=== PATIENT | female | born 1945 | race Caucasian/White ===

== ENCOUNTER → 2018-02-02 14:41 | Outpatient (CLI) | payer MEDICARE, OTHER, SELFPAY ==
[2018-02-01 10:40] LABS: Absolute Lymphocyte Count 1.77 X10^3/ul (0.83-4.51); Absolute Neutrophil Count 4.6 X10^3/uL (2.0-7.7); Basophil# 0.07 X10^3/uL; Basophil% 0.9 % (0-1); Eosinophil# 0.49 X10^3/uL; Eosinophils% 6.4 % (0-5); Hematocrit 41.6 % (37-47); Hemoglobin 13.7 g/dl (12.0-15.0); Lymphocyte # 1.77 X10^3/ul (4.0); Lymphocyte % 23.1 % (19-41); Mean Corp Hgb Conc 32.9 g/gl (32-36); Mean Corpuscular Hgb 31.6 pg (27.0-32.0); Mean Corpuscular Volume 95.9 fL (81-99); Mean Platelet Vol. 8.9 fl (6.2-12.0); Monocyte# 0.73 X10^3/uL; Monocyte% 9.5 % (0-10); Neutrophil # 4.55 X10^3/uL (2.7-7.7); Neutrophil % 59.3 % (47-70); Platelet Count 307 K/mm3 (150-450); RBC Distribution Width CV 13.4 % (11.6-14.6); RBC Distribution Width SD 45.5 fl (35.1-43.9); Red Blood Count 4.34 M/mm3 (4.2-5.4); White Blood Count 7.7 K/mm3 (4.4-11.0)
[2018-02-01 10:50] LABS: Erythrocyte Sedimentation Rate 15 mm/hr (0-30)
[2018-02-01 10:53] LABS: Absolute Neutrophil Count 4.6 X10^3/uL (2.0-7.7); Hematocrit 41.3 % (37-47); Hemoglobin 13.9 g/dl (12.0-15.0); Mean Corp Hgb Conc 33.7 g/gl (32-36); Mean Corpuscular Hgb 32.4 pg (27.0-32.0); Mean Corpuscular Volume 96.3 fL (81-99); POSITIVE COUNT NO; POSITIVE DIFFERENTIAL NO; POSITIVE MORPHOLOGY NO; Platelet Count 309 K/mm3 (150-450); Red Blood Count 4.29 M/mm3 (4.2-5.4); White Blood Count 7.8 K/mm3 (4.4-11.0)
[2018-02-01 11:24] LABS: Basophil 2 % (0-1); Eosinophil 3 % (0-5); Lymphocyte 30 % (19-41); Monocyte 6 % (0-10); Neutrophil-Segmented 59 % (47-70); Total Cells Counted 100 (MANUAL DIFF)
[2018-02-01 11:25] LABS: Platelet Estimate ADEQUATE (ADEQ); Red Cell Morphology NORM C+C NORMAL (NORM C&C)
[2018-02-01 11:27] LABS: RBC Distribution Width 13.4 % (11.6-14.6)
--- NOTE | 2018-02-02 14:42 | CT_ITS ---
STUDY: CT CHEST WITHOUT CONTRAST REASON FOR EXAM: Female, 72 years old. Cough and pertussis. RADIATION DOSAGE (If Supplied By Facility): CTDIvol = ( 10.12 ) mGy, DLP = ( 531.04 ) mGycm TECHNIQUE: Transaxial imaging was performed without the administration of intravenous contrast material. Multiplanar coronal and sagittal images were reformatted. Individualized dose optimization techniques were used for this CT. COMPARISON: Chest radiograph dated December 15, [address] the chest dated November 26, 2017.. FINDINGS: There is a nodular opacity within the right lower lobe, similar to the previous study. This measures approximately 1.9 cm in greatest dimension. There is some bronchiectasis within the right lower lobe. There is heterogeneous ground glass attenuation in the right lower lobe the lungs are hyperexpanded. There is a small left lower lobe pulmonary nodule best seen on axial image #183 measuring approximately 5 mm in greatest dimension. There curvilinear opacities within the left lower lobe that may represent sequela subsegmental atelectasis. The left lung appears to be clear, otherwise. There is no demonstrated pleural abnormality. Normal heart and pericardium. There are calcifications of the coronary arteries. There is enlargement of the precarinal node measuring 2.5 x 1.5 x 1.0 cm. Normal hilar regions. Normal unenhanced pulmonary arteries. There is atherosclerotic calcification of the aortic arch with tortuosity and elongation of the aortic arch and descending thoracic aorta. Maximum transverse dimension of the ascending thoracic aorta measures approximately 4.1 cm. Normal osseous structures. Appears to be a hyperplasia of left adrenal gland. There may be a left adrenal nodule measuring up to 2.3 cm. There is a splenic granuloma. CT/Chest without Contrast IMPRESSION: 1. Persistent nodular area in the right lower lobe. Suggest follow-up as per Fleischner's criteria. 2. Right lower lobe bronchiectasis and groundglass attenuation. 3. Mild dilatation of the ascending thoracic aorta. Electronically Signed: Rachel Banerjee MD at 10:33 EDT , Service support ,
[2018-02-06 06:22] LABS: Aspergillus fumigatus <0.10 kU/L (Class 0); Immunoglobulin E 109 IU/mL (0-100)
== END ==
PROVIDERS: Family Provider Internal Medicine; PCP Internal Medicine; Visit Provider Internal Medicine Pulmonary Disease
DX: R05 Cough (principal); A37.90 Whooping cough, unspecified species without pneumonia
CPT/HCPCS: 71250; 82785; 85007; 85025; 85027; 85652; 86003

== ENCOUNTER → 2018-02-23 14:56 | Outpatient (CLI) | payer MEDICARE, OTHER, SELFPAY ==
[2018-02-23 17:10] LABS: ALB/GLOB Ratio 0.9 RATIO (0.9-2.4); AST(SGOT) 25 U/L (15-37); Alanine Aminotransfer ALT/SGPT 25 U/L (13-56); Albumin, Serum 3.2 g/dL (3.2-5.0); Alkaline Phosphatase 79 U/L (45-117); Anion Gap 10 (5-15); BUN 24 mg/dL (7-18); BUN/Creat Ratio 17.3 RATIO (10-20); Calcium,Total 8.5 mg/dL (8.5-10.1); Chloride 104 mmol/L (98-107); Creatinine, Serum 1.39 mg/dL (0.55-1.02); EST Glomerular Filtration Rate 39 mL/min (>60); Est Glom Filt Rate - Afr Amer 48 mL/min (>60); Globulin 3.5 g/dL (2.2-4.2); Glucose 114 mg/dL (74-106); Potassium 4.5 mmol/L (3.5-5.1); Protein, Total 6.7 g/dL (6.4-8.2); Sodium Level 138 mmol/L (136-145); Uric Acid 3.9 mg/dL (2.6-6.0)
[2018-02-23 17:41] LABS: Absolute Lymphocyte Count 1.05 X10^3/ul (0.83-4.51); Absolute Neutrophil Count 10.7 X10^3/uL (2.0-7.7); Basophil# 0.03 X10^3/uL; Basophil% 0.2 % (0-1); Eosinophil# 0.02 X10^3/uL; Eosinophils% 0.2 % (0-5); Hemoglobin 13.5 g/dl (12.0-15.0); Lymphocyte # 1.05 X10^3/ul (4.0); Lymphocyte % 8.6 % (19-41); Mean Corp Hgb Conc 32.9 g/gl (32-36); Mean Corpuscular Hgb 31.9 pg (27.0-32.0); Mean Corpuscular Volume 96.9 fL (81-99); Mean Platelet Vol. 9.3 fl (6.2-12.0); Monocyte# 0.16 X10^3/uL; Monocyte% 1.3 % (0-10); Neutrophil # 10.67 X10^3/uL (2.7-7.7); Neutrophil % 87.5 % (47-70); Platelet Count 239 K/mm3 (150-450); RBC Distribution Width CV 13.7 % (11.6-14.6); RBC Distribution Width SD 47.4 fl (35.1-43.9); Red Blood Count 4.23 M/mm3 (4.2-5.4); White Blood Count 12.2 K/mm3 (4.4-11.0)
[2018-02-23 17:43] LABS: POSITIVE COUNT YES; POSITIVE DIFFERENTIAL NO; POSITIVE MORPHOLOGY YES
[2018-02-24 11:48] LABS: Pathologist Review Reviewed
== END ==
PROVIDERS: Family Provider Internal Medicine; PCP Internal Medicine; Visit Provider Internal Medicine Rheumatology
DX: M06.4 Inflammatory polyarthropathy (principal); Z79.899 Other long term (current) drug therapy; M10.00 Idiopathic gout, unspecified site; M79.7 Fibromyalgia; M18.0 Bilateral primary osteoarthritis of first carpometacarpal joints; M19.072 Primary osteoarthritis, left ankle and foot; K51.80 Other ulcerative colitis without complications
CPT/HCPCS: 36415; 80053; 84550; 85025

== ENCOUNTER → 2018-02-25 13:43 | Outpatient (CLI) | payer MEDICARE, OTHER, SELFPAY ==
[2018-03-01 04:08] LABS: QNTFERON TB Ag Minus Nil Value 0.12 IU/mL (.); QNTFERON TB Ag Value 0.17 IU/mL (.); QNTFERON TB Mitogen Value > 10.00 IU/mL (.); QNTFERON TB Nil Value 0.05 IU/mL (.)
[2018-03-01 10:36] LABS: QNTIFERON TB Gold Negative (Negative)
== END ==
PROVIDERS: Family Provider Internal Medicine; PCP Internal Medicine; Visit Provider Internal Medicine Pulmonary Disease
DX: R05 Cough (principal)
CPT/HCPCS: 36415; 86480

== ENCOUNTER 2018-03-16 11:24 | Day surgery (SDC) | payer MEDICARE, OTHER, SELFPAY ==
[2018-03-16] VITALS (8 sets, daily range): BP systolic 107–144; BP diastolic 65–108; PULSE 73–84; RESP 16–18; TEMP 36.3–36.9; O2SAT 97–100; BMI 33.1
--- NOTE | 2018-03-16 | LUNB_PTH ---
PATIENT: JONATHAN NASH LOC: EN U#:[id number] AGE/SX: 73/F ROOM: RE03/16/[address]: Dr. Bar Malhotra MD : 1945 BED: DIS: 03/16/2018 SPEC #: [id number] RECD: 03/16/18 14:47 STATUS: KAYLEE BINTA #: [id number] AMINA: 03/16/18 00:[address]: Bar Malhotra V DEPT: SURGICAL PATHOLOGY RECD BY: Akira Vaughn ENTERED: 03/16/18 14:49 SP TYPE: LUNG BX OTHR DR: Dr. Kamryn Hansen MD Tissues: Right lower lobe of lung, NOS Procedures: Special Stain Group I Surgery Specimen Level IV AFB Stain (control) GMS Stain (control) HEADER OPERATION: Bronchoscopy, transbronchial biopsy, bronchioalveolar lavage PRE-OP DIAGNOSIS: History aspergillus TISSUE SUBMITTED: RLL MICROSCOPIC DIAGNOSIS Right lower lobe of lung, biopsy: Bronchial and sub-bronchial epithelium with minimal chronic inflammation. Fragments of lung parenchyma with minimal interstitial chronic inflammation. AM:connie 03/17/18 COMMENT There is no evidence of active pneumonitis. AFB and GMS stains with matched controls are negative for micro-organisms. Clinical correlation is suggested. Immunohistochemistry ([id number]) supports the above diagnosis. Please correlate with corresponding cytology ([id number]). MICROSCOPIC DESCRIPTION Slides are reviewed. GROSS DESCRIPTION Received in fixative is one container labeled with the patient's name and designated right lower lobe transbronchial biopsy. The specimen consists of multiple irregular fragments of light landaverde soft tissue that in aggregate measure 0.2 x 0.1 x <0.1 cm. The specimen is totally submitted in one cassette. / AM:connie 03/16/18 TC:3 CPT: 94867, 61783 x2
--- NOTE | 2018-03-16 | IMM_PTH ---
PATIENT: JONATHAN NASH LOC: EN U#:[id number] AGE/SX: 73/F ROOM: RE03/16/[address]: Dr. Bar Malhotra MD : 1945 BED: DIS: 03/16/2018 SPEC #: [id number] RECD: 03/17/18 12:27 STATUS: KAYLEE BINTA #: [id number] AMINA: 03/16/18 00:[address]: Bar Malhotra V DEPT: IMMUNOHISTOCHEMISTRY RECD BY: Anjelica Del Rosario ENTERED: 03/17/18 12:28 SP TYPE: IMMUNO OTHR DR: Dr. Kamryn Hansen MD Tissues: Lung, NOS Procedures: Synapto (add) CD45 (add) CD56 (add) CHROMO (add) CK20 (add) P53 (add) CK7 (initial) PHYSICIAN & INSTITUTION [place] [id number] SPECIMEN INFORMATION: Tissue Source: RLL transbronchial biopsy Clinical Info: History aspergillus Specimen Number: [id number] CPT code: 18916, 57821 x6 METHODOLOGY: Deparaffinized sections of prefer/formalin-fixed tissue or PAP/DQ stained slides are incubated with monoclonal/polyclonal antibodies/oligonucleotide probes. Localization is made via biotin free immunoperoxidase method. Appropriate controls are performed and reacted as expected. Results on target cell population are indicated in the following table: RESULTS: ANTIBODY / CLONE RESULT CK7 (OV-TL12/30) positive CK20 (KS20.8) negative CD45 (RP2/18) positive, focal CD56 (123C3.D5) negative Chromo (LK2H10) negative Synapto (polyclonal) negative P53 (DO-7) negative These tests were developed and their performance characteristics determined by [facility]. They may not have been cleared or approved by the U.S. Food and Drug Administration. The FDA has determined that such clearance or approval is not necessary. INTERPRETATION: Right lower lobe of lung, transbronchial biopsy: Mild chronic inflammation. AM:connie 03/18/18
--- NOTE | 2018-03-16 | FLU_PTH ---
PATIENT: JONATHAN NASH LOC: EN U#:[id number] AGE/SX: 73/F ROOM: RE03/16/[address]: Dr. Bar Malhotra MD : 1945 BED: DIS: 03/16/2018 SPEC #: [id number] RECD: 03/16/18 14:49 STATUS: KAYLEE BINTA #: [id number] AMINA: 03/16/18 00:[address]: Bar Malhotra V DEPT: CYTOLOGY RECD BY: Akira Vaughn ENTERED: 03/16/18 14:51 SP TYPE: Fluid OTHR DR: Dr. Kamryn Hansen MD Tissues: Right lower lobe of lung, NOS Procedures: Pap Stain (control) Special Stain Group II Special Stain Group I Surgery Specimen Level IV AFB Stain (control) GMS Stain (control) Cell Block Cytospin Fluid HEADER OPERATION: Bronchoscopy, transbronchial biopsy, bronchioalveolar lavage PRE-OP DIAGNOSIS: History aspergillus TISSUE SUBMITTED: Bronchial washings for cytology DIAGNOSIS CYTOLOGY Bronchial washings for cytology (cytospin and cell block): Negative for malignant cells. Negative for acid-fast bacilli and fungal organisms. AM:connie 03/17/18 COMMENT AFB and GMS stains with matched controls support the above diagnosis. Please correlate with corresponding surgical case ([id number]). CYTOLOGY STUDY Slides are reviewed. CYTOLOGY GROSS Received is 50 ml of red cloudy fluid labeled with the patient's name and and designated per the requisition as bronchial washings. Submitted for cytology preparation including cell block. / 03/16/18 TC:5 CPT: 42566, 26486, 70430 x2
--- NOTE | 2018-03-16 13:40 | RAD_ITS ---
STUDY: X-RAY CHEST REASON FOR EXAM: Female, 73 years old. Postbronchoscopy. Follow-up. TECHNIQUE: Single frontal view of the chest. COMPARISON: December 15, 2017 FINDINGS: The lungs are clear and expanded. There is no demonstrated pleural abnormality. Normal size heart. Normal mediastinum and jaclyn. Normal visualized pulmonary arteries. Normal visualized aortic arch and descending thoracic aorta. Normal visualized thoracic spine. Normal visualized ribs, clavicles, and shoulders. There is no demonstrated abnormality of the visualized soft tissue structures of the upper abdomen. RAD/Chest 1 View (Portable) IMPRESSION: No significant interval change and no acute pathology. Electronically Signed: Holden Nascimento MD at 14:48 EDT , Service support ,
[2018-03-16 13:55] LABS: Cytology, Body Fluid / CSF SEE PATHOLOGY REPORT
[2018-03-16 15:22] LABS: Color/Body Fluid RED; Source- Body Fluid BRONCHIAL LAVAGE
[2018-03-16 15:23] LABS: Appearance/Body Fluid TURBID; White Blood Count/Body Fluid 250 /mm3
[2018-03-16 15:27] LABS: Body Fluid QC Type(s) BF2Q,BF3Q; Lymphocytes 31 %; Macrophages 1 %; Mesothelial Cells 3 %; Monocytes 11 %; Neutrophil (Segs) 54 %
[2018-03-17 12:14] LABS: Pathologist Comment/Body Fluid Reviewed
== END 2018-03-16 15:14 | disposition home or self-care (01) ==
LOC: EN 11:26
PROVIDERS: Family Provider Internal Medicine; PCP Internal Medicine; Visit Provider Internal Medicine Pulmonary Disease
PROC: 0BJ08ZZ Inspection of Tracheobronchial Tree, Via Natural or Artificial Opening Endoscopic (ICD-10-PCS; CPT 31622; principal; 2018-03-16 12:00)
DX: R05 Cough (principal); I10 Essential (primary) hypertension; K76.0 Fatty (change of) liver, not elsewhere classified; K21.9 Gastro-esophageal reflux disease without esophagitis; Z79.52 Long term (current) use of systemic steroids; Z93.2 Ileostomy status
CPT/HCPCS: 31624; 71045; 76000; 87015; 87070; 87101; 87116; 87205; 87206; 88108; 88305; 88312; 88313; 88341; 88342; 89050; J7120

== ENCOUNTER → 2018-03-24 13:18 | Outpatient (CLI) | payer MEDICARE, OTHER, SELFPAY ==
--- NOTE | 2018-03-24 13:32 | RAD_ITS ---
STUDY: X-RAY CHEST REASON FOR EXAM: Female, 73 years old. Cough for several weeks. TECHNIQUE: PA and lateral views of the chest. COMPARISON: March 16, 2018. FINDINGS: The lungs are clear and expanded. There is no demonstrated pleural abnormality. Normal size heart. Normal mediastinum and jaclyn. Normal visualized pulmonary arteries. Normal visualized aortic arch and descending thoracic aorta. Normal visualized thoracic spine. Normal visualized ribs, clavicles, and shoulders. There is no demonstrated abnormality of the visualized soft tissue structures of the upper abdomen. RAD/Chest PA and Lateral IMPRESSION: No acute cardiopulmonary disease or interval change. Electronically Signed: Van Saeed DO at 14:09 EDT Tel [phone], Service support ,
[2018-03-24 14:16] LABS: Rheumatoid Factor < 10.0 IU/mL (<15)
[2018-03-26 10:39] LABS: ANTINUCLEAR ANTIBODIES DIRECT Negative (Negative)
[2018-03-26 11:05] LABS: Angiotensin Convert Enzyme 48 U/L (14-82)
== END ==
PROVIDERS: Family Provider Internal Medicine; PCP Internal Medicine; Visit Provider Internal Medicine Pulmonary Disease
DX: R05 Cough (principal)
CPT/HCPCS: 36415; 71046; 82164; 86038; 86431

== ENCOUNTER → 2018-05-13 08:46 | Outpatient (CLI) | payer MEDICARE, OTHER, SELFPAY ==
--- NOTE | 2018-05-13 08:50 | CDU_ITS ---
Reason For Study: Tachycardia Rt. Velocities/BP Lt. Velocities/BP Prox CCA 74/13 cm/sec. Prox CCA 52/9 cm/sec. Mid CCA 65/14 cm/sec. Mid CCA 58/13 cm/sec. Dist CCA 49/15 cm/sec. Dist CCA 51/12 cm/sec. Prox ICA 30/9 cm/sec. Prox ICA 44/17 cm/sec. Mid ICA 62/20 cm/sec. Mid ICA 55/15 cm/sec. Dist ICA 67/26 cm/sec. Dist ICA 62/24 cm/sec. Rt. ICA/CCA = 1.03. Lt. ICA/CCA = 1.06. Prox ECA 67/10 cm/sec. Prox ECA 54/8 cm/sec. Rt. Vert. 35/11 cm/sec. Lt. Vert. 62/20 cm/sec. Right Extracranial There is no significant atherosclerotic plaque noted in the right common carotid artery. There is heterogeneous, smooth atherosclerotic plaque noted in the right internal carotid artery. There is no significant atherosclerotic plaque noted in the right external carotid artery. Antegrade flow is noted in the right vertebral artery. Left Extracranial There is no significant atherosclerotic plaque noted in the left common carotid artery. There is no significant atherosclerotic plaque noted in the left internal carotid artery. There is heterogeneous, irregular atherosclerotic plaque noted in the left external carotid artery. Antegrade flow is noted in the left vertebral artery. Procedure Carotid Duplex [id number]. Exam performed in department. Interpretation Summary Mild (<50%) stenosis right extracranial internal carotid. Mild (<50%) stenosis left extracranial internal carotid. Flow within the vertebral arteries is antegrade bilaterally. Ordering Physician: Kamryn Hansen Referring Physician: Kamryn Hansen Performed By: Laisha Mckenzie, GISELLECS, RVT
== END ==
PROVIDERS: Family Provider Internal Medicine; PCP Internal Medicine; Visit Provider Internal Medicine
DX: I65.23 Occlusion and stenosis of bilateral carotid arteries (principal); R00.0 Tachycardia, unspecified
CPT/HCPCS: 93225; 93226; 93880

== ENCOUNTER → 2018-05-18 12:11 | Outpatient (CLI) | payer MEDICARE, OTHER, SELFPAY ==
--- NOTE | 2018-05-18 12:14 | MRI_ITS ---
STUDY: MRI BRAIN WITH AND WITHOUT CONTRAST (ATTENTION INTERNAL AUDITORY CANALS - I.A.C.'s) REASON FOR EXAM: Female, 73 years old. NO EAR COMPALINTS, C/O DIZZINESS X 4 WEEKS. TECHNIQUE: Standardized multiplanar fat and water weighted pulse sequences were obtained. 10 ml of Gadavist contrast material was administered intravenously for the contrast portion of the examination. COMPARISON: None. FINDINGS: Normal bilateral temporal bones. Normal bilateral internal auditory canals. There is no demonstrated intracanalicular or cisternal vestibular schwannoma (acoustic neuroma). There is no enhancement of the bilateral VIIth or VIIIth cranial nerves. Normal bilateral cochlea, vestibules and semicircular canals. Normal size of the ventricles and extra-axial spaces for the patient's age. There are a limited number of small white matter hyperintensities, distributed throughout the deep white matter tracts of the cerebral hemispheres, consistent with mild chronic white matter ischemic changes. Normal bilateral basal ganglia. Normal thalami. Normal flow voids within the major intracranial circulation suggesting patency by spin echo criteria. Normal venous enhancement. There is no enhancing intra-axial or extra-axial abnormality. There is no extra-axial fluid accumulation. Normal sella turcica, pituitary gland, infundibular stalk, optic chiasm and hypothalamus. Normal tectal plate and pineal gland. Normal midbrain, waqar and medulla. Normal cerebellum. Normal basal cisterns. No demonstrated orbital abnormality, within the constraints of a routine brain study. Normal visualized paranasal sinuses. Normal calvarium and skull base. Normal visualized soft tissue structures. Normal visualized upper cervical spine. MRI/Brain W/WO Contrast IMPRESSION: Unremarkable unenhanced and enhanced MRI of the bilateral internal auditory canals (I.A.C's). Electronically Signed: Ivan Schmitt MD at 13:27 EDT Tel , Service support ,
[2018-05-18 12:45] LABS: CREATININE FINGERSTICK 0.9 mg/dL (0.55-1.02); EGFR FINGERSTICK > 60.0000 mL/min (>60)
== END ==
PROVIDERS: Family Provider Internal Medicine; PCP Internal Medicine; Visit Provider Otolaryngology
DX: R27.0 Ataxia, unspecified (principal)
CPT/HCPCS: 70553; A9585

== ENCOUNTER → 2018-07-04 09:44 | Outpatient (CLI) | payer MEDICARE, OTHER, SELFPAY | PROVIDERS: Family Provider Internal Medicine; PCP Internal Medicine; Visit Provider Internal Medicine Cardiovascular Disease | DX: R06.09 Other forms of dyspnea (principal) | CPT/HCPCS: 93306 ==

== ENCOUNTER → 2018-07-07 11:12 | Outpatient (CLI) | payer MEDICARE, OTHER, SELFPAY | PROVIDERS: Family Provider Internal Medicine; PCP Internal Medicine; Visit Provider Internal Medicine | DX: M25.562 Pain in left knee (principal) | CPT/HCPCS: 73564 ==

== ENCOUNTER → 2018-07-11 10:01 | Outpatient (CLI) | payer MEDICARE, OTHER, SELFPAY | PROVIDERS: Family Provider Internal Medicine; PCP Internal Medicine | DX: Z43.2 Encounter for attention to ileostomy (principal) | CPT/HCPCS: 99211; G0463 ==

== ENCOUNTER → 2018-07-14 14:31 | Outpatient (CLI) | payer MEDICARE, OTHER, SELFPAY | PROVIDERS: Family Provider Internal Medicine; PCP Internal Medicine; Visit Provider Internal Medicine | DX: M79.89 Other specified soft tissue disorders (principal); M25.562 Pain in left knee | CPT/HCPCS: 93971 ==

== ENCOUNTER → 2018-08-01 15:17 | Outpatient (CLI) | payer MEDICARE, OTHER, SELFPAY ==
--- NOTE | 2018-08-01 15:46 | CT_ITS ---
STUDY: CT CHEST WITHOUT CONTRAST REASON FOR EXAM: Female, 73 years old. Cough RADIATION DOSAGE (If Supplied By Facility): CTDIvol = ( 14.8 ) mGy, DLP = ( 546.16 ) mGycm TECHNIQUE: Transaxial imaging was performed without the administration of intravenous contrast material. Individualized dose optimization techniques were used for this CT. COMPARISON: None. FINDINGS: Lungs are well expanded. There are fibrotic changes in the RIGHT lower lung. There are NO infiltrates. There is no demonstrated pleural abnormality. Normal heart and pericardium. Normal mediastinum. Normal hilar regions. Normal unenhanced pulmonary arteries. There is atherosclerotic calcification of the aortic arch with tortuosity and elongation of the aortic arch and descending thoracic aorta. Normal osseous structures. There is no demonstrated abnormality of the visualized upper abdomen. CT/Chest without Contrast IMPRESSION: Lungs are well expanded. There are fibrotic changes in the RIGHT lower lung. There are NO infiltrates. There is no demonstrated pleural abnormality. Normal heart and pericardium. Electronically Signed: Gui Cramer MD at 7:30 EDT , Service support ,
[2018-08-01 17:11] LABS: CRP 7.02 mg/L (0.0-3.0)
[2018-08-01 17:14] LABS: Erythrocyte Sedimentation Rate 10 mm/hr (0-30)
== END ==
PROVIDERS: Family Provider Internal Medicine; PCP Internal Medicine; Visit Provider Internal Medicine Pulmonary Disease
DX: R05 Cough (principal)
CPT/HCPCS: 36415; 71250; 85652; 86140

== ENCOUNTER → 2018-08-20 10:56 | Outpatient (CLI) | payer MEDICARE, OTHER, SELFPAY ==
[2018-08-20 11:27] LABS: Absolute Lymphocyte Count 3.28 X10^3/ul (0.83-4.51); Absolute Neutrophil Count 7.2 X10^3/uL (2.0-7.7); Basophil# 0.08 X10^3/uL; Basophil% 0.7 % (0-1); Eosinophil# 0.22 X10^3/uL; Eosinophils% 1.8 % (0-5); Hematocrit 41.5 % (37-47); Hemoglobin 13.2 g/dl (12.0-15.0); Lymphocyte # 3.28 X10^3/ul (4.0); Lymphocyte % 27.1 % (19-41); Mean Corp Hgb Conc 31.8 g/gl (32-36); Mean Corpuscular Volume 97.4 fL (81-99); Mean Platelet Vol. 9.2 fl (6.2-12.0); Monocyte# 0.93 X10^3/uL; Monocyte% 7.7 % (0-10); Neutrophil # 7.23 X10^3/uL (2.7-7.7); Neutrophil % 59.8 % (47-70); Platelet Count 240 K/mm3 (150-450); RBC Distribution Width CV 13.8 % (11.6-14.6); RBC Distribution Width SD 48.3 fl (35.1-43.9); Red Blood Count 4.26 M/mm3 (4.2-5.4); White Blood Count 12.1 K/mm3 (4.4-11.0)
[2018-08-20 11:28] LABS: POSITIVE COUNT YES; POSITIVE DIFFERENTIAL NO; POSITIVE MORPHOLOGY YES
[2018-08-20 11:53] LABS: ALB/GLOB Ratio 0.9 RATIO (0.9-2.4); AST(SGOT) 21 U/L (15-37); Alanine Aminotransfer ALT/SGPT 28 U/L (13-56); Albumin, Serum 3.1 g/dL (3.2-5.0); Alkaline Phosphatase 70 U/L (45-117); Anion Gap 7 (5-15); BUN 23 mg/dL (7-18); BUN/Creat Ratio 20.7 RATIO (10-20); Calcium,Total 9.1 mg/dL (8.5-10.1); Chloride 105 mmol/L (98-107); Creatinine, Serum 1.11 mg/dL (0.55-1.02); EST Glomerular Filtration Rate 51 mL/min (>60); Est Glom Filt Rate - Afr Amer 62 mL/min (>60); Globulin 3.6 g/dL (2.2-4.2); Glucose 143 mg/dL (74-106); Potassium 3.8 mmol/L (3.5-5.1); Protein, Total 6.7 g/dL (6.4-8.2); Sodium Level 140 mmol/L (136-145); Uric Acid 4.6 mg/dL (2.6-6.0)
[2018-08-23 09:32] LABS: Pathologist Review Reviewed
== END ==
PROVIDERS: Family Provider Internal Medicine; PCP Internal Medicine; Referring Provider Internal Medicine Rheumatology; Visit Provider Internal Medicine Rheumatology
DX: M06.4 Inflammatory polyarthropathy (principal); M10.00 Idiopathic gout, unspecified site; M79.7 Fibromyalgia; M18.0 Bilateral primary osteoarthritis of first carpometacarpal joints; M19.072 Primary osteoarthritis, left ankle and foot; K51.80 Other ulcerative colitis without complications; Z79.899 Other long term (current) drug therapy
CPT/HCPCS: 36415; 80053; 84550; 85025

== ENCOUNTER → 2018-10-07 13:17 | Outpatient (CLI) | payer MEDICARE, OTHER, SELFPAY ==
--- NOTE | 2018-10-07 09:30 | RAD_ITS ---
STUDY: X-RAY - LUMBAR SPINE REASON FOR EXAM: Female, 73 years old. Acute back pain. TECHNIQUE: 5 view(s) of the lumbar spine were obtained. COMPARISON: None FINDINGS: There is generalized osteopenia. Normal lumbar lordosis. There is no substantial scoliosis. There is a normal alignment of the vertebrae. Normal vertebral bodies and endplates. There is intervertebral disc space narrowing most marked at L5-S1. There is diffuse facet sclerosis. There are vascular calcifications. There are tubal ligation clips in the pelvis. There is an ostomy present in the right side of the abdomen. RAD/L/S Spine Min 4 Views IMPRESSION: Osteopenia with lumbar spondylosis most marked at L5-S1. Electronically Signed: Holden Nascimento MD at 16:35 EST , Service support ,
== END ==
PROVIDERS: Family Provider Internal Medicine; PCP Internal Medicine; Referring Provider Internal Medicine; Visit Provider Internal Medicine
DX: M54.9 Dorsalgia, unspecified (principal)
CPT/HCPCS: 72110

== ENCOUNTER 2018-11-07 05:13 | Observation (INO) | payer MEDICARE, OTHER, SELFPAY ==
[2018-11-07] VITALS (18 sets, daily range): BP systolic 123–195; BP diastolic 52–92; PULSE 75–87; RESP 15–24; TEMP 36.8–37.2; O2SAT 95–98; BMI 39.8; BMI 38.4
--- NOTE | 2018-11-07 05:16 | ED.RN ---
RN CALLED FOR EKG, NO OLD EKGS IN MUSE
--- NOTE | 2018-11-07 05:28 | RAD_ITS ---
STUDY: X-RAY CHEST REASON FOR EXAM: Female, 73 years old. Chest pain TECHNIQUE: Single frontal view of the chest. COMPARISON: March 24, 2018. FINDINGS: No pneumothorax. No pleural effusion. Right basilar atelectasis. No focal consolidation. Cardiomegaly. Aortic calcifications. There are diffuse degenerative changes of the visualized thoracic spine. There is degenerative osteoarthritis of the bilateral shoulders. There is no demonstrated abnormality of the visualized soft tissue structures of the upper abdomen. RAD/Chest 1 View (Portable) IMPRESSION: There is right basilar atelectasis. Cardiomegaly. Electronically Signed: Malik Lopez, at 6:40 EST Tel , Service support ,
--- NOTE | 2018-11-07 05:28 | EKG12_ITS ---
Test Reason : CP, SOB Blood Pressure : / mmHG Vent. Rate : 078 BPM Atrial Rate : 078 BPM P-R Int : 160 ms QRS Dur : 082 ms QT Int : 374 ms P-R-T Axes : 026 030 016 degrees QTc Int : 426 ms Normal sinus rhythm Normal ECG Confirmed by MIN MORELAND, TAYLOR ([id number]), food editor BALDEMAR SAINZ ([id number] on 11/11/2018 1:21:07 PM Referred By: EFRAIN Confirmed By:TAYLOR COPELAND MD
[2018-11-07 05:51] LABS: Absolute Lymphocyte Count 3.59 X10^3/ul (0.83-4.51); Absolute Neutrophil Count 8.6 X10^3/uL (2.0-7.7); Basophil# 0.14 X10^3/uL; Eosinophil# 0.32 X10^3/uL; Eosinophils% 2.2 % (0-5); Hematocrit 40.1 % (37-47); Hemoglobin 12.8 g/dl (12.0-15.0); Lymphocyte # 3.59 X10^3/ul (4.0); Lymphocyte % 24.9 % (19-41); Mean Corp Hgb Conc 31.9 g/gl (32-36); Mean Corpuscular Volume 97.1 fL (81-99); Mean Platelet Vol. 9.1 fl (6.2-12.0); Monocyte# 1.35 X10^3/uL; Monocyte% 9.4 % (0-10); Neutrophil # 8.62 X10^3/uL (2.7-7.7); Neutrophil % 59.9 % (47-70); Platelet Count 307 K/mm3 (150-450); RBC Distribution Width CV 14.8 % (11.6-14.6); Red Blood Count 4.13 M/mm3 (4.2-5.4); White Blood Count 14.4 K/mm3 (4.4-11.0)
[2018-11-07 05:53] LABS: POSITIVE COUNT YES; POSITIVE DIFFERENTIAL NO; POSITIVE MORPHOLOGY YES
[2018-11-07] MEDS: Aspirin 81 MG TAB.CHEW 324 MG PO (05:54)
[2018-11-07 06:03] LABS: Anion Gap 8 (5-15); BUN 19 mg/dL (7-18); BUN/Creat Ratio 18.4 RATIO (10-20); Calcium,Total 8.8 mg/dL (8.5-10.1); Chloride 106 mmol/L (98-107); Creatinine, Serum 1.03 mg/dL (0.55-1.02); EST Glomerular Filtration Rate 55 mL/min (>60); Est Glom Filt Rate - Afr Amer 67 mL/min (>60); Estimated Creatinine Clearance 39.04 ml/min; Glucose 102 mg/dL (74-106); Potassium 3.9 mmol/L (3.5-5.1); Sodium Level 143 mmol/L (136-145)
[2018-11-07] MEDS: Morphine 4 MG/ML Syringe IV (06:13)
[2018-11-07] MEDS: Ondansetron 4 MG/2 ML Vial IV (06:14)
--- NOTE | 2018-11-07 07:21 | CT_ITS ---
STUDY: CTA CHEST REASON FOR EXAM: Female, 73 years old. Chest pain. Shortness of breath. Left arm pain. RADIATION DOSAGE (If Supplied By Facility): CTDIvol = ( 15.29 ) mGy, DLP = ( 555.11 ) mGycm TECHNIQUE: The examination was performed with the intravenous administration of 100CC ml of Isovue 370 contrast material. Post-processing of the angiographic images was performed, with multiplanar reformation and 3D reconstruction. Individualized dose optimization techniques were used for this CT. COMPARISON: Comparison is made to prior CT scan examination of August 01, 2018. FINDINGS: Normal enhancement of the main pulmonary artery and right and left pulmonary arteries. Normal enhancement of the bilateral peripheral pulmonary arteries. There is no demonstrated pulmonary embolism. Normal thoracic aorta and visualized great vessels. There is no demonstrated aortic dissection. There are calcifications of the coronary arteries. There are visualized mediastinal lymph nodes, which are within normal size limits, and with normal morphology. Normal hilar regions. Normal visualized trachea and bronchi. The lungs are well expanded. Increased interstitial markings with areas of confluence in both lower lobes. This is suggestive of bibasilar atelectasis. This was not present on prior study. Normal pleura. Normal chest wall structures. There are degenerative changes of thoracic spine. There is fatty infiltration of the liver. CT/CTA Chest W/WO Contrast IMPRESSION: There is no evidence of pulmonary embolism. Increased interstitial markings at the lung bases with areas of confluence suggestive of atelectasis superimposed on scarring. Electronically Signed: Vito Loyola MD at 8:20 EST Tel [phone], Service support ,
--- NOTE | 2018-11-07 07:27 | ED.DCSUM_ITS ---
- ER Visit Summary Date of Service: 11/07/18 Chief Complaint: Chest pain History of Present Illness: The patient is a 73 F who presents with chest pain. No history of prior similar symptoms. About 2-1/2 hours before presentation she had sudden onset of moderate left-sided chest pain which she describes as a tightness. She also complains of nausea and a feeling of indigestion and burping. She complains of feeling short of breath. No diaphoresis. No recent travel surgery prior history of DVT or pulmonary embolism. No known coronary artery disease. Physical Examination: Initial blood pressure 195/92 vitals otherwise unremarkable Moist mucous membranes Heart regular rate and rhythm Lungs are clear Abdomen soft 2+ symmetric palpable radial pulses but she does have cyanosis of the fingertips capillary refill of 4 seconds. Alert Test Results: EKG shows normal sinus rhythm at a rate of 78. Chest x-ray shows cardiomegaly and right basilar atelectasis. Labs are notable for white blood cell count 14.4. Troponin is negative. CTA of the chest is pending. Emergency Department Course and Treatment: Given patient's initial cyanosis of the bilateral digits with chest pain I was concerned about possible vascular etiology. However this rapidly resolved and on reevaluation her fingers are pink and warm with normal capillary refill. Patient's description of symptoms sounds more concerning for cardiac ischemia. She underwent evaluation as above with EKG chest x-ray laboratory studies. She was given aspirin. She was given sublingual nitroglycerin. She had no change in symptoms. She was given IV morp shay and on the complains of mild pain on reevaluation. However on reevaluation she describes her pain as pleuritic. She states it really only hurts when she takes a deep breath. A CTA of the chest was ordered and is currently pending. Patient just with hospitalist and will be admitted. Treatment Plan: [] Disposition: Admit Impression: Chest pain This note was generated with [employer] dictation software. It may contain incorrect words, spelling, and punctuation that were not noted in review of the chart prior to signing ED Disposition - Plan for ED Patient: Chief Complaint: Chest Pain Referrals: Kamryn Hansen MD [Primary Care Provider] -
--- NOTE | 2018-11-07 09:23 | ECHOD_ITS ---
Reason For Study: murmur Procedure This was a 2D Doppler, Color Flow transthoracic echocardiogram. Exam performed portable in patient room. Left Ventricle Normal size and thickness. The estimated ejection fraction is 65 %. Stage 1 diastolic dysfunction. No regional wall motion abnormalities noted. Right Ventricle Normal size and thickness. Normal systolic function. Atria Normal left atrium. Normal right atrium. Normal atrial septum. Mitral Valve The mitral valve is structurally normal. No prolapse or stenosis seen. Trivial mitral valve insufficiency. Tricuspid Valve Normal tricuspid valve. Trivial tricuspid valve insufficiency. Right ventricular systolic pressure estimated to be 32 mmHg. Aortic Valve Trisinus/trileaflet aortic valve. Mild diffuse aortic valve thickening. Mild aortic stenosis. Peak aortic valve gradient 17 mmHg. Mean aortic valve gradient 10 mmHg. Pulmonic Valve Normal pulmonic valve. No eccentric pulmonic valve insufficiency. Great Vessels Normal aortic root. Mild atherosclerosis of the aortic arch. Normal inferior vena cava. Inferior vena cava collapse with sniff. Pericardium/Pleural No pericardial effusion. MMode/2D Measurements & Calculations LVIDd: 5.4 cm IVSd: 1.1 cm LVOT diam: 2.3 cm LVIDs: 3.7 cm LVPWd: 1.00 cm LVOT area: 4.0 cm2 RVDd: 2.9 cm FS: 30.6 % Ao root diam: 3.2 cm LAV(MOD-bp): 53.9 ml LA A4 area: 17.6 cm2 LAV(MOD-bp) Indexed: 27.0 ml/m2 LAV(MOD-sp2): 50.2 ml LAV(MOD-sp4): 50.0 ml LA dimension(2D): 3.9 cm RA A4 area: 14.6 cm2 Time Measurements MV dec time: 0.16 sec Doppler Measurements & Calculations MV E max harlan: 69.8 cm/sec Lat Peak E' Harlan: 5.3 cm/sec Med Peak E' Harlan: 9.4 cm/sec MV A max harlan: 110.7 cm/sec E/E' lat: 13.2 E/E' med: 7.5 MV E/A: 0.63 Ao V2 max: 208.3 cm/sec LV V1 max: 106.8 cm/sec SV(LVOT): 97.2 ml Ao max P.4 mmHg LV V1 max P.6 mmHg Ao V2 mean: 155.9 cm/sec LV V1 mean P.7 mmHg Ao mean P.3 mmHg LV V1 mean: 78.2 cm/sec Ao V2 VTI: 42.2 cm LV V1 VTI: 24.0 cm KRISTINA(I,D): 2.3 cm2 KRISTINA(V,D): 2.1 cm2 PA V2 max: 107.7 cm/sec TR max harlan: 245.0 cm/sec TR max P.1 mmHg Interpretation Summary The estimated ejection fraction is 65 %. Stage 1 diastolic dysfunction. Trivial mitral valve insufficiency. Trivial tricuspid valve insufficiency. Right ventricular systolic pressure estimated to be 32 mmHg. Mild aortic stenosis. Compared to echo report dated 07/04/2018, no appreciable changes noted. Ordering Physician: Keyla Russell Referring Physician: Kamryn Hansen Performed By: Pretty De Santiago, JULIANNA, RVT
--- NOTE | 2018-11-07 09:37 | HP.PCM_ITS ---
Problem List (1) Chest pain Status: Acute (2) Murmur, cardiac Status: Acute (3) Leukocytosis Status: Acute (4) Nonrheumatic mitral (valve) insufficiency Status: Chronic Comment: mild (5) Hyperlipidemia Status: Chronic (6) Hypertension Status: Chronic Qualifiers: (7) Fatigue Status: Chronic (8) Cirrhosis, cryptogenic Status: Acute (9) On prednisone therapy Status: Chronic (10) Ulcerative colitis Status: Chronic (11) History of colectomy Status: Chronic Comment: has a nub of colon left that could not be removed (12) GERD (gastroesophageal reflux disease) Status: Chronic (13) Arthritis Status: Chronic Comment: sees Dr. Siegel and can not tell me what type of arthritis she has (14) Obesity (BMI 30-39.9) Status: Chronic (15) Gout Status: Chronic History of Present Illness Date of Admission: 11/07/18 Chief Complaint: chest with SOB and nausea The patient is a 73 year old F with a past medical history of hypertension, stage I diastolic dysfunction, gastroesophageal reflux disease, chronic steroid therapy for lung disease, mild mitral insufficiency on an echocardiogram done in June 2018, cirrhosis/nonalcoholic and arthritis (follows with Dr. Siegel but could not tell me what type of arthritis). She presented to the emergency department at [facility] on 11/07/2018 complaining of awakening at approximately 4:30 AM with tightness in her chest, shortness of breath, nausea. The pain in the chest radiated across the anterior chest wall and down the left arm. She denies any history of coronary artery disease personally and also denies family history. She denies any history of VTE. She was given nitroglycerin in the squad and also again in the emergency room but this did not relieve her pain. Morphine relieved her pain. She is also complaining of shaking chills this morning and this is very unusual as she is usually very warm. She also has some night sweats. She is chronically on prednisone and has her teeth cleaned 4-6 weeks ago. She has never been told that she has a murmur before. Chest x-ray showed possible atelectasis versus scarring in the bases. CTA of the chest was negative for pulmonary emboli but did show atelectasis versus scarring versus infiltrate in the bases. Vital signs of presentation to the emergency room were temp 98.4, pulse rate 78, blood pressure 195/92, respiratory rate 19 and she was 95% saturated on room air. Labs showed an elevated white blood cell count at 14.4 with 60% neutrophils but 2.6% immature granulocytes. Hemoglobin and platelets were within normal limits. Electrolytes were within normal limits and the BUN was 19 with a creatinine of 1.03 this is within her baseline. Initial troponin is less than 0.015. She is being admitted to the progressive care unit for evaluation for chest pain and new heart murmur. Past Medical History Past Medical History (Chronic Problems): Chronic Problems (Last Reviewed 11/07/18 @ 09:47 by Sushma Russell DO) On prednisone therapy (Chronic) Ulcerative colitis (Chronic) History of colectomy (Chronic) has a nub of colon left that could not be removed GERD (gastroesophageal reflux disease) (Chronic) Arthritis (Chronic) sees Dr. 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 Ulcerative colitis K51.90 Allergies erythromycin base Allergy (Verified 11/07/18 05:18) Rash hydromorphone [From Dilaudid] Allergy (Verified 11/07/18 05:18) CAN NOT BREATH hydroxychloroquine sulfate [From Plaquenil] Allergy (Verified 11/07/18 05:18) Rash pregabalin [From Lyrica] Allergy (Verified 11/07/18 05:18) Rash Sulfa (Sulfonamide Antibiotics) Allergy (Verified 11/07/18 05:18) Rash CERTAIN TAPES Adverse Reaction (Uncoded 11/07/18 05:18) SKIN BREAKDOWN Home Medications: Ambulatory Orders Medication Instructions Recorded Allopurinol [Zyloprim] 200 mg PO DAILYCM 10/10/15 Albuterol Inhaler [Ventolin Hfa 1 - 2 puff INHALATION Q4H PRN PRN 03/14/18 (SP)] Aspirin E.C. [Ecotrin] 81 mg PO DAILY@0800 03/14/18 Fluticasone 0.05% [Flonase Nasal 1 spray NASAL QHS 03/14/18 [place]] Montelukast [Singulair] 10 mg PO DAILY 03/14/18 Prednisone 7 mg PO DAILY 03/14/18 Vitamin B Complex/Folic Acid 2,000 mcg PO DAILY 03/14/18 [B-Stress Capsules] ergocalciferol (vitamin D2) 50,000 50,000 unit PO QWEEK 06/01/18 unit capsule metoprolol succinate ER 50 mg 50 mg PO QDAY #90 tab 06/01/18 tablet,extended release 24 hr esomeprazole magnesium 20 mg 20 mg PO DAILY 07/15/18 capsule,delayed release Mesalamine [Canasa] 11/07/18 Ursodiol [Chelsea] 500 mg PO QHS 11/07/18 Ursodiol [Chelsea] 750 mg PO DAILY 11/07/18 Surgical History: Surgical History (Last Reviewed 11/07/18 @ 09:47 by Sushma Russell DO) History of colectomy Z90.[address] Z93.2 Psychiatric History: No pertinent psych hx EXPLORATION GEOLOGIST History: No pertinent EXPLORATION GEOLOGIST history Lives: Spouse/ Significant Other Smoking Status: Never smoker Tobacco Use: Non-smoker Alcohol: Rare Drugs: None - *Family History Maternal Family History: Family History (Last Reviewed 07/15/18 @ 10:46 by Cristian Montero MD) Mother Cancer Other Diabetes History Items: - - GM may have had CAD Sibling Family History: Family History (Last Reviewed 07/15/18 @ 10:46 by Cristian Montero MD) Mother Cancer Other Diabetes History Items: Diabetes Review of Systems Constitutional: Reports: Chills, Night Sweats. Denies: Fever, Weight Change Eyes: Denies: Blurred vision, Pain HEENT: Reports: Head Aches. Denies: Difficulty Swallowing, Sinus Congestion, Sinus Drainage, Sore Throat Cardiovascular: Reports: Chest Pain, Edema. Denies: Light Headedness, Palpitations, Paroxysmal Noc. Dyspnea, Syncope Respiratory: Reports: Shortness of Breath, Shortness of breath at rest, Shortness of breath upon exertion. Denies: Cough, Sputum production, Wheezing Gastrointestinal: Reports: Nausea. Denies: Abdominal Pain, Diarrhea, Vomiting Genitourinary: Denies: Dysuria Gynecological: Denies: Breast symptoms, Vaginal discharge Musculoskeletal: Reports: Joint Tenderness - chronic - she has an inflammatroy arthropathy per Dr. Siegel. Denies: Joint Pain Skin: Denies: Jaundice, Rash, Wounds Neurological: Denies: Slurred speech, Confusion, Focal weakness, Numbness, Tingling, Seizures Psychiatric: Denies: Anxiety, Depression, Homicidal Ideations, Suicidal Ideations Endocrine: Denies: Hx of Thyroiditis Hematologic/ Lymphatic: Denies: Easy Bruising, Easy Bleeding, Hx of blood clot VTE Information - Inpt Only VTE Present on Admission: No VTE Mechan Device Prophylaxis: SCD's, Knee High JESSICA Hose VTE Pharm Prophylaxis ordered?: Yes Patient Problems: Active and Suspected Problems (Last Reviewed 11/07/18 @ 09:47 by Sushma Russell DO) Chest pain (Acute) Murmur, cardiac (Acute) Leukocytosis (Acute) Cirrhosis, cryptogenic (Acute) - Physical Exam General: Alert, Oriented x3, Cooperative, No apparent distress, Well developed, Well nourished, - - tells me that she has gained a lot of weight since placed on Prednisone several months ago HEENT: Atraumatic, PERRLA, EOMI, Normocephalic Neck: Supple, No JVD, Negative Carotid Bruits, No Nodes, No Nuchal Rigidity, Trachea Midline Lungs: Normal air movement, Rales - coarse rales in the bases that did not clear after several deep breaths Cardiovascular: Regular rate, Normal S1, Normal S2, Murmur - She has a 2/6 BHANU at the second right intercostal space that radiates to the left ventricular outflow track. She has a systolic murmur which is coarse in the left axillary area. Abdomen: Bowel Sounds Present, Soft, Non Tender, Obese Extremities: No clubbing, No cyanosis, Capillary Refill Less than 3 Seconds, No Calf Tenderness, Edema, Peripheral Pulses Normal Skin: No rashes, No breakdown Musculoskeletal: - Neurological: Cranial nerves II-XII grossly intact, Neuro grossly intact Psych/Mental Status: Normal Affect, Appropriate Vital Signs Temp Pulse Resp BP Pulse Ox 99.0 F 80 22 H 128/60 H 97 11/07/18 08:26 11/07/18 08:26 11/07/18 08:26 11/07/18 08:26 11/07/18 08:26 Oxygen Flow Rate (L/min) 2 Oxygen Delivery Method Nasal Cannula Weight: 216 lb 11.43 oz Body Mass Index (BMI) 38.4 Laboratory Tests Past 24 Hrs 11/07/18 11/07/18 05:20 05:20 WBC 14.4 H RBC 4.13 L Hgb 12.8 Hct 40.1 MCV 97.1 MCH 31.0 MCHC 31.9 L RDW 14.8 H RDW Differential 50.0 H Plt Count 307 MPV 9.1 Immature Gran % (Auto) 2.600 H Neut % (Auto) 59.9 Lymph % (Auto) 24.9 Brooks % (Auto) 9.4 Eos % (Auto) 2.2 Baso % (Auto) 1.0 Absolute Neuts (auto) 8.6 H Absolute Lymphs (auto) 3.59 Total Counted Not Reportable Diff Path Review May foll Sodium 143 Potassium 3.9 Chloride 106 Carbon Dioxide 29.0 Anion Gap 8 BUN 19 H Creatinine 1.03 H Estim Creat Clear Calc 39.04 Est GFR (MDRD) Af Amer 67 Est GFR (MDRD) Non-Af 55 L BUN/Creatinine Ratio 18.4 Glucose 102 Calcium 8.8 Troponin I < 0.015 Assessment/Plan All Active Problems (Last Reviewed 11/07/18 @ 09:47 by Sushma Russell DO) Chest pain (Acute) Murmur, cardiac (Acute) Leukocytosis (Acute) Cirrhosis, cryptogenic (Acute) Dizziness and giddiness (Resolved) Tachycardia (Resolved) impressions 1. Chest pain with unremarkable EKG and negative troponin x3 2. Heart murmur-patient has previous history of mild mitral regurgitation. She has never been told she has a murmur. She now has a murmur at the aortic listening post radiating to left ventricular outflow tract. There is a harsh murmur in the left axillary area. She is chronically on prednisone and therefore immunocompromised. She had her teeth cleaned proximally 4-6 weeks ago has been having night sweats and most recently shaking chills today. White blood cell count is elevated and I have concern for possible endocarditis. Blood cultures have been ordered and an echocardiogram as well. 3. chronic steroid use for lung disease - follows with Dr. Malhotra 4. chronic lung disease 5. Obesity - states she has gained a lot of weight since being started on Prednisone several months ago 6. Hyperlipidemia 7. 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 History of ulcerative colitis with total colectomy however at the time of surgery a small portion of the colon could not be removed and this portion has ulcerative colitis. 10. Gout 11. GERD 12. Inflammatory arthritis-treated by Dr. Siegel 13. History of mild MR Admit to a monitored bed on PCU ASA 81 mg PO daily SL NTG 0.4 mg PRN chest pain Serial Cardiac Enzymes Stat EKG PRN CP Chest XRAY Chemical nuclear stress test in the AM if the cardiac enzymes are negative DVT prophylaxis ordered Echocardiogram to evaluate the murmur Blood cultures x2 for leukocytosis in an immunocompromised patient who had her teeth cleaned 4-6 weeks ago and is having sweats and shaking chills now. Leukocytosis may in fact be due to chronic steroid therapy. Code Visit OBSV E&M: 14601 Initial observation care L3
[2018-11-07] MEDS: Pantoprazole Sodium 20 MG Tablet PO ×2 (13:40→21:04)
[2018-11-07] MEDS: Montelukast 10 MG Tablet PO (13:40)
[2018-11-07] MEDS: Enoxaparin 40 MG/0.4 ML Syringe SC (13:40)
[2018-11-07] MEDS: predniSONE 1 MG Tablet 2 MG PO (13:41)
[2018-11-07] MEDS: Metoprolol(XL)Succ 50 MG Tablet PO (13:41)
[2018-11-07] MEDS: predniSONE 5 MG Tablet PO (13:41)
[2018-11-07] MEDS: 0.9% NaCl Peripheral Flush Adult/Peds IV (13:41)
[2018-11-07 14:08] LABS: Pathologist Review Reviewed
[2018-11-07] MEDS: Atorvastatin Calcium 40 MG Tablet PO (21:03)
[2018-11-07] MEDS: Fluticasone 0.05% 1 SPRAY NASAL.SRY NASAL (21:04)
[2018-11-07] MEDS: Ursodiol 250 MG Tablet 500 MG PO (21:04)
[2018-11-07] MEDS: MELATONIN 3 MG TABLET PO (21:05)
--- NOTE | 2018-11-07 22:31 | NURSING ---
Report called to LEXIE Gatica RN at this time, assigned to [id number].
[2018-11-08] VITALS (9 sets, daily range): BP systolic 135–148; BP diastolic 66–78; PULSE 70–95; RESP 16–18; TEMP 36.7–37; O2SAT 94–98
[2018-11-08] MEDS: Pantoprazole Sodium 20 MG Tablet PO (05:03)
[2018-11-08] MEDS: Aspirin E.C. 81 MG Tablet PO (05:03)
--- NOTE | 2018-11-08 05:55 | EKG12_ITS ---
Test Reason : AM EKG Blood Pressure : / mmHG Vent. Rate : 075 BPM Atrial Rate : 075 BPM P-R Int : 170 ms QRS Dur : 088 ms QT Int : 390 ms P-R-T Axes : 053 016 040 degrees QTc Int : 435 ms Normal sinus rhythm Possible Left atrial enlargement Borderline ECG When compared with ECG of 07-NOV-2018 05:17, MANUAL COMPARISON REQUIRED, DATA IS UNCONFIRMED Confirmed by MIN MORELAND, TAYLOR ([id number]), loan expeditor BALDEMAR SAINZ ([id number]) on 11/11/2018 2:14:21 PM Referred By: [facility] Confirmed By:TAYLOR COPELAND MD
[2018-11-08 06:56] LABS: Absolute Lymphocyte Count 2.37 X10^3/ul (0.83-4.51); Absolute Neutrophil Count 6.2 X10^3/uL (2.0-7.7); Basophil# 0.06 X10^3/uL; Basophil% 0.6 % (0-1); Eosinophil# 0.28 X10^3/uL; Eosinophils% 2.8 % (0-5); Hematocrit 37.5 % (37-47); Hemoglobin 11.9 g/dl (12.0-15.0); Lymphocyte # 2.37 X10^3/ul (4.0); Lymphocyte % 23.4 % (19-41); Mean Corp Hgb Conc 31.7 g/gl (32-36); Mean Corpuscular Hgb 30.5 pg (27.0-32.0); Mean Corpuscular Volume 96.2 fL (81-99); Mean Platelet Vol. 8.6 fl (6.2-12.0); Monocyte# 1.05 X10^3/uL; Monocyte% 10.4 % (0-10); Neutrophil # 6.15 X10^3/uL (2.7-7.7); Neutrophil % 60.6 % (47-70); Platelet Count 223 K/mm3 (150-450); RBC Distribution Width CV 15.1 % (11.6-14.6); RBC Distribution Width SD 52.6 fl (35.1-43.9); White Blood Count 10.1 K/mm3 (4.4-11.0)
[2018-11-08 07:07] LABS: International Normalized Ratio 1.2; Prothrombin Time (Protime)PT. 14.8 SECONDS (11.7-14.9)
[2018-11-08 07:11] LABS: Differential Indicated SCAN CRITERIA MET; POSITIVE COUNT YES; POSITIVE DIFFERENTIAL NO; POSITIVE MORPHOLOGY YES
[2018-11-08 07:15] LABS: ALB/GLOB Ratio 0.7 RATIO (0.9-2.4); AST(SGOT) 20 U/L (15-37); Alanine Aminotransfer ALT/SGPT 19 U/L (13-56); Albumin, Serum 2.6 g/dL (3.2-5.0); Alkaline Phosphatase 65 U/L (45-117); Anion Gap 7 (5-15); BUN 10 mg/dL (7-18); BUN/Creat Ratio 11.3 RATIO (10-20); Calcium,Total 8.9 mg/dL (8.5-10.1); Chloride 106 mmol/L (98-107); Cholesterol 135 mg/dL (200); Creatinine, Serum 0.89 mg/dL (0.55-1.02); EST Glomerular Filtration Rate 66 mL/min (>60); Est Glom Filt Rate - Afr Amer 80 mL/min (>60); Estimated Creatinine Clearance 45.18 ml/min; Globulin 3.5 g/dL (2.2-4.2); Glucose 104 mg/dL (74-106); High Density Lipoprotein 68 mg/dL; Magnesium 1.7 mg/dL (1.6-2.6); Phosphorus 2.9 mg/dL (2.5-4.9); Potassium 3.8 mmol/L (3.5-5.1); Protein, Total 6.1 g/dL (6.4-8.2); Sodium Level 141 mmol/L (136-145); Triglycerides 88 mg/dL; Very Low Density Lipoprotein 18 mg/dL (5-40)
--- NOTE | 2018-11-08 10:54 | STRESSREP ---
Stress Test Report Exercise myocardial perfusion stress test. 73-year-old lady with a history of chest pain. Medications aspirin Lipitor prednisone Protonix Toprol. Stress protocol: Resting EKG demonstrates normal sinus rhythm with a rate of 82 bpm normal intervals are noted resting blood pressure 138/84 mmHg. The patient exercised according to the regular Rico protocol for total duration of 4 minutes completing 1 minute into stage II of the Rico protocol the maximum heart rate attained was 127 bpm which was 87% of maximum predicted heart rate the maximum workload was 5.8 metabolic equivalents. Patient maintained sinus rhythm throughout the recording with upsloping changes noted at rest and during exertion. No clinical angina was noted the test was terminated due to leg fatigue and shortness of breath. The resting blood pressure was 138/84 with a peak blood pressure 172/68. No clinical angina was noted. Myocardial perfusion protocol. 14.3 mCi of technetium 99m sestamibi was injected at rest. The patient exercised according to regular Rico protocol for 4 minutes and at peak exercise 44.1 mCi of technetium 99m sestamibi was injected stress images were obtained stress and rest images were reconstructed and compared in the short axis vertical long horizontal long axis. Gated images were also obtained Perfusion SPECT analysis: Review of the stress images demonstrate normal uptake of tracer noted in all areas of the myocardium. The resting images similarly demonstrate normal uptake of tracer noted in all areas of myocardium. No areas of reversibility are noted suggest ischemia. No previous infarct is noted. Gated SPECT analysis: The gated ejection fraction is noted to be 74%. Conclusion: Normal exercise myocardial perfusion stress test at a moderate workload. Preserved ejection fraction.
--- NOTE | 2018-11-08 11:08 | NURSING ---
Unable to obtain 1105 VSs due to pt being off unit at stress test & ECHO
[2018-11-08] MEDS: predniSONE 1 MG Tablet 2 MG PO (11:44)
[2018-11-08] MEDS: Enoxaparin 40 MG/0.4 ML Syringe SC (11:45)
[2018-11-08] MEDS: Montelukast 10 MG Tablet PO (11:45)
[2018-11-08] MEDS: predniSONE 5 MG Tablet PO (11:45)
[2018-11-08] MEDS: Metoprolol(XL)Succ 50 MG Tablet PO (11:45)
[2018-11-08] MEDS: Ursodiol 250 MG Tablet 750 MG PO (11:46)
--- NOTE | 2018-11-08 11:58 | NURSING ---
Pt AM meds given late due to morning stress test.
[2018-11-08 14:57] LABS: Pathologist Review Reviewed
--- NOTE | 2018-11-08 16:59 | DCINST_ITS ---
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 Siegel and can not tell me what type of arthritis she has Obesity (BMI 30-39.9) (Chronic) Gout (Chronic) You will use the following diet at home:: Other - no caffeine, peppermints, chocolate or TUMS. Do not lie down for 2 hours after eating. Your food should be the consistency of: Regular Your liquids should be the consistency of: Regular/Thin Discharge Activity: Return to Normal Activity Call your doctor if you observe: Fever of 101 or Higher, Shortness of breath, Calf discomfort Instructions: Esophagitis, What Is GERD?, Lifestyle Changes for Controlling GERD, Medications for GERD Additional Instructions: 1. No caffeine, no chocolate, no peppermints and no TUMS. IF you get heartburn you can drink a glass of cold water to strip the acid out of the esophagus or take a slug of Mylanta or Maalox. I have changed the Esomeprazole to twice a day. Do not lie down for at least 2 hours after eating. If your are still getting reflux with the above instituted therapies you can try elevating the head of your bed on 6 concrete blocks. 2. Your stress test is negative. Your ECHO showed mild aortic stenosis and mild mitral valve insuffieciency. It squeezes normally......nothing to worry about. If the symptoms persist I suggest you discuss with Dr. Hansen getting an EGD to look at the stomache and the esophagus. Pending Tests on Discharge: none Allergies/Adverse Reactions: Allergies erythromycin base Allergy (Verified 11/07/18 05:18) Rash hydromorphone [From Dilaudid] Allergy (Verified 11/07/18 05:18) CAN NOT BREATH hydroxychloroquine sulfate [From Plaquenil] Allergy (Verified 11/07/18 05:18) Rash pregabalin [From Lyrica] Allergy (Verified 11/07/18 05:18) Rash Sulfa (Sulfonamide Antibiotics) Allergy (Verified 11/07/18 05:18) Rash CERTAIN TAPES Adverse Reaction (Uncoded 11/07/18 05:18) SKIN BREAKDOWN Medications to take at Discharge Allopurinol [Zyloprim] 200 mg PO DAILYCM 10/10/15 Albuterol Inhaler [Ventolin Hfa] 1 - 2 puff INHALATION Q4H PRN PRN 03/14/18 Aspirin E.C. [Ecotrin] 81 mg PO DAILY@0800 03/14/18 Fluticasone 0.05% [Flonase Nasal [place]] 1 spray NASAL QHS 03/14/18 Montelukast [Singulair] 10 mg PO DAILY 03/14/18 Prednisone 7 mg PO DAILY 03/14/18 Vitamin B Complex/Folic Acid [B-Stress Capsules] 2,000 mcg PO DAILY 03/14/18 ergocalciferol (vitamin D2) 50,000 unit capsule 50,000 unit PO QWEEK 06/01/18 metoprolol succinate ER 50 mg tablet,extended release 24 hr 50 mg PO QDAY #90 tab 06/01/18 esomeprazole magnesium 20 mg capsule,delayed release 20 mg PO DAILY 07/15/18 Melatonin 3 mg PO QHS PRN PRN 11/07/18 Mesalamine [Canasa] 11/07/18 Ursodiol [Chelsea] 500 mg PO QHS 11/07/18 Ursodiol [Chelsea] 750 mg PO DAILY 11/07/18 Esomeprazole Mag Trihydrate [Nexium] 20 mg PO BID #60 capsule 11/08/18 The following prescriptions were given: Esomeprazole Mag Trihydrate [Nexium] 20 mg PO BID #60 capsule Primary Care Physician: Kamryn Hansen MD [Primary Care Provider] - Please follow up with your Primary Care Physician in: 1-2 weeks Test Results: Test results from this visit will be discussed in further detail at your follow- up appointment, if applicable.
--- NOTE | 2018-11-08 17:06 | DS.PCM_ITS ---
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 Siegel and can not tell me what type of arthritis she has Obesity (BMI 30-39.9) (Chronic) Gout (Chronic) Nonrheumatic mitral (valve) insufficiency (Chronic) mild Hyperlipidemia (Chronic) Hypertension (Chronic) Fatigue (Chronic) Hospital Course and Treatment Imaging Results: Clinical Impression(s) from Imaging Studies Chest X-Ray 11/07/18 05:28 IMPRESSION: There is right basilar atelectasis. Cardiomegaly. Electronically Signed: Malik Lopez at 6:40 EST Tel , Service support , Chest CTA 11/07/18 07:21 IMPRESSION: There is no evidence of pulmonary embolism. Increased interstitial markings at the lung bases with areas of confluence suggestive of atelectasis superimposed on scarring. Electronically Signed: Vito Loyola MD at 8:20 EST Tel [phone], Service support , none Operations: None Procedures: 2-D Echocardiogram - 65% ejection fraction, no wall motion abnormalities, mild aortic stenosis, trivial mitral valve regurgitation, trivial tricuspid valve regurgitation, PA pressure of 32, Stress test - Negative for ischemia. Gated nuclear ejection fraction 74%. She exercised 1 minute into stage II of the [place] protocol and achieved 87% of her maximum predicted heart rate. Summary of Care Provided: The patient is a 73 year old F with a past medical history of hypertension, stage I diastolic dysfunction, gastroesophageal reflux disease, chronic steroid therapy for lung disease, mild mitral insufficiency on an echocardiogram done in June 2018, cirrhosis/nonalcoholic and inflammatory arthritis (follows with Dr. Siegel). She presented to the emergency department at [facility] on 11/07/2018 complaining of awakening at approximately 4:30 AM with tightness in her chest, shortness of breath, nausea. The pain in the chest radiated across the anterior chest wall and down the left arm. She denied any history of coronary artery disease personally and also denied family history. She denied any history of VTE. She was given nitroglycerin in the squad and also again in the emergency room but this did not relieve her pain. Morphine relieved her pain. She also complained of shaking chills that morning and this was very unusual as she is usually very warm. She also had some night sweats. She is chronically on prednisone and had her teeth cleaned 4-6 weeks ago. She had never been told that she had a murmur before. Chest x-ray showed possible atelectasis versus scarring in the bases. CTA of the chest was negative for pulmonary emboli but did show atelectasis versus scarring versus infiltrate in the bases. Vital signs at presentation to the emergency room were temp 98.4, pulse rate 78, blood pressure 195/92, respiratory rate 19 and she was 95% saturated on room air. Labs showed an elevated white blood cell count at 14.4 with 60% neutrophils but 2.6% immature granulocytes. Hemoglobin and platelets were within normal limits. Electrolytes were within normal limits and the BUN was 19 with a creatinine of 1.03 this is within her baseline. Initial troponin is less than 0.015. She is being admitted to the progressive care unit for evaluation for chest pain and new heart murmur. Serial cardiac enzymes were negative. A treadmill nuclear stress test was negative for ischemia. The gated nuclear ejection fraction was within normal limits. Echocardiogram showed an ejection fraction of 65% with stage I diastolic dysfunction, trivial mitral valve insufficiency, trivial tricuspid valve insufficiency, mild aortic stenosis and a right ventricular systolic pressure estimated at 32. There was no evidence of a vegetation on the echocardiogram. Telemetry showed normal sinus rhythm with no significant ectopy. She was placed on Protonix twice daily at admission and the following day the substernal pain was much improved. White blood cell count on the date of discharge was 10.1 with 60.6% neutrophils and still with 2.2% immature granulocytes. She was afebrile throughout her hospital stay. She was discharged home with a prescription for Nexium 20 mg p.o. twice daily. She was given printed literature regarding nonpharmacologic management of GERD and was instructed to follow-up with Dr. Hansen in the office in 1-2 weeks. PHYSICAL EXAM: GENERAL: alert, oriented X 3, Cooperative, NAD ORAL: moist mucosa, no mucosal lesions NECK: No JVD, supple, trachea midline LUNGS: CTA, symmetric chest expansion HEART: RRR, Normal S1 and S2, no rub, no gallop. 1-2/6 BHANU at the second RICS with radiation to the LVOT and a systolic MM in the left axilla ABDOMEN: soft, NT, ND, BS present, no guarding with palpation EXTREMITIES: no edema, no cyanosis, no calf tenderness SKIN: No rashes, no breakdown NEUROLOGIC: no focal neurologic deficits PSYCH: appropriate, normal affect, pleasant This note was generated with [employer] dictation software. It may contain incorrect words, spelling, and punctuation that were not noted in checking the note before signing. Patient Problems: Active and Suspected Problems (Last Reviewed 11/07/18 @ 09:47 by Sushma Russell DO) Esophagitis (Acute) - Physical Exam Vital Signs Temp Pulse Resp BP Pulse Ox 98.0 F 95 16 135/66 H 94 11/08/18 11:25 11/08/18 15:01 11/08/18 11:25 11/08/18 11:45 11/08/18 11:25 Oxygen Flow Rate (L/min) 2 Oxygen Delivery Method Room Air Weight: 216 lb 11.43 oz Body Mass Index (BMI) 38.4 Intake and Output for Last 24 Hours 11/06/18 11/07/18 11/08/18 23:59 23:59 23:59 Intake Total 1380 / 1380 290 / 290 Balance 1380 / 1380 290 / 290 Microbiology Past 72 Hours 11/07/18 10:56 Influenza Types A,B Direct FA ([place]) - Final Mucosa - Nose Laboratory Tests Past 24 Hrs 11/08/18 11/08/18 11/08/18 06:45 06:45 06:45 WBC 10.1 RBC 3.90 L Hgb 11.9 L Hct 37.5 MCV 96.2 MCH 30.5 MCHC 31.7 L RDW 15.1 H RDW Differential 52.6 H Plt Count 223 MPV 8.6 Immature Gran % (Auto) 2.200 H Neut % (Auto) 60.6 Lymph % (Auto) 23.4 [place] % (Auto) 10.4 H Eos % (Auto) 2.8 Baso % (Auto) 0.6 Absolute Neuts (auto) 6.2 Absolute Lymphs (auto) 2.37 Total Counted Not Reportable Diff Path Review Reviewed PT 14.8 INR 1.2 APTT 32.0 Sodium 141 Potassium 3.8 Chloride 106 Carbon Dioxide 28.0 Anion Gap 7 BUN 10 Creatinine 0.89 Estim Creat Clear Calc 45.18 Est GFR (MDRD) Af Amer 80 Est GFR (MDRD) Non-Af 66 BUN/Creatinine Ratio 11.3 Glucose 104 Calcium 8.9 Phosphorus 2.9 Magnesium 1.7 Total Bilirubin 0.80 AST 20 ALT 19 Alkaline Phosphatase 65 Total Protein 6.1 L Albumin 2.6 L Globulin 3.5 Albumin/Globulin Ratio 0.7 L Triglycerides 88 Cholesterol 135 LDL Cholesterol 49 VLDL Cholesterol 18 HDL Cholesterol 68 Discharge Activity: Return to Normal Activity Call your doctor if you observe: Fever of 101 or Higher, Shortness of breath, Calf discomfort Home Medications: Medications to take at Discharge Allopurinol [Zyloprim] 200 mg PO DAILYCM 10/10/15 Albuterol Inhaler [Ventolin Hfa] 1 - 2 puff INHALATION Q4H PRN PRN 03/14/18 Aspirin E.C. [Ecotrin] 81 mg PO DAILY@0800 03/14/18 Fluticasone 0.05% [Flonase Nasal [place]] 1 spray NASAL QHS 03/14/18 Montelukast [Singulair] 10 mg PO DAILY 03/14/18 Prednisone 7 mg PO DAILY 03/14/18 Vitamin B Complex/Folic Acid [B-Stress Capsules] 2,000 mcg PO DAILY 03/14/18 ergocalciferol (vitamin D2) 50,000 unit capsule 50,000 unit PO QWEEK 06/01/18 metoprolol succinate ER 50 mg tablet,extended release 24 hr 50 mg PO QDAY #90 tab 06/01/18 esomeprazole magnesium 20 mg capsule,delayed release 20 mg PO DAILY 07/15/18 Melatonin 3 mg PO QHS PRN PRN 11/07/18 Mesalamine [Canasa] 11/07/18 Ursodiol [Chelsea] 500 mg PO QHS 11/07/18 Ursodiol [Chelsea] 750 mg PO DAILY 11/07/18 Esomeprazole Mag Trihydrate [Nexium] 20 mg PO BID #60 capsule 11/08/18 Following Prescrptions Were Given to Patient: Esomeprazole Mag Trihydrate [Nexium] 20 mg PO BID #60 capsule Primary Care Physician: Kamryn Hansen MD [Primary Care Provider] - Please follow up with your Primary Care Physician in: 1-2 weeks Patient Instructions: Esophagitis, What Is GERD?, Lifestyle Changes for Controlling GERD, Medications for GERD Medical Necessity - Tobacco Use Smoking Status: Never smoker Tobacco Use: Non-smoker Meaningful Use Info Meaningful Use Diagnoses (Choose all that apply): None applicable Code Visit OBSV E&M: 82953 Observation care discharge
--- NOTE | 2018-11-08 17:54 | NURSING ---
Reviewed and agreed on all charting with Darvin Dugan RN
--- OUTSIDE RECORDS SUMMARY | 2019-02-08 16:15 | XMS RPT_ITS ---
:1945 Author Organization OHIP Support Name Relationship Address Phone JOAQUIN NASH Unavailable [address] + [place] [address] CARLIE NASH Unavailable [address] + [place] [address] R Unavailable Unavailable Unavailable JOAQUIN NSAH Unavailable [address] + [place] [address] CARLIE NASH Unavailable [address] + [place] [address] R Unavailable Unavailable Unavailable JOAQUIN NASH Unavailable [address] [address] + [place] [address] CARLIE NASH Unavailable [address] + [place] [address] R Unavailable Unavailable Unavailable JOAQUIN NASH Unavailable [address] [facility] [address] + [place] [address] CARLIE NASH Unavailable [address] + [place] [address] R Unavailable Unavailable Unavailable JOAQUIN NASH Unavailable [address] [facility] [address] [address] + [place] [address] CARLIE NASH Unavailable [address] + [place] [address] R Unavailable Unavailable Unavailable JOAQUIN NASH Unavailable [address] + [place] [address] CARLIE NASH Unavailable [address] + [place] [address] R Unavailable Unavailable Unavailable JOAQUIN NASH Unavailable [address] + [place] [address] ALSDORF, CARLIE Unavailable [address] + [place] [address] R Unavailable Unavailable Unavailable ALSDORF, NUÑEZ Unavailable [address] + [place] [address] EFRAÍN NASHLAS Unavailable [address] + [place] [address] R Unavailable Unavailable Unavailable RADHADORF ADAMA Unavailable [address] + [place] [address] CARLIE NASH Unavailable Unavailable + JONATHAN NASH Unavailable Unavailable Unavailable ALSDORF, NUÑEZ Unavailable [address] + [place] [address] CARLIE NASH Unavailable [address] + [place] [address] R Unavailable Unavailable Unavailable RADHADOMARCOS LYONY Unavailable [address] + [place] [address] CARLIE NASH Unavailable Unavailable + JONATHAN NASH Unavailable Unavailable Unavailable ALSDORF, NUÑEZ Unavailable [address] + [place] [address] CARLIE ANSH Unavailable [address] + [place] [address] R Unavailable Unavailable Unavailable ALSDORF, NUÑEZ Unavailable [address] + [place] [address] EFRAÍN NASHLAS Unavailable [address] + [place] [address] R Unavailable Unavailable Unavailable ALSDORF, NUÑEZ Unavailable [address] + [place] [address] EFRAÍN NASHLAS Unavailable [address] + [place] [address] R Unavailable Unavailable Unavailable ALSDORF, NUÑEZ Unavailable [address] + [place] [address] EFRAÍN NASHLAS Unavailable [address] + [place] [address] R Unavailable Unavailable Unavailable ALSDORF, NUÑEZ Unavailable [address] + [place] [address] CARLIE NASH Unavailable [address] + [place] [address] R Unavailable Unavailable Unavailable ALSDORFIVONNENUÑEZ Unavailable [address] + [place] [address] EFRAÍN NASHLAS Unavailable [address] + [place] [address] R Unavailable Unavailable Unavailable ADAMA NASH Unavailable [address] + [place] [address] CARLIE NASH Unavailable Unavailable + JONATHAN NASH Unavailable Unavailable Unavailable RADHADOCAMRON, NUÑEZ Unavailable [address] + [place] [address] CARLIE NASH Unavailable [address] + [place] [address] R Unavailable Unavailable Unavailable SAAD, NUÑEZ Unavailable [address] + [place] [address] EFRAÍN NASHLAS Unavailable [address] + [place] [address] R Unavailable Unavailable Unavailable RADHADOCAMRON, NUÑEZ Unavailable [address] + [place] [address] CARLIE NASH Unavailable [address] + [place] [address] R Unavailable Unavailable Unavailable ALSDORF, NUÑEZ Unavailable [address] + [place] [address] EFRAÍN NASHLAS Unavailable [address] + [place] [address] R Unavailable Unavailable Unavailable ALSDORF, NUÑEZ Unavailable [address] + [place] [address] RADHADORFEFRAÍNCARLIE Unavailable [address] + [place] [address] R Unavailable Unavailable Unavailable ALSDORF, NUÑEZ Unavailable [address] + [place] [address] EFRAÍN NASHLAS Unavailable [address] + [place] [address] R Unavailable Unavailable Unavailable ALSDORF, NUÑEZ Unavailable [address] + [place] [address] RADHADORFEFRAÍNCARLIE Unavailable [address] + [place] [address] R Unavailable Unavailable Unavailable ALSDORF, NUÑEZ Unavailable [address] + [place] [address] EFRAÍN NASHLAS Unavailable [address] + [place] [address] R Unavailable Unavailable Unavailable ALSDORF, NUÑEZ Unavailable [address] + [place] [address] EFRAÍN NASHLAS Unavailable [address] + [place] [address] R Unavailable Unavailable Unavailable ALSDORF, NUÑEZ Unavailable [address] + [place] [address] EFRAÍN NASHLAS Unavailable [address] + [place] [address] R Unavailable Unavailable Unavailable ALSDORF, NUÑEZ Unavailable [address] + [place] [address] EFRAÍN NASHLAS Unavailable [address] + [place] [address] R Unavailable Unavailable Unavailable ALSDORF, ADAMA Unavailable [address] + [place] [address] RADHADOEFRAÍN LYONLAS Unavailable Unavailable + [facility], JONATHAN Unavailable Unavailable Unavailable ALSDORF, ADAMA Unavailable [address] + [place] [address] ALSDORF, CARLIE Unavailable Unavailable + ALSDORF, JONATHAN Unavailable Unavailable Unavailable ALSDORF, ADAMA Unavailable [address] + [place] [address] RADHADORF CARLIE Unavailable Unavailable + ALSRF, JONATHAN Unavailable Unavailable Unavailable ALSDORF, NUÑEZ Unavailable [address] + [place] [address] CARLIE NASH Unavailable [address] [facility] + [place] [address] R Unavailable Unavailable Unavailable Care Team Providers Name Role Phone CECILE CERVANTES Attending Unavailable SAARH QUINONEZ Referring Unavailable BONEZZI, SUGEY M Primary Care Unavailable CECILE CERVANTES Attending Unavailable STANMICHAELLE, SARAH Ballard Referring Unavailable BONEZZI, SUGEY M Primary Care Unavailable BONEZZI, SUGEY M Primary Care Unavailable STANICHSARAH Admitting Unavailable STANICH, SARAH Ballard Attending Unavailable STANICH, SARAH Ballard Attending Unavailable BONEZZI, SUGEY M Referring Unavailable BONEZZI, SUGEY M Primary Care Unavailable STANICH, SARAH [place]ard Attending Unavailable BONEZZI, SUGEY M Referring Unavailable BONEZZI, SUGEY M Primary Care Unavailable STANICH, SARAH Ballard Attending Unavailable STANICH, SARAH Ballard Referring Unavailable BONEZZI, SUGEY M Primary Care Unavailable Bonezzi , Sugey Ordaz Attending Unavailable Bonezzi , Sugey Ordaz Referring Unavailable Bonezzi Sugey MORELAND Consulting Unavailable Bonezzi, Sugey Primary Care Unavailable Sementi, Keyla Admitting Unavailable Sementi, Keyla Attending Unavailable Sibilia, Bar Attending Unavailable Bonezzi, Sugey Primary Care Unavailable Sibilia, Bar Referring Unavailable Clau Angel Attending Unavailable Sibilia, Bar Attending Unavailable Sibilia, Bar Referring Unavailable Bonezzi, Sugey Primary Care Unavailable Sibilia, Bar Attending Unavailable Sibilia, Bar Referring Unavailable Bonezzi, Sugey Primary Care Unavailable Cristian Montero Attending Unavailable Sementi, Keyla Referring Unavailable Sibilia, Bar Attending Unavailable Sibilia, Bar Referring Unavailable Bonezzi, Sugey Primary Care Unavailable Sementi, Keyla Admitting Unavailable Sementi, Keyla Attending Unavailable Bonezzi, Sugey Primary Care Unavailable Sementi, Keyla Consulting Unavailable Sibilia, Bar Attending Unavailable Sibilia, Bar Referring Unavailable Bonezzi, Sugey Primary Care Unavailable Sementi, Keyla Admitting Unavailable Sementi, Keyla Attending Unavailable Bonezzi, Sugey Primary Care Unavailable Sementi, Keyla Consulting Unavailable Bonezzi, Sugey Attending Unavailable Bonezzi, Sugey Primary Care Unavailable Bonezzi, Sugey Referring Unavailable Teresa Siegel Attending Unavailable Teresa Siegel Referring Unavailable Bonezzi, Sugey Primary Care Unavailable Winston, Cristian Attending Unavailable Winston, Cristian Referring Unavailable Sibilia, Bar Attending Unavailable Sibilia, Bar Referring Unavailable Bonezzi, Sugey Primary Care Unavailable Winston, Cristian Attending Unavailable Bonezzi, Sugey Referring Unavailable Bonezzi, Sugey Attending Unavailable Bonezzi, Sugey Primary Care Unavailable , ARA Attending Unavailable ARA TOMAS Referring Unavailable Bonezzi, Sugey Primary Care Unavailable Bonezzi, Sugey Attending Unavailable Bonezzi, Sugey Referring Unavailable Bonezzi, Sugey Primary Care Unavailable Winston, Cristian Attending Unavailable Winston, Cristian Referring Unavailable Bonezzi, Sugey Primary Care Unavailable Winston, Cristian Attending Unavailable Winston, Cristian Attending Unavailable Bonezzi, Sugey Referring Unavailable Bonezzi, Sugey Primary Care Unavailable Winston, Cristian Attending Unavailable Bonezzi, Sugey Referring Unavailable Santosh, David Attending Unavailable Santosh, David Referring Unavailable Bonezzi, Sugey Primary Care Unavailable Sibilia, Bar Attending Unavailable Sibilia, Bar Referring Unavailable Bonezzi, Sugey Primary Care Unavailable Vellanki, Teresa Attending Unavailable Bonezzi, Sugey Primary Care Unavailable Bonezzi, Sugey Attending Unavailable Bonezzi, Sugey Referring Unavailable Bonezzi, Sugey Primary Care Unavailable Bonezzi, Sugey Attending Unavailable Bonezzi, Sugey Primary Care Unavailable Bonezzi, Sugey Referring Unavailable PROBLEMS PROBLEMS DATE TYPE CONDITION / CODE ATTENDING STATUS SOURCE 12/07/2018 Unknown M51.36 - Other Bonezzi, Sugey Active [facility] intervertebral disc Community degeneration, lumbar Hospital region / Repository M51.36(ICD-10) 12/01/2018 Unknown R07.9 - Chest pain, Winston, [place] Active [facility] unspecified / Community R07.9(ICD-10) Hospital Repository 08/20/2018 Unknown M06.4 - Inflammatory Vellanki, 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 / [facility] Community M06.4(ICD-10) Hospital Repository 08/20/2018 Unknown Z79.899 - Other long Vellanki, Active [facility] term (current) drug [facility] Community therapy / Hospital Z79.899(ICD-10) Repository 07/21/2018 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 [facility] digestive system [facility] / D49.0(ICD-10) Center Repository 07/21/2018 Admitting Follow-up / 145() SARAH QUINONEZ Active [facility] diagnosis P [facility] Repository 07/15/2018 Unknown R42 - Dizziness and Winston, [place] Active [place] giddiness / Community R42(ICD-10) Hospital Repository 07/15/2018 Unknown I10 - Essential Winston, Cristian Active [place] (primary) Community hypertension / Hospital I10(ICD-10) Repository 08/03/2018 Unknown R06.09 - Other forms Winston, [place] Active [facility] of dyspnea / Community R06.09(ICD-10) Hospital Repository 01/03/2018 Admitting 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 / P [place] K74.3(ICD-10) [facility] Repository 06/01/2018 Unknown R00.0 - Tachycardia, Winston, [place] Active [facility] unspecified / Community R00.0(ICD-10) Hospital Repository 06/01/2018 Unknown E78.5 - [place], [place] Active [facility] Hyperlipidemia, Community unspecified / Hospital E78.5(ICD-10) Repository 06/01/2018 Unknown R53.83 - Other Winston, Cristina Active [facility] fatigue / Community R53.83(ICD-10) Hospital Repository 05/18/2018 Unknown R27.0 - Ataxia, Santosh, David Active [facility] unspecified / Community R27.0(ICD-10) Hospital Repository 02/25/2018 Unknown R05 - Cough / Sibilia, Active [place] R05(ICD-10) [facility] Repository 12/21/2017 Admitting Abnormal findings on CECILE CERVANTES Active [facility] diagnosis diagnostic imaging University liver and biliary [facility] tract / Center R93.2(ICD-10) Repository 12/21/2017 Admitting Cyst of pancreas / CECILE CERVANTES Active [facility] diagnosis K86.2(ICD-10) [facility] Repository 12/21/2017 Admitting Other abnormal tumor CECILE CERVANTES Active [facility] diagnosis markers / University R97.8(ICD-10) [facility] Repository 12/25/2015 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 [place] [address] / REHABILITATION SERVICES DISCHARGE SUMMARY MR#: [id number] Acct: [id number] Name: JONATHAN NASH Rep #: [id number] : 1945 73 From: Milka Loredo PT, Cert. MDT Referring Dr.: Sugey Alonzo MD Status: REG RCR Insurance: MEDICARE PART A B AARP HP - PT D/C Summary It has been my pleasure to treat JONATHAN NASH under orders from Sugey Alonzo MD, for the diagnosis of LUMBAR DDD AND BACK PAIN for a total of 17 visit(s). Discharge Date: 12/07/18 Please see the following information for a summary of their discharge status. - Subjective Subjective: PATIENT REPORTS HER LEFT KNEE FLARED UP OVER THE WEEKEND FOR NO APPARENT REASON. SHE RECEIVED A CORTISONE SHOT FROM DR. ALONZO YESTERDAY AND THAT HAS HELPED. PATIENT REPORTS THE PAIN INTO HER RIGHT BUTTOCK SEEMS TO BE UNDER CONTROL BUT SHE HAS SOME LOW BACK STRAIN. PATIENT REPORTS ONLY OCCASSIONAL PAIN HER HER BACK GETTING IN/OUT OF CAR AND BED NOW. 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 SHE REPORTS STRESS INCREASES HER BACK AND KNEE PAIN. PATIENT REPORTS SHE SAW A COUNSELOR AND PLANS TO CONTINUE. SHE IS ALSO CONSIDERING MASSAGE THERAPY. PATIENT REPORTS MUSCLE SORENESS THAT SHE IS THINKING WILL BET BETTER HER MUSCLE GET USE TO THE EX'S. 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 - Pain RIGHT LB Pain Intensity (Out of 10): 2 RIGHT BUTTOCK Pain Intensity (Out of 10): 0 left lb Pain Intensity (Out of 10): 2 LEFT KNEE Pain Intensity (Out of 10): 4 - Overall Improvement % Improvement: 90 - Objective Objective/Function: THIS PATIENT PRESENTS TO PT TODAY LIMPING ON HER LEFT LE. SHE REPORTS DR. ALONZO IS GOING TO FOLLOW UP WITH HER ABOUT HER KNEE IN A WEEK. PATIENTS PAIN IS IMPROVING, HER FUNCTION IS IMPROVING AND SHE IS INDEP WITH HOME AND GYM EX PROGRAMS NOW. SHE AMBULATES INDEP'LY INTO PT TODAY X > 300 FEET WITHOUT C/O OF RIGHT HIP/BUTTOCK PAIN BUT SHE DOES HAVE PAIN AND IS LIMPING ON HER LLE WHICH SHE REALTES TO HER KNEE (SEE SUBJECTIVE). NO SOB NOTICED INDEP TRANSFER SIT TO STAND WITHOUT UE ASSIST OR DIFFICULTY THIS DATE BUT RIGHT BUTTOCK PAIN FROM STAND TO SIT WITHOUT UE ASSIST. Motor deficit: RADHA LE'S 5/5 WITH MMT'ING EXCEPT HIPS GRADED 4/5. Sensory deficit: NO BUT LEFT KNEE IS SENSATIVE. ROM deficit: RADHA LE'S WFL BUT SOME RADHA HIP FLEXION TIGHTNESS. DURAL SIGNS: NEGATIVE RADHA LE'S. Lumbar mvmt loss: flex - NIL. ext - MOD -. R SG - MOD. L SG - MOD - C/O LLE INCREASED PAIN SHE BEARS MORE WEIGHT ON THE LLE WITH LSG TESTING. Core strength: POOR. Palpation: GENERALIZED TENDERNESS IN RADHA LATERAL HIPS BUT NO ACUTE PAIN WITH PALPATION OF THROACIC SPINE, LUMBAR SPINE, SACRUM OR BUTTOCK REGIONS. LUMBAR OSWESTRY HAS IMPROVED FROM 26 TO 13 OVER-ALL THIS EPISODE OF CARE. PATIENT COMMUNICATED A GOOD UNDERSTANDING OF PROPER USE OF CANE AND STATES SHE HAS ACTUALLY ALREADY STARTED USING A CANE SOME FOR HER KNEE PAIN. - Goals Goal 1:: DECREASE C/O LOW BACK AND RIGHT HIP PAIN Goal Progress: Progressing Goal 2:: IMPROVE PERSONAL CARE, LIFTING, WALKING, SITTING, STANDING, SLEEP, SOCIAL LIFE, TRAVEL AND HOMEMAKING FUNCTION Goal Progress: Progressing Goal 3:: INSTRUCT IN PROPHYLAXIS Goal Progress: Progressing - Plan Plan: D/C TO [facility] GYM PROGRAM AND FOLLOW UP WITH DR. ALONZO FOR HER KNEE. PATIENT AGREEABLE. - D/C Information If there are questions or concerns regarding this patient's physical therapy, please feel free to call me at [phone]. Thank you for the referral of this patient. Sincerely, Milka Loredo, PT, Cert MDT <Electronically signed by Deborah Friedman PT. T> 12/07/18 1214 CC: Sugey Alonzo MD JODY Signed CRP Collected: 11/25/2018 Status: F Source: [place] 2:07 PM [facility] REPOSITORY TYPE CODE TESTS RESULT OUT OF RANGE REFERENCE UNITS LAB L501.6710 0.0-3.0 mg/L High 20.20 C-REACTIVE PROT Result Comment: C-Reactive Protein (CRP) provides useful information for the diagnosis, therapy and monitoring of inflammatory processes and associated diseases. For the evaluation of Relative Risk for Cardiovascular Disease, a High Sensitivity CRP (HSCRP) should be ordered. Performed By: #### L501.6710 #### [facility] [address] [facility] [place], [address] ERYTHROCYTE SED RATE Collected: 11/25/2018 Status: F Source: [place] 2:07 PM [facility] REPOSITORY TYPE CODE TESTS RESULT OUT OF RANGE REFERENCE UNITS LAB L102.0000 0-30 mm/hr Normal SED RATE 9 Performed By: #### L101.9900 #### [facility] [address] [place], [address] CHEST PA AND LATERAL Observed: 11/25/2018 Status: F Source: [place] 2:06 PM [facility] REPOSITORY [facility] Imaging Services [address] [facility] [place] [address] Chest PA and Lateral MR#: [id number] Acct: [id number] Name: JONATHAN NASH Rep #: [id number] : 1945 F 73 From: Estuardo Acosta MD PCP: Sugey Alonzo MD Status: REG CLI Study: Chest PA and Lateral Date of Exam: 11/25/18 Exam# [id number] Ordering Dr: Bar Malhotra MD STUDY: X-RAY CHEST REASON FOR EXAM: Female, 73 years old. Cough. TECHNIQUE: PA and lateral views of the chest. COMPARISON: 11/07/2018. FINDINGS: There is mild elevation of the right hemidiaphragm. The lungs are clear and expanded. There is no demonstrated pleural abnormality. Normal size heart. Normal mediastinum and jaclyn. Normal visualized pulmonary arteries. Normal visualized aortic arch and descending thoracic aorta. Normal visualized thoracic spine. Normal visualized ribs, clavicles, and shoulders. There is no demonstrated abnormality of the visualized soft tissue structures of the upper abdomen. RAD/Chest PA and Lateral IMPRESSION: No active pulmonary disease. Electronically Signed: Estuardo Acosta MD at 14:23 EST Tel , Service support , CC: Sugey Alonzo MD; Bar Malhotra MD Income Tax Analyst: Signed 12 LEAD ELECTROCARDIOGRAM Observed: 11/11/2018 Status: F Source: [place] 2:14 PM [facility] REPOSITORY [facility] Cardiovascular Services [address] [place] [address] 12 Lead EKG 11/08/18 0549 MR#: [id number] Acct: [id number] Name: JONATHAN NASH Rep #: [id number] : 1945 73 From: Cristian Montero MD Attending Dr: Keyla Russell Status: DIS ADITI Ordering Dr: Sushma Russell DO Date: 11/08/18 Location: [facility] Sex: F C Admitted: 11/07/18 Test Reason : AM EKG Blood Pressure : / mmHG Vent. Rate : 075 BPM Atrial Rate : 075 BPM P-R Int : 170 ms QRS Dur : 088 ms QT Int : 390 ms P-R-T Axes : 053 016 040 degrees QTc Int : 435 ms Normal sinus rhythm Possible Left atrial enlargement Borderline ECG When compared with ECG of 07-NOV-2018 05:17, MANUAL COMPARISON REQUIRED, DATA IS UNCONFIRMED Confirmed by WINSTON MORELAND, CRISTIAN ([id number]), content editor BALDEMAR SAINZ ([id number]) on 11/11/2018 2:14:21 PM Referred By: [facility]I Confirmed By:CRISTIAN MONTERO MD 11/11/18 1414 Date Cristian Montero MD CC: Keyla Russell; Sugey Alonzo MD Signed 12 LEAD ELECTROCARDIOGRAM Observed: 11/11/2018 Status: F Source: [place] 1:21 PM [facility] REPOSITORY [facility] Cardiovascular Services [address] [place] [address] 12 Lead EKG 11/07/18 0517 MR#: [id number] Acct: [id number] Name: JONATHAN NASH Rep #: [id number] : 1945 73 From: Cristian Montero MD Attending Dr: Keyla Russell Status: DIS ADITI Ordering Dr: Daryl Mendez MD Date: 11/07/18 Location: [facility] Sex: F C Admitted: 11/07/18 Test Reason : CP, SOB Blood Pressure : / mmHG Vent. Rate : 078 BPM Atrial Rate : 078 BPM P-R Int : 160 ms QRS Dur : 082 ms QT Int : 374 ms P-R-T Axes : 026 030 016 degrees QTc Int : 426 ms Normal sinus rhythm Normal ECG Confirmed by WINSTON MORELAND, CRISTIAN ([id number]), content editor BALDEMAR SAINZ ([id number]) on 11/11/2018 1:21:07 PM Referred By: EFRAIN Confirmed By:CRISTIAN MONTERO MD 11/11/18 1321 Date Cristian Montero MD CC: Keyla Russell; Sugey Alonzo MD; Daryl Mendez MD Signed RE-EVALUATION - PT (1) Observed: 11/10/2018 Status: F Source: [place] 9:14 AM [facility] REPOSITORY [facility] Physical Therapy [address] [place] [address] Fax REEVALUATION / MEDICARE RECERTIFICATION PHYSICAL THERAPY MR#: [id number] Acct: [id number] Name: JONATHAN NASH Rep #: [id number] : 1945 73 From: Milka Loredo PT, Cert. MDT Referring Dr.: Sugey Alonzo MD Status: REG RCR Insurance: MEDICARE PART A B AARP Sugey Alonzo, It has been my pleasure to treat JONATHAN NASH over the last 7 visits for LUMBAR DDD AND BACK PAIN. Please see the progress note below for an update on the physical therapy plan of care! Subjective: PATIENT REPORTS SHE IS GETTING BETTER BUT IT IS SLOWER THIS TIME. PATIENT REPORTS IMPROVEMENT IN HER WALKING SINCE STARTING PT. SHE STATES SHE IS NOW ABLE TO TRANSFER UP FROM LYING DOWN BETTER TOO SINCE STARTING PT. SHE REPORTS THERE WERE TIMES SHE HAD TO HAVE HER HELP HER GET UP BEFORE BUT NOW SHE CAN GET UP BY HERSELF. SHE ALSO REPORTS SHE CAN GET IN AND OUT OF THE CAR BETTER NOW. SHE REPORTS SHE DID NOT FEEL WELL YESTERDAY AND DID NOT DO THE EX'S - SHE REPORTS SHE HAS ONLY DONE THE EX'S ONCE SINCE LAST VISIT. Objective/Function: PATIENT IS IMPROVING SLOWLY. AQUATIC THERAPY MIGHT BE HELPFUL BUT PATIENT WOULD RATHER NOT DUE TO OSTOMY. INDEP GAIT X APPROX 300 FEET INTO PT WITHOUT ANY ASSISTIVE DEVICES OR LOSS OF BALANCE BUT DECREASED CADANCE AND MILD SOB - BETTER THAN FIRST VISIT. INDEP TRANSFER SIT TO STAND WITHOUT UE ASSIST BUT DIFFICULT. Motor deficit: RADHA LE'S 5/5 WITH MMT'ING EXCEPT HIPS GRADED 4/5. Sensory deficit: NO BUT LEFT KNEE IS STILL SENSATIVE. ROM deficit: RADHA LE'S WFL BUT SOME RADHA HIP FLEXION TIGHTNESS. NEGATIVE RADHA LE'S. Lumbar mvmt loss: flex - NIL. ext - MOD. R SG - MOD - PROVOKES RIGHT LB/BUTTOCK PAIN BUT MILD. L SG - MIN - PROVOKES LEFT LB/BUTTOCK PAIN. Core strength: POOR. Palpation: GENERALIZED TENDERNESS IN RADHA LATERAL HIPS BUT NO ACUTE PAIN WITH PALPATION OF THROACIC SPINE, LUMBAR SPINE, SACRUM OR BUTTOCK REGIONS. PATIENT ABLE TO INDEP TRANSFER FROM SIT TO SUPINE AND REVERSE WITH MINIMAL DIFFICULTY NOW. ONLY MINIMAL CUEING NEEDED WITH ABOVE EX'S TO PERFORM CORRECTLY. Plan Plan: CONT PT 2-3 TIMES A WEEK X 10 VISITS FOR POSTURE CORRECTION/STRENGTHENING, INSTRUCTION IN APPROPRIATE BODY MECHANICS AND ACTIVITY MODIFICATIONS. DLS STARTING WITH A NEUTRAL SPINE PROGRESSING ROM TOLERATED. RADHA LE ROM, STRETCHING AND STRENGTHENING. HEP INSTRUCTION. PATIENT AGREEABLE. Goals Goal 1:: DECREASE C/O LOW BACK AND RIGHT HIP PAIN Goal Time Frame: 4-6 Weeks Goal Progress: Progressing Goal 2:: IMPROVE PERSONAL CARE, LIFTING, WALKING, SITTING, STANDING, SLEEP, SOCIAL LIFE, TRAVEL AND HOMEMAKING FUNCTION Goal Time Frame: 4-6 Weeks Goal Progress: Progressing Goal 3:: INSTRUCT IN PROPHYLAXIS Goal Time Frame: 4-6 Weeks Goal Progress: Progressing Anticipated Interventions Patient/Client Instruction: Educate patient on: Condition, Plan of Care, Risk Factors, Benefits of Fitness Program For the Purpose of:: To improve self management Therapeutic Exercise to Include: Strength training, Body mechanics, Postural training, Dynamic Lumbar Stabilization For the Purpose of:: To decrease pain, To improve muscle performance and motor function, To increase tolerance to activity/condition/position, To improve performance and independence with ADL's, To improve ability of physical actions for home/community/work/leisure, To improve gait and locomotor functions Ultrasound (thermal/non thermal): Yes For the Purpose of:: To decrease pain, To increase ROM, To improve nutrient delivery to tissue Please do not hesitate to contact me at [phone] by phone or if you have questions or concerns regarding this new plan of care! Sincerely, Milka Loredo <Electronically signed by Milka Loredo PT, Cert. MDT> 11/10/18 0914 CC: Sugey Alonzo MD JODY Signed For Medicare only, by signing this I certify the plan of care. Physicians Signature Date DISCHARGE SUMMARY Observed: 11/08/2018 Status: F Source: [place] 5:15 PM [facility] REPOSITORY [facility] Medical Records Department [address] [place] [address] Discharge Summary 11/08/18 1701 MR#: [id number] Acct: [id number] Name: JONATHAN NASH Rep #: [id number] : 1945 73 From: Sushma Russell DO PCP: Sugey Alonzo MD Status: ADM ADITI Y Location: [place] [address] Discharge Date and Diagnosis - Problem List Patient Problems: Active and Suspected Problems (Last Reviewed 11/07/18 @ 09:47 by Sushma Russell DO) Esophagitis (Acute) Date of Admission: 11/07/18 Date of Discharge: 11/08/18 - Primary Discharge Diagnosis Active and Suspected Problems (Last Reviewed 11/07/18 @ 09:47 by Sushma Russell DO) Chest pain likely due to Esophagitis (Acute) - Secondary Discharge Diagnosis Chronic Problems (Last Reviewed 11/07/18 @ 09:47 by Sushma Russell DO) Mild aortic stenosis (Chronic) Cirrhosis, cryptogenic (Chronic) On prednisone therapy (Chronic) Ulcerative colitis (Chronic) History of colectomy (Chronic) has a nub of colon left that could not be removed GERD (gastroesophageal reflux disease) (Chronic) Arthritis (Chronic) sees Dr. Siegel and can not tell me what type of arthritis she has Obesity (BMI 30-39.9) (Chronic) Gout (Chronic) Nonrheumatic mitral (valve) insufficiency (Chronic) mild Hyperlipidemia (Chronic) Hypertension (Chronic) Fatigue (Chronic) Hospital Course and Treatment Imaging Results: Clinical Impression(s) from Imaging Studies Chest X-Ray 11/07/18 05:28 IMPRESSION: There is right basilar atelectasis. Cardiomegaly. Electronically Signed: Malik Lopez at 6:40 EST Tel , Service support , Chest CTA 11/07/18 07:21 IMPRESSION: There is no evidence of pulmonary embolism. Increased interstitial markings at the lung bases with areas of confluence suggestive of atelectasis superimposed on scarring. Electronically Signed: Vito Loyola MD at 8:20 EST Tel [phone], Service support , none Operations: None Procedures: 2-D Echocardiogram - 65% ejection fraction, no wall motion abnormalities, mild aortic stenosis, trivial mitral valve regurgitation, trivial tricuspid valve regurgitation, PA pressure of 32, Stress test - Negative for ischemia. Gated nuclear ejection fraction 74%. She exercised 1 minute into stage II of the Rico protocol and achieved 87% of her maximum predicted heart rate. Summary of Care Provided: The patient is a 73 year old F with a past medical history of hypertension, stage I diastolic dysfunction, gastroesophageal reflux disease, chronic steroid therapy for lung disease, mild mitral insufficiency on an echocardiogram done in June 2018, cirrhosis/nonalcoholic and inflammatory arthritis (follows with Dr. Siegel). She presented to the emergency department at [facility] on 11/07/2018 complaining of awakening at approximately 4:30 AM with tightness in her chest, shortness of breath, nausea. The pain in the chest radiated across the anterior chest wall and down the left arm. She denied any history of coronary artery disease personally and also denied family history. She denied any history of VTE. She was given nitroglycerin in the squad and also again in the emergency room but this did not relieve her pain. Morphine relieved her pain. She also complained of shaking chills that morning and this was very unusual as she is usually very warm. She also had some night sweats. She is chronically on prednisone and had her teeth cleaned 4-6 weeks ago. She had never been told that she had a murmur before. Chest x-ray showed possible atelectasis versus scarring in the bases. CTA of the chest was negative for pulmonary emboli but did show atelectasis versus scarring versus infiltrate in the bases. Vital signs at presentation to the emergency room were temp 98.4, pulse rate 78, blood pressure 195/92, respiratory rate 19 and she was 95% saturated on room air. Labs showed an elevated white blood cell count at 14.4 with 60% neutrophils but 2.6% immature granulocytes. Hemoglobin and platelets were within normal limits. Electrolytes were within normal limits and the BUN was 19 with a creatinine of 1.03 this is within her baseline. Initial troponin is less than 0.015. She is being admitted to the progressive care unit for evaluation for chest pain and new heart murmur. Serial cardiac enzymes were negative. A treadmill nuclear stress test was negative for ischemia. The gated nuclear ejection fraction was within normal limits. Echocardiogram showed an ejection fraction of 65% with stage I diastolic dysfunction, trivial mitral valve insufficiency, trivial tricuspid valve insufficiency, mild aortic stenosis and a right ventricular systolic pressure estimated at 32. There was no evidence of a vegetation on the echocardiogram. Telemetry showed normal sinus rhythm with no significant ectopy. She was placed on Protonix twice daily at admission and the following day the substernal pain was much improved. White blood cell count on the date of discharge was 10.1 with 60.6% neutrophils and still with 2.2% immature granulocytes. She was afebrile throughout her hospital stay. She was discharged home with a prescription for Nexium 20 mg p.o. twice daily. She was given printed literature regarding nonpharmacologic management of GERD and was instructed to follow-up with Dr. Alonzo in the office in 1-2 weeks. PHYSICAL EXAM: GENERAL: alert, oriented X 3, Cooperative, NAD ORAL: moist mucosa, no mucosal lesions NECK: No JVD, supple, trachea midline LUNGS: CTA, symmetric chest expansion HEART: RRR, Normal S1 and S2, no rub, no gallop. 1-2/6 BHANU at the second RICS with radiation to the LVOT and a systolic MM in the left axilla ABDOMEN: soft, NT, ND, BS present, no guarding with palpation EXTREMITIES: no edema, no cyanosis, no calf tenderness SKIN: No rashes, no breakdown NEUROLOGIC: no focal neurologic deficits PSYCH: appropriate, normal affect, pleasant This note was generated with [employer] dictation software. It may contain incorrect words, spelling, and punctuation that were not noted in checking the note before signing. Patient Problems: Active and Suspected Problems (Last Reviewed 11/07/18 @ 09:47 by Sushma Russell DO) Esophagitis (Acute) - Physical Exam Vital Signs Temp Pulse Resp BP Pulse Ox 98.0 F 95 16 135/66 H 94 11/08/18 11:25 11/08/18 15:01 11/08/18 11:25 11/08/18 11:45 11/08/18 11:25 Oxygen Flow Rate (L/min) 2 Oxygen Delivery Method Room Air Weight: 216 lb 11.43 oz Body Mass Index (BMI) 38.4 Intake and Output for Last 24 Hours Intake Total 1380 / 1380 290 / 290 Balance 1380 / 1380 290 / 290 Microbiology Past 72 Hours 12/17/18 10:56 Influenza Types A,B Direct FA ([place]) - Final Mucosa - Nose Laboratory Tests Past 24 Hrs WBC 10.1 RBC 3.90 L Hgb 11.9 L Hct 37.5 MCV 96.2 MCH 30.5 MCHC 31.7 L RDW 15.1 H RDW Differential 52.6 H Discharge Activity: Return to Normal Activity Call your doctor if you observe: Fever of 101 or Higher, Shortness of breath, Calf discomfort Home Medications: Medications to take at Discharge Allopurinol [Zyloprim] 200 mg PO DAILYCM 10/10/15 Albuterol Inhaler [Ventolin Hfa] 1 - 2 puff INHALATION Q4H PRN PRN 03/14/18 Aspirin E.C. [Ecotrin] 81 mg PO DAILY@0800 03/14/18 Fluticasone 0.05% [Flonase Nasal Beaver] 1 spray NASAL QHS 03/14/18 Montelukast [Singulair] 10 mg PO DAILY 03/14/18 Prednisone 7 mg PO DAILY 03/14/18 Vitamin B Complex/Folic Acid [B-Stress Capsules] 2,000 mcg PO DAILY 03/14/18 ergocalciferol (vitamin D2) 50,000 unit capsule 50,000 unit PO QWEEK 06/01/18 metoprolol succinate ER 50 mg tablet,extended release 24 hr 50 mg PO QDAY #90 tab 06/01/18 esomeprazole magnesium 20 mg capsule,delayed release 20 mg PO DAILY 07/15/18 Melatonin 3 mg PO QHS PRN PRN 11/07/18 Mesalamine [Canasa] 11/07/18 Ursodiol [Chelsea] 500 mg PO QHS 11/07/18 Ursodiol [Chelsea] 750 mg PO DAILY 11/07/18 Esomeprazole Mag Trihydrate [Nexium] 20 mg PO BID #60 capsule 11/08/18 Following Prescrptions Were Given to Patient: Esomeprazole Mag Trihydrate [Nexium] 20 mg PO BID #60 capsule Primary Care Physician: Sugey Alonzo MD [Primary Care Provider] - Please follow up with your Primary Care Physician in: 1-2 weeks Patient Instructions: Esophagitis, What Is GERD?, Lifestyle Changes for Controlling GERD, Medications for GERD Medical Necessity - Tobacco Use Smoking Status: Never smoker Tobacco Use: Non-smoker Meaningful Use Info Meaningful Use Diagnoses (Choose all that apply): None applicable Code Visit OBSKetty APARICIO: 20297 Observation care discharge 11/08/18 1715 <Electronically signed by Sushma Russell DO> Date M Raj Russell DO Cosigner Signature (if applicable): Date CC: Keyla Russell; Sugey Alonzo MD Signed DISCHARGE INSTRUCTION Observed: 11/08/2018 Status: F Source: [place] 5:01 PM [facility] REPOSITORY [facility] Medical Records Department [address] [place] [id number] Instructions for Home/Discharge Instructions 11/08/18 1648 MR#: [id number] Acct: [id number] Name: JONATHAN NASH Rep #: [id number] : 1945 73 From: Sushma Russell DO PCP: Sugey Alonzo MD Status: ADM ADITI - Discharge Diagnoses Current Active Problems: Current Active and Chronic Problems (Last Reviewed 11/07/18 @ 09:47 by Sushma Russell DO) Chest pain (Acute) - due to GERD/esophagitis Murmur, cardiac (Acute)- due to mild aortic stenosis and mild MR Leukocytosis (Acute) - resolved Cirrhosis, cryptogenic (Acute) On prednisone therapy (Chronic) Ulcerative colitis (Chronic) History of colectomy (Chronic) has a nub of colon left that could not be removed GERD (gastroesophageal reflux disease) (Chronic) Arthritis (Chronic) sees Dr. Siegel and can not tell me what type of arthritis she has Obesity (BMI 30-39.9) (Chronic) Gout (Chronic) You will use the following diet at home:: Other - no caffeine, peppermints, chocolate or TUMS. Do not lie down for 2 hours after eating. Your food should be the consistency of: Regular Your liquids should be the consistency of: Regular/Thin Discharge Activity: Return to Normal Activity Call your doctor if you observe: Fever of 101 or Higher, Shortness of breath, Calf discomfort Instructions: Esophagitis, What Is GERD?, Lifestyle Changes for Controlling GERD, Medications for GERD Additional Instructions: 1. No caffeine, no chocolate, no peppermints and no TUMS. IF you get heartburn you can drink a glass of cold water to strip the acid out of the esophagus or take a slug of Mylanta or Maalox. I have changed the Esomeprazole to twice a day. Do not lie down for at least 2 hours after eating. If your are still getting reflux with the above instituted therapies you can try elevating the head of your bed on 6 concrete blocks. 2. Your stress test is negative. Your ECHO showed mild aortic stenosis and mild mitral valve insuffieciency. It squeezes normally......nothing to worry about. If the symptoms persist I suggest you discuss with Dr. Alonzo getting an EGD to look at the stomache and the esophagus. Pending Tests on Discharge: none Allergies/Adverse Reactions: Allergies erythromycin base Allergy (Verified 11/07/18 05:18) Rash hydromorphone [From Dilaudid] Allergy (Verified 11/07/18 05:18) CAN NOT BREATH hydroxychloroquine sulfate [From Plaquenil] Allergy (Verified 11/07/18 05:18) Rash pregabalin [From Lyrica] Allergy (Verified 11/07/18 05:18) Rash Sulfa (Sulfonamide Antibiotics) Allergy (Verified 11/07/18 05:18) Rash CERTAIN TAPES Adverse Reaction (Uncoded 11/07/18 05:18) SKIN BREAKDOWN Medications to take at Discharge Allopurinol [Zyloprim] 200 mg PO DAILYCM 10/10/15 Albuterol Inhaler [Ventolin Hfa] 1 - 2 puff INHALATION Q4H PRN PRN 03/14/18 Aspirin E.C. [Ecotrin] 81 mg PO DAILY@0800 03/14/18 Fluticasone 0.05% [Flonase Nasal Beaver] 1 spray NASAL QHS 03/14/18 Montelukast [Singulair] 10 mg PO DAILY 03/14/18 Prednisone 7 mg PO DAILY 03/14/18 Vitamin B Complex/Folic Acid [B-Stress Capsules] 2,000 mcg PO DAILY 03/14/18 ergocalciferol (vitamin D2) 50,000 unit capsule 50,000 unit PO QWEEK 06/01/18 metoprolol succinate ER 50 mg tablet,extended release 24 hr 50 mg PO QDAY #90 tab 06/01/18 esomeprazole magnesium 20 mg capsule,delayed release 20 mg PO DAILY 07/15/18 Melatonin 3 mg PO QHS PRN PRN 11/07/18 Mesalamine [Canasa] 11/07/18 Ursodiol [Chelsea] 500 mg PO QHS 11/07/18 Ursodiol [Chelsea] 750 mg PO DAILY 11/07/18 Esomeprazole Mag Trihydrate [Nexium] 20 mg PO BID #60 capsule 11/08/18 The following prescriptions were given: Esomeprazole Mag Trihydrate [Nexium] 20 mg PO BID #60 capsule Primary Care Physician: Sugey Alonzo MD [Primary Care Provider] - Please follow up with your Primary Care Physician in: 1-2 weeks Test Results: Test results from this visit will be discussed in further detail at your follow-up appointment, if applicable. 11/08/18 1701 <Electronically signed by Sushma Russell DO> Date Sushma Russell DO CC: Sugey Alonzo MD ECHOCARDIOGRAM COMPLETE Observed: 11/08/2018 Status: F Source: [place] 1:52 PM [facility] REPOSITORY [facility] Cardiovascular Services [address] [place] [address] Echo Complete 11/08/18 1032 MR#: [id number] Acct: [id number] Name: JONATHAN NASH Rep #: [id number] : 1945 73 From: Merrick Torres MD Attending Dr: Keyla Russell Status: ADM ADITI Ordering Dr: Sushma Russell DO Date: 11/07/18 Location: [facility] Sex: F C Admitted: 11/07/18 Reason For Study: murmur Procedure This was a 2D Doppler, Color Flow transthoracic echocardiogram. Exam performed portable in patient room. Left Ventricle Normal size and thickness. The estimated ejection fraction is 65 %. Stage 1 diastolic dysfunction. No regional wall motion abnormalities noted. Right Ventricle Normal size and thickness. Normal systolic function. Atria Normal left atrium. Normal right atrium. Normal atrial septum. Mitral Valve The mitral valve is structurally normal. No prolapse or stenosis seen. Trivial mitral valve insufficiency. Tricuspid Valve Normal tricuspid valve. Trivial tricuspid valve insufficiency. Right ventricular systolic pressure estimated to be 32 mmHg. Aortic Valve Trisinus/trileaflet aortic valve. Mild diffuse aortic valve thickening. Mild aortic stenosis. Peak aortic valve gradient 17 mmHg. Mean aortic valve gradient 10 mmHg. Pulmonic Valve Normal pulmonic valve. No eccentric pulmonic valve insufficiency. Great Vessels Normal aortic root. Mild atherosclerosis of the aortic arch. Normal inferior vena cava. Inferior vena cava collapse with sniff. Pericardium/Pleural No pericardial effusion. MMode/2D Measurements AND Calculations LVIDd: 5.4 cm IVSd: 1.1 cm LVOT diam: 2.3 cm LVIDs: 3.7 cm LVPWd: 1.00 cm LVOT area: 4.0 cm2 RVDd: 2.9 cm FS: 30.6 % Ao root diam: 3.2 cm LAV(MOD-bp): 53.9 ml LA A4 area: 17.6 cm2 LAV(MOD-bp) Indexed: 27.0 ml/m2 LAV(MOD-sp2): 50.2 ml LAV(MOD-sp4): 50.0 ml LA dimension(2D): 3.9 cm RA A4 area: 14.6 cm2 Time Measurements MV dec time: 0.16 sec Doppler Measurements AND Calculations MV E max troy: 69.8 cm/sec Lat Peak E' Troy: 5.3 cm/sec Med Peak E' Troy: 9.4 cm/sec MV A max troy: 110.7 cm/sec E/E' lat: 13.2 E/E' med: 7.5 MV E/A: 0.63 Ao V2 max: 208.3 cm/sec LV V1 max: 106.8 cm/sec SV(LVOT): 97.2 ml Ao max P.4 mmHg LV V1 max P.6 mmHg Ao V2 mean: 155.9 cm/sec LV V1 mean P.7 mmHg Ao mean P.3 mmHg LV V1 mean: 78.2 cm/sec Ao V2 VTI: 42.2 cm LV V1 VTI: 24.0 cm KRISTINA(I,D): 2.3 cm2 KRISTINA(V,D): 2.1 cm2 PA V2 max: 107.7 cm/sec TR max troy: 245.0 cm/sec TR max P.1 mmHg Interpretation Summary The estimated ejection fraction is 65 %. Stage 1 diastolic dysfunction. Trivial mitral valve insufficiency. Trivial tricuspid valve insufficiency. Right ventricular systolic pressure estimated to be 32 mmHg. Mild aortic stenosis. Compared to echo report dated 07/04/2018, no appreciable changes noted. Ordering Physician: Keyla Russell Referring Physician: Sugey Alonzo Performed By: Pretty De Santiago, RDCS, RVT 11/08/18 1351 Date Merrick Torres MD CC: Keyla Russell; Sugey Alonzo MD Date Dictated: 11/08/18 1032 Date Transcribed: 11/08/18 135 Income Tax Analyst: Signed STRESS REPORT Observed: 11/08/2018 Status: F Source: [place] 10:56 AM [facility] REPOSITORY [facility] Cardiovascular Services [address] [place] [address] MR#: [id number] Acct: [id number] Name: JONATHAN NASH Rep #: [id number] : 1945 73 From: Cristian Montero MD Primary Care: Sugey Alonzo MD Status: ADM ADITI Ordering Dr: Sex: F C Stress Test Report Exercise myocardial perfusion stress test. 73-year-old lady with a history of chest pain. Medications aspirin Lipitor prednisone Protonix Toprol. Stress protocol: Resting EKG demonstrates normal sinus rhythm with a rate of 82 bpm normal intervals are noted resting blood pressure 138/84 mmHg. The patient exercised according to the regular Rico protocol for total duration of 4 minutes completing 1 minute into stage II of the Rico protocol the maximum heart rate attained was 127 bpm which was 87% of maximum predicted heart rate the maximum workload was 5.8 metabolic equivalents. Patient maintained sinus rhythm throughout the recording with upsloping changes noted at rest and during exertion. No clinical angina was noted the test was terminated due to leg fatigue and shortness of breath. The resting blood pressure was 138/84 with a peak blood pressure 172/68. No clinical angina was noted. Myocardial perfusion protocol. 14.3 mCi of technetium 99m sestamibi was injected at rest. The patient exercised according to regular Rico protocol for 4 minutes and at peak exercise 44.1 mCi of technetium 99m sestamibi was injected stress images were obtained stress and rest images were reconstructed and compared in the short axis vertical long horizontal long axis. Gated images were also obtained Perfusion SPECT analysis: Review of the stress images demonstrate normal uptake of tracer noted in all areas of the myocardium. The resting images similarly demonstrate normal uptake of tracer noted in all areas of myocardium. No areas of reversibility are noted suggest ischemia. No previous infarct is noted. Gated SPECT analysis: The gated ejection fraction is noted to be 74%. Conclusion: Normal exercise myocardial perfusion stress test at a moderate workload. Preserved ejection fraction. 11/08/18 1056 <Electronically signed by Cristian Montero MD> Date Cristian Montero MD CC: Keyla Russell; Sugey Alonzo MD Date Dictated: 11/08/181053 Date Transcribed: 11/08/181053 Income Tax Analyst: [place] Signed CBC W/DIFF, AUTOMATED Collected: 11/08/2018 Status: C Source: [place] 6:45 AM [facility] REPOSITORY TYPE CODE TESTS RESULT OUT OF RANGE REFERENCE UNITS LAB L100.1000 4.4-11.0 K/mm3 Normal WBC 10.1 LAB L100.1200 4.2-5.4 M/mm3 Low RBC 3.90 LAB L100.1300 12.0-15.0 g/dl Low HGB 11.9 LAB L100.1400 37-47 % Normal HCT 37.5 LAB L100.1500 81-99 fL Normal MCV 96.2 LAB L100.1600 27.0-32.0 pg Normal MCH 30.5 LAB L100.1700 32-36 g/gl Low MCHC 31.7 LAB L100.1810 11.6-14.6 % High RDW CV 15.1 LAB L100.1820 35.1-43.9 fl High RDW SD 52.6 LAB L100.1900 150-450 K/mm3 Normal PLT 223 LAB L100.2000 6.2-12.0 fl Normal MPV 8.6 LAB L100.2100 47-70 % Normal NEUT% 60.6 LAB L100.2200 19-41 % Normal LY% 23.4 LAB L100.2300 0-10 % High MONO% 10.4 LAB L100.2400 0-5 % Normal EO% 2.8 LAB L100.2500 0-1 % Normal BASO% 0.6 LAB L100.2550 0.0-0.9 % High IM GRAN % 2.200 Result Comment: IG% - Immature Granulocytes (promyelocytes, myelocytes and metamyelocytes) > 1% indicates that a LEFT SHIFT is Present. LAB L100.2620 2.0-7.7 X10 3/uL Normal Absolute Neut 6.2 LAB L100.2720 0.83-4.51 X10 3/ul Normal Absolute Lymph 2.37 LAB L100.9900 Normal PATH REV Reviewed Result Comment: Neutrophilic left shift. Clinical correlation necessary. Baron Oleary M.D. 11/08/18 AMENDED REPORT 11/08/18 1457 PATH REV previously reported as: March deirdre Performed By: #### L100.0100 #### [facility] [address] [place], [place], [address] COMPREHENSIVE METABOLIC Collected: 11/08/2018 Status: F Source: [facility] 6:45 AM [facility] REPOSITORY TYPE CODE TESTS RESULT OUT OF RANGE REFERENCE UNITS LAB L501.0100 74-106 mg/dL Normal GLU 104 Result Comment: Fasting Glucose result from 100 to 125 mg/dL suggests IMPAIRED HOMEOSTASIS per A.D.A. criteria. Please note revised GLUCOSE reference range effective 2017. LAB L501.1000 7-18 mg/dL Normal BUN 10 LAB L501.1100 0.55-1.02 mg/dL Normal CREAT,SERUM 0.89 Result Comment: The validity of the calculated GFR AND GFRAA in patients over 70 years has not been determined. Clinical correlation is essential. LAB L501.1110 >60 mL/min Normal EST GFR 66 Result Comment: Non- GFR Calc LAB L501.1115 >60 mL/min Normal EST GFR - AA 80 Result Comment: GFR Calc LAB L501.1255 ml/min Normal Estimated CRCL 45.18 LAB L501.1300 10-20 RATIO Normal BUN/CRE 11.3 LAB L501.1500 6.4-8. g/dL Low 2 T PROT 6.1 LAB L501.1800 3.2-5. g/dL Low 0 ALB 2.6 LAB L501.1950 2.2-4. g/dL Normal 2 GLOB 3.5 LAB L501.2000 0.9-2. RATIO Low 4 A/G 0.7 LAB L501.2200 8.5-10 mg/dL Normal .1 CA 8.9 LAB L501.4100 15-37 U/L Normal AST 20 LAB L501.4305 45-117 U/L Normal ALK P 65 LAB L501.4405 13-56 U/L Normal ALT 19 LAB L501.4600 0.20-1 mg/dL Normal .00 T BILI 0.80 LAB L501.5300 136-14 mmol/L Normal 5 NA 141 LAB L501.5600 3.5-5. mmol/L Normal 1 K 3.8 LAB L501.5900 98-107 mmol/L Normal CL 106 LAB L501.6100 21.0-3 mmol/L Normal 2.0 CO2 28.0 LAB L501.6200 5-15 Normal GAP 7 Performed By: #### L500.4050, L500.4100, L501.2300, L501.5200 #### [facility] [address] [place], [address] LIPID PROFILE Collected: 11/08/2018 Status: F Source: [place] 6:45 AM [facility] REPOSITORY TYPE CODE TESTS RESULT OUT OF RANGE REFERENCE UNITS LAB L501.4900 200 mg/dL Normal CHOL 135 Result Comment: <200 mg/dL Desirable 200-240 mg/dL Borderline >240 mg/dL High Risk LAB L501.5000 mg/dL Normal TRIG 88 Result Comment: The drugs N-Acetylcysteine and Metamizole may falsely depress this assay. Serum Triglycerides Reference Interval Normal <150 mg/dL Borderline high 150 - 199 mg/dL High 200 - 499 mg/dL Very High > or = 500 mg/dL LAB L501.6400 mg/dL Normal HDL 68 Result Comment: The drugs N-Acetylcysteine and Metamizole may falsely depress this assay. Reference Range HDL <40 mg/dL Low HDL Cholesterol HDL >or= 60 mg/dL High HDL Cholesterol LAB L501.6500 0-130 mg/dL Normal LDL 49 LAB L501.6600 5-40 mg/dL Normal VLDL 18 Performed By: #### L500.4050, L500.4100, L501.2300, L501.5200 #### [facility] [address] [place], [address] PHOSPHORUS Collected: 11/08/2018 Status: F Source: [place] 6:45 AM [facility] REPOSITORY TYPE CODE TESTS RESULT OUT OF RANGE REFERENCE UNITS LAB L501.2300 2.5-4.9 mg/dL Normal PHOS 2.9 Performed By: #### L500.4050, L500.4100, L501.2300, L501.5200 #### [facility] [address] [facility] [id number] MAGNESIUM Collected: 11/08/2018 Status: F Source: [place] 6:45 AM [facility] REPOSITORY TYPE CODE TESTS RESULT OUT OF RANGE REFERENCE UNITS LAB L501.5200 1.6-2.6 mg/dL Normal MG 1.7 Performed By: #### L500.4050, L500.4100, L501.2300, L501.5200 #### [facility] [address] [place], [address] PROTHROMBIN TIME W/INR Collected: 11/08/2018 Status: F Source: [place] 6:45 AM [facility] REPOSITORY TYPE CODE TESTS RESULT OUT OF RANGE REFERENCE UNITS LAB L300.4150 11.7-14.9 SECONDS Normal PROTIME 14.8 LAB L300.4200 Normal INR 1.2 Performed By: #### L300.3900, L300.4310 #### [facility] [address] [place], [address] PARTIAL THROMBOPLAST Collected: 11/08/2018 Status: F Source: [place] TIME 6:45 AM [facility] REPOSITORY TYPE CODE TESTS RESULT OUT OF RANGE REFERENCE UNITS LAB L300.4310 24.1-36.2 Seconds Normal PTT 32.0 Performed By: #### L300.3900, L300.4310 #### [facility] [address] [place], [address] HISTORY AND PHYSICAL Observed: 11/07/2018 Status: F Source: [place] EXAM 3:39 PM [facility] REPOSITORY [facility] Medical Records Department [address] [place] [address] History and Physical 11/07/18 0931 MR#: [id number] Acct: [id number] Name: JONATHAN NASH Rep #: [id number] : 1945 73 From: Sushma Russell DO PCP: Sugey Alonzo MD Status: ADM ADITI Y Location: ICU [id number] Problem List (1) Chest pain Status: Acute (2) Murmur, cardiac Status: Acute (3) Leukocytosis Status: Acute (4) Nonrheumatic mitral (valve) insufficiency Status: Chronic Comment: mild (5) Hyperlipidemia Status: Chronic (6) Hypertension Status: Chronic Qualifiers: (7) Fatigue Status: Chronic (8) Cirrhosis, cryptogenic Status: Acute (9) On prednisone therapy Status: Chronic (10) Ulcerative colitis Status: Chronic (11) History of colectomy Status: Chronic Comment: has a nub of colon left that could not be removed (12) GERD (gastroesophageal reflux disease) Status: Chronic (13) Arthritis Status: Chronic Comment: sees Dr. Siegel and can not tell me what type of arthritis she has (14) Obesity (BMI 30-39.9) Status: Chronic (15) Gout Status: Chronic History of Present Illness Date of Admission: 11/07/18 Chief Complaint: chest with SOB and nausea The patient is a 73 year old F with a past medical history of hypertension, stage I diastolic dysfunction, gastroesophageal reflux disease, chronic steroid therapy for lung disease, mild mitral insufficiency on an echocardiogram done in June 2018, cirrhosis/nonalcoholic and arthritis (follows with Dr. Siegel but could not tell me what type of arthritis). She presented to the emergency department at [facility] on 11/07/2018 complaining of awakening at approximately 4:30 AM with tightness in her chest, shortness of breath, nausea. The pain in the chest radiated across the anterior chest wall and down the left arm. She denies any history of coronary artery disease personally and also denies family history. She denies any history of VTE. She was given nitroglycerin in the squad and also again in the emergency room but this did not relieve her pain. Morphine relieved her pain. She is also complaining of shaking chills this morning and this is very unusual as she is usually very warm. She also has some night sweats. She is chronically on prednisone and has her teeth cleaned 4-6 weeks ago. She has never been told that she has a murmur before. Chest x-ray showed possible atelectasis versus scarring in the bases. CTA of the chest was negative for pulmonary emboli but did show atelectasis versus scarring versus infiltrate in the bases. Vital signs of presentation to the emergency room were temp 98.4, pulse rate 78, blood pressure 195/92, respiratory rate 19 and she was 95% saturated on room air. Labs showed an elevated white blood cell count at 14.4 with 60% neutrophils but 2.6% immature granulocytes. Hemoglobin and platelets were within normal limits. Electrolytes were within normal limits and the BUN was 19 with a creatinine of 1.03 this is within her baseline. Initial troponin is less than 0.015. She is being admitted to the progressive care unit for evaluation for chest pain and new heart murmur. Past Medical History Past Medical History (Chronic Problems): Chronic Problems (Last Reviewed 11/07/18 @ 09:47 by Sushma Russell DO) On prednisone therapy (Chronic) Ulcerative colitis (Chronic) History of colectomy (Chronic) has a nub of colon left that could not be removed GERD (gastroesophageal reflux disease) (Chronic) Arthritis (Chronic) sees Dr. 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 Ulcerative colitis K51.90 Allergies erythromycin base Allergy (Verified 11/07/18 05:18) Rash hydromorphone [From Dilaudid] Allergy (Verified 11/07/18 05:18) CAN NOT BREATH hydroxychloroquine sulfate [From Plaquenil] Allergy (Verified 11/07/18 05:18) Rash pregabalin [From Lyrica] Allergy (Verified 11/07/18 05:18) Rash Sulfa (Sulfonamide Antibiotics) Allergy (Verified 11/07/18 05:18) Rash CERTAIN TAPES Adverse Reaction (Uncoded 11/07/18 05:18) SKIN BREAKDOWN Home Medications: Ambulatory Orders Medication Instructions Recorded Allopurinol [Zyloprim] 200 mg PO DAILYCM 10/10/15 Surgical History: Surgical History (Last Reviewed 11/07/18 @ 09:47 by Sushma Russell DO) History of colectomy Z90.[address] Z93.2 Psychiatric History: No pertinent psych hx SCHEDULE ANNOUNCER History: No pertinent SCHEDULE ANNOUNCER history Lives: Spouse/ Significant Other Smoking Status: Never smoker Tobacco Use: Non-smoker Alcohol: Rare Drugs: None - *Family History Maternal Family History: Family History (Last Reviewed 07/15/18 @ 10:46 by Cristian Montero MD) Mother Cancer Other Diabetes History Items: - - GM may have had CAD Sibling Family History: Family History (Last Reviewed 07/15/18 @ 10:46 by Cristian Montero MD) Mother Cancer Other Diabetes History Items: Diabetes Review of Systems Constitutional: Reports: Chills, Night Sweats. Denies: Fever, Weight Change Eyes: Denies: Blurred vision, Pain HEENT: Reports: Head Aches. Denies: Difficulty Swallowing, Sinus Congestion, Sinus Drainage, Sore Throat Cardiovascular: Reports: Chest Pain, Edema. Denies: Light Headedness, Palpitations, Paroxysmal Noc. Dyspnea, Syncope Respiratory: Reports: Shortness of Breath, Shortness of breath at rest, Shortness of breath upon exertion. Denies: Cough, Sputum production, Wheezing Gastrointestinal: Reports: Nausea. Denies: Abdominal Pain, Diarrhea, Vomiting Genitourinary: Denies: Dysuria Gynecological: Denies: Breast symptoms, Vaginal discharge Musculoskeletal: Reports: Joint Tenderness - chronic - she has an inflammatroy arthropathy per Dr. Siegel. Denies: Joint Pain Skin: Denies: Jaundice, Rash, Wounds Neurological: Denies: Slurred speech, Confusion, Focal weakness, Numbness, Tingling, Seizures Psychiatric: Denies: Anxiety, Depression, Homicidal Ideations, Suicidal Ideations Endocrine: Denies: Hx of Thyroiditis Hematologic/ Lymphatic: Denies: Easy Bruising, Easy Bleeding, Hx of blood clot VTE Information - Inpt Only VTE Present on Admission: No VTE Mechan Device Prophylaxis: SCD's, Knee High JESSICA Hose VTE Pharm Prophylaxis ordered?: Yes Patient Problems: Active and Suspected Problems (Last Reviewed 11/07/18 @ 09:47 by Sushma Russell DO) Chest pain (Acute) Murmur, cardiac (Acute) Leukocytosis (Acute) Cirrhosis, cryptogenic (Acute) - Physical Exam General: Alert, Oriented x3, Cooperative, No apparent distress, Well developed, Well nourished, - - tells me that she has gained a lot of weight since placed on Prednisone several months ago HEENT: Atraumatic, PERRLA, EOMI, Normocephalic Neck: Supple, No JVD, Negative Carotid Bruits, No Nodes, No Nuchal Rigidity, Trachea Midline Lungs: Normal air movement, Rales - coarse rales in the bases that did not clear after several deep breaths Cardiovascular: Regular rate, Normal S1, Normal S2, Murmur - She has a 2/6 BHANU at the second right intercostal space that radiates to the left ventricular outflow track. She has a systolic murmur which is coarse in the left axillary area. Abdomen: Bowel Sounds Present, Soft, Non Tender, Obese Extremities: No clubbing, No cyanosis, Capillary Refill Less than 3 Seconds, No Calf Tenderness, Edema, Peripheral Pulses Normal Skin: No rashes, No breakdown Musculoskeletal: - Neurological: Cranial nerves II-XII grossly intact, Neuro grossly intact Psych/Mental Status: Normal Affect, Appropriate Vital Signs Temp Pulse Resp BP Pulse Ox 99.0 F 80 22 H 128/60 H 97 11/07/18 08:26 11/07/18 08:26 11/07/18 08:26 11/07/18 08:26 11/07/18 08:26 Oxygen Flow Rate (L/min) 2 Oxygen Delivery Method Nasal Cannula Weight: 216 lb 11.43 oz Body Mass Index (BMI) 38.4 Laboratory Tests Past 24 Hrs WBC 14.4 H RBC 4.13 L Hgb 12.8 Hct 40.1 MCV 97.1 MCH 31.0 MCHC 31.9 L RDW 14.8 H RDW Differential 50.0 H Plt Count 307 Assessment/Plan All Active Problems (Last Reviewed 11/07/18 @ 09:47 by Sushma Russell DO) Chest pain (Acute) Murmur, cardiac (Acute) Leukocytosis (Acute) Cirrhosis, cryptogenic (Acute) Dizziness and giddiness (Resolved) Tachycardia (Resolved) impressions 1. Chest pain with unremarkable EKG and negative troponin x3 2. Heart murmur-patient has previous history of mild mitral regurgitation. She has never been told she has a murmur. She now has a murmur at the aortic listening post radiating to left ventricular outflow tract. There is a harsh murmur in the left axillary area. She is chronically on prednisone and therefore immunocompromised. She had her teeth cleaned proximally 4-6 weeks ago has been having night sweats and most recently shaking chills today. White blood cell count is elevated and I have concern for possible endocarditis. Blood cultures have been ordered and an echocardiogram as well. 3. chronic steroid use for lung disease - follows with Dr. Malhotra 4. chronic lung disease 5. Obesity - states she has gained a lot of weight since being started on Prednisone several months ago 6. Hyperlipidemia 7. 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 History of ulcerative colitis with total colectomy however at the time of surgery a small portion of the colon could not be removed and this portion has ulcerative colitis. 10. Gout 11. GERD 12. Inflammatory arthritis-treated by Dr. Siegel 13. History of mild MR Admit to a monitored bed on PCU ASA 81 mg PO daily SL NTG 0.4 mg PRN chest pain Serial Cardiac Enzymes Stat EKG PRN CP Chest XRAY Chemical nuclear stress test in the AM if the cardiac enzymes are negative DVT prophylaxis ordered Echocardiogram to evaluate the murmur Blood cultures x2 for leukocytosis in an immunocompromised patient who had her teeth cleaned 4-6 weeks ago and is having sweats and shaking chills now. Leukocytosis may in fact be due to chronic steroid therapy. Code Visit OBSV E AND M: [id number] Initial observation care L3 11/07/18 1539 <Electronically signed by Sushma Russell DO> Date Sushma Russell DO Cosigner Signature: Date (if applicable) CC: Keyla Russell; Sugey Alonzo MD Signed TROPONIN-I Collected: 11/07/2018 Status: F Source: [place] 2:10 PM [facility] REPOSITORY Order Comment: 'TROP' Serial specimen #1, #2 or #3: 2 TYPE CODE TESTS RESULT OUT OF RANGE REFERENCE UNITS LAB L501.4010 <0.045 ng/mL Normal < 0.015 TROPONIN-I Result Comment: TROPONIN-I EXPECTED VALUES <0.045 Negative 0.045 - 0.590 Consistent with Cardiac Damage > OR = 0.600 Critical Value Not every elevated troponin is indicative of MA. These values should be used with clinical judgement in examining the patient's clinical picture for diagnosis. To establish a diagnosis of MA versus myocardial injury, there must be a demonstrated rise and/or fall in the troponin values, in addition to ischemic symptoms, EKG changes, new regional wall motion abnormality, and/or angiographical evidence. PLEASE NOTE: REFERENCE RANGES EDITED 18 Performed By: #### L501.4010 #### [facility] [address] [place], [place], [address] Observed: 11/07/2018 Status: F Source: [place] CULTURE, BLOOD (WB) 11:40 AM [facility] REPOSITORY Has pt arrived? Y BC No growth in 5 days. Performed By: #### M200.1000 #### [facility] [address] [place], [place], [address] TROPONIN-I Collected: 11/07/2018 Status: F Source: [place] 11:05 AM [facility] REPOSITORY Order Comment: 'TROP' Serial specimen #1, #2 or #3: 1 TYPE CODE TESTS RESULT OUT OF RANGE REFERENCE UNITS LAB L501.4010 <0.045 ng/mL Normal < 0.015 TROPONIN-I Result Comment: TROPONIN-I EXPECTED VALUES <0.045 Negative 0.045 - 0.590 Consistent with Cardiac Damage > OR = 0.600 Critical Value Not every elevated troponin is indicative of MA. These values should be used with clinical judgement in examining the patient's clinical picture for diagnosis. To establish a diagnosis of MA versus myocardial injury, there must be a demonstrated rise and/or fall in the troponin values, in addition to ischemic symptoms, EKG changes, new regional wall motion abnormality, and/or angiographical evidence. PLEASE NOTE: REFERENCE RANGES EDITED 18 Performed By: #### L501.4010 #### [facility] [address] [facility] [place], [address] Observed: 11/07/2018 Status: F Source: [place] CULTURE, BLOOD (WB) 11:05 AM [facility] REPOSITORY Has pt arrived? Y BC No growth in 5 days. Performed By: #### M200.1000 #### [facility] [address] [facility] [place], [place], [address] Observed: 11/07/2018 Status: F Source: [place] INFLUENZA A+B (RAPID 10:56 AM [facility]) REPOSITORY FLU A/B Rapid Negative test results should be confirmed by culture. Order Rapid Viral Culture for Influenzae A+B (761250) if clinically indicated. Influenza Ag, Direct Presumptive NEGATIVE for Influenza A/B Antigen (See Note) Performed By: #### M101.0101 #### [facility] [address] [facility] [place], [place], [address] EMERGENCY DEPARTMENT Observed: 11/07/2018 Status: F Source: [place] SUMMARY 7:27 AM [facility] REPOSITORY [facility] Medical Records Department [address] [place] [address] Emergency Department Summary 11/07/18 0725 MR#: [id number] Acct: [id number] Name: JONATHAN NASH Rep #: [id number] : 1945 73 From: Daryl Mendez MD PCP: Sugey Alonzo MD Status: REG ER - ER Visit Summary Date of Service: 11/07/18 Chief Complaint: Chest pain History of Present Illness: The patient is a 73 F who presents with chest pain. No history of prior similar symptoms. About 2-1/2 hours before presentation she had sudden onset of moderate left-sided chest pain which she describes as a tightness. She also complains of nausea and a feeling of indigestion and burping. She complains of feeling short of breath. No diaphoresis. No recent travel surgery prior history of DVT or pulmonary embolism. No known coronary artery disease. Physical Examination: Initial blood pressure 195/92 vitals otherwise unremarkable Moist mucous membranes Heart regular rate and rhythm Lungs are clear Abdomen soft 2+ symmetric palpable radial pulses but she does have cyanosis of the fingertips capillary refill of 4 seconds. Alert Test Results: EKG shows normal sinus rhythm at a rate of 78. Chest x-ray shows cardiomegaly and right basilar atelectasis. Labs are notable for white blood cell count 14.4. Troponin is negative. CTA of the chest is pending. Emergency Department Course and Treatment: Given patient's initial cyanosis of the bilateral digits with chest pain I was concerned about possible vascular etiology. However this rapidly resolved and on reevaluation her fingers are pink and warm with normal capillary refill. Patient's description of symptoms sounds more concerning for cardiac ischemia. She underwent evaluation as above with EKG chest x-ray laboratory studies. She was given aspirin. She was given sublingual nitroglycerin. She had no change in symptoms. She was given IV morphine and on the complains of mild pain on reevaluation. However on reevaluation she describes her pain as pleuritic. She states it really only hurts when she takes a deep breath. A CTA of the chest was ordered and is currently pending. Patient just with hospitalist and will be admitted. Treatment Plan: [] Disposition: Admit Impression: Chest pain This note was generated with [employer] dictation software. It may contain incorrect words, spelling, and punctuation that were not noted in review of the chart prior to signing ED Disposition - Plan for ED Patient: Chief Complaint: Chest Pain Referrals: Sugey Alonzo MD [Primary Care Provider] - What to do if you have Problems For any increased pain, shortness of breath, bleeding, nausea or vomiting, chest pain, or any unexpected problems, contact your Primary Care Provider. Call [facility] ([phone]) or report to the closest Emergency Room. Call 911 if necessary. 11/07/18 0727 <Electronically signed by Daryl Mendez MD> Date Daryl Mendez MD Cosigner Signature (If Indicated): Date CC: Sugey Alonzo MD CTA CHEST W/WO Observed: 11/07/2018 Status: F Source: [place] CONTRAST 7:21 AM [facility] REPOSITORY [facility] Imaging Services [address] [place] [address] CTA Chest W/WO Contrast MR#: [id number] Acct: [id number] Name: JONATHAN NASH Rep #: [id number] : 1945 F 73 From: Vito Loyola MD PCP: Sugey Alonzo MD Status: ADM ADITI Study: CTA Chest W/WO Contrast Date of Exam: 11/07/18 Exam# [id number] Ordering Dr: Daryl Mendez MD STUDY: CTA CHEST REASON FOR EXAM: Female, 73 years old. Chest pain. Shortness of breath. Left arm pain. RADIATION DOSAGE (If Supplied By Facility): CTDIvol = ( 15.29 ) mGy, DLP = ( 555.11 ) mGycm TECHNIQUE: The examination was performed with the intravenous administration of 100CC ml of Isovue 370 contrast material. Post-processing of the angiographic images was performed, with multiplanar reformation and 3D reconstruction. Individualized dose optimization techniques were used for this CT. COMPARISON: Comparison is made to prior CT scan examination of August 01, 2018. FINDINGS: Normal enhancement of the main pulmonary artery and right and left pulmonary arteries. Normal enhancement of the bilateral peripheral pulmonary arteries. There is no demonstrated pulmonary embolism. Normal thoracic aorta and visualized great vessels. There is no demonstrated aortic dissection. There are calcifications of the coronary arteries. There are visualized mediastinal lymph nodes, which are within normal size limits, and with normal morphology. Normal hilar regions. Normal visualized trachea and bronchi. The lungs are well expanded. Increased interstitial markings with areas of confluence in both lower lobes. This is suggestive of bibasilar atelectasis. This was not present on prior study. Normal pleura. Normal chest wall structures. There are degenerative changes of thoracic spine. There is fatty infiltration of the liver. CT/CTA Chest W/WO Contrast IMPRESSION: There is no evidence of pulmonary embolism. Increased interstitial markings at the lung bases with areas of confluence suggestive of atelectasis superimposed on scarring. Electronically Signed: Vito Loyola MD at 8:20 EST Tel [phone], Service support , CC: Sugey Alonzo MD; Daryl Mendez MD Income Tax Analyst: Signed CHEST 1 VIEW Observed: 11/07/2018 Status: F Source: [place] (PORTABLE) 5:29 AM [facility] REPOSITORY [facility] Imaging Services [address] [place] [address] Chest 1 View (Portable) MR#: [id number] Acct: [id number] Name: JONATHAN NASH Rep #: [id number] : 1945 F 73 From: Malik Lopez MD PCP: Sugey Alonzo MD Status: REG ER Study: Chest 1 View (Portable) Date of Exam: 11/07/18 Exam# [id number] Ordering Dr: Daryl Mendez MD STUDY: X-RAY CHEST REASON FOR EXAM: Female, 73 years old. Chest pain TECHNIQUE: Single frontal view of the chest. COMPARISON: March 24, 2018. FINDINGS: No pneumothorax. No pleural effusion. Right basilar atelectasis. No focal consolidation. Cardiomegaly. Aortic calcifications. There are diffuse degenerative changes of the visualized thoracic spine. There is degenerative osteoarthritis of the bilateral shoulders. There is no demonstrated abnormality of the visualized soft tissue structures of the upper abdomen. RAD/Chest 1 View (Portable) IMPRESSION: There is right basilar atelectasis. Cardiomegaly. Electronically Signed: Malik Lopez, at 6:40 EST Tel , Service support , CC: Sugey Alonzo MD; Daryl Mendez MD Income Tax Analyst: Signed CBC W/DIFF, AUTOMATED Collected: 11/07/2018 Status: C Source: [place] 5:20 AM [facility] REPOSITORY TYPE CODE TESTS RESULT OUT OF RANGE REFERENCE UNITS LAB L100.1000 4.4-11.0 K/mm3 High WBC 14.4 LAB L100.1200 4.2-5.4 M/mm3 Low RBC 4.13 LAB L100.1300 12.0-15.0 g/dl Normal HGB 12.8 LAB L100.1400 37-47 % Normal HCT 40.1 LAB L100.1500 81-99 fL Normal MCV 97.1 LAB L100.1600 27.0-32.0 pg Normal MCH 31.0 LAB L100.1700 32-36 g/gl Low MCHC 31.9 LAB L100.1810 11.6-14.6 % High RDW CV 14.8 LAB L100.1820 35.1-43.9 fl High RDW SD 50.0 LAB L100.1900 150-450 K/mm3 Normal PLT 307 LAB L100.2000 6.2-12.0 fl Normal MPV 9.1 LAB L100.2100 47-70 % Normal NEUT% 59.9 LAB L100.2200 19-41 % Normal LY% 24.9 LAB L100.2300 0-10 % Normal MONO% 9.4 LAB L100.2400 0-5 % Normal EO% 2.2 LAB L100.2500 0-1 % Normal BASO% 1.0 LAB L100.2550 0.0-0.9 % High IM GRAN % 2.600 Result Comment: IG% - Immature Granulocytes (promyelocytes, myelocytes and metamyelocytes) > 1% indicates that a LEFT SHIFT is Present. LAB L100.2620 2.0-7.7 X10 3/uL High Absolute Neut 8.6 LAB L100.2720 0.83-4.51 X10 3/ul Normal Absolute Lymph 3.59 LAB L100.9900 Normal PATH REV Reviewed Result Comment: Leukocytosis. Clinical correlation necessary. Baron Oleary M.D. 11/07/18 AMENDED REPORT 11/07/18 1407 PATH REV previously reported as: Vonda gilmore Performed By: #### L100.0100 #### [facility] [address] [place], [address] BASIC METABOLIC Collected: 11/07/2018 Status: F Source: [place] PROFILE [facility] 5:20 AM [facility] REPOSITORY TYPE CODE TESTS RESULT OUT OF RANGE REFERENCE UNITS LAB L501.0100 74-106 mg/dL Normal GLU 102 Result Comment: Fasting Glucose result from 100 to 125 mg/dL suggests IMPAIRED HOMEOSTASIS per A.D.A. criteria. Please note revised GLUCOSE reference range effective 2017. LAB L501.1000 7-18 mg/dL High BUN 19 LAB L501.1100 0.55-1.02 mg/dL High CREAT,SERUM 1.03 Result Comment: The validity of the calculated GFR AND GFRAA in patients over 70 years has not been determined. Clinical correlation is essential. LAB L501.1110 >60 mL/min Low EST GFR 55 Result Comment: Non- GFR Calc LAB L501.1115 >60 mL/min Normal EST GFR - AA 67 Result Comment: GFR Calc LAB L501.1255 ml/min Normal Estimated CRCL 39.04 LAB L501.1300 10-20 RATIO Normal BUN/CRE 18.4 LAB L501.2200 8.5-10 mg/dL Normal .1 CA 8.8 LAB L501.5300 136-14 mmol/L Normal 5 NA 143 LAB L501.5600 3.5-5. mmol/L Normal 1 K 3.9 LAB L501.5900 98-107 mmol/L Normal CL 106 LAB L501.6100 21.0-3 mmol/L Normal 2.0 CO2 29.0 LAB L501.6200 5-15 Normal GAP 8 Performed By: #### L500.2500, L501.4010 #### [facility] [address] [place], [address] TROPONIN-I Collected: 11/07/2018 Status: F Source: [place] 5:20 AM [facility] REPOSITORY TYPE CODE TESTS RESULT OUT OF RANGE REFERENCE UNITS LAB L501.4010 <0.045 ng/mL Normal < 0.015 TROPONIN-I Result Comment: TROPONIN-I EXPECTED VALUES <0.045 Negative 0.045 - 0.590 Consistent with Cardiac Damage > OR = 0.600 Critical Value Not every elevated troponin is indicative of MA. These values should be used with clinical judgement in examining the patient's clinical picture for diagnosis. To establish a diagnosis of MA versus myocardial injury, there must be a demonstrated rise and/or fall in the troponin values, in addition to ischemic symptoms, EKG changes, new regional wall motion abnormality, and/or angiographical evidence. PLEASE NOTE: REFERENCE RANGES EDITED 18 Performed By: #### L500.2500, L501.4010 #### [facility] [address] [facility] [place], [address] INITAL EVALUATION (1) Observed: 10/18/2018 Status: F Source: [facility] - PT 11:23 AM [facility] REPOSITORY [facility] [address] [place] [address]. [address] [place], [place] [address] Fax REHABILITATION SERVICES INITIAL EVALUATION MR#: [id number] Acct: [id number] Name: JONATHAN NASH Rep #: [id number] : 1945 73 From: Milka Loredo PT, Cert. MDT Referring Dr.: Sugey Alonzo MD Status: REG RCR Insurance: MEDICARE PART A B [facility] Patient's Visit Information JONATHAN NASH is a 73 year old F referred to Physical Therapy by Sugey Alonzo with a diagnosis of LUMBAR DDD AND BACK PAIN. Date of Evaluation: 10/18/18 Physical Therapist: Milka Loredo - Visit Plan Frequency: 2-3x /Week Duration: 4-6 Weeks Plan: POSTURE CORRECTION/STRENGTHENING, INSTRUCTION IN APPROPRIATE BODY MECHANICS AND ACTIVITY MODIFICATIONS. DLS STARTING WITH A NEUTRAL SPINE PROGRESSING ROM TOLERATED. RADHA LE ROM, STRETCHING AND STRENGTHENING. HEP INSTRUCTION. - Subjective Subjective: Work/Leisure: RETIRED. Disability: NO. Present symptoms: LOW BACK PAIN. RIGHT HIP PAIN - PATIENT POINTS TO BUTTOCK REGION. Present since: COUPLE MONTHS AGO. Pain Scale: WORSE 9/10, LEAST 0/10. Currently: 2/10. Commenced as a result of: NO APPARENT REASON. Symptoms at onset: BACK OR HIP. Worse: TWISTING, SITTING ON HARD SURFACES, PROLONGED SITTING, RISING FROM SITTING, PROLONGED WALKING, BENDING. Better: LYING DOWN, TYLONOL, PREDNISONE BUT TAPERING OFF WITH GOAL OF BEING OFF BY NOV/DEC 2017 (WAS ON PREDNISONE FOR RESPIRATORY PROBLEMS). Disturbed sleep: NO. Previous history/Previous treatment: HISTORY OF SCIATICA TREATED WITH PHYSICAL THERAPY. WENT TO A CHIROPRACTOR A COUPLE TIMES THIS EPISODE - IT DID NOT HELP. ALSO HAS BEEN TO CHIROPRACTOR IN THE PAST FOR BACK PROBLEMS. NO BRENDA'S. NO BACK SURGERY. PATIENT REPORTS SHE HAS ACTUALLY BEEN TO THE CHIROPRACTOR 3 TIMES THIS YEAR FOR BACK PROBLEMS. Coughing/sneezing/straining: POSITIVE. Gait: NOT BEING ABLE TO WALK DUE TO SHARP BACK AND HIP PAIN IS WHY PATIENT REPORTS SHE WENT TO THE CHIROPRACTOR THEN HE REFERRED HER TO HER FAMILY DOCTOR. CURRENTLY SHE CAN WALK BUT HER PACE, TIME AND DISTANCE STANDING AND WALKING IS MORE LIMITED THAN IT WAS PRIOR TO THIS FLARE UP A FEW MONTHS AGO. Difficulty initiating urinatin: NO. Accidents: NO. FALL Jun COMING UP THE STEPS INTO THE HOUSE CARRYING A BOWL AND TRIPPED AND ALL WEIGHT WENT DOWN ON LEFT KNEE. SELF TREATMENT OF KNEE UNDER DOCTORS CARE AND SLOWLY IMPROVING. Unexplained weight loss: NO. Imaging: OSTEOPENIA AND SPONLYLOSIS MOST MARKED AT L5S1. PMH: ULCERATIVE COLITIS - OSTOMYL RESPIRATORY CONDITION UNDER THE CARE OF SPECIALIST. HISTORY OF DIZZINESS FOR SEVERAL MONTHS NOW THEREFORE NOT DRIVING - SINCE SPRING. PATIENT HAS A FEAR OF TAKING PAIN MEDICATION DUE TO LIVER DAMAGE. FIBROMYALGIA. PLOF (Prior Level of Function): UNLIMITED WALKING. WAS ABLE TO CARRY LAUNDRY BASKET, GET DOWN INTO LOW CUPBORDS TO GET PANS AND DO MORE HOUSEWORK PRIOR TO THIS FLARE UP OF HER BACK AND HIP THAT STARTED A COUPLE MONTHS AGO. OTHER: PATIENT REPORTS HER IS NOT WELL BUT HE HELPS WITH THE HOUSE WORK AND DRIVES. - Objective Sitting/Standing Posture: POOR. INCREASED TRUNK FLEXION. Lordosis: DECREASED. Lateral shift: NO. Relevant shift: N/A. Active Correction of posture: NE. Other Observations: INDEP GAIT X APPROX 300 FEET INTO PT WITHOUT ANY ASSISTIVE DEVICES OR LOSS OF BALANCE BUT DECREASED CADANCE AND SOB. INDEP TRANSFER SIT TO STAND WITHOUT UE ASSIST. Motor deficit: RADHA LE'S 5/5 WITH MMT'ING EXCEPT HIPS GRADED 4/5. Sensory deficit: NO BUT LEFT KNEE IS SENSATIVE. ROM deficit: RADHA LE'S WFL BUT SOME RADHA HIP FLEXION TIGHTNESS. Reflexes: UNABLE TO ELICIT RADHA LE DTR'S AND DID NOT ATTEMPT LEFT QUAD DUE TO TENDERNESS FROM FALL. Dural Signs: NEGATIVE RADHA LE'S. Lumbar mvmt loss: flex - NIL. ext - MOD. R SG - MIN - PROVOKES LEFT LB/BUTTOCK PAIN. L SG - MIN - PROVOKES LEFT LB/BUTTOCK PAIN BUT RIGHT SG > LEFT SG. Core strength: POOR. Palpation: GENERALIZED TENDERNESS IN RADHA LATERAL HIPS BUT NO ACUTE PAIN WITH PALPATION OF THROACIC SPINE, LUMBAR SPINE, SACRUM OR BUTTOCK REGIONS. - Goals Goal 1:: DECREASE C/O LOW BACK AND RIGHT HIP PAIN Goal Time Frame: 4-6 Weeks Goal 2:: IMPROVE PERSONAL CARE, LIFTING, WALKING, SITTING, STANDING, SLEEP, SOCIAL LIFE, TRAVEL AND HOMEMAKING FUNCTION Goal Time Frame: 4-6 Weeks Goal 3:: INSTRUCT IN PROPHYLAXIS Goal Time Frame: 4-6 Weeks - Rehabilitation Potential Rehabilitation Potential: Good - Anticipated Interventions Patient/Client Instruction: Educate patient on: Condition, Plan of Care, Risk Factors, Benefits of Fitness Program For the Purpose of:: To improve self management Therapeutic Exercise to Include: Strength training, Body mechanics, Postural training, Dynamic Lumbar Stabilization For the Purpose of:: To decrease pain, To improve muscle performance and motor function, To increase tolerance to activity/condition/position, To improve performance and independence with ADL's, To improve ability of physical actions for home/community/work/leisure, To improve gait and locomotor functions Ultrasound (thermal/non thermal): Yes For the Purpose of:: To decrease pain, To increase ROM, To improve nutrient delivery to tissue Thank you for the opportunity to evaluate your patient. For Medicare and Medicare HMO plans, please review the plan of care and approve it. It will need to be FAXED BACK to us at [phone] for Medicare purposes. Please let me know if there are questions or concerns regarding this plan of care. Physician Signature: Date: <Electronically signed by Milka Loredo PT, Cert. MDT> 10/18/18 1123 CC: Sugey Alonzo MD JODY Signed For Medicare only, by signing this I certify the plan of care. Physicians Signature Date L/S SPINE MIN 4 Observed: 10/07/2018 Status: F Source: [place] VIEWS 1:48 PM [facility] REPOSITORY [facility] Imaging Services [address] [place] [address] L/S Spine Min 4 Views MR#: [id number] Acct: [id number] Name: JONATHAN NASH Rep #: [id number] : 1945 F 73 From: Holden Nascimento MD PCP: Sugey Alonzo MD Status: REG CLI Study: L/S Spine Min 4 Views Date of Exam: 10/07/18 Exam# [id number] Ordering Dr: Sugey Alonzo MD STUDY: X-RAY - LUMBAR SPINE REASON FOR EXAM: Female, 73 years old. Acute back pain. TECHNIQUE: 5 view(s) of the lumbar spine were obtained. COMPARISON: None FINDINGS: There is generalized osteopenia. Normal lumbar lordosis. There is no substantial scoliosis. There is a normal alignment of the vertebrae. Normal vertebral bodies and endplates. There is intervertebral disc space narrowing most marked at L5-S1. There is diffuse facet sclerosis. There are vascular calcifications. There are tubal ligation clips in the pelvis. There is an ostomy present in the right side of the abdomen. RAD/L/S Spine Min 4 Views IMPRESSION: Osteopenia with lumbar spondylosis most marked at L5-S1. Electronically Signed: Holden Nascimento MD at 16:35 EST , Service support , CC: Sugey Alonzo MD Income Tax Analyst: Signed CBC W/DIFF, AUTOMATED Collected: 08/20/2018 Status: F Source: [place] 10:59 AM [facility] REPOSITORY TYPE CODE TESTS RESULT OUT OF RANGE REFERENCE UNITS LAB L100.1000 4.4-11.0 K/mm3 High WBC 12.1 LAB L100.1200 4.2-5.4 M/mm3 Normal RBC 4.26 LAB L100.1300 12.0-15.0 g/dl Normal HGB 13.2 LAB L100.1400 37-47 % Normal HCT 41.5 LAB L100.1500 81-99 fL Normal MCV 97.4 LAB L100.1600 27.0-32.0 pg Normal MCH 31.0 LAB L100.1700 32-36 g/gl Low MCHC 31.8 LAB L100.1810 11.6-14.6 % Normal RDW CV 13.8 LAB L100.1820 35.1-43.9 fl High RDW SD 48.3 LAB L100.1900 150-450 K/mm3 Normal PLT 240 LAB L100.2000 6.2-12.0 fl Normal MPV 9.2 LAB L100.2100 47-70 % Normal NEUT% 59.8 LAB L100.2200 19-41 % Normal LY% 27.1 LAB L100.2300 0-10 % Normal MONO% 7.7 LAB L100.2400 0-5 % Normal EO% 1.8 LAB L100.2500 0-1 % Normal BASO% 0.7 LAB L100.2550 0.0-0.9 % High IM GRAN % 2.900 Result Comment: IG% - Immature Granulocytes (promyelocytes, myelocytes and metamyelocytes) > 1% indicates that a LEFT SHIFT is Present. LAB L100.2620 2.0-7.7 X10 3/uL Normal Absolute Neut 7.2 LAB L100.2720 0.83-4.51 X10 3/ul Normal Absolute Lymph 3.28 LAB L100.9900 Normal PATH REV Reviewed Result Comment: Leukocytosis and Neutrophilic left shift. Clinical correlation necessary. Baron Oleary M.D. 08/23/18 Performed By: #### L100.0100 #### [facility] [address] [place], [address] COMPREHENSIVE METABOLIC Collected: 08/20/2018 Status: F Source: [facility] 10:59 AM [facility] REPOSITORY TYPE CODE TESTS RESULT OUT OF RANGE REFERENCE UNITS LAB L501.0100 74-106 mg/dL High GLU 143 Result Comment: Fasting Glucose result greater than or equal to 126 mg/dL suggests DIABETES MELLITUS per A.D.A. criteria. Please note revised GLUCOSE reference range effective 2017. LAB L501.1000 7-18 mg/dL High BUN 23 LAB L501.1100 0.55-1.02 mg/dL High CREAT,SERUM 1.11 Result Comment: The validity of the calculated GFR AND GFRAA in patients over 70 years has not been determined. Clinical correlation is essential. LAB L501.1110 >60 mL/min Low EST GFR 51 Result Comment: Non- GFR Calc LAB L501.1115 >60 mL/min Normal EST GFR - AA 62 Result Comment: GFR Calc LAB L501.1300 10-20 RATIO High BUN/CRE 20.7 LAB L501.1500 6.4-8.2 g/dL T Normal PROT 6.7 LAB L501.1800 3.2-5.0 g/dL Low ALB 3.1 LAB L501.1950 2.2-4.2 g/dL Normal GLOB 3.6 LAB L501.2000 0.9-2.4 RATIO Normal A/G 0.9 LAB L501.2200 8.5-10.1 mg/dL CA Normal 9.1 LAB L501.4100 15-37 U/L Normal AST 21 LAB L501.4305 45-117 U/L Normal ALK P 70 LAB L501.4405 13-56 U/L Normal ALT 28 LAB L501.4600 0.20-1.00 mg/dL T Normal BILI 0.40 LAB L501.5300 136-145 mmol/L NA Normal 140 LAB L501.5600 3.5-5.1 mmol/L K Normal 3.8 LAB L501.5900 98-107 mmol/L CL Normal 105 LAB L501.6100 21.0-32.0 mmol/L Normal CO2 28.0 LAB L501.6200 5-15 Normal GAP 7 Performed By: #### L500.4050, L501.1400 #### [facility] [address] [place], [place], [id number] URIC ACID Collected: 08/20/2018 Status: F Source: [place] 10:59 AM [facility] REPOSITORY TYPE CODE TESTS RESULT OUT OF RANGE REFERENCE UNITS LAB L501.1400 2.6-6.0 mg/dL Normal URIC 4.6 Result Comment: The drugs N-Acetylcysteine and Metamizole may falsely depress this assay. Performed By: #### L500.4050, L501.1400 #### [facility] [address] [place], [address] MRI ABDOMEN WITH AND Observed: 08/12/2018 Status: F Source: [facility] WITHOUT CONTRAST 1:13 PM [facility] REPOSITORY EXAM: MRI ABDOMEN WITH AND WITHOUT CONTRAST, 08/12/2018 12:37 PM CLINICAL INDICATIONS: Neoplasm: pancreas, rx monitor or f/u; FU pancreatic cysts; D49.0:Pancreas neoplasm. Sex: Female, Age: 73 years COMPARISON: MR abdomen study dated 08/06/2017 TECHNIQUE: Axial and coronal T2-weighted images. Axial T1- weighted images, in and [id number], with and without fat suppression, and pre and postcontrast. The postcontrast images were obtained in the arterial, portal venous, and hepatic venous phases. Additional T1-weighted fat-suppressed postcontrast and equilibrium images were obtained in the axial and coronal planes. Diffusion-weighted imaging was also performed. FINDINGS: Lower Chest: The visualized lung bases reveal atelectatic changes in the lower lobes. No pleural or pericardial effusion is identified. Liver: Liver is overall normal in size and there is stable subtle irregularity of the liver outlines along the inferior right hepatic lobe. Some prominence of the caudate lobe is also noted. There is diffuse signal loss in the liver on the in/out of phase sequences suggestive of hepatic steatosis. Some areas of fatty sparing adjacent to the gallbladder. Small T2 bright cysts are noted within the liver parenchyma. No intrahepatic biliary ductal dilatation is seen. There is no perihepatic fluid or collection. No T1 hyperintense lesions noted within the liver. On the post gadolinium sequences, heterogeneous arterial enhancement is again noted within the liver. There is a small irregular T1 hypointense focus in the peripheral subcapsular aspect of the segment 6 of the liver measuring 1.8 cm in size with associated minimal T2 hyperintensity. Peripheral enhancement is seen within this focus on the portal venous and delayed phase images. No convincing diffusion restriction is seen within this lesion. This appears slightly more prominent since the prior comparison study and could represent a small hemangioma. No additional enhancing focal liver lesions seen on this exam. Portal vein is patent. Hepatic veins and the retrohepatic IVC are also patent. Gallbladder and biliary tree: The gallbladder is essentially collapsed with no discrete filling defects to suggest stones. No gallbladder wall thickening or pericholecystic fluid. The common bile duct and intrahepatic biliary tree are normal in caliber. Spleen: Spleen is normal in size and signal characteristics. No suspicious focal splenic lesions. Splenic vascular pedicle is patent with no perisplenic fluid or collections. Pancreas: There are multiple tiny T2 bright foci noted within the head, uncinate process, in the body and tail of the pancreas. Subtle pancreatic ductal irregularity is seen along the distal pancreatic body and tail with some prominent sidebranches. These cystic lesions likely represent prominent sidebranch ducts versus small cystic neoplasms. No evidence of pancreatic divisum. Largest of these measures approximately 4 mm in size in the mid pancreatic body. Stable focus of enhancement in the pancreaticoduodenal groove shows signal characteristics similar to the background pancreas and likely represents normal pancreatic tissue There are no interval peripancreatic inflammatory changes or fluid collections. Kidneys: Kidneys are normal in size and signal. There is no hydronephrosis. No suspicious enhancing focal renal mass lesions. 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 Few tiny cysts are seen within the left kidney. No perinephric collection or inflammation. Visualized proximal ureters are non-dilated. Adrenals: Right adrenal gland is unremarkable. Subtle thickening of the left adrenal gland likely related to hyperplasia Retroperitoneal and Vasculature: Abdominal aorta and its branches are patent. Mesenteric vasculature is also patent. There are scattered small periaortic and retroperitoneal lymph nodes which are non-specific. Few prominent periportal nodes are also seen. There is no interval ascites or loculated collections. Visualized psoas muscles are symmetric. GI Tract: Stomach is partly distended with fluid and food residue. No definite focal abnormalities in the stomach.. Visualized small bowel loops are non-obstructed. There is diastasis of the rectus muscles with a stoma in the right paramedian ventral wall with parastomal herniation of fat increased since the prior comparison study. Fascial defect measures up to 4.1 cm in maximum width.. No mesenteric mass lesions or enlarged nodes. No acute mesenteric inflammation or fluid collections. Mild body wall edema especially on the right side Osseous Structures: Visualized bony structures reveal normal marrow signal. There are no suspicious focal osseous lesions. Degenerative changes are noted in the visualized spine with endplate degenerative changes at the L5-S1 level. IMPRESSION: 1. Stable hepatic steatosis. Irregularity of the liver outlines along the right hepatic lobe likely related to cirrhosis. Stable tiny T2 bright cysts in the liver. Small peripherally enhancing faintly T2 bright lesion in the segment 6 of the liver in the subcapsular aspect is slightly more prominent than the prior comparison study. No convincing features of a neoplastic lesion. This lesion is indeterminate and could represent a hemangioma. No enhancing lesions with washout to suggest HCC. Patent portal vein 2. No definite gallstones or biliary dilatation. 3. Multiple T2 bright foci in the pancreatic head, body and tail likely represent prominent sidebranch ducts versus tiny cystic neoplasms. Attention on follow-up is recommended. No MR evidence to suggest acute or chronic pancreatitis 4. Interval increase in the parastomal herniation of fat in the right paramedian ventral wall with diastasis of the rectus muscles increased since the prior exam 5. No interval ascites or lymphadenopathy in the upper abdomen. 6. Unremarkable gallbladder with a nondilated biliary tree *CRE/GFR POC DEVICE Collected: 08/12/2018 Status: F Source: [facility] 12:03 PM [facility] REPOSITORY TYPE CODE TESTS RESULT OUT OF REFERENCE UNITS RANGE LAB CREPC 0.50-1.20 mg/dL Creatinine (poc 0.98 device) LAB GFRPC >60 mL/min/1.7 Low 3 sq m est GFR, (poc device) 59 LAB PCSTYP *POC SAMPLE TYPE Venous CHEST WITHOUT Observed: 08/01/2018 Status: F Source: [place] CONTRAST 3:46 PM [facility] REPOSITORY [facility] Imaging Services [address] [place] [address] Chest without Contrast MR#: [id number] Acct: [id number] Name: JONATHAN NASH Rep #: [id number] : 1945 F 73 From: Gui Cramer PCP: Sugey Alonzo MD Status: REG CLI Study: Chest without Contrast Date of Exam: 08/01/18 Exam# [id number] Ordering Dr: Bar Malhotra MD STUDY: CT CHEST WITHOUT CONTRAST REASON FOR EXAM: Female, 73 years old. Cough RADIATION DOSAGE (If Supplied By Facility): CTDIvol = ( 14.8 ) mGy, DLP = ( 546.16 ) mGycm TECHNIQUE: Transaxial imaging was performed without the administration of intravenous contrast material. Individualized dose optimization techniques were used for this CT. COMPARISON: None. FINDINGS: Lungs are well expanded. There are fibrotic changes in the RIGHT lower lung. There are NO infiltrates. There is no demonstrated pleural abnormality. Normal heart and pericardium. Normal mediastinum. Normal hilar regions. Normal unenhanced pulmonary arteries. There is atherosclerotic calcification of the aortic arch with tortuosity and elongation of the aortic arch and descending thoracic aorta. Normal osseous structures. There is no demonstrated abnormality of the visualized upper abdomen. CT/Chest without Contrast IMPRESSION: Lungs are well expanded. There are fibrotic changes in the RIGHT lower lung. There are NO infiltrates. There is no demonstrated pleural abnormality. Normal heart and pericardium. Electronically Signed: Gui Cramer MD at 7:30 EDT , Service support , CC: Sugey Alonzo MD; Bar Malhotra MD Income Tax Analyst: Signed CRP Collected: 08/01/2018 Status: F Source: [place] 3:40 PM [facility] REPOSITORY TYPE CODE TESTS RESULT OUT OF RANGE REFERENCE UNITS LAB L501.6710 0.0-3.0 mg/L High 7.02 C-REACTIVE PROT Result Comment: C-Reactive Protein (CRP) provides useful information for the diagnosis, therapy and monitoring of inflammatory processes and associated diseases. For the evaluation of Relative Risk for Cardiovascular Disease, a High Sensitivity CRP (HSCRP) should be ordered. Performed By: #### L501.6710 #### [facility] [address] [place], [address] ERYTHROCYTE SED RATE Collected: 08/01/2018 Status: F Source: [place] 3:40 PM [facility] REPOSITORY TYPE CODE TESTS RESULT OUT OF RANGE REFERENCE UNITS LAB L102.0000 0-30 mm/hr Normal SED RATE 10 Performed By: #### L101.9900 #### [facility] [address] [place], [address] CARDIOLOGY VISIT Observed: 07/15/2018 Status: F Source: [place] REPORT 10:49 AM [facility] REPOSITORY [facility] [address] [place] [address] OFFICE VISIT Date of Service: 07/15/18 MR#: [id number] Acct: [id number] Name: JONATHAN NASH Rep #: [id number] : 1945 Provider: Cristian Montero MD Age/Sex: 73/F Location: [facility] Status: Signed HPI [facility] Chief Complaint: Follow up visit Details: JONATHAN NASH, is a 73 F who presents to the office today for a follow up visit. She is a lady who has been having dizziness for a few months. She says that she does not know what the precipitating event is but she has also had some fatigue as well as weight gain nausea and excessive sweating. She had seen you and a carotid ultrasound was performed which did not demonstrate any significant stenosis and a 24-hour Holter monitor was performed. It demonstrated an average heart rate of 96 bpm with a minimum heart rate of 62 bpm and a maximum 133 bpm, which was sinus mechanism. There was no atrial fibrillation noted but she remained fairly tachycardic over most of the day she tells me that her thyroid test was performed which did not demonstrate any significant abnormality. She has not had any neck arm or jaw discomfort suggest angina no dizziness or diaphoresis no near syncope or syncope. She has been compliant with her medications and her blood pressure medications she is also seen the ENT physician who has thus far excluded anything related to her inner ear. An MRI of the head was unremarkable. Her physical exam demonstrates clear lung gonzalez regular rate and rhythm and no pedal edema. Intake Vital Signs07/15/18 Height 5 ft 3 in 07/15/18 Weight: 210 lb 07/15/18 Body Mass Index (BMI) 37.2 07/15/18 Blood Pressure 142/78 07/15/18 Blood Pressure Location Lt brachial Intake Visit Reasons: 6 wk f/up Shop Hand Required: No Accompanied by: none Is patient in pain?: No Allergies erythromycin base Allergy (Verified 07/15/18 10:33) Rash hydromorphone [From Dilaudid] Allergy (Verified 07/15/18 10:33) CAN NOT BREATH hydroxychloroquine sulfate [From Plaquenil] Allergy (Verified 07/15/18 10:33) Rash pregabalin [From Lyrica] Allergy (Verified 07/15/18 10:33) Rash Sulfa (Sulfonamide Antibiotics) Allergy (Verified 07/15/18 10:33) Rash CERTAIN TAPES Adverse Reaction (Uncoded 06/01/18 15:26) SKIN BREAKDOWN Medications Allopurinol [Zyloprim] 200 mg PO DAILYCM 10/10/15 [History Confirmed 07/15/18] Albuterol Inhaler [Ventolin Hfa (SP)] 1 - 2 puff INHALATION Q4H PRN PRN 03/14/18 [History Confirmed 07/15/18] Aspirin E.C. [Ecotrin] 81 mg PO DAILY@0800 03/14/18 [History Confirmed 07/15/18] Fluticasone 0.05% [Flonase Nasal [place]] 1 spray NASAL QHS 03/14/18 [History Confirmed 07/15/18] Fluticasone/Vilanterol [Breo Ellipta Inhaler] 1 puff IH QHS 03/14/18 [History Confirmed 07/15/18] Montelukast [Singulair] 10 mg PO DAILY 03/14/18 [History Confirmed 07/15/18] Prednisone 15 mg PO DAILY 03/14/18 [History Confirmed 07/15/18] Vitamin B Complex/Folic Acid [B-Stress Capsules] 2,000 mcg PO DAILY 03/14/18 [History Confirmed 07/15/18] ergocalciferol (vitamin D2) 50,000 unit capsule 50,000 unit PO QWEEK 06/01/18 [History Confirmed 07/15/18] metoprolol succinate ER 50 mg tablet,extended release 24 hr 50 mg PO QDAY #90 tab 06/01/18 [Rx Confirmed 07/15/18] sertraline 25 mg tablet 50 mg PO DAILY tab 06/01/18 [History Confirmed 07/15/18] ursodiol 250 mg tablet 1,250 mg PO QDAY tab 06/01/18 [History Confirmed 07/15/18] esomeprazole magnesium 20 mg capsule,delayed release 20 mg PO DAILY 07/15/18 [History Confirmed 07/15/18] [facility] Medical History Hyperlipidemia (Chronic) Hypertension (Chronic) Cyst of pancreas (Chronic) Depression (Chronic) Fibromyalgia (Chronic) Gout (Chronic) IBS (irritable bowel syndrome) (Chronic) Inflammatory arthritis (Chronic) Interstitial lung disease (Chronic) Obesity (Chronic) Osteopenia (Chronic) Primary biliary cholangitis (Chronic) Ulcerative colitis (Chronic) Surgical History History of colectomy (Chronic) Ileostomy in place (Chronic) Family History Mother Cancer skin cancer Other Diabetes Social History Smoking Status: Never smoker ROS Const Const: Negative for fatigue, weakness, night sweats, excessive sweating, frequent falls, headache(s) or daytime sleepiness Eyes Eyes: Negative for loss of peripheral vision, transient loss of vision, blind spots, double vision or blurry vision ENT ENT: Negative for headache(s), dizziness, balance problems, Nosebleed/epistaxis, tongue swelling or lip swelling Cardio Chest Pain: No Palpitations: No Edema: None Muscle aches with walking: None Resp Respiratory: Negative for SOB at rest, SOB orthopnea\SOB lying down, Cough, paroxysmal nocturnal dyspnea or SOB with activity GI GI: Negative nausea, vomiting, heartburn, black,tarry stools or bright, red blood in stools : Negative for hematuria Musc Musc: Negative for balance problems, muscle aches/ myalgia, muscle weakness or joint pain Skin Skin: Negative non-healing lesions, unusual bruising or rash Neuro Neuro: Negative for weakness, frequent falls, headache(s), double vision, dizziness, lightheadedness, orthostatic symptoms, blurry vision or lack of coordination Devin Hematologic/Lymphatic: Negative for easy bruising or easy bleeding Endo Endo: Negative for fatigue, excessive sweating, cold intolerance, heat intolerance, increased thirst/drinking or hair loss Psych Psych: Negative for anxiety or depression Allergy Allergy/Immunology: Negative for throat swelling, Negative for tongue swelling, Negative for hives, Negative for rash, Negative for lip swelling Cardiology Exam Const Appearance: cooperative, healthy appearing, well developed, well groomed and no acute distress Nutritional Appearance: well nourished and average body habitus Orientation: alert, awake and oriented x3 Head Head: normal to inspection, normocephalic and atraumatic Ears: hearing grossly normal bilaterally and external ears normal Nose: external nose normal, nasal mucous membranes and turbinates normal, nares normal, septum normal, no nasal discharge Face and Sinus: face symmetric Mouth: oral mucosae normal, tongue normal, oropharynx normal and moist mucous membranes Teeth and gingiva: dentition normal Throat: posterior oropharynx normal, tonsils normal and uvula midline Eyes General: appearance normal, both eyes and all related structures Eyelids: eyelids normal Conjunctivae: conjunctivae normal Pupils: PERRL, normal by confrontation and accommodation normal EOM: EOM intact bilaterally Neck Neck: normal visual inspection, trachea midline and no JVD JVD: +5 Carotids: normal carotid upstroke and bounding pulses Chest Chest inspection: normal inspection of the chest, symmetric chest movement and normal respiratory effort Auscultation: Bilateral: Clear to Auscultation Cardio Palpation: normal PMI Rate: regular rate Rhythm: regular rhythm Heart sounds: S1 normal, S2 normal and normal, physiologic split S2; negative rub, gallop or murmur GI GI: normal to inspection, soft, no hepatosplenomegaly and bowel sounds present Neuro General: alert, awake, oriented x3, no focal sensory deficit, gait normal and moves all extremities Skin Skin: no rashes or lesions noted Extremities Pulses: Normal: Right Femoral Pulse, Left Femoral Pulse, Right Dorsalis Pedis Pulse, Left Dorsalis Pedis Pulse, Right Posterior Tibial Pulse, Left Posterior Tibial Pulse, Right Radial Pulse, Left Radial Pulse Lower Extremity Edema: None: Bilateral Musculoskel Musculoskeletal: No joint tenderness Psych Psychological: normal affect Assessment AND Plan 1. Dizziness and giddiness R42 Plan She continues to have some dizziness but it does not appear that this is cardiac related. All the cardiac tests thus far have not demonstrated any significant abnormalities. My recommendation is for her to remain on the beta-soniya and for us to try and wean her off the sertraline and also the prednisone. Depending on her response further recommendations will be made. I have asked her to discuss this with you as well as the sales and service advisor. 2. Essential hypertension I10 Plan Her blood pressure appears to be under good control on the beta-soniya. We will not first line therapy for hypertension it has less tendency to cause dizziness especially with her diastolic dysfunction. I would like us to maintain it until her next visit. Thank you for allowing me to participate in the care of your patient. Please don't hesitate to call if any issues arise Plan Detail Follow Up 6 Months (mmm) Coding Level of Care Code Off vis,est,level 3 Diagnoses Dizziness and giddiness R42 Essential hypertension I10 Hypertension type: essential hypertension Coding Level of Care Code Off vis,est,level 3 Diagnoses Dizziness and giddiness R42 Essential hypertension I10 Hypertension type: essential hypertension 07/15/18 1049 <Electronically signed by Cristian Montero MD> Date Cristian Montero MD Cosigner Signature: Date (if applicable) CC: Sugey Alonzo MD VENOUS DUPLEX LOWER Observed: 07/15/2018 Status: F Source: [place] EXTREMITY 7:33 AM [facility] REPOSITORY [facility] Cardiovascular Services [address] [place] [address] Venous Duplex US, Unilateral 07/14/18 1449 MR#: [id number] Acct: [id number] Name: JONATHAN NASH Rep #: [id number] : 1945 73 From: Douglas Guzman MD Attending Dr: Sugey Alonzo MD Status: REG CLI Ordering Dr: Sugey Alonzo MD Date: 07/14/18 Location: [facility] Sex: F C Admitted: Reason For Study: LEG PAIN RIGHT LEFT CFV is compressible, spontaneous, phasic, GSV is normal. competent and demonstrates normal CFV is compressible, spontaneous, phasic, augmentation. competent, and demonstrates normal Procedure augmentation. Exam performed in department. FV is compressible, spontaneous, phasic, A preliminary report was called and/or faxed competent and demonstrates normal to Dr. Alonzo. augmentation. POP V is compressible, spontaneous, phasic, competent and demonstrates normal augmentation. T/P Trunk is compressible. PTV is compressible. LT PerV is compressible. Interpretation Summary Deep veins of the left lower extremity are patent and compressible segmentally. There is no evidence of left lower extremity deep vein thrombosis. Valvular competence appears intact within the proximal deep venous system on the left . The left greater saphenous vein appears patent and compressible segmentally. Ordering Physician: Sugey Alonzo Performed By: Cherrie Fink RVT 07/15/1833 Date Douglas Guzman MD CC: Sugey Alonzo MD Date Dictated: 07/14/18 1449 Date Transcribed: 07/15/18732 Income Tax Analyst: Signed KNEE 4 OR MORE Observed: 07/07/2018 Status: F Source: [place] VIEWS 11:16 AM [facility] REPOSITORY [facility] Imaging Services [address] [place] [id number] Knee 4 or More Views MR#: [id number] Acct: [id number] Name: JONATHAN NASH Rep #: [id number] : 1945 F 73 From: Vito Loyola MD PCP: Sugey Alonzo MD Status: REG CLI Study: Knee 4 or More Views Date of Exam: 07/07/18 Exam# [id number] Ordering Dr: Sugey Alonzo MD STUDY: X-RAY - LEFT KNEE REASON FOR EXAM: Female, 73 years old. Soft tissue swelling following fall. TECHNIQUE: 4 view(s) of the knee. COMPARISON: None. FINDINGS: Normal visualized distal femur. Normal visualized proximal tibia and fibula. Normal proximal tibiofibular articulation. There is severe degenerative arthrosis of the medial femorotibial compartment with severe joint space narrowing. Normal lateral femorotibial compartment. Chondrocalcinosis of the lateral meniscus. There is moderate degenerative arthrosis of the patellofemoral articulation. Diffuse soft tissue swelling. Vascular calcification. RAD/Knee 4 or More Views IMPRESSION: Degenerative arthrosis. Diffuse soft tissue swelling. Electronically Signed: Vito Loyola MD at 12:18 EDT Tel [phone], Service support , CC: Sugey Alonzo MD Income Tax Analyst: Signed ECHOCARDIOGRAM COMPLETE Observed: 07/04/2018 Status: F Source: [place] 12:45 PM [facility] REPOSITORY [facility] Cardiovascular Services [address] [place] [address] Echo Complete 07/04/18 1000 MR#: [id number] Acct: [id number] Name: JONATHAN NASH Rep #: [id number] : 1945 73 From: Cristian Montero MD Attending Dr: Cristian Montero MD Status: REG CLI Ordering Dr: Cristian Montero MD Date: 07/04/18 Location: [facility] Sex: F C Admitted: Reason For Study: Palpitations Procedure This was a 2D Doppler, Color Flow transthoracic echocardiogram. Exam performed in department. Left Ventricle Normal LV size. Left ventricular systolic function is normal. The estimated ejection fraction is 60 %. Stage 1 diastolic dysfunction. No regional wall motion abnormalities noted. Right Ventricle Normal RV size. Normal systolic function. Atria Normal left atrium. Normal right atrium. Mitral Valve Mild focal mitral valve calcification. Mild (1+) eccentric mitral valve insufficiency. Tricuspid Valve Normal tricuspid valve. Mild (1+) tricuspid valve insufficiency. Pulmonary artery systolic pressure is 26 mmHg. Aortic Valve Normal aortic valve. Pulmonic Valve Normal pulmonic valve. Great Vessels Mildly dilated aortic root. The pulmonary artery is normal size. Normal inferior vena cava. Pericardium/Pleural No pericardial effusion. MMode/2D Measurements AND Calculations LVIDd: 4.2 cm IVSd: 1.1 cm Ao root diam: 3.8 cm LVIDs: 2.9 cm LVPWd: 1.1 cm RVDd: 3.3 cm FS: 31.4 % LAV(MOD-bp): 42.5 ml EDV(MOD-sp4): 70.6 ml SV(MOD-sp4): 46.6 ml LAV(MOD-bp) Indexed: 21.7 ml/m2 ESV(MOD-sp4): 24.1 ml LAV(MOD-sp2): 42.2 ml EF(MOD-sp4): 65.9 % LAV(MOD-sp4): 33.1 ml LA A4 area: 15.2 cm2 RA A4 area: 13.8 cm2 Doppler Measurements AND Calculations MV E max troy: 54.0 cm/sec Lat Peak E' Troy: 6.3 cm/sec Med Peak E' Troy: 3.9 cm/sec MV A max troy: 86.4 cm/sec E/E' lat: 8.5 E/E' med: 13.7 MV E/A: 0.63 Ao V2 max: 178.8 cm/sec LV V1 max: 103.2 cm/sec PA V2 max: 104.1 cm/sec Ao max P.8 mmHg LV V1 max P.3 mmHg Ao V2 mean: 129.0 cm/sec Ao mean P.3 mmHg Ao V2 VTI: 42.4 cm TR max troy: 244.6 cm/sec TR max P.9 mmHg Interpretation Summary Normal LV size. Left ventricular systolic function is normal. The estimated ejection fraction is 60 %. Stage 1 diastolic dysfunction. Mild (1+) eccentric mitral valve insufficiency. Ordering Physician: Cristian Montero Referring Physician: Sugey Alonzo Performed By: Laisha Mckenzie, JULIANNA, RVT 07/04/18 1244 Date Cristian Montero MD CC: Cristian Montero MD; Sugey Alonzo MD Date Dictated: 07/04/18 1000 Date Transcribed: 07/04/18 1244 Income Tax Analyst: Signed *POC GLUCOSE BATTERY Collected: 06/03/2018 Status: F Source: [place] 2:58 PM [facility] REPOSITORY TYPE CODE TESTS RESULT OUT OF REFERENCE UNITS RANGE LAB GLUP 70-99 mg/dL Glucose (poc 85 device) Result Comment: No BRAVE per RN: PATIENT TYPE LAB PCSTYP *POC Capillary SAMPLE TYPE Blood *POC GLUCOSE BATTERY Collected: 06/03/2018 Status: F Source: [place] 1:32 PM [facility] REPOSITORY TYPE CODE TESTS RESULT OUT OF REFERENCE UNITS RANGE LAB GLUP 70-99 mg/dL Glucose (poc 90 device) Result Comment: No BRAVE per RN: PATIENT TYPE LAB PCSTYP *POC SAMPLE TYPE Venous CARDIOLOGY VISIT Observed: 06/01/2018 Status: F Source: [place] REPORT 4:23 PM [facility] REPOSITORY [facility] [address] [place] [address] OFFICE VISIT Date of Service: 06/01/18 MR#: [id number] Acct: [id number] Name: JONATHAN NASH Rep #: [id number] : 1945 Provider: Cristian Montero MD Age/Sex: 73/F Location: [facility] Status: Signed HPI HPI Chief Complaint: Initial evaluation Details: JONATHAN NASH, is a 73 F who presents to the office today for an initial evaluation. She is a lady who has been having dizziness for a few weeks. She says that she does not know what the precipitating event is but she has also had some fatigue as well as weight gain nausea and excessive sweating. She had seen you and a carotid ultrasound was performed which did not demonstrate any significant stenosis and a 24-hour Holter monitor was performed. It demonstrated an average heart rate of 96 bpm with a minimum heart rate of 62 bpm and a maximum 133 bpm, which was sinus mechanism. There was no atrial fibrillation noted but she remained fairly tachycardic over most of the day she tells me that her thyroid test was performed which did not demonstrate any significant abnormality. She has not had any neck arm or jaw discomfort suggest angina no dizziness or diaphoresis no near syncope or syncope. She has been compliant with her medications and her blood pressure medications she is also seen the ENT physician who has thus far excluded anything related to her inner ear. Her electrocardiogram done today demonstrates sinus tachycardia with premature atrial complexes noted. Her physical exam demonstrates clear lung gonzalez regular rate and rhythm and no pedal edema. Intake Vital Signs06/01/18 Height 5 ft 3 in 06/01/18 Weight: 208 lb 06/01/18 Body Mass Index (BMI) 36.8 06/01/18 Blood Pressure 130/76 06/01/18 Respiratory Rate 18 06/01/18 Pulse Rate 102 Intake Visit Reasons: PCP ref'd Allergies erythromycin base Allergy (Verified 06/01/18 15:26) Rash hydromorphone [From Dilaudid] Allergy (Verified 06/01/18 15:26) CAN NOT BREATH hydroxychloroquine sulfate [From Plaquenil] Allergy (Verified 06/01/18 15:26) Rash pregabalin [From Lyrica] Allergy (Verified 06/01/18 15:26) Rash Sulfa (Sulfonamide Antibiotics) Allergy (Verified 06/01/18 15:26) Rash CERTAIN TAPES Adverse Reaction (Uncoded 06/01/18 15:26) SKIN BREAKDOWN Medications Allopurinol [Zyloprim] 200 mg PO DAILYCM 10/10/15 [History Confirmed 06/01/18] Albuterol Inhaler [Ventolin Hfa (SP)] 1 - 2 puff INHALATION Q4H PRN PRN 03/14/18 [History Confirmed 06/01/18] Aspirin E.C. [Ecotrin] 81 mg PO DAILY@0800 03/14/18 [History Confirmed 06/01/18] Esomeprazole Mag Trihydrate [Nexium] 20 mg PO DAILY 03/14/18 [History Confirmed 06/01/18] Fluticasone 0.05% [Flonase Nasal [place]] 1 spray NASAL QHS 03/14/18 [History Confirmed 06/01/18] Fluticasone/Vilanterol [Breo Ellipta Inhaler] 1 puff IH QHS 03/14/18 [History Confirmed 06/01/18] Montelukast [Singulair] 10 mg PO DAILY 03/14/18 [History Confirmed 06/01/18] Prednisone 15 mg PO DAILY 03/14/18 [History Confirmed 06/01/18] Vitamin B Complex/Folic Acid [B-Stress Capsules] 2,000 mcg PO DAILY 03/14/18 [History Confirmed 03/14/18] ergocalciferol (vitamin D2) 50,000 unit capsule 50,000 unit PO QWEEK 06/01/18 [History Confirmed 06/01/18] metoprolol succinate ER 50 mg tablet,extended release 24 hr 50 mg PO QDAY #90 tab 06/01/18 [Rx Confirmed 06/01/18] sertraline 25 mg tablet 50 mg PO DAILY tab 06/01/18 [History Confirmed 06/01/18] ursodiol 250 mg tablet 1,250 mg PO QDAY tab 06/01/18 [History Confirmed 06/01/18] PFSH Medical History Hyperlipidemia (Chronic) Hypertension (Chronic) Cyst of pancreas (Chronic) Depression (Chronic) Fibromyalgia (Chronic) Gout (Chronic) IBS (irritable bowel syndrome) (Chronic) Inflammatory arthritis (Chronic) Interstitial lung disease (Chronic) Obesity (Chronic) Osteopenia (Chronic) Primary biliary cholangitis (Chronic) Ulcerative colitis (Chronic) Surgical History History of colectomy (Chronic) Ileostomy in place (Chronic) Family History Mother Cancer skin cancer Other Diabetes Social History Smoking Status: Never smoker ROS Const Const: Positive for fatigue and excessive sweating; negative for weakness, difficulty sleeping, frequent falls or headache(s) Eyes Eyes: Negative for loss of peripheral vision, transient loss of vision, blurry vision or double vision ENT ENT: Positive for dizziness (New onset of dizziness over the past 6 weeks); negative for headache(s), Nosebleed/epistaxis or balance problems Cardio Chest Pain: No Edema: None Muscle aches with walking: None Resp Respiratory: Positive for SOB with activity (With increase activity); negative for SOB at rest, SOB orthopnea\SOB lying down or paroxysmal nocturnal dyspnea GI GI: Negative nausea or heartburn : Negative for hematuria Musc Musc: Negative for muscle aches/ myalgia, muscle weakness, joint pain or balance problems Skin Skin: Negative non-healing lesions, unusual bruising or rash Neuro Neuro: Positive for dizziness (New onset of dizziness over the past 6 weeks), lightheadedness, lack of coordination and other (States it feels like her spins); negative for weakness, frequent falls, blurry vision, headache(s), orthostatic symptoms or double vision Devin Hematologic/Lymphatic: Negative for easy bruising Endo Endo: Positive for fatigue and excessive sweating; negative for increased thirst/drinking Psych Psych: Negative for anxiety or depression Allergy Allergy/Immunology: Negative for hives, Negative for rash Cardiology Exam Const Appearance: cooperative, healthy appearing, well developed, well groomed and no acute distress Nutritional Appearance: well nourished and average body habitus Orientation: alert, awake and oriented x3 Head Head: normal to inspection, normocephalic and atraumatic Ears: hearing grossly normal bilaterally and external ears normal Nose: external nose normal, nasal mucous membranes and turbinates normal, nares normal, septum normal, no nasal discharge Face and Sinus: face symmetric Mouth: oral mucosae normal, tongue normal, oropharynx normal and moist mucous membranes Teeth and gingiva: dentition normal Throat: posterior oropharynx normal, tonsils normal and uvula midline Eyes General: appearance normal, both eyes and all related structures Eyelids: eyelids normal Conjunctivae: conjunctivae normal Pupils: PERRL, normal by confrontation and accommodation normal EOM: EOM intact bilaterally Neck Neck: normal visual inspection, trachea midline and no JVD JVD: +5 Carotids: normal carotid upstroke and bounding pulses Chest Chest inspection: normal inspection of the chest, symmetric chest movement and normal respiratory effort Auscultation: Bilateral: Clear to Auscultation Cardio Palpation: normal PMI Rate: regular rate Rhythm: regular rhythm Heart sounds: S1 normal, S2 normal and normal, physiologic split S2; negative rub, gallop or murmur GI GI: normal to inspection, soft, no hepatosplenomegaly and bowel sounds present Neuro General: alert, awake, oriented x3, no focal sensory deficit, gait normal and moves all extremities Skin Skin: no rashes or lesions noted Extremities Pulses: Normal: Right Femoral Pulse, Left Femoral Pulse, Right Dorsalis Pedis Pulse, Left Dorsalis Pedis Pulse, Right Posterior Tibial Pulse, Left Posterior Tibial Pulse, Right Radial Pulse, Left Radial Pulse Lower Extremity Edema: None: Bilateral Musculoskel Musculoskeletal: No joint tenderness Psych Psychological: normal affect Assessment AND Plan 1. Dizziness and giddiness R42 Plan She has had some dizziness the etiology of which is not clear at this time. She appears to have an elevated trait but though she does not fit the classic symptoms of postural orthostatic tachycardia syndrome it may be prudent to obtain an echocardiogram to assess her left ventricular function and discontinue her losartan and put her on a trial of the beta-soniya. I will like to see how she does with this. Depending on the findings further recommendations will be made. Orders Orders: 2. Essential hypertension I10 Plan Her blood pressure appears to be under good control but I may still recommend that we discontinue her losartan and put her on Toprol-XL 50 mg a day. Orders Orders: 3. Dyspnea on exertion R06.09 Plan She has had some dyspnea on exertion and it is not entirely clear what this is from. I would like to exclude any evidence of diastolic dysfunction. I do not think that this is an anginal equivalent and thus would not suggest any stress testing at this time..Thank you for allowing me to participate in the care of your patient. Please don't hesitate to call if any issues arise Orders Orders: Plan Detail Other Orders Orders: Other Medications New: Discontinued: Follow Up 6 Weeks (six color press operator) Coding Level of Care Code Off vis,new,level 4 Diagnoses Dizziness and giddiness R42 Essential hypertension I10 Hypertension type: essential hypertension Dyspnea on exertion R06.09 Coding Level of Care Code Off vis,new,level 4 Diagnoses Dizziness and giddiness R42 Essential hypertension I10 Hypertension type: essential hypertension Dyspnea on exertion R06.09 06/01/18 1623 <Electronically signed by Cristian Montero MD> Date Cristian Montero MD Cosigner Signature: Date (if applicable) CC: Sugey Alonzo MD CREATININE FINGERSTICK Collected: 05/18/2018 Status: F Source: [place] 12:33 PM [facility] REPOSITORY TYPE CODE TESTS RESULT OUT OF RANGE REFERENCE UNITS LAB L9100.0210 0.55-1.02 mg/dL Normal CREATININE WB 0.9 LAB L9100.0220 >60 mL/min EGFR WB Normal > 60.0000 Performed By: #### L9100.0200 #### [facility] Point of Care [address] [place] [address] BRAIN W/WO CONTRAST Observed: 05/18/2018 Status: F Source: [place] 12:14 PM [facility] REPOSITORY [facility] Imaging Services [address] [place] [address] Brain W/WO Contrast MR#: [id number] Acct: [id number] Name: JONATHAN NASH Rep #: [id number] : 1945 F 73 From: Ivan Schmitt PCP: Sugey Alonzo MD Status: REG CLI Study: Brain W/WO Contrast Date of Exam: 05/18/18 Exam# [id number] Ordering Dr: David Frost MD STUDY: MRI BRAIN WITH AND WITHOUT CONTRAST (ATTENTION INTERNAL AUDITORY CANALS - I.A.C.'s) REASON FOR EXAM: Female, 73 years old. NO EAR COMPALINTS, C/O DIZZINESS X 4 WEEKS. TECHNIQUE: Standardized multiplanar fat and water weighted pulse sequences were obtained. 10 ml of Gadavist contrast material was administered intravenously for the contrast portion of the examination. COMPARISON: None. FINDINGS: Normal bilateral temporal bones. Normal bilateral internal auditory canals. There is no demonstrated intracanalicular or cisternal vestibular schwannoma (acoustic neuroma). There is no enhancement of the bilateral VIIth or VIIIth cranial nerves. Normal bilateral cochlea, vestibules and semicircular canals. Normal size of the ventricles and extra-axial spaces for the patient's age. There are a limited number of small white matter hyperintensities, distributed throughout the deep white matter tracts of the cerebral hemispheres, consistent with mild chronic white matter ischemic changes. Normal bilateral basal ganglia. Normal thalami. Normal flow voids within the major intracranial circulation suggesting patency by spin echo criteria. Normal venous enhancement. There is no enhancing intra-axial or extra-axial abnormality. There is no extra-axial fluid accumulation. Normal sella turcica, pituitary gland, infundibular stalk, optic chiasm and hypothalamus. Normal tectal plate and pineal gland. Normal midbrain, waqar and medulla. Normal cerebellum. Normal basal cisterns. No demonstrated orbital abnormality, within the constraints of a routine brain study. Normal visualized paranasal sinuses. Normal calvarium and skull base. Normal visualized soft tissue structures. Normal visualized upper cervical spine. MRI/Brain W/WO Contrast IMPRESSION: Unremarkable unenhanced and enhanced MRI of the bilateral internal auditory canals (I.A.C's). Electronically Signed: Ivan Schmitt MD at 13:27 EDT Tel , Service support , CC: Sugey Alonzo MD; David Frost MD Income Tax Analyst: Signed CAROTID DUPLEX Observed: 05/18/2018 Status: F Source: [place] ULTRASOUND 11:46 AM [facility] REPOSITORY [facility] Cardiovascular Services [address] [place] [address] Carotid Duplex Ultrasound 05/13/18 0854 MR#: [id number] Acct: [id number] Name: JONATHAN NASH Rep #: [id number] : 1945 73 From: Jimmy Bass MD Attending Dr: Sugey Alonzo MD Status: REG CLI Ordering Dr: Sugey Alonzo MD Date: 05/13/18 Location: [facility] Sex: F C Admitted: Reason For Study: Tachycardia Rt. Velocities/BP Lt. Velocities/BP Prox CCA 74/13 cm/sec. Prox CCA 52/9 cm/sec. Mid CCA 65/14 cm/sec. Mid CCA 58/13 cm/sec. Dist CCA 49/15 cm/sec. Dist CCA 51/12 cm/sec. Prox ICA 30/9 cm/sec. Prox ICA 44/17 cm/sec. Mid ICA 62/20 cm/sec. Mid ICA 55/15 cm/sec. Dist ICA 67/26 cm/sec. Dist ICA 62/24 cm/sec. Rt. ICA/CCA = 1.03. Lt. ICA/CCA = 1.06. Prox ECA 67/10 cm/sec. Prox ECA 54/8 cm/sec. Rt. Vert. 35/11 cm/sec. Lt. Vert. 62/20 cm/sec. Right Extracranial There is no significant atherosclerotic plaque noted in the right common carotid artery. There is heterogeneous, smooth atherosclerotic plaque noted in the right internal carotid artery. There is no significant atherosclerotic plaque noted in the right external carotid artery. Antegrade flow is noted in the right vertebral artery. Left Extracranial There is no significant atherosclerotic plaque noted in the left common carotid artery. There is no significant atherosclerotic plaque noted in the left internal carotid artery. There is heterogeneous, irregular atherosclerotic plaque noted in the left external carotid artery. Antegrade flow is noted in the left vertebral artery. Procedure Carotid Duplex 66526. Exam performed in department. Interpretation Summary Mild (<50%) stenosis right extracranial internal carotid. Mild (<50%) stenosis left extracranial internal carotid. Flow within the vertebral arteries is antegrade bilaterally. Ordering Physician: Sugey Alonzo Referring Physician: Sugey Alonzo Performed By: Laisha Mckenzie, JULIANNA, RVT 05/18/18 1146 Date Jimmy Bass MD CC: Sugey Alonzo MD Date Dictated: 05/13/18 0854 Date Transcribed: 05/18/18 114 Income Tax Analyst: Signed CHEST PA AND LATERAL Observed: 03/24/2018 Status: F Source: [place] 1:32 PM [facility] REPOSITORY [facility] Imaging Services [address] [place] [address] Chest PA and Lateral MR#: [id number] Acct: [id number] Name: JONATHAN NASH Rep #: [id number] : 1945 F 73 From: Van Saeed DO PCP: Sugey Alonzo MD Status: REG CLI Study: Chest PA and Lateral Date of Exam: 03/24/18 Exam# [id number] Ordering Dr: Bar Malhotra MD STUDY: X-RAY CHEST REASON FOR EXAM: Female, 73 years old. Cough for several weeks. TECHNIQUE: PA and lateral views of the chest. COMPARISON: March 16, 2018. FINDINGS: The lungs are clear and expanded. There is no demonstrated pleural abnormality. Normal size heart. Normal mediastinum and jaclyn. Normal visualized pulmonary arteries. Normal visualized aortic arch and descending thoracic aorta. Normal visualized thoracic spine. Normal visualized ribs, clavicles, and shoulders. There is no demonstrated abnormality of the visualized soft tissue structures of the upper abdomen. RAD/Chest PA and Lateral IMPRESSION: No acute cardiopulmonary disease or interval change. Electronically Signed: Van Saeed DO at 14:09 EDT Tel [phone], Service support , CC: Sugey Alonzo MD; Bar Malhotra MD Income Tax Analyst: Signed RHEUMATOID FACTOR Collected: 03/24/2018 Status: F Source: [place] 1:24 PM [facility] REPOSITORY TYPE CODE TESTS RESULT OUT OF RANGE REFERENCE UNITS LAB L505.7010 <15 IU/mL Normal RHEUMATOID FAC < 10.0 Performed By: #### L505.7010 #### [facility] [place], [address] ANTINUCLEAR ANTIBODIES Collected: 03/24/2018 Status: F Source: [place] DIRECT 1:24 PM [facility] REPOSITORY TYPE CODE TESTS RESULT OUT OF RANGE REFERENCE UNITS LAB L3100.5475 Negative Normal Negative WILFREDO-DIRECT Result Comment: Performed at: - [facility] [address] [id number] Fountain Manager: Trell Mcdowell PhD, Phone: [phone] Performed By: #### L3100.5475 #### [facility] (refer to report for specific site) refer to report for address and phone number ANGIOTENSIN CONVERT Collected: 03/24/2018 Status: F Source: [place] ENZYME 1:24 PM [facility] REPOSITORY TYPE CODE TESTS RESULT OUT OF RANGE REFERENCE UNITS LAB L3100.6900 14-82 U/L Normal ILEANA 37686 48 Result Comment: Performed at: - [facility] [address] [id number] Fountain Manager: Trell Mcdowell PhD, Phone: [phone] Performed By: #### L3100.6900 #### [facility] (refer to report for specific site) refer to report for address and phone number BODY FLUID CELL Collected: 03/16/2018 Status: C Source: [place] COUNT+DIFF 1:50 PM [facility] REPOSITORY Order Comment: The reference range and other method performance specifications have not been established for this body fluid. The test must be integrated into the clinical context for interpretation. Specimen Source: BAL/ RLL TYPE CODE TESTS RESULT OUT OF RANGE REFERENCE UNITS LAB L200.3100 Normal BRONCHIAL SOURCE/BF [place] LAB L200.3200 RED Normal COLOR/BF LAB L200.3300 Normal TURBID APPEAR/BF LAB L200.3380 0.000-0.000 10 3/ul Test Normal BFTC# not performed LAB L200.3400 /mm3 Normal 035913 RBC/BF LAB L200.3500 /mm3 250 Normal WBC/BF LAB L200.4400 Normal PATH Reviewed COMM/BF Result Comment: Negative for malignant cells. Manuel Doty D.O. 03/17/18 AMENDED REPORT 03/17/18 1214 PATH COMM/BF previously reported as: May follow LAB L200.3600 % Normal PMN 54 LAB L200.3700 % Normal LYMPH 31 LAB L200.3800 % Normal MONO/BF 11 LAB L200.3900 % Normal MESOTHELIAL 3 LAB L200.3950 % Normal MACROPHAGES 1 Performed By: #### L200.0200 #### [facility] [address] [place], [place], [address] Observed: 03/16/2018 Status: F Source: [place] CULTURE, BRONCH 1:50 PM [facility] [place] REPOSITORY List Antibiotics Last 48 Hours? . List Antibiotics to be Started? . Comments: RLL/ BAL Gram Stain Gram Stain 2+ Red Blood Cells No organisms seen No White Blood Cells Resp. Culture Normal respiratory trisha. No Haemophilus, Streptococcus pneumoniae, beta-hemolytic Streptococcus or Staphylococcus aureus isolated. ORGANISM 1: Strep not Strep pneumo Amount Growth Rare Performed By: #### M100.9500 #### [facility] [address] [place], [address] CYTOLOGY, BODY FLUID / Collected: 03/16/2018 Status: F Source: [place] CSF 1:50 PM [facility] REPOSITORY Order Comment: Specimen Source: BAL/ RLL TYPE CODE TESTS RESULT OUT OF RANGE REFERENCE UNITS LAB L350.1000 SEE Normal PATHOLOGY CYTOLOGY,BF REPORT /CSF Result Comment: Specimen submitted to Anatomical Pathology Department for testing. Performed By: #### L350.1000 #### [facility] [address] [place], [place] [address]e. [place], [address] Observed: 03/16/2018 Status: F Source: [place] CULTURE, FUNGUS 8482 1:50 PM [facility] REPOSITORY Cu,Zlyghy7636 [facility] ORIGINAL REPORT ON FILE IN LAB CONTAINS ADDITIONAL TEST SITE INFORMATION. CUF No yeast or mold isolated after 4 weeks. Performed By: #### M600.2000 #### [facility] [address] [place] [address] Ave. [place], [place], [address] Observed: 03/16/2018 Status: F Source: [place] ACID FAST BACT 1:50 PM [facility] CULT/SM REPOSITORY AFB Smear/Fluor TESTING PERFORMED AT [facility]. ORIGINAL REPORT ON FILE IN LAB CONTAINS ADDITIONAL TEST SITE INFORMATION. Smear, Acid Fast Acid Fast Smear from Concentrated Specimen :Negative AFB Cult TESTING PERFORMED AT [facility]. ORIGINAL REPORT ON FILE IN LAB CONTAINS ADDITIONAL TEST SITE INFORMATION. Culture, Acid Fast NO ACID-FAST BACILLI ISOLATED AFTER 6 WEEKS. Performed By: #### M300.1000 #### [facility] [address] [facility] [place], [address] CHEST 1 VIEW Observed: 03/16/2018 Status: F Source: [place] (PORTABLE) 1:41 PM [facility] REPOSITORY [facility] Imaging Services [address] [place] [address] Chest 1 View (Portable) MR#: [id number] Acct: [id number] Name: JONATHAN NASH Rep #: [id number] : 1945 F 73 From: Holden Nascimento MD PCP: Sugey Alonzo MD Status: [facility] Study: Chest 1 View (Portable) Date of Exam: 03/16/18 Exam# [id number] Ordering Dr: Bar Malhotra MD STUDY: X-RAY CHEST REASON FOR EXAM: Female, 73 years old. Postbronchoscopy. Follow-up. TECHNIQUE: Single frontal view of the chest. COMPARISON: December 15, 2017 FINDINGS: The lungs are clear and expanded. There is no demonstrated pleural abnormality. Normal size heart. Normal mediastinum and jaclyn. Normal visualized pulmonary arteries. Normal visualized aortic arch and descending thoracic aorta. Normal visualized thoracic spine. Normal visualized ribs, clavicles, and shoulders. There is no demonstrated abnormality of the visualized soft tissue structures of the upper abdomen. RAD/Chest 1 View (Portable) IMPRESSION: No significant interval change and no acute pathology. Electronically Signed: Holden Nascimento MD at 14:48 EDT , Service support , CC: Sugey Alonzo MD; Bar Malhotra MD Income Tax Analyst: Signed FLUID/WASHING Observed: 03/16/2018 Status: F Source: [place] 12:00 [facility] REPOSITORY Patient: JONATHAN NASH : 1945 (73/F) Acct Num: [id number] Phys: Marya MORELAND,Bar Unit Num: [id number] Loc: EN Specimen: [id number] Received: 03/16/18 - 1449 Spec Type: Fluid TISSUES TISSUES: Right lower lobe of lung, NOS COMMENT AFB and GMS stains with matched controls support the above diagnosis. Please correlate with corresponding surgical case ([id number]). CYTOLOGY GROSS Received is 50 ml of red cloudy fluid labeled with the patient's name and and designated per the requisition as bronchial washings. Submitted for cytology preparation including cell block. / 03/16/18 TC:5 CPT: 84984, 35261, 81387 x2 CYTOLOGY STUDY Slides are reviewed. DIAGNOSIS CYTOLOGY Bronchial washings for cytology (cytospin and cell block): Negative for malignant cells. Negative for acid-fast bacilli and fungal organisms. AM:connie 03/17/18 HEADER OPERATION: Bronchoscopy, transbronchial biopsy, bronchioalveolar lavage PRE-OP DIAGNOSIS: History aspergillus TISSUE SUBMITTED: Bronchial washings for cytology Signed Manuel Doty 03/17/18 <signature on file> Performed By: #### PFLU #### [facility] [address] [place], [address] LUNG BIOPSY Observed: 03/16/2018 Status: F Source: [place] 12:00 AM [facility] REPOSITORY Patient: JONATHAN NASH : 1945 (73/F) Acct Num: [id number] Phys: Marya MORELAND,Bar Unit Num: [id number] Loc: EN Specimen: [id number] Received: 03/16/181446 Spec Type: LUNG BX TISSUES TISSUES: Right lower lobe of lung, NOS COMMENT There is no evidence of active pneumonitis. AFB and GMS stains with matched controls are negative for micro-organisms. Clinical correlation is suggested. Immunohistochemistry ([id number]) supports the above diagnosis. Please correlate with corresponding cytology ([id number]). GROSS DESCRIPTION Received in fixative is one container labeled with the patient's name and designated right lower lobe transbronchial biopsy. The specimen consists of multiple irregular fragments of light landaverde soft tissue that in aggregate measure 0.2 x 0.1 x <0.1 cm. The specimen is totally submitted in one cassette. / AM: 03/16/18 TC:3 CPT: 77013, 90157 x2 HEADER OPERATION: Bronchoscopy, transbronchial biopsy, bronchioalveolar lavage PRE-OP DIAGNOSIS: History aspergillus TISSUE SUBMITTED: RLL MICROSCOPIC DESCRIPTION Slides are reviewed. MICROSCOPIC DIAGNOSIS Right lower lobe of lung, biopsy: Bronchial and sub-bronchial epithelium with minimal chronic inflammation. Fragments of lung parenchyma with minimal interstitial chronic inflammation. AM:connie 03/17/18 Signed Manuel [facility] 03/18/18 <signature on file> Performed By: #### PLUNB #### [facility] [address] [place], [address] IMMUNOHISTOCHEMISTRY Observed: 03/16/2018 Status: F Source: [place] 12:00 AM [facility] REPOSITORY Patient: JONATHAN NASH : 1945 (73/F) Acct Num: [id number] Phys: Marya MORELAND,Bar Unit Num: [id number] Loc: EN Specimen: [id number] Received: 03/17/18 - 1227 Spec Type: IMMUNO TISSUES TISSUES: Lung, NOS SPECIMEN INFORMATION: Tissue Source: RLL transbronchial biopsy Clinical Info: History aspergillus Specimen Number: [id number] CPT code: 41403, 34486 x6 METHODOLOGY: Deparaffinized sections of prefer/formalin-fixed tissue or PAP/DQ stained slides are incubated with monoclonal/polyclonal antibodies/oligonucleotide probes. Localization is made via biotin free immunoperoxidase method. Appropriate controls are performed and reacted as expected. Results on target cell population are indicated in the following table: RESULTS: ANTIBODY / CLONE RESULT CK7 (OV-TL12/30) positive CK20 (KS20.8) negative CD45 (RP2/18) positive, focal CD56 (123C3.D5) negative Chromo (LK2H10) negative Synapto (polyclonal) negative P53 (DO-7) negative These tests were developed and their performance characteristics determined by [facility]. They may not have been cleared or approved by the U.S. Food and Drug Administration. The FDA has determined that such clearance or approval is not necessary. INTERPRETATION: Right lower lobe of lung, transbronchial biopsy: Mild chronic inflammation. AM:connie 03/18/18 PHYSICIAN AND INSTITUTION [address] [address] Signed Manuel Soren 03/18/18 <signature on file> Performed By: #### PIMM #### [facility] [address] [place] [address]. [place], [address] QUANTIFERON TB-GOLD Collected: 02/25/2018 Status: F Source: [place] 1:57 PM [facility] REPOSITORY TYPE CODE TESTS RESULT OUT OF RANGE REFERENCE UNITS LAB L3400.7025 Negative Normal QFT Negative TB GOLD Result Comment: The specimen received for QuantiFERON testing was incubated by the ordering institution. Specific procedures outlined in our Directory of Services and in the package insert for the QuantiFERON Gold (In Tube) test must be followed to enable for proper stimulation of cells for the production of interferon gamma. LAB L3400.7035 . Normal QFT TB Comment POS CRIT Result Comment: To be considered positive a specimen should have a TB Ag minus Nil value greater than or equal to 0.35 IU/mL and in addition the TB Ag minus Nil value must be greater than or equal to 25% of the Nil value. There may be insufficient information in these values to differentiate between some negative and some indeterminate test values. LAB L3400.7045 . IU/mL Normal QFT TB AB 0.17 VALUE LAB L3400.7055 . IU/mL Normal QFT NIL VALUE 0.05 LAB L3400.7065 . IU/mL > Normal QFT MITOGEN 10.00 ARISTEO LAB L3400.7075 . IU/mL Normal QFT AG - NIL 0.12 LAB L3400.7085 . Normal QFT TB INTER Comment Result Comment: The QuantiFERON TB Gold (in Tube) assay is intended for use as an aid in the diagnosis of TB infection. Negative results suggest that there is no TB infection. In patients with high suspicion of exposure, a negative test should be repeated. A positive test indicates infection with Mycobacterium tuberculosis. Among individuals without tuberculosis infection, a positive test may be due to exposure to M. kansasii, M. szulgai or M. marinum. On the Internet, go to cdc.gov/tb for further details. Performed at: - [facility] [id number] Fountain Manager: Trell Mcdowell PhD, Phone: [phone] Performed By: #### L3400.7000 #### [facility] (refer to report for specific site) refer to report for address and phone number COMPREHENSIVE METABOLIC Collected: 02/23/2018 Status: F Source: [place] 3:04 PM [facility] REPOSITORY TYPE CODE TESTS RESULT OUT OF RANGE REFERENCE UNITS LAB L501.0100 74-106 mg/dL High GLU 114 Result Comment: Fasting Glucose result from 100 to 125 mg/dL suggests IMPAIRED HOMEOSTASIS per A.D.A. criteria. Please note revised GLUCOSE reference range effective 2017. LAB L501.1000 7-18 mg/dL High BUN 24 LAB L501.1100 0.55-1.02 mg/dL High CREAT,SERUM 1.39 Result Comment: The validity of the calculated GFR AND GFRAA in patients over 70 years has not been determined. Clinical correlation is essential. LAB L501.1110 >60 mL/min Low EST GFR 39 Result Comment: Non- GFR Calc LAB L501.1115 >60 mL/min Low EST GFR - AA 48 Result Comment: GFR Calc LAB L501.1300 10-20 RATIO Normal BUN/CRE 17.3 LAB L501.1500 6.4-8.2 g/dL T Normal PROT 6.7 LAB L501.1800 3.2-5.0 g/dL Normal ALB 3.2 LAB L501.1950 2.2-4.2 g/dL Normal GLOB 3.5 LAB L501.2000 0.9-2.4 RATIO Normal A/G 0.9 LAB L501.2200 8.5-10.1 mg/dL CA Normal 8.5 LAB L501.4100 15-37 U/L Normal AST 25 LAB L501.4305 45-117 U/L Normal ALK P 79 LAB L501.4405 13-56 U/L Normal ALT 25 Result Comment: Please note revised ALT reference range effective 2017. LAB L501.4600 0.20-1.00 mg/dL Normal T BILI 0.30 LAB L501.5300 136-145 mmol/L Normal NA 138 LAB L501.5600 3.5-5.1 mmol/L Normal K 4.5 LAB L501.5900 98-107 mmol/L Normal CL 104 LAB L501.6100 21.0-32.0 mmol/L Normal CO2 24.0 LAB L501.6200 5-15 Normal GAP 10 Performed By: #### L500.4050, L501.1400 #### [facility] [address] [facility] [address] [place], [place], [address] URIC ACID Collected: 02/23/2018 Status: F Source: [place] 3:04 PM [facility] REPOSITORY TYPE CODE TESTS RESULT OUT OF RANGE REFERENCE UNITS LAB L501.1400 2.6-6.0 mg/dL Normal URIC 3.9 Result Comment: The drugs N-Acetylcysteine and Metamizole may falsely depress this assay. Performed By: #### L500.4050, L501.1400 #### [facility] [address] [facility] [place], [address] CBC W/DIFF, AUTOMATED Collected: 02/23/2018 Status: F Source: [place] 3:04 PM [facility] REPOSITORY TYPE CODE TESTS RESULT OUT OF RANGE REFERENCE UNITS LAB L100.1000 4.4-11.0 K/mm3 High WBC 12.2 LAB L100.1200 4.2-5.4 M/mm3 Normal RBC 4.23 LAB L100.1300 12.0-15.0 g/dl Normal HGB 13.5 LAB L100.1400 37-47 % Normal HCT 41.0 LAB L100.1500 81-99 fL Normal MCV 96.9 LAB L100.1600 27.0-32.0 pg Normal MCH 31.9 LAB L100.1700 32-36 g/gl Normal MCHC 32.9 LAB L100.1810 11.6-14.6 % Normal RDW CV 13.7 LAB L100.1820 35.1-43.9 fl High RDW SD 47.4 LAB L100.1900 150-450 K/mm3 Normal PLT 239 LAB L100.2000 6.2-12.0 fl Normal MPV 9.3 LAB L100.2100 47-70 % High NEUT% 87.5 LAB L100.2200 19-41 % Low LY% 8.6 LAB L100.2300 0-10 % Normal MONO% 1.3 LAB L100.2400 0-5 % Normal EO% 0.2 LAB L100.2500 0-1 % Normal BASO% 0.2 LAB L100.2550 0.0-0.9 % High IM GRAN % 2.200 Result Comment: IG% - Immature Granulocytes (promyelocytes, myelocytes and metamyelocytes) > 1% indicates that a LEFT SHIFT is Present. LAB L100.2620 2.0-7.7 X10 3/uL High Absolute Neut 10.7 LAB L100.2720 0.83-4.51 X10 3/ul Normal Absolute Lymph 1.05 LAB L100.9900 Normal PATH REV Reviewed Result Comment: Neutrophilic leukocytosis. Clinical correlation suggested. Manuel Doty D.O. 02/24/18 Performed By: #### L100.0100 #### [facility] [address] [place], [address] CHEST WITHOUT Observed: 02/02/2018 Status: F Source: [place] CONTRAST 2:42 PM [facility] REPOSITORY [facility] Imaging Services [address] [place] [address] Chest without Contrast MR#: [id number] Acct: [id number] Name: JONATHAN NASH Rep #: [id number] : 1945 F 72 From: Rachel Sainz MD PCP: Sugey Alonzo MD Status: REG CLI Study: Chest without Contrast Date of Exam: 02/02/18 Exam# [id number] Ordering Dr: Bar Malhotra MD STUDY: CT CHEST WITHOUT CONTRAST REASON FOR EXAM: Female, 72 years old. Cough and pertussis. RADIATION DOSAGE (If Supplied By Facility): CTDIvol = ( 10.12 ) mGy, DLP = ( 531.04 ) mGycm TECHNIQUE: Transaxial imaging was performed without the administration of intravenous contrast material. Multiplanar coronal and sagittal images were reformatted. Individualized dose optimization techniques were used for this CT. COMPARISON: Chest radiograph dated December 15, [address] the chest dated November 26, 2017.. FINDINGS: There is a nodular opacity within the right lower lobe, similar to the previous study. This measures approximately 1.9 cm in greatest dimension. There is some bronchiectasis within the right lower lobe. There is heterogeneous ground glass attenuation in the right lower lobe the lungs are hyperexpanded. There is a small left lower lobe pulmonary nodule best seen on axial image #183 measuring approximately 5 mm in greatest dimension. There curvilinear opacities within the left lower lobe that may represent sequela subsegmental atelectasis. The left lung appears to be clear, otherwise. There is no demonstrated pleural abnormality. Normal heart and pericardium. There are calcifications of the coronary arteries. There is enlargement of the precarinal node measuring 2.5 x 1.5 x 1.0 cm. Normal hilar regions. Normal unenhanced pulmonary arteries. There is atherosclerotic calcification of the aortic arch with tortuosity and elongation of the aortic arch and descending thoracic aorta. Maximum transverse dimension of the ascending thoracic aorta measures approximately 4.1 cm. Normal osseous structures. Appears to be a hyperplasia of left adrenal gland. There may be a left adrenal nodule measuring up to 2.3 cm. There is a splenic granuloma. CT/Chest without Contrast IMPRESSION: 1. Persistent nodular area in the right lower lobe. Suggest follow-up as per Fleischner's criteria. 2. Right lower lobe bronchiectasis and groundglass attenuation. 3. Mild dilatation of the ascending thoracic aorta. Electronically Signed: Rachel Sainz MD at 10:33 EDT , Service support , CC: Sugey Alonzo MD; Bar Malhotra MD Income Tax Analyst: Signed ERYTHROCYTE SED RATE Collected: 02/01/2018 Status: F Source: [place] 9:43 AM [facility] REPOSITORY Order Comment: PER ORDER EOSINOPHIL QUANTITATIVE TYPE CODE TESTS RESULT OUT OF RANGE REFERENCE UNITS LAB L102.0000 0-30 mm/hr Normal SED RATE 15 Performed By: #### L101.9900, L100.0100 #### [facility] [address] [place], [address] CBC W/DIFF, AUTOMATED Collected: 02/01/2018 Status: F Source: [place] 9:43 AM [facility] REPOSITORY Order Comment: PER ORDER EOSINOPHIL QUANTITATIVE TYPE CODE TESTS RESULT OUT OF RANGE REFERENCE UNITS LAB L100.1000 4.4-11.0 K/mm3 Normal WBC 7.7 LAB L100.1200 4.2-5.4 M/mm3 Normal RBC 4.34 LAB L100.1300 12.0-15.0 g/dl Normal HGB 13.7 LAB L100.1400 37-47 % Normal HCT 41.6 LAB L100.1500 81-99 fL Normal MCV 95.9 LAB L100.1600 27.0-32.0 pg Normal MCH 31.6 LAB L100.1700 32-36 g/gl Normal MCHC 32.9 LAB L100.1810 11.6-14.6 % Normal RDW CV 13.4 LAB L100.1820 35.1-43.9 fl High RDW SD 45.5 LAB L100.1900 150-450 K/mm3 Normal PLT 307 LAB L100.2000 6.2-12.0 fl Normal MPV 8.9 LAB L100.2100 47-70 % Normal NEUT% 59.3 LAB L100.2200 19-41 % Normal LY% 23.1 LAB L100.2300 0-10 % Normal MONO% 9.5 LAB L100.2400 0-5 % High EO% 6.4 LAB L100.2500 0-1 % Normal BASO% 0.9 LAB L100.2550 0.0-0.9 % Normal IM GRAN % 0.800 Result Comment: IG% - Immature Granulocytes (promyelocytes, myelocytes and metamyelocytes) > 1% indicates that a LEFT SHIFT is Present. LAB L100.2620 2.0-7.7 X10 3/uL Normal Absolute Neut 4.6 LAB L100.2720 0.83-4.51 X10 3/ul Normal Absolute Lymph 1.77 Performed By: #### L101.9900, L100.0100 #### [facility] [address] [place], [address] CBC W/ MANUAL Collected: 02/01/2018 Status: F Source: [place] DIFFERENTIAL 9:43 AM [facility] REPOSITORY Order Comment: PER ORDER EOSINOPHIL QUANTITATIVE TYPE CODE TESTS RESULT OUT OF RANGE REFERENCE UNITS LAB L100.1000 4.4-11.0 K/mm3 Normal WBC 7.8 LAB L100.1200 4.2-5.4 M/mm3 Normal RBC 4.29 LAB L100.1300 12.0-15.0 g/dl Normal HGB 13.9 LAB L100.1400 37-47 % Normal HCT 41.3 LAB L100.1500 81-99 fL Normal MCV 96.3 LAB L100.1600 27.0-32.0 pg High MCH 32.4 LAB L100.1700 32-36 g/gl Normal MCHC 33.7 LAB L100.1900 150-450 K/mm3 Normal PLT 309 LAB L100.2620 2.0-7.7 X10 3/uL Normal Absolute Neut 4.6 LAB L100.3100 MANUAL DIFF Normal CELLS COUNTED 100 LAB L100.3200 47-70 % 59 Normal SEGS LAB L100.3800 19-41 % 30 Normal LYMPH LAB L100.3900 0-10 % 6 Normal MONOCYTE LAB L100.4000 0-5 % 3 Normal EOS LAB L100.4100 0-1 % High 2 BASOPHIL LAB L100.5500 ADEQ Normal PLT EST ADEQUATE LAB L100.7000 NORM C AND C NORMAL Normal RED CELL MORPH NORM C+C LAB L100.1800 11.6-14.6 % Normal RDW 13.4 Performed By: #### L100.0125 #### [facility] [address] [place], [place], [address] IMMUNOGLOBULIN E Collected: 02/01/2018 Status: F Source: [place] 9:43 [facility] REPOSITORY TYPE CODE TESTS RESULT OUT OF REFERENCE UNITS RANGE LAB L3200.1600 0-100 IU/mL High IMMUNO E 109 Result Comment: Performed at: [facility] [employer] [id number] Fountain Manager: Woody Montana MD, Phone: [phone] Performed By: #### L3200.1600 #### [facility] (refer to report for specific site) refer to report for address and phone number ASPERGILLUS FUMIGATUS Collected: 02/01/2018 Status: F Source: [place] 9:43 [facility] [place] REPOSITORY TYPE CODE TESTS RESULT OUT OF RANGE REFERENCE UNITS LAB L5550.0040 Class 0 kU/L ASPERGILLUS Normal FUM <0.10 Result Comment: Levels of Specific IgE Class Description of Class ----- < 0.10 0 Negative 0.10 - 0.31 0/I Equivocal/Low 0.32 - 0.55 I Low 0.56 - 1.40 II Moderate 1.41 - 3.90 III High 3.91 - 19.00 IV Very High 19.01 - 100.00 V Very High >100.00 Very High Performed at: [address] [id number] Fountain Manager: Woody Montana MD, Phone: [phone] Performed By: #### L5550.0039 #### [facility] (refer to report for specific site) refer to report for address and phone number PT/INR BATTERY Collected: 12/21/2017 Status: F Source: [facility] 11:21 AM [facility] REPOSITORY TYPE CODE TESTS RESULT OUT OF RANGE REFERENCE UNITS LAB PT 11.9-14.2 sec PT 12.7 LAB INR 0.9-1.1 INR 1.0 Performed By: #### PTI, CHM6, HFP, IRBC, A1AT, IGA, IGG, IGMB, FERIB, CA199, AFPTMR, CHANTELLE, QANA, AMA, SMA #### [facility] [address] [place] [address] [place] [address] [address] [place] [address] CHEM 6 Collected: 12/21/2017 Status: F Source: [facility] 11:21 AM [facility] REPOSITORY TYPE CODE TESTS RESULT OUT OF REFERENCE UNITS RANGE LAB BUN 7-22 mg/dL BUN 22 LAB NA 133-143 mmol/L Sodium 138 LAB K 3.5-5.0 mmol/L Potassium 4.2 LAB CL 98-108 mmol/L Chloride 101 LAB CO2 22-30 mmol/L Carbon Dioxide 26 LAB CREA 0.50-1.20 mg/dL Creatinine 0.98 LAB GAP 7-17 mmol/L Anion Gap 15 LAB BC BUN/CREA Ratio 22 LAB GFR >60 mL/min/1.73 Low sqM Est GFR,non 55 Guyanese LAB GFRA >60 mL/min/1.73 sqM Est GFR, >60 Performed By: #### PTI, CHM6, HFP, IRBC, A1AT, IGA, IGG, IGMB, FERIB, CA199, AFPTMR, CHANTELLE, QANA, AMA, SMA #### [facility] [address] [place] [address] [facility] [address] [place] [address] HEPATIC FUNCTION Collected: 12/21/2017 Status: F Source: [facility] 11:21 AM [facility] REPOSITORY TYPE CODE TESTS RESULT OUT OF REFERENCE UNITS RANGE LAB ALB 3.5-5.0 g/dL Albumin 3.7 LAB BILD <0.3 mg/dL Bilirubin Direct 0.1 LAB BILT <1.5 mg/dL Bilirubin Total 0.5 LAB ALP 32-126 U/L Alkaline Phosphatase 80 LAB ALT 9-48 U/L ALT 17 LAB AST 14-40 U/L AST 20 LAB TP 6.4-8.3 g/dL Total Protein 6.7 Performed By: #### PTI, CHM6, HFP, IRBC, A1AT, IGA, IGG, IGMB, FERIB, CA199, AFPTMR, CHANTELLE, QANA, AMA, SMA #### [facility] [address] [place] [address] [place] [address] IRON*TIBC (TRANSFERRIN) Collected: 12/21/2017 Status: F Source: [facility] 11:21 [facility] REPOSITORY TYPE CODE TESTS RESULT OUT OF REFERENCE UNITS RANGE LAB IRON 40-174 mcg/dL Iron 121 LAB TIBC 298-596 mcg/dL Total Iron Binding Capacity 380 LAB IRONS 20-55 % *Iron*Saturation 32 LAB HOUSER 200-400 mg/dL Transferrin 255 Performed By: #### PTI, CHM6, HFP, IRBC, A1AT, IGA, IGG, IGMB, FERIB, CA199, AFPTMR, CHANTELLE, QANA, AMA, SMA #### [facility] [address] [place] [address] [address] [place] [address] ALPHA 1 ANTITRYPSIN Collected: 12/21/2017 Status: F Source: [facility] 11:21 [facility] REPOSITORY TYPE CODE TESTS RESULT OUT OF REFERENCE UNITS RANGE LAB A1AT 84-218 mg/dL Alpha 1 Antitrypsin 133 Performed By: #### PTI, CHM6, HFP, IRBC, A1AT, IGA, IGG, IGMB, FERIB, CA199, AFPTMR, CHANTELLE, QANA, AMA, SMA #### [facility] [address] [place] [address] [place] [address] IGA Collected: 12/21/2017 Status: F Source: [facility] 11:21 [facility] REPOSITORY TYPE CODE TESTS RESULT OUT OF RANGE REFERENCE UNITS LAB IGA 90-410 mg/dL IgA 313 Performed By: #### PTI, CHM6, HFP, IRBC, A1AT, IGA, IGG, IGMB, FERIB, CA199, AFPTMR, CHANTELLE, QANA, AMA, SMA #### [facility] [address] [address] IGG Collected: 12/21/2017 Status: F Source: [facility] 11:21 [facility] REPOSITORY TYPE CODE TESTS RESULT OUT OF RANGE REFERENCE UNITS LAB IGG 600-1560 mg/dL IgG 850 Performed By: #### PTI, CHM6, HFP, IRBC, A1AT, IGA, IGG, IGMB, FERIB, CA199, AFPTMR, CHANTELLE, QANA, AMA, SMA #### [facility] [address] [place] [address] IGM Collected: 12/21/2017 Status: F Source: [facility] 11:[address] [place] [address] REPOSITORY TYPE CODE TESTS RESULT OUT OF RANGE REFERENCE UNITS LAB IGM 30-360 mg/dL IgM 235 Performed By: #### PTI, CHM6, HFP, IRBC, A1AT, IGA, IGG, IGMB, FERIB, CA199, AFPTMR, CHANTELLE, QANA, AMA, SMA #### [facility] [address] [address] FERRITIN Collected: 12/21/2017 Status: F Source: [facility] 11:[address] [place] [address] REPOSITORY TYPE CODE TESTS RESULT OUT OF RANGE REFERENCE UNITS LAB FERI 10-291 ng/mL *Ferritin 100 Performed By: #### PTI, CHM6, HFP, IRBC, A1AT, IGA, IGG, IGMB, FERIB, CA199, AFPTMR, CHANTELLE, QANA, AMA, SMA #### [facility] [address] [place] [address] [place] [address] CA 19-9 Collected: 12/21/2017 Status: F Source: [facility] 11:21 AM [facility] REPOSITORY TYPE CODE TESTS RESULT OUT OF RANGE REFERENCE UNITS LAB CA199 0-37.00 U/mL CA 19-9 <15.00 Performed By: #### PTI, CHM6, HFP, IRBC, A1AT, IGA, IGG, IGMB, FERIB, CA199, AFPTMR, CHANTELLE, QANA, AMA, SMA #### [facility] [address] [place] [address] [place] [address] ALPHAFETOPROTEIN TUMOR Collected: 12/21/2017 Status: F Source: [facility] MARKER 11:21 AM [facility] REPOSITORY TYPE CODE TESTS RESULT OUT OF REFERENCE UNITS RANGE LAB AFPTMR <8.5 ng/mL Alphafetoprotein Tumor Marker 1.6 Performed By: #### PTI, CHM6, HFP, IRBC, A1AT, IGA, IGG, IGMB, FERIB, CA199, AFPTMR, CHANTELLE, QANA, AMA, SMA #### [facility] [address] [place] [address] [place] [address] ANTINUCLEAR ANTIBODY, Collected: 12/21/2017 Status: F Source: [facility] IFA 11:21 AM [facility] REPOSITORY TYPE CODE TESTS RESULT OUT OF RANGE REFERENCE UNITS LAB WILFREDO Negative Abnormal Antinuclear POSITIVE Antibody, IFA Performed By: #### PTI, CHM6, HFP, IRBC, A1AT, IGA, IGG, IGMB, FERIB, CA199, AFPTMR, CHANTELLE, QANA, AMA, SMA #### [facility] [address] [place] [address] [place] [address] QUANT*ANTINUCLEAR ANTIBODY Collected: Status: F Source: [facility] 12/21/2017 11:21 AM [facility] REPOSITORY TYPE CODE TESTS RESULT OUT OF REFERENCE UNITS RANGE LAB QAMA *Quant*Mitocho 1:160 ndrial Antibody Result Comment: Normal is less than 1:20 Performed By: #### PTI, CHM6, HFP, IRBC, A1AT, IGA, IGG, IGMB, FERIB, CA199, AFPTMR, CHANTELLE, QANA, AMA, SMA #### [facility] [address] [place] [address] [facility] [address] [address] ANTI-MITOCHONDRIAL ANTIBODY Collected: Status: F Source: [facility] 12/21/2017 11:21 AM [facility] REPOSITORY TYPE CODE TESTS RESULT OUT OF RANGE REFERENCE UNITS LAB AMA Negative Abnormal Anti-Mitochond POSITIVE rial Antibody Performed By: #### PTI, CHM6, HFP, IRBC, A1AT, IGA, IGG, IGMB, FERIB, CA199, AFPTMR, CHANTELLE, QANA, AMA, SMA #### [facility] [address] [place] [address] [address] SMOOTH MUSCLE Collected: 12/21/2017 Status: F Source: [facility] ANTIBODY 11:21 [facility] REPOSITORY TYPE CODE TESTS RESULT OUT OF REFERENCE UNITS RANGE LAB SMA Negative Smooth Muscle Negative Antibody Performed By: #### PTI, CHM6, HFP, IRBC, A1AT, IGA, IGG, IGMB, FERIB, CA199, AFPTMR, CHANTELLE, QANA, AMA, SMA #### [facility] [address] [place] [address] [address] [place] [address] CHEST PA AND LATERAL Observed: 12/15/2017 Status: F Source: [place] 1:32 PM [facility] REPOSITORY [facility] Imaging Services [address] [place] [address] Chest PA and Lateral MR#: [id number] Acct: [id number] Name: JONATHAN NASH Rep #: [id number] : 1945 F 72 From: Pat Alvarez MD PCP: Sugey Alonzo MD Status: REG CLI Study: Chest PA and Lateral Date of Exam: 12/15/17 Exam# [id number] Ordering Dr: Bar Malhotra MD STUDY: X-RAY CHEST REASON FOR EXAM: Female, 72 years old. Cough, pertussis. TECHNIQUE: PA and lateral views of the chest. COMPARISON: October 11, 2017 FINDINGS: There is no new focal consolidation. The lungs remain hyperinflated. There are stable prominent interstitial markings. Normal size heart. Normal mediastinum and jaclyn. Normal visualized pulmonary arteries. There is atherosclerotic calcification of the aortic arch . There is demineralization of the osseous structures. Normal visualized ribs, clavicles, and shoulders. There is no demonstrated abnormality of the visualized soft tissue structures of the upper abdomen. RAD/Chest PA and Lateral IMPRESSION: No acute cardiopulmonary process. Electronically Signed: Pat Alvarez MD at 23:39 EST Tel , Service support , CC: Sugey Alonzo MD; Bar Malhotra MD Income Tax Analyst: Signed CRP Collected: 12/15/2017 Status: F Source: [place] 1:26 PM [facility] REPOSITORY TYPE CODE TESTS RESULT OUT OF RANGE REFERENCE UNITS LAB L501.6710 0.0-3.0 mg/L High 4.76 C-REACTIVE PROT Result Comment: C-Reactive Protein (CRP) provides useful information for the diagnosis, therapy and monitoring of inflammatory processes and associated diseases. For the evaluation of Relative Risk for Cardiovascular Disease, a High Sensitivity CRP (HSCRP) should be ordered. Performed By: #### L501.6710 #### [facility] [address] [place], [address] ERYTHROCYTE SED RATE Collected: 12/15/2017 Status: F Source: [place] 1:26 PM [facility] REPOSITORY TYPE CODE TESTS RESULT OUT OF RANGE REFERENCE UNITS LAB L102.0000 0-30 mm/hr Normal SED RATE 8 Performed By: #### L101.9900 #### [facility] [address] [place], [address] ANGIOTENSIN CONVERT Collected: 12/15/2017 Status: F Source: [place] 1:26 PM [facility] REPOSITORY TYPE CODE TESTS RESULT OUT OF RANGE REFERENCE UNITS LAB L3100.6900 14-82 U/L Normal ILEANA [address] 33 Result Comment: Performed at: - [facility] [id number] Fountain Manager: Trell Mcdowell PhD, Phone: [phone] Performed By: #### L3100.6900 #### [facility] (refer to report for specific site) refer to report for address and phone number ALLERGIES ALLERGIES DATE TYPE / CODE NAME / CODE REACTION SEVERITY SOURCE 11/07/20 Drug hydroxychloroquine Rash Unknown [place] 18 Allergy/279095629 sulfate/[id number](RXN [facility] (SNOMED CT) ORM) Hospital Repository 11/07/20 Drug Sulfa (Sulfonamide Rash Unknown [place] 18 Allergy/772547578 Antibiotics)/[id number] [facility] (SNOMED CT) 1(RXNORM) Hospital Repository 11/07/20 Drug erythromycin Rash Unknown [place] 18 Allergy/058216186 base/G982884599(RXNORM [facility] ([facility]OM[facility] ) Hospital Repository 11/07/20 Drug hydromorphone/J5541721 CAN NOT Unknown [place] 18 Allergy/265328604 22(RXNORM) BREATH [facility] (SNOMED CT) Hospital Repository 11/07/20 Drug pregabalin/M674471109( Rash Unknown [place] 18 Allergy/399923778 RXNORM) [facility] (SNOMED CT) Hospital Repository 11/07/20 Miscellaneous CERTAIN TAPES SKIN Unknown [place] 18 Allergy/917491684 BREAKDOWN [facility] (SNOMED CT) Hospital Repository ENCOUNTERS ENCOUNTERS ADMIT/DISCHARGE ACCOUNT NUMBER ADMITTING ENCOUNTER LOCATION SOURCE CLASS 12/07/[id number] [facility] ding:PT Repository 12/05/2018 8575 Ambulatory Building:[employer] OH[facility] Practices Repository 11/25/[id number] [facility] ding:MTLAB Repository 11/08/2018 [id number] Ambulatory BMSBuilding: [facility] Repository 11/07/2018/11/08/20 [id number] Sementi, Ambulatory [place] [address] ding:PCURoom Repository : TSR603Hga: 1 11/07/2018 [id number] Sementi, Ambulatory BMSBuilding: [place] Keyla BMS.[facility] Repository 11/07/2018 [id number] Sementi, Ambulatory BMSBuilding: [place] Keyla BMS.[facility] Repository 10/07/[id number] [facility] ding:HPRAD Repository 08/20/[id number] [facility] ding:LAB Repository 08/12/2018 [id number] Ambulatory Building:SRD [facility] Repository 08/01/[id number] [facility] ding:CT Repository 07/21/2018 [id number] Ambulatory Building:K9T [facility] Repository 07/15/2018/07/15/20 [id number] Ambulatory BMSBuilding: [place] 18 BMS.[facility] Repository 07/14/2018 [id number] Ambulatory [facility] Hospital ding:CVS Repository 07/11/[id number] [facility] ding:ET Repository 07/07/[id number] [facility] ding:HPRAD Repository 07/04/2018 [id number] Ambulatory BMSBuilding: [facility] Repository 07/04/2018 [id number] Ambulatory [facility] Hospital ding:CVS Repository 06/03/2018/06/03/20 [id number] DEVI, Ambulatory Building:D[address] [place] [address] PETER Elio ENSRoom: General acute hospital Repository 06/01/2018/06/01/20 [id number] Ambulatory BMSBuilding: [place] 18 BMS.[facility] Repository 06/01/2018 [id number] Ambulatory BMSBuilding: [place] BMS.[facility] Repository 06/01/2018 [id number] Ambulatory BMSBuilding: [place] BMS.[facility] Repository 05/18/[id number] [facility] ding:MRI Repository 05/13/2018 [id number] Ambulatory BMSBuilding: [facility] Repository 05/13/[id number] [facility] ding:CVS Repository 03/24/[id number] [facility] ding:LAB Repository 03/16/2018/03/16/20 [id number] Ambulatory [address] ding:EN Repository 02/25/[id number] [facility] ding:LAB Repository 02/23/[id number] [facility] ding:LAB Repository 02/02/[id number] [facility] ding:CT Repository 01/13/2018 [id number] Ambulatory Building:K9T [facility] Repository 12/21/2017 [id number] [facility] 12/21/2017 [id number] Ambulatory Building:[facility] Repository 12/15/[id number] [facility] ding:LAB Repository PAYERS PAYERS ENCOUNTER GUARANTOR PAYER SUBSCRIBER SOURCE 12/07/2018 JOAQUIN Maldonado Primary JONATHAN J [place] [id number] Insurance:MEDICARE ALSDORFDOB: [facility] [id number] Number: Repository [address]Ubw: [phone] [id number] [phone] () Date:2018-10-10 12/07/2018 Secondary JONATHAN J [place] Insurance:MEDICAL ALSDORFDOB: [facility] [id number] Number: Repository [id number] Date:3709-25-37[address] [address]JK: 12/07/2018 Tertiary NOT GIVENUNK [place] Insurance:SELF PAY [facility] Number: Effective Repository Date:2018-10-10 12/05/2018 JONATHAN J Primary JONATHAN J OHIP Practices ALSDORFDOB: [facility]: Repository icy Number: [id number] [place]O68PaaouwqduBrashear, [place] Date:7850-09-56Qwli [place], [place] [address]Kvn: 330) Name:[facility] [address]Gqq: (HP)Tel: 470992Scnxncrh, [place] [phone] (HP) [address]WP: [phone] ([phone] 12/05/2018 Secondary JONATHAN J OHIP Practices Insurance:Medical ALSDORFDOB: Repository [facility] [id number] Number: Mertens [id number] [place], [place] Date:4706-99-62Tpou [address]Xod: Name:[address] ~(04 [address], [place] 6 (HP) [id number]: 12/05/2018 Tertiary JONATHAN J OHIP Practices Insurance:[facility] ALSDORFDOB: Repository icy Number: [id number] M[place]ens Date:2003-03-22 - [place], [place] 2978-23-91Xkxx [address]Tdn: Name:[address] ~([address] [address], [place] 6 (HP) [id number]: 11/25/2018 JOAQUIN Maldonado Primary JONATHAN J [place] [id number] Insurance:MEDICARE ALSDORFDOB: [facility] PART A [facility] [id number], [place] Number: Repository [address]Mov: (329) [id number] [phone] (HP) Date:2018-11-25 11/25/2018 Secondary JONATHAN J [place] Insurance:MEDICAL ALSDORFDOB: [facility] [id number] Hospital Number: Repository [id number] Date:7753-74-26[address], [place] [address]MC: 11/25/2018 Tertiary NOT GIVENUNK [place] Insurance:SELF PAY [facility] Number: Effective Repository Date:2018-11-25 11/08/2018 JOAQUIN Maldonado Primary JONATHAN J [place] [id number] Insurance:MEDICARE ALSDORFDOB: [facility] [id number], [place] Number: Repository [address]Hmt: 216 [id number] [phone] () Date:2018-11-07 11/08/2018 Secondary JONATHAN J [place] [facility] ALSD[facility]FDOB: [facility] Number: [id number] Hospital [id number] Repository Date:9489-51-84[address], [place] [address]VQ: 11/08/2018 Tertiary NOT GIVENUNK [place] Insurance:SELF PAY [facility] Number: Effective Repository Date:2018-11-08 11/07/2018 NUÑEZ Joel Primary JONATHAN J [place] [id number] Insurance:MEDICARE ALSDORFDOB: [facility] [id number], [place] Number: Repository [address]Kwy: 216 [id number] [phone] () Date:2018-11-07 11/07/2018 Secondary JONATHAN J [place] Insurance:AARPPolicy ALSDORFDOB: [facility] Number: [id number] Hospital [id number] Repository Date:5490-62-09GR [facility] [address], [place] [address]OY: 11/07/2018 Tertiary NOT GIVENUNK [place] Insurance:SELF PAY [facility] Number: Effective Repository Date:2018-11-07 11/07/2018 JOAQUIN Maldonado Primary JONATHAN J [place] [id number] Insurance:MEDICARE ALSDORFDOB: [facility] PART A [facility] [id number], [place] Number: Repository [address]Zod: 216 [id number] [phone] (HP) Date:2018-11-07 11/07/2018 Secondary JONATHAN J [place] Insurance:AARPPolicy ALSDORFDOB: Community Number: [id number] Hospital [id number] Repository Date:0193-25-89XG [address], [place] [address]QI: 11/07/2018 Tertiary NOT GIVENUNK [place] Insurance:SELF PAY [facility] Number: Effective Repository Date:2018-11-07 11/07/2018 NUÑEZ G Primary JONATHAN J [place] [id number] Insurance:MEDICARE ALSDORFDOB: [facility] PART A [facility] [id number] [place] Number: Repository [address]Lfv: 216 [id number] [phone] () Date:2018-11-07 11/07/2018 Secondary JONATHAN J [place] Insurance:AARPPolicy ALSDORFDOB: Community Number: [id number] Hospital [id number] Repository Date:2032-68-81YB [address]YGB, [place] [address]WS: 11/07/2018 Tertiary NOT GIVENUNK [place] Insurance:SELF PAY [facility] Number: Effective Repository Date:2018-11-07 10/07/2018 NUÑEZ G Primary JONATHAN J [place] [id number] Insurance:MEDICARE ALSDORFDOB: [facility] PART A [facility] [id number], [place] Number: Repository [id number]: 216 [id number] [phone] (HP) Date:2018-10-07 10/07/2018 Secondary JONATHAN J [place] Insurance:AARPPolicy ALSDORFDOB: Community Number: [id number] Hospital [id number] Repository Date:1439-73-85UD [address], [place] [address]RY: 10/07/2018 Tertiary NOT GIVENUNK [place] Insurance:SELF PAY [facility] Number: Effective Repository Date:2018-10-07 08/20/2018 JOAQUIN Maldonado Primary JONATHAN J [place] [id number] Insurance:MEDICARE ALSDORFDOB: [facility] PART A olic [id number], [place] Number: Repository [address]Mcn: 216 [id number] [phone] () Date:2018-08-20 08/20/2018 Secondary JONATHAN J [place] [facility]FD[facility]: Community Number: [id number] Hospital [id number] Repository Date:7343-12-08PS [address], [place] [address]AG: 08/20/2018 Tertiary NOT GIVENUNK [place] Insurance:SELF PAY [facility] Number: Effective Repository Date:2018-08-20 08/12/2018 JONATHAN J Primary JONATHAN J [facility] ALSDORFDOB: Insurance:MEDICARE A ALSDORFDOB: [place] [facility] Number: [id number] [facility] [id number], [place] Date:Plan Name:CARE [place] Repository [address]Dko: [address]Vpm: (QT) () 08/12/2018 Secondary JONATHAN J [facility] Insurance:AARPPolicy ALSDORFDOB: [place] Number: [id number] [facility] [id number] Date:6962-61-72Yxsf [place] Repository Name:MANAGED CARE [address]Ycd: (HP) 08/01/2018 JOAQUIN Maldonado Primary JONATHAN J [place] [id number] Insurance:MEDICARE ALSDORFDOB: [facility] PART A [facility] [id number], [place] Number: Repository [id number]: [phone]) [id number] [phone] (HP) Date:2018-07-26 08/01/2018 Secondary JONATHAN J [place] Insurance:[facility] ALSDORFDOB: [facility] Number: [id number] Hospital [id number] Repository Date:2916-54-60EV [address]PB[place], [place] [address]UE: 08/01/2018 Tertiary NOT GIVENUNK [place] Insurance:SELF PAY [facility] Number: Effective Repository Date:2018-07-26 07/21/2018 JONATHAN J Primary JONATHAN J [facility] ALSDORFDOB: Insurance:MEDICARE A ALSDORFDOB: [place] [facility] Number: [id number] [facility] [id number], [place] Date:Plan Name:CARE [place] Repository [address]Mnt: [address]Asy: () (HP) 07/21/2018 Secondary JONATHAN J [facility] Insurance:[facility] ALSDORFDOB: [place] Number: [id number] [facility] [id number] Date:4979-17-37[place]ly[place], [place] Repository Name:MANAGED CARE [address]Rab: () 07/15/2018 JOAQUIN Maldonado Primary JONATHAN J [place] [id number] Insurance:MEDICARE ALSDORFDOB: [facility] PART A [facility] [id number], [place] Number: Repository [address]Frd: (408) [id number] [phone] (HP) Date:2018-06-01 07/15/2018 Secondary JONATHAN J [place] Insurance:AARPPolicy ALSDORFDOB: Community Number: [id number] Hospital [id number] Repository Date:9918-02-00WF [address], [place] [address]RY: 07/15/2018 Tertiary NOT GIVENUNK [place] Insurance:SELF PAY [facility] Number: Effective Repository Date:2018-07-15 07/14/2018 JOAQUIN Maldonado Primary JONATHAN J [place] [id number] Insurance:MEDICARE ALSDORFDOB: [facility] PART A [facility] [id number], [place] Number: Repository [address]Fkw: 216 [id number] [phone] () Date:2018-07-14 07/14/2018 Secondary JONATHAN J [place] Insurance:AARPPolicy ALSDORFDOB: Community Number: [id number] Hospital [id number] Repository Date:1178-34-11JY [address], [place] [address]RO: 07/14/2018 Tertiary NOT GIVENUNK [place] Insurance:SELF PAY [facility] Number: Effective Repository Date:2018-07-14 07/11/2018 JOAQUIN Maldonado Primary JONATHAN J [place] [id number] Insurance:MEDICARE ALSDORFDOB: [facility] PART A [facility] [id number], [place] Number: Repository [address]Kwr: 216 [id number] [phone] () Date:2018-07-11 07/11/2018 Secondary JONATHAN J Roshan Insurance:AARPPolicy ALSDORFDOB: Community Number: [id number] Hospital [id number] Repository Date:3965-68-49[address]AVBVWCW, [place] [address]MS: 07/11/2018 Tertiary NOT GIVENUNK Roshan Insurance:SELF PAY [facility] Number: Effective Repository Date:2018-07-11 07/07/2018 Joaquin Maldonado Primary JONATHAN J Roshan [id number] Insurance:MEDICARE ALSDORFDOB: [facility] PART A [facility] [id number], [place] Number: Repository [address]Owv: (256) [id number] [phone] (HP) Date:2018-07-07 07/07/2018 Secondary JONATHAN J Preston Insurance:AARPPolicy ALSDORFDOB: Community Number: [id number] Hospital [id number] Repository Date:7117-48-14JE [facility] 544231YCMHIXR, [place] [address]AQ: 07/07/2018 Tertiary NOT GIVENUNK Roshan Insurance:SELF PAY [facility]: Effective Repository Date:2018-07-07 07/04/2018 JOAQUIN Maldonado Primary JONATHAN J Preston [id number] Insurance:MEDICARE ALSDORFDOB: [facility] PART A [facility] [id number], [place] Number: Repository [address]Wzk: 216 [id number] [phone] () Date:2018-06-01 07/04/2018 Secondary JONATHAN J Preston [facility] ALSDORFDOB: Community Number: [id number] Hospital [id number] Repository Date:4877-08-65KJ [facility] 208421WVSCKKQ, [place] [address]HH: 07/04/2018 Tertiary NOT GIVENUNK Preston Insurance:SELF PAY [facility] Number: Effective Repository Date:2018-07-04 07/04/2018 Joaquin Maldonado Primary JONATHAN J Preston [id number] Insurance:MEDICARE ALSDORFDOB: [facility] PART A [facility] [id number], [place] Number: Repository [id number]: (166) [id number] [phone] (HP) Date:2018-06-01 07/04/2018 Secondary JONATHAN J Roshan Insurance:AARPPolicy ALSDORFDOB: Community Number: [id number] Hospital [id number] Repository Date:2662-96-70FV [facility] 426935LOEQHRP, [place] [address]SI: 07/04/2018 Tertiary NOT GIVENUNK Preston Insurance:SELF PAY [facility] Number: Effective Repository Date:2018-06-01 06/03/2018 JONATHAN J Primary JONATHAN J [facility] ALSDORFDOB: Insurance:MEDICARE A ALSDORFDOB: [place] [facility] Number: [id number] [facility] [id number], [place] Date:Plan Name:CARE [place] Repository [address]Dnq: [phone]: () () 06/03/2018 Secondary JONATHAN J [facility] Insurance:AARolicy ALSDORFDOB: [place] Number: [id number] [facility] [id number] [facility] Date:0449-55-55TnuvWin[place], [place] Repository Name:MANAGED CARE [address]Tim: () 06/01/2018 Joaquin Maldonado Primary JONATHAN J Preston [id number] Insurance:MEDICARE ALSDORFDOB: [facility] PART [facility] [id number], [place] Number: Repository [address]Wvu: 330 [id number] [phone] () Date:2018-05-20 06/01/2018 Secondary JONATHAN J Roshan [facility] Number: [id number] Hospital [id number] Repository Date:4194-25-72IE [facility] 072906IZEBKDB, [place] [address]VL: 06/01/2018 Tertiary NOT GIVENUNK Preston Insurance:SELF PAY [facility] Number: Effective Repository Date:2018-06-01 06/01/2018 Joaquin Maldonado Primary JONATHAN J Preston [id number] Insurance:MEDICARE ALSDORFDOB: [facility] PART A [facility] [id number], [place] Number: Repository [address]Col: 330 [id number] [phone] (HP) Date:2018-06-01 06/01/2018 Secondary JONATHAN J Roshan Insurance:AARPPolicy ALSDORFDOB: Community Number: [id number] Hospital [id number] Repository Date:4110-63-99FK [facility] 829978KIJIAFL, [place] [address]RQ: 06/01/2018 Tertiary NOT GIVENUNK Preston Insurance:SELF PAY [facility] Number: Effective Repository Date:2018-06-01 06/01/2018 Joaquin Maldonado Primary JONATHAN J Roshan [id number] Insurance:MEDICARE ALSDORFDOB: [facility] PART A [facility] [id number], [place] Number: Repository [address]Xig: 330 [id number] [phone] (HP) Date:2018-05-19 06/01/2018 Secondary JONATHAN J Roshan Insurance:AARPPolicy ALSDORFDOB: Community Number: [id number] Hospital [id number] Repository Date:1612-96-97FD [facility] 508618FCIXJAG, [place] [address]HX: 06/01/2018 Tertiary NOT GIVENUNK Preston Insurance:SELF PAY [facility] Number: Effective Repository Date:2018-05-19 05/18/2018 Joaquin Maldonado Primary JONATHAN J Roshan [id number] Insurance:MEDICARE ALSDORFDOB: [facility] PART A [facility] [id number], [place] Number: Repository [address]Mfk: 330 [id number] [phone] (HP) Date:2018-05-13 05/18/2018 Secondary JONATHAN J Preston Insurance:AARPPolicy ALSDORFDOB: Community Number: [id number] Hospital [id number] Repository Date:3160-91-25BK [facility] 171421MZQDWXT, [place] [address]JQ: 05/18/2018 Tertiary NOT GIVENUNK Roshan Insurance:SELF PAY [facility] Number: Effective Repository Date:2018-05-13 05/13/2018 Nuñez Joel Primary JONATHAN J Roshan [id number] Insurance:MEDICARE ALSDORFDOB: [facility] PART A [facility] [id number], [place] Number: Repository [address]Mee: 330 [id number] [phone] (HP) Date:2018-05-05 05/13/2018 Secondary JONATHAN J Roshan [facility] ALSDORFDOB: [facility] Number: [id number] Hospital [id number] Repository Date:2205-47-65MM [facility] 995802BASHBLL, [place] [address]LV: 05/13/2018 Tertiary NOT GIVENUNK Roshan Insurance:SELF PAY [facility] Number: Effective Repository Date:2018-05-13 05/13/2018 Joaquin Joel Primary JONATHAN J Preston [id number] Insurance:MEDICARE ALSDORFDOB: [facility] PART A [facility] [id number], [place] Number: Repository [address]Kxa: 330 [id number] [phone] () Date:2018-05-05 05/13/2018 Secondary JONATHAN J Roshan Insurance:AARPPolicy ALSDORFDOB: Community Number: [id number] Hospital [id number] Repository Date:8128-83-59QI [address]DYJHUHL, [place] [address]GJ: 05/13/2018 Tertiary NOT GIVENUNK Roshan Insurance:SELF PAY [facility] Number: Effective Repository Date:2018-05-05 03/24/2018 Joaquin Maldonado Primary JONATHAN J Preston [id number] Insurance:MEDICARE ALSDORFDOB: [facility] PART A [facility] [id number], [place] Number: Repository [address]Bkn: [id number] [phone] Date:2018-03-24 2 (HP) 03/24/2018 Secondary JONATHAN J Preston Insurance:AARPPolicy ALSDORFDOB: Community Number: [id number] Hospital [id number] Repository Date:1762-32-51BB [address]XCPENMC, [place] [address]UP: 03/24/2018 Tertiary NOT GIVENUNK Preston Insurance:SELF PAY [facility] Number: Effective Repository Date:2018-03-24 03/16/2018 Joaquin Joel Primary JONATHAN J Preston [id number] Insurance:MEDICARE ALSDORFDOB: [facility] PART A [facility] [id number] [place] Number: Repository [address]Cnu: [id number] [phone] Date:2018-02-25 2 (HP) 03/16/2018 Secondary JONATHAN J Roshan Insurance:AARPPolicy ALSDORFDOB: Community Number: [id number] Hospital [id number] Repository Date:1148-31-72IA [address]TJJPHDU, [place] [address]IK: 03/16/2018 Tertiary NOT GIVENUNK Preston Insurance:SELF PAY [facility] Number: Effective Repository Date:2018-02-25 02/25/2018 Joaquin Joel Primary JONATHAN J Roshan [id number] Insurance:MEDICARE ALSDORFDOB: [facility] PART A [facility] [id number] [facility] [place] Number: Repository [address]Iau: [id number] [phone] Date:2018-02-25 2 (HP) 02/25/2018 Secondary JONATHAN J Roshan Insurance:AARPPolicy ALSDORFDOB: Community Number: [id number] Hospital [id number] Repository Date:0796-89-69[address]IXSGFTN, [place] [address]OJ: 02/25/2018 Tertiary NOT GIVENUNK Roshan Insurance:SELF PAY [facility] Number: Effective Repository Date:2018-02-25 02/23/2018 Nuñez G Primary JONATHAN J Preston [id number] Insurance:MEDICARE ALSDORFDOB: [facility] PART A [facility] [id number], [place] Number: Repository [address]Wco: [id number] [phone] Date:2018-02-23 2 (HP) 02/23/2018 Secondary JONATHAN J Preston Insurance:AARPPolicy ALSDORFDOB: Community Number: [id number] Hospital [id number] Repository Date:9974-93-91GV [address]RQNOULC, [place] [address]JA: 02/23/2018 Tertiary NOT GIVENUNK Roshan Insurance:SELF PAY [facility] Number: Effective Repository Date:2018-02-23 02/02/2018 Nuñez G Primary JONATHAN J Preston [id number] Insurance:MEDICARE ALSDORFDOB: [facility] PART A [facility] [id number], [place] Number: Repository [address]Vye: [id number] [phone] Date:2018-01-31 2 (HP) 02/02/2018 Secondary JONATHAN J Roshan Insurance:AARPPolicy ALSDORFDOB: Community Number: [id number] Hospital [id number] Repository Date:0090-80-38SN [address], [place] [address]BZ: 02/02/2018 Tertiary NOT GIVENUNK Roshan Insurance:SELF PAY [facility] Number: Effective Repository Date:2018-01-31 01/13/2018 JONATHAN J Primary JONATAHN J [facility] ALSDORFDOB: Insurance:MEDICARE A ALSDORFDOB: [place] [facility] Number: [id number] [facility] [id number], [place] Date:Plan Name:[place], [place] Repository [address]Wui: [phone]: (HP) (HP) 01/13/2018 Secondary JONATHAN J [facility] Insurance:[facility]ARJeff[facility]ington Hospitalyelitza [facility] University Number: [id number] [facility] [id number] [facility] Medical Center Date:4348-30-96Uekq [place], [place] Repository Name:MANAGED CARE [address]Dgb: (HP) 12/21/2017 JONATHAN J Primary JONATHAN J [facility] ALSDORFDOB: Insurance:MEDICARE A ALSDORFDOB: [place] AND BPolicy Number: [id number] [facility] [id number], [place] Date:Plan Name:[place], [place] Repository [address]Zlh: [phone]: (HP) (HP) 12/21/2017 Secondary JONATHAN J [facility] Insurance:AARPPolicyelitza [facility]ITALD[facility]FDOB: University Number: [id number] [facility] [id number] Alaska Medical Center Date:7378-18-54Uoon [place], [place] Repository Name:MANAGED CARE [address]Yac: (HP) 12/21/2017 JONATHAN J Primary JONATHAN J [facility] ALSDORFDOB: Insurance:MEDICARE A ALSDORFDOB: [place] AND BPolicy Number: [id number] [facility] [id number], [place] Date:Plan Name:[place], [place] Repository [address]Okm: [phone]: (HP) (HP) 12/21/2017 Secondary JONATHAN J [facility] Insurance:AARPPolicy ALSDORFDOB: [place] Number: [id number] [facility] [id number] [facility] Date:8514-51-04FouuWin[place], [place] Repository Name:MANAGED CARE [phone]: () 12/15/2017 Joaquin Maldonado Primary JONATHAN Olivarezoster [id number] Insurance:MEDICARE ALSDORFDOB: [facility] PART A [place] [id number], [place] Number: Repository [address]Irm: [id number] [phone]- Date:2017-12-15 2 (HP) 12/15/2017 Secondary JONATHAN Islas [facility] Number: [id number] [id number] Repository Date:1358-36-82QQ [address]XWFRWAB, [place] [address]JC: 12/15/2017 Tertiary NOT GIVENUNK Preston Insurance:SELF PAY [facility] Number: Effective Repository Date:2017-12-15
== END 2018-11-08 17:00 | disposition home or self-care (01) ==
LOC: ED 05:29 → ICU 07:58 → PCU 11-08 07:38 → ICU 11-08 12:39 → PCU 11-08 12:39
PROVIDERS: Admitting Provider Internal Medicine; Emergency Provider Emergency Medicine; Family Provider Internal Medicine; PCP Internal Medicine; Visit Provider Internal Medicine
DX: R07.89 Other chest pain (principal); K21.0 Gastro-esophageal reflux disease with esophagitis; R06.02 Shortness of breath; E78.5 Hyperlipidemia, unspecified; I10 Essential (primary) hypertension; E66.9 Obesity, unspecified; M10.9 Gout, unspecified; K74.69 Other cirrhosis of liver; K75.81 Nonalcoholic steatohepatitis (NASH); M13.80 Other specified arthritis, unspecified site; K51.90 Ulcerative colitis, unspecified, without complications; Z68.38 Body mass index [BMI] 38.0-38.9, adult; Z71.3 Dietary counseling and surveillance; Z79.899 Other long term (current) drug therapy; Z79.82 Long term (current) use of aspirin; Z79.52 Long term (current) use of systemic steroids; Z90.49 Acquired absence of other specified parts of digestive tract; R01.1 Cardiac murmur, unspecified; I08.1 Rheumatic disorders of both mitral and tricuspid valves; I70.0 Atherosclerosis of aorta
CPT/HCPCS: 36415; 71045; 71275; 78452; 80048; 80053; 80061; 83735; 84100; 84484; 85025; 85610; 85730; 87040; 87804; 93005; 93017; 93306; 96372; 96374; 96375; 99218; 99285; A9500; Q9967; A4216; G0378; J2405; J2785

== ENCOUNTER → 2018-11-25 14:00 | Outpatient (CLI) | payer MEDICARE, OTHER, SELFPAY ==
[2018-11-07 08:24] VITALS: BMI 38.4
--- NOTE | 2018-11-25 14:06 | RAD_ITS ---
STUDY: X-RAY CHEST REASON FOR EXAM: Female, 73 years old. Cough. TECHNIQUE: PA and lateral views of the chest. COMPARISON: 11/07/2018. FINDINGS: There is mild elevation of the right hemidiaphragm. The lungs are clear and expanded. There is no demonstrated pleural abnormality. Normal size heart. Normal mediastinum and jaclyn. Normal visualized pulmonary arteries. Normal visualized aortic arch and descending thoracic aorta. Normal visualized thoracic spine. Normal visualized ribs, clavicles, and shoulders. There is no demonstrated abnormality of the visualized soft tissue structures of the upper abdomen. RAD/Chest PA and Lateral IMPRESSION: No active pulmonary disease. Electronically Signed: Estuardo Acosta MD at 14:23 EST Tel , Service support ,
[2018-11-25 17:21] LABS: Erythrocyte Sedimentation Rate 9 mm/hr (0-30)
== END ==
PROVIDERS: Family Provider Internal Medicine; PCP Internal Medicine; Referring Provider Internal Medicine Pulmonary Disease; Visit Provider Internal Medicine Pulmonary Disease
DX: R05 Cough (principal)
CPT/HCPCS: 36415; 71046; 85652; 86140; 97530

== ENCOUNTER 2018-12-07 11:00 | Outpatient (RCR) | payer MEDICARE, OTHER, SELFPAY ==
--- NOTE | 2018-10-18 11:14 | HP.PTEVAL_ITS ---
Patient's Visit Information JONATHAN NASH is a 73 year old F referred to Physical Therapy by Kamryn Hansen with a diagnosis of LUMBAR DDD AND BACK PAIN. Date of Evaluation: 10/18/18 Physical Therapist: Milka Loredo - Visit Plan Frequency: 2-3x /Week Duration: 4-6 Weeks Plan: POSTURE CORRECTION/STRENGTHENING, INSTRUCTION IN APPROPRIATE BODY MECHANICS AND ACTIVITY MODIFICATIONS. DLS STARTING WITH A NEUTRAL SPINE PROGRESSING ROM TOLERATED. RADHA LE ROM, STRETCHING AND STRENGTHENING. HEP INSTRUCTION. - Subjective Subjective: Work/Leisure: RETIRED. Disability: NO. Present symptoms: LOW BACK PAIN. RIGHT HIP PAIN - PATIENT POINTS TO BUTTOCK REGION. Present since: COUPLE MONTHS AGO. Pain Scale: WORSE 9/10, LEAST 0/10. Currently: 01/01. Commenced as a result of: NO APPARENT REASON. Symptoms at onset: BACK OR HIP. Worse: TWISTING, SITTING ON HARD SURFACES, PROLONGED SITTING, RISING FROM SITTING, PROLONGED WALKING, BENDING. Better: LYING DOWN, TYLONOL, PREDNISONE BUT TAPERING OFF WITH GOAL OF BEING OFF BY NOV/DEC 2017 (WAS ON PREDNISONE FOR RESPIRATORY PROBLEMS). Disturbed sleep: NO. Previous history/Previous treatment: HISTORY OF SCIATICA TREATED WITH PHYSICAL THERAPY. WENT TO A CHIR OPRACTOR A COUPLE TIMES THIS EPISODE - IT DID NOT HELP. ALSO HAS BEEN TO CHIROPRACTOR IN THE PAST FOR BACK PROBLEMS. NO BRENDA'S. NO BACK SURGERY. PATIENT REPORTS SHE HAS ACTUALLY BEEN TO THE CHIROPRACTOR 3 TIMES THIS YEAR FOR BACK PROBLEMS. Coughing/sneezing/straining: POSITIVE. Gait: NOT BEING ABLE TO WALK DUE TO SHARP BACK AND HIP PAIN IS WHY PATIENT REPORTS SHE WENT TO THE CHIROPRACTOR THEN HE REFERRED HER TO HER FAMILY DOCTOR. CURRENTLY SHE CAN WALK BUT HER PACE, TIME AND DISTANCE STANDING AND WALKING IS MORE LIMITED THAN IT WAS PRIOR TO THIS FLARE UP A FEW MONTHS AGO. Difficulty initiating urinatin: NO. Accidents: NO. FALL Jun COMING UP THE STEPS INTO THE HOUSE CARRYING A BOWL AND TRIPPED AND ALL WEIGHT WENT DOWN ON LEFT KNEE. SELF TREATMENT OF KNEE UNDER DOCTORS CARE AND SLOWLY IMPROVING. Unexplained weight loss: NO. Imaging: OSTEOPENIA AND SPONLYLOSIS MOST MARKED AT L5S1. PMH: ULCERATIVE COLITIS - OSTOMYL RESPIRATORY CONDITION UNDER THE CARE OF SPECIALIST. HISTORY OF DIZZINESS FOR SEVERAL MONTHS NOW THEREFORE NOT DRIVING - SINCE SPRING. PATIENT HAS A FEAR OF TAKING PAIN MEDICATION DUE TO LIVER DAMAGE. FIBROMYALGIA. PLOF (Prior Level of Function): UNLIMITED WALKING. WAS ABLE TO CARRY LAUNDRY BASKET, GET DOWN INTO LOW CUPBORDS TO GET PANS AND DO MORE HOUSEWORK PRIOR TO THIS FLARE UP OF HER BACK AND HIP THAT STARTED A COUPLE MONTHS AGO. OTHER: PATIENT REPORTS HER IS NOT WELL BUT HE HELPS WITH THE HOUSE WORK AND DRIVES. - Objective Sitting/Standing Posture: POOR. INCREASED TRUNK FLEXION. Lordosis: DECREA SED. Lateral shift: NO. Relevant shift: N/A. Active Correction of posture: NE. Other Observations: INDEP GAIT X APPROX 300 FEET INTO PT WITHOUT ANY ASSISTIVE DEVICES OR LOSS OF BALANCE BUT DECREASED CADANCE AND SOB. INDEP TRANSFER SIT TO STAND WITHOUT UE ASSIST. Motor deficit: RADHA LE'S 5/5 WITH MMT'ING EXCEPT HIPS GRADED 4/5. Sensory deficit: NO BUT LEFT KNEE IS SENSATIVE. ROM deficit: RADHA LE'S WFL BUT SOME RADHA HIP FLEXION TIGHTNESS. Reflexes: UNABLE TO ELICIT RADHA LE DTR'S AND DID NOT ATTEMPT LEFT QUAD DUE TO TENDERNESS FROM FALL. Dural Signs: NEGATIVE RADHA LE'S. Lumbar mvmt loss: flex - NIL. ext - MOD. R SG - MIN - PROVOKES LEFT LB/BUTTOCK PAIN. L SG - MIN - PROVOKES LEFT LB/BUTTOCK PAIN BUT RIGHT SG > LEFT SG. Core strength: POOR. Palpation: GENERALIZED TENDERNESS IN RADHA LATERAL HIPS BUT NO ACUTE PAIN WITH PALPATION OF THROACIC SPINE, LUMBAR SPINE, SACRUM OR BUTTOCK REGIONS. - Goals Goal 1:: DECREASE C/O LOW BACK AND RIGHT HIP PAIN Goal Time Frame: 4-6 Weeks Goal 2:: IMPROVE PERSONAL CARE, LIFTING, WALKING, SITTING, STANDING, SLEEP, SOCIAL LIFE, TRAVEL AND HOMEMAKING FUNCTION Goal Time Frame: 4-6 Weeks Goal 3:: INSTRUCT IN PROPHYLAXIS Goal Time Frame: 4-6 Weeks - Rehabilitation Potential Rehabilitation Potential: Good - Anticipated Interventions Patient/Client Instruction: Educate patient on: Condition, Plan of Care, Risk Factors, Benefits of Fitness Program For the Purpose of:: To improve self management Therapeutic Exercise to Include: Strength training, Body mechanics, Postural training, Dynamic Lumbar Stabilization For the Purpose of:: To decrease pain, To improve muscle performance and motor function, To increase tolerance to activity/condition/position, To improve performance and independence with ADL's, To improve ability of physical actions for home/community/work/leisure, To improve gait and locomotor functions Ultrasound (thermal/non thermal): Yes For the Purpose of:: To decrease pain, To increase ROM, To improve nutrient delivery to tissue Thank you for the opportunity to evaluate your patient. For Medicare and Medicare HMO plans, please review the plan of care and approve it. It will need to be FAXED BACK to us at [phone] for Medicare purposes. Please let me know if there are questions or concerns regarding this plan of care. Physician Signature: _Date:
--- NOTE | 2018-11-02 14:13 | HP.PTREVAL ---
Kamryn Hansen, It has been my pleasure to treat JONATHAN NASH over the last 7 visits for LUMBAR DDD AND BACK PAIN. Please see the progress note below for an update on the physical therapy plan of care! Subjective: PATIENT REPORTS SHE IS GETTING BETTER BUT IT IS SLOWER THIS TIME. PATIENT REPORTS IMPROVEMENT IN HER WALKING SINCE STARTING PT. SHE STATES SHE IS NOW ABLE TO TRANSFER UP FROM LYING DOWN BETTER TOO SINCE STARTING PT. SHE REPORTS THERE WERE TIMES SHE HAD TO HAVE HER HELP HER GET UP BEFORE BUT NOW SHE CAN GET UP BY HERSELF. SHE ALSO REPORTS SHE CAN GET IN AND OUT OF THE CAR BETTER NOW. SHE REPORTS SHE DID NOT FEEL WELL YESTERDAY AND DID NOT DO THE EX'S - SHE REPORTS SHE HAS ONLY DONE THE EX'S ONCE SINCE LAST VISIT. Objective/Function: PATIENT IS IMPROVING SLOWLY. AQUATIC THERAPY MIGHT BE HELPFUL BUT PATIENT WOULD RATHER NOT DUE TO OSTOMY. INDEP GAIT X APPROX 300 FEET INTO PT WITHOUT ANY ASSISTIVE DEVICES OR LOSS OF BALANCE BUT DECREASED CADANCE AND MILD SOB - BETTER THAN FIRST VISIT. INDEP TRANSFER SIT TO STAND WITHOUT UE ASSIST BUT DIFFICULT. Motor deficit: RADHA LE'S 5/5 WITH MMT'ING EXCEPT HIPS GRADED 4/5. Sensory deficit: NO BUT LEFT KNEE IS STILL SENSATIVE. ROM deficit: RADHA LE'S WFL BUT SOME RADHA HIP FLEXION TIGHTNESS. NEGATIVE RADHA LE'S. Lumbar mvmt loss: flex - NIL. ext - MOD. R SG - MOD - PROVOKES RIGHT LB/BUTTOCK PAIN BUT MILD. L SG - MIN - PROVOKES LEFT LB/BUTTOCK PAIN. Core strength: POOR. Palpation: GENERALIZED TENDERNESS IN RADHA LATERAL HIPS BUT NO ACUTE PAIN WITH PALPATION OF THROACIC SPINE, LUMBAR SPINE, SACRUM OR BUTTOCK REGIONS. PATIENT ABLE TO INDEP TRANSFER FROM SIT TO SUPINE AND REVERSE WITH MINIMAL DIFFICULTY NOW. ONLY MINIMAL CUEING NEEDED WITH ABOVE EX'S TO PERFORM CORRECTLY. Plan Plan: CONT PT 2-3 TIMES A WEEK X 10 VISITS FOR POSTURE CORRECTION/STRENGTHENING, INSTRUCTION IN APPROPRIATE BODY MECHANICS AND ACTIVITY MODIFICATIONS. DLS STARTING WITH A NEUTRAL SPINE PROGRESSING ROM TOLERATED. RADHA LE ROM, STRETCHING AND STRENGTHENING. HEP INSTRUCTION. PATIENT AGREEABLE. Goals Goal 1:: DECREASE C/O LOW BACK AND RIGHT HIP PAIN Goal Time Frame: 4-6 Weeks Goal Progress: Progressing Goal 2:: IMPROVE PERSONAL CARE, LIFTING, WALKING, SITTING, STANDING, SLEEP, SOCIAL LIFE, TRAVEL AND HOMEMAKING FUNCTION Goal Time Frame: 4-6 Weeks Goal Progress: Progressing Goal 3:: INSTRUCT IN PROPHYLAXIS Goal Time Frame: 4-6 Weeks Goal Progress: Progressing Anticipated Interventions Patient/Client Instruction: Educate patient on: Condition, Plan of Care, Risk Factors, Benefits of Fitness Program For the Purpose of:: To improve self management Therapeutic Exercise to Include: Strength training, Body mechanics, Postural training, Dynamic Lumbar Stabilization For the Purpose of:: To decrease pain, To improve muscle performance and motor function, To increase tolerance to activity/condition/position, To improve performance and independence with ADL's, To improve ability of physical actions for home/community/work/leisure, To improve gait and locomotor functions Ultrasound (thermal/non thermal): Yes For the Purpose of:: To decrease pain, To increase ROM, To improve nutrient delivery to tissue Please do not hesitate to contact me at [phone] by phone or if you have questions or concerns regarding this new plan of care! Sincerely, Milka Loredo
--- NOTE | 2018-12-07 12:07 | HP.PTDCSUM_ITS ---
HP - PT D/C Summary It has been my pleasure to treat JONATHAN NASH under orders from Kamryn Hansen MD, for the diagnosis of LUMBAR DDD AND BACK PAIN for a total of 17 visit(s). Discharge Date: 12/07/18 Please see the following information for a summary of their discharge status. - Subjective Subjective: PATIENT REPORTS HER LEFT KNEE FLARED UP OVER THE WEEKEND FOR NO APPARENT REASON. SHE RECEIVED A CORTISONE SHOT FROM DR. HANSEN YESTERDAY AND THAT HAS HELPED. PATIENT REPORTS THE PAIN INTO HER RIGHT BUTTOCK SEEMS TO BE UNDER CONTROL BUT SHE HAS SOME LOW BACK STRAIN. PATIENT REPORTS ONLY OCCASSIONAL PAIN HER HER BACK GETTING IN/OUT OF CAR AND BED NOW. 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 SHE REPORTS STRESS INCREASES HER BACK AND KNEE PAIN. PATIENT REPORTS SHE SAW A COUNSELOR AND PLANS TO CONTINUE. SHE IS ALSO CONSIDERING MASSAGE THERAPY. PATIENT REPORTS MUSCLE SORENESS THAT SHE IS THINKING WILL BET BETTER HER MUSCLE GET USE TO THE EX'S. 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 - Pain RIGHT LB Pain Intensity (Out of 10): 2 RIGHT BUTTOCK Pain Intensity (Out of 10): 0 left lb Pain Intensity (Out of 10): 2 LEFT KNEE Pain Intensity (Out of 10): 4 - Overall Improvement % Improvement: 90 - Objective Objective/Function: THIS PATIENT PRESENTS TO PT TODAY LIMPING ON HER LEFT LE. SHE REPORTS DR. HANSEN IS GOING TO FOLLOW UP WITH HER ABOUT HER KNEE IN A WEEK. PATIENTS PAIN IS IMPROVING, HER FUNCTION IS IMPROVING AND SHE IS INDEP WITH HOME AND GYM EX PROGRAMS NOW. SHE AMBULATES INDEP'LY INTO PT TODAY X > 300 FEET WITHOUT C/O OF RIGHT HIP/BUTTOCK PAIN BUT SHE DOES HAVE PAIN AND IS LIMPING ON HER LLE WHICH SHE REALTES TO HER KNEE (SEE SUBJECTIVE). NO SOB NOTICED INDEP TRANSFER SIT TO STAND WITHOUT UE ASSIST OR DIFFICULTY THIS DATE BUT RIGHT BUTTOCK PAIN FROM STAND TO SIT WITHOUT UE ASSIST. Motor deficit: RADHA LE'S 5/5 WITH MMT'ING EXCEPT HIPS GRADED 4/5. Sensory deficit: NO BUT LEFT KNEE IS SENSATIVE. ROM deficit: RADHA LE'S WFL BUT SOME RADHA HIP FLEXION TIGHTNESS. DURAL SIGNS: NEGATIVE RADHA LE'S. Lumbar mvmt loss: flex - NIL. ext - MOD -. R SG - MOD. L SG - MOD - C/O LLE INCREASED PAIN SHE BEARS MORE WEIGHT ON THE LLE WITH LSG TESTING. Core strength: POOR. Palpation: GENERALIZED TENDERNESS IN RADHA LATERAL HIPS BUT NO ACUTE PAIN WITH PALPATION OF THROACIC SPINE, LUMBAR SPINE, SACRUM OR BUTTOCK REGIONS. LUMBAR OSWESTRY HAS IMPROVED FROM 26 TO 13 OVER-ALL THIS EPISODE OF CARE. PATIENT COMMUNICATED A GOOD UNDERSTANDING OF PROPER USE OF CANE AND STATES SHE HAS ACTUALLY ALREADY STARTED USING A CANE SOME FOR HER KNEE PAIN. - Goals Goal 1:: DECREASE C/O LOW BACK AND RIGHT HIP PAIN Goal Progress: Progressing Goal 2:: IMPROVE PERSONAL CARE, LIFTING, WALKING, SITTING, STANDING, SLEEP, SOCI AL LIFE, TRAVEL AND HOMEMAKING FUNCTION Goal Progress: Progressing Goal 3:: INSTRUCT IN PROPHYLAXIS Goal Progress: Progressing - Plan Plan: D/C TO INDEP GYM PROGRAM AND FOLLOW UP WITH DR. HANSEN FOR HER KNEE. PATIENT AGREEABLE. - D/C Information If there are questions or concerns regarding this patient's physical therapy, please feel free to call me at [phone]. Thank you for the referral of this patient. Sincerely, Milka Loredo, PT, Cert MDT
== END 2018-12-07 19:00 | disposition home or self-care (01) ==
LOC: PT 11:00
PROVIDERS: Family Provider Internal Medicine; PCP Internal Medicine; Referring Provider Internal Medicine; Visit Provider Internal Medicine
DX: M51.36 Other intervertebral disc degeneration, lumbar region (principal); M54.9 Dorsalgia, unspecified
CPT/HCPCS: 97035; 97110; 97140; 97163; 97530

== ENCOUNTER → 2018-12-29 09:21 | Outpatient (CLI) | payer MEDICARE, OTHER, SELFPAY ==
[2018-11-07 08:24] VITALS: BMI 38.4
--- NOTE | 2018-12-29 09:39 | MRI_ITS ---
STUDY: MRI LEFT KNEE REASON FOR EXAM: Female, 73 years old. Pain. Fall June 2018 TECHNIQUE: Standardized fat and water weighted pulse sequences were obtained in all 3 orthogonal planes. COMPARISON: X-ray July 07, 2018 FINDINGS: There is medial meniscus tear of the posterior horn and body, series 3 images through . There is diffuse, greater than 50% thickness articular cartilage loss of the medial femorotibial compartment. There is moderate osteoarthritic spur formation of the medial knee compartment. There is reactive marrow edema of the medial tibial plateau. Normal medial collateral ligamentous complex (MCL). Normal distal semimembranosus, gracilis and semitendinosus tendons. Normal lateral meniscus. Normal hyaline cartilage of the lateral femorotibial compartment. There is mild osteoarthritic spur formation of the lateral knee compartment. Normal proximal tibiofibular articulation. Normal lateral collateral (fibular) ligament. Normal popliteus tendon. Normal biceps femoris tendon. Normal anterior cruciate ligament (ACL). Normal posterior cruciate ligament (PCL). There is arthrosis of the patellofemoral articulation. There is diffuse, less than 50% thickness articular cartilage loss of the patellofemoral compartment. Normal medial and lateral patellar retinaculum. Normal quadriceps tendon. Normal patellar tendon. Normal Hoffa's fat pad. There is a small volume joint effusion. There is a Moreno's cyst. There is anterior soft tissue swelling. The otherwise visualized osseous structures are unremarkable. MRI/Lower Ext Joint Only (Routine) IMPRESSION: Medial meniscus tear. Tricompartmental degenerative change Joint effusion with popliteal cyst Electronically Signed: Varun Pittman MD at 23:51 EST , Service support ,
== END ==
PROVIDERS: Family Provider Internal Medicine; PCP Internal Medicine; Referring Provider Internal Medicine; Visit Provider Internal Medicine
DX: M25.562 Pain in left knee (principal)
CPT/HCPCS: 73721

== ENCOUNTER → 2019-01-04 15:26 | Outpatient (CLI) | payer MEDICARE, OTHER, SELFPAY ==
[2018-11-07 08:24] VITALS: BMI 38.4
--- NOTE | 2019-01-04 15:28 | BI_ITS ---
MAMMOGRAPHY - BILATERAL SCREENING REASON FOR EXAM: Female, 73 years old. Routine annual screening examination. PERTINENT HISTORY: Non-contributory. Remote left stereotactic breast biopsy. TECHNIQUE: Digital bilateral breast cony (3D mammographic acquisition) in the CC and MLO projections. 2-D mediolateral oblique (MLO) and craniocaudad (CC) views of both breasts were obtained. CAD: Full Field Digital Mammography with Computer Added Detection was performed. COMPARISON: Comparison is made with prior study dated October 26, 2016 and October 27, 2017. FINDINGS: Breast Composition: The breasts are heterogeneously dense, which may obscure small masses. There are no dominant masses or suspicious calcifications. Stable 1 cm well-defined nodule in the mid lateral portion of the right breast. This was demonstrated to be a small cyst on prior ultrasound. Stable secretory calcifications. No other significant abnormalities are identified. There has been no significant change since the prior study. BI/SCREENING MAMM (CAD), BILAT IMPRESSION: Stable bilateral screening mammogram. Yearly follow-up mammogram recommended. (A) ASSESSMENT CATEGORY: BIRADS Category 2: Benign. A letter regarding these results will be sent to the patient by the facility within 30 days. Approximately 10% of breast cancers are not detected by mammography. A normal mammogram should not delay biopsy of a clinically suspicious abnormality. [id number] Electronically Signed: Vito Loyola MD at 9:36 EST , Service support ,
== END ==
PROVIDERS: Family Provider Internal Medicine; PCP Internal Medicine; Referring Provider Internal Medicine; Visit Provider Internal Medicine
DX: Z12.31 Encounter for screening mammogram for malignant neoplasm of breast (principal)
CPT/HCPCS: 77063; 77067

== ENCOUNTER → 2019-02-13 07:42 | Outpatient (CLI) | payer MEDICARE, OTHER, SELFPAY ==
[2019-01-17 10:59] VITALS: BMI 34.5
[2019-02-13 10:40] LABS: Absolute Lymphocyte Count 2.61 X10^3/ul (0.83-4.51); Absolute Neutrophil Count 4.2 X10^3/uL (2.0-7.7); Basophil# 0.06 X10^3/uL; Basophil% 0.7 % (0-1); Eosinophil# 0.29 X10^3/uL; Eosinophils% 3.5 % (0-5); Hematocrit 42.7 % (37-47); Hemoglobin 13.6 g/dl (12.0-15.0); Lymphocyte # 2.61 X10^3/ul (4.0); Lymphocyte % 31.6 % (19-41); Mean Corp Hgb Conc 31.9 g/gl (32-36); Mean Corpuscular Hgb 31.1 pg (27.0-32.0); Mean Corpuscular Volume 97.7 fL (81-99); Mean Platelet Vol. 9.2 fl (6.2-12.0); Monocyte# 0.96 X10^3/uL; Monocyte% 11.6 % (0-10); Neutrophil # 4.21 X10^3/uL (2.7-7.7); Neutrophil % 50.9 % (47-70); Platelet Count 349 K/mm3 (150-450); RBC Distribution Width SD 48.3 fl (35.1-43.9); Red Blood Count 4.37 M/mm3 (4.2-5.4); White Blood Count 8.3 K/mm3 (4.4-11.0)
[2019-02-13 10:51] LABS: Microalbumin,Random Urine 18.1 mg/L (NO RANGE EST.); Microalbumin:Creatinine Ratio 12.1 mg/g CRE (<30 mg/g CRE)
[2019-02-13 10:52] LABS: POSITIVE COUNT NO; POSITIVE DIFFERENTIAL NO; POSITIVE MORPHOLOGY NO
[2019-02-13 11:10] LABS: ALB/GLOB Ratio 0.9 RATIO (0.9-2.4); AST(SGOT) 28 U/L (15-37); Alanine Aminotransfer ALT/SGPT 30 U/L (13-56); Albumin, Serum 3.2 g/dL (3.2-5.0); Alkaline Phosphatase 97 U/L (45-117); Anion Gap 7 (5-15); BUN 15 mg/dL (7-18); BUN/Creat Ratio 13.8 RATIO (10-20); Calcium,Total 9.2 mg/dL (8.5-10.1); Chloride 105 mmol/L (98-107); Creatinine, Serum 1.09 mg/dL (0.55-1.02); EST Glomerular Filtration Rate 52 mL/min (>60); Est Glom Filt Rate - Afr Amer 63 mL/min (>60); Globulin 3.5 g/dL (2.2-4.2); Glucose 89 mg/dL (74-106); Potassium 4.2 mmol/L (3.5-5.1); Protein, Total 6.7 g/dL (6.4-8.2); Sodium Level 139 mmol/L (136-145); Uric Acid 4.2 mg/dL (2.6-6.0)
== END ==
PROVIDERS: Family Provider Internal Medicine; PCP Internal Medicine; Referring Provider Internal Medicine Rheumatology; Visit Provider Internal Medicine Rheumatology
DX: E11.9 Type 2 diabetes mellitus without complications (principal); M06.4 Inflammatory polyarthropathy; M10.00 Idiopathic gout, unspecified site; Z79.899 Other long term (current) drug therapy; M79.7 Fibromyalgia; M18.0 Bilateral primary osteoarthritis of first carpometacarpal joints; M19.072 Primary osteoarthritis, left ankle and foot; K51.80 Other ulcerative colitis without complications; K74.3 Primary biliary cirrhosis
CPT/HCPCS: 36415; 80053; 82043; 82570; 84550; 85025

== ENCOUNTER → 2019-04-21 09:14 | Outpatient (CLI) | payer MEDICARE, OTHER, SELFPAY ==
[2019-01-17 10:59] VITALS: BMI 34.5
[2019-04-21] MEDS: Cosyntropin 0.25 MG Vial IM (09:46)
[2019-04-21 12:06] VITALS: BP 128/67; PULSE 72; RESP 16; TEMP 36.1; O2SAT 97; BMI 34.5
== END ==
PROVIDERS: Family Provider Internal Medicine; PCP Internal Medicine; Referring Provider Internal Medicine Pulmonary Disease; Visit Provider Internal Medicine Pulmonary Disease
DX: R05 Cough (principal)
CPT/HCPCS: 82533; 96372; A4216; J0834

== ENCOUNTER → 2019-07-10 13:10 | Outpatient (CLI) | payer MEDICARE, OTHER, SELFPAY ==
[2019-04-21 12:06] VITALS: BMI 34.5
--- NOTE | 2019-07-10 13:14 | RAD_ITS ---
STUDY: X-RAY - RIGHT HAND REASON FOR EXAM: Female, 74 years old. Pain TECHNIQUE: 3 view(s) of the hand. COMPARISON: None. FINDINGS: Nonspecific soft tissue swelling along dorsal aspect of the hand. No acute displaced fracture, or traumatic subluxation based on current assessment.. No evidence of radiopaque foreign body. Joint space narrowing in the small joints of the wrist and also hand likely due to osteoarthritis. RAD/Hand Min 3 Views IMPRESSION: Mild to moderate osteoarthritis No acute displaced fracture, or traumatic subluxation based on current assessment. Nonspecific soft tissue swelling in the dorsum of the hand Electronically Signed: Santiago Chang MD at 17:23 EDT Tel [phone], Service support ,
--- NOTE | 2019-07-10 13:16 | RAD_ITS ---
STUDY: X-RAY - RIGHT ELBOW REASON FOR EXAM: Female, 74 years old. Pain TECHNIQUE: 3 view(s) of the elbow. COMPARISON: None. FINDINGS: Intact visualized humerus, radius and ulna. There is mild degree of degenerative arthrosis of the radiocapitellar and ulnotrochlear articulations with small marginal osteophyte formation, likely due to mild osteoarthritis. The soft tissue structures are unremarkable. No evidence of joint effusion. No acute displaced fracture, or traumatic subluxation based on current assessment. RAD/Elbow min 3 Views IMPRESSION: Mild osteoarthritis with small marginal osteophyte formation. No acute displaced fracture, or traumatic subluxation based on current assessment. Electronically Signed: Santiago Chang MD at 17:14 EDT Tel [phone], Service support ,
== END ==
PROVIDERS: Family Provider Internal Medicine; PCP Internal Medicine; Referring Provider Internal Medicine; Visit Provider Internal Medicine
DX: M79.89 Other specified soft tissue disorders (principal)
CPT/HCPCS: 73080; 73130

== ENCOUNTER → 2019-08-07 09:22 | Outpatient (CLI) | payer MEDICARE, OTHER, SELFPAY ==
[2019-04-21 12:06] VITALS: BMI 34.5
[2019-08-07 10:05] LABS: Absolute Lymphocyte Count 4.49 X10^3/uL (0.83-4.51); Absolute Neutrophil Count 7.3 X10^3/uL (2.0-7.7); Basophil# 0.03 X10^3/uL; Basophil% 0.2 % (0-1); Eosinophil# 0.28 X10^3/uL; Eosinophils% 2.1 % (0-5); Hemoglobin 13.2 g/dL (12.0-15.0); Lymphocyte # 4.49 X10^3/ul (4.0); Mean Corp Hgb Conc 31.4 g/dL (32-36); Mean Corpuscular Hgb 30.8 pg (27.0-32.0); Mean Corpuscular Volume 97.9 fL (81-99); Mean Platelet Vol. 9.2 fl (6.2-12.0); Monocyte# 1.05 X10^3/uL; Monocyte% 7.7 % (0-10); NRBC Flagged by Analyzer 0 % (0-5); Neutrophil % 53.5 % (47-70); POSITIVE MORPHOLOGY YES; Platelet Count 265 K/mm3 (150-450); RBC Distribution Width CV 13.7 % (11.6-14.6); Red Blood Count 4.29 M/mm3 (4.2-5.4); White Blood Count 13.6 K/mm3 (4.4-11.0)
[2019-08-07 10:07] LABS: Differential Indicated SCAN CRITERIA MET
[2019-08-07 10:28] LABS: Differential Comment SCANNED
[2019-08-07 11:01] LABS: ALB/GLOB Ratio 0.8 RATIO (0.9-2.4); AST(SGOT) 15 U/L (15-37); Alanine Aminotransfer ALT/SGPT 20 U/L (13-56); Alkaline Phosphatase 87 U/L (45-117); Anion Gap 4 (5-15); BUN 35 mg/dL (7-18); Calcium,Total 9.8 mg/dL (8.5-10.1); Chloride 104 mmol/L (98-107); EST Glomerular Filtration Rate 39 mL/min (>60); Est Glom Filt Rate - Afr Amer 47 mL/min (>60); Globulin 3.9 g/dL (2.2-4.2); Glucose 79 mg/dL (74-106); Potassium 4.2 mmol/L (3.5-5.1); Protein, Total 6.9 g/dL (6.4-8.2); Sodium Level 138 mmol/L (136-145)
== END ==
PROVIDERS: Family Provider Internal Medicine; PCP Internal Medicine; Referring Provider Internal Medicine Rheumatology; Visit Provider Internal Medicine Rheumatology
DX: M06.4 Inflammatory polyarthropathy (principal); Z79.899 Other long term (current) drug therapy; M10.00 Idiopathic gout, unspecified site; M79.7 Fibromyalgia; M19.072 Primary osteoarthritis, left ankle and foot; K51.80 Other ulcerative colitis without complications; K74.3 Primary biliary cirrhosis
CPT/HCPCS: 36415; 80053; 84550; 85025

== ENCOUNTER → 2019-09-04 10:55 | Outpatient (CLI) | payer MEDICARE, OTHER, SELFPAY ==
[2019-04-21 12:06] VITALS: BMI 34.5
[2019-09-04 14:05] LABS: Hepatitis B Surface Antibody Non-Reactive; Hepatitis B Surface Antigen Non-Reactive (Nonreactive); Hepatitis C Antibody Non-Reactive (Nonreactive)
[2019-09-06 20:07] LABS: Hepatitis Be Ab Negative (Negative); Hepatitis Be Ag Negative (Negative); QNTFERON TB Mitogen Value > 10.00 IU/mL (.); QNTFERON TB Nil Value 0.03 IU/mL (.); QNTFERON TB1+ Ag Value 0.03 IU/mL (.); QNTFERON TB2+ Ag Value 0.03 IU/mL (.)
[2019-09-06 21:19] LABS: Hepatitis B Core Ab Total Negative (Negative); QNTIFERON TB Positive Criteria Negative (Negative)
== END ==
PROVIDERS: Family Provider Internal Medicine; PCP Internal Medicine; Referring Provider Internal Medicine; Visit Provider Internal Medicine
DX: K51.211 Ulcerative (chronic) proctitis with rectal bleeding (principal); Z11.59 Encounter for screening for other viral diseases
CPT/HCPCS: 36415; 86480; 86704; 86706; 86707; 86803; 87340; 87350

== ENCOUNTER → 2019-09-13 10:18 | Outpatient (CLI) | payer MEDICARE, OTHER, SELFPAY ==
[2019-04-21 12:06] VITALS: BMI 34.5
[2019-09-13 10:54] VITALS: BP 137/74; PULSE 92; RESP 18; TEMP 36.6; O2SAT 99; BMI 31.8
== END ==
PROVIDERS: Family Provider Internal Medicine; PCP Internal Medicine; Referring Provider Internal Medicine; Visit Provider Internal Medicine
DX: K51.20 Ulcerative (chronic) proctitis without complications (principal)
CPT/HCPCS: 96413; J7050; A4216; J3380

== ENCOUNTER → 2019-09-27 10:21 | Outpatient (CLI) | payer MEDICARE, OTHER, SELFPAY ==
[2019-09-13 10:54] VITALS: BMI 31.8
[2019-09-27 10:27] VITALS: BP 141/69; PULSE 104; RESP 18; TEMP 36.5; O2SAT 94; BMI 31.8
[2019-09-27 11:59] VITALS: BP 106/68; PULSE 69; RESP 18; TEMP 36.4; O2SAT 97
== END ==
PROVIDERS: Family Provider Internal Medicine; PCP Internal Medicine; Referring Provider Internal Medicine; Visit Provider Internal Medicine
DX: K51.20 Ulcerative (chronic) proctitis without complications (principal)
CPT/HCPCS: 96413; J7050; A4216; J3380

== ENCOUNTER → 2019-10-30 11:02 | Outpatient (CLI) | payer MEDICARE, OTHER, SELFPAY ==
[2019-09-28 08:32] VITALS: BMI 31.8
[2019-10-30 12:18] LABS: Absolute Lymphocyte Count 2.52 X10^3/uL (0.83-4.51); Absolute Neutrophil Count 5.3 X10^3/uL (2.0-7.7); Basophil# 0.12 X10^3/uL; Basophil% 1.3 % (0-1); Eosinophil# 0.59 X10^3/uL; Eosinophils% 6.4 % (0-5); Hematocrit 39.8 % (37-47); Hemoglobin 12.7 g/dL (12.0-15.0); Lymphocyte # 2.52 X10^3/ul (4.0); Lymphocyte % 27.2 % (19-41); Mean Corp Hgb Conc 31.9 g/dL (32-36); Mean Corpuscular Hgb 30.6 pg (27.0-32.0); Mean Corpuscular Volume 95.9 fL (81-99); Mean Platelet Vol. 9.2 fl (6.2-12.0); Monocyte# 0.68 X10^3/uL; Monocyte% 7.3 % (0-10); NRBC Flagged by Analyzer 0 % (0-5); Neutrophil # 5.25 X10^3/uL (2.7-7.7); Neutrophil % 56.5 % (47-70); Platelet Count 339 K/mm3 (150-450); RBC Distribution Width CV 13.2 % (11.6-14.6); RBC Distribution Width SD 46.5 fl (35.1-43.9); Red Blood Count 4.15 M/mm3 (4.2-5.4); White Blood Count 9.3 K/mm3 (4.4-11.0)
[2019-10-30 12:38] LABS: ALB/GLOB Ratio 0.8 RATIO (0.9-2.4); AST(SGOT) 21 U/L (15-37); Alanine Aminotransfer ALT/SGPT 20 U/L (13-56); Albumin, Serum 3.3 g/dL (3.2-5.0); Alkaline Phosphatase 108 U/L (45-117); Anion Gap 4 (5-15); BUN 17 mg/dL (7-18); Calcium,Total 9.1 mg/dL (8.5-10.1); Chloride 107 mmol/L (98-107); EST Glomerular Filtration Rate 57 mL/min (>60); Est Glom Filt Rate - Afr Amer 69 mL/min (>60); Globulin 4.3 g/dL (2.2-4.2); Glucose 103 mg/dL (74-106); Potassium 4.3 mmol/L (3.5-5.1); Protein, Total 7.6 g/dL (6.4-8.2); Sodium Level 138 mmol/L (136-145)
== END ==
PROVIDERS: Family Provider Internal Medicine; PCP Internal Medicine; Referring Provider Internal Medicine Rheumatology; Visit Provider Internal Medicine Rheumatology
DX: D72.9 Disorder of white blood cells, unspecified (principal); M06.4 Inflammatory polyarthropathy; Z79.899 Other long term (current) drug therapy; M10.00 Idiopathic gout, unspecified site; M79.7 Fibromyalgia; M18.0 Bilateral primary osteoarthritis of first carpometacarpal joints; M19.072 Primary osteoarthritis, left ankle and foot; K51.80 Other ulcerative colitis without complications; K74.3 Primary biliary cirrhosis
CPT/HCPCS: 36415; 80053; 84550; 85025

== ENCOUNTER → 2019-11-08 10:21 | Outpatient (CLI) | payer MEDICARE, OTHER, SELFPAY ==
[2019-09-27 10:27] VITALS: BMI 31.8
[2019-09-28 08:32] VITALS: BMI 31.8
[2019-11-08 10:31] VITALS: BP 116/52; PULSE 72; RESP 16; TEMP 36.6; O2SAT 98; BMI 32.4
== END ==
PROVIDERS: Family Provider Internal Medicine; PCP Internal Medicine; Referring Provider Internal Medicine; Visit Provider Internal Medicine
DX: K51.20 Ulcerative (chronic) proctitis without complications (principal)
CPT/HCPCS: 96413; J7050; A4216; J3380

== ENCOUNTER → 2019-12-19 15:29 | Outpatient (CLI) | payer MEDICARE, OTHER, SELFPAY ==
[2019-11-08 10:31] VITALS: BMI 32.4
--- NOTE | 2019-12-19 15:33 | RAD_ITS ---
STUDY: X-RAY - RIGHT KNEE REASON FOR EXAM: Female, 74 years old. Pain. Osteoarthritis. TECHNIQUE: 4 view(s) of the knee. COMPARISON: July 07, 2018. FINDINGS: Alignment is normal. No fracture or dislocation. Chondrocalcinosis involving the medial and lateral compartments. Medial joint space narrowing. Posterior osteophytes of the patella. The soft tissue structures are unremarkable. RAD/Knee 4 or More Views IMPRESSION: Tricompartment degenerative changes noted previously. Increasing chondrocalcinosis involving the medial and lateral compartments likely related to degenerative changes of the menisci. Electronically Signed: Alonzo Lara MD at 7:58 EST , Service support ,
== END ==
PROVIDERS: PCP Internal Medicine; Referring Provider Internal Medicine; Visit Provider Internal Medicine
DX: M17.0 Bilateral primary osteoarthritis of knee (principal)
CPT/HCPCS: 73564

== ENCOUNTER → 2020-01-03 10:17 | Outpatient (CLI) | payer MEDICARE, OTHER, SELFPAY ==
[2019-11-08 10:31] VITALS: BMI 32.4
[2020-01-03 10:41] VITALS: BP 134/84; PULSE 70; RESP 16; TEMP 36.4; BMI 31.8
[2020-01-03 12:20] VITALS: BP 128/65; RESP 16; TEMP 36.6
== END ==
PROVIDERS: Family Provider Internal Medicine; PCP Internal Medicine; Referring Provider Internal Medicine; Visit Provider Internal Medicine
DX: K51.20 Ulcerative (chronic) proctitis without complications (principal)
CPT/HCPCS: 96413; J7050; A4216; J3380

== ENCOUNTER → 2020-01-09 15:00 | Outpatient (CLI) | payer MEDICARE, OTHER, SELFPAY ==
[2019-11-08 10:31] VITALS: BMI 32.4
[2020-01-03 10:41] VITALS: BMI 31.8
--- NOTE | 2020-01-09 15:04 | BI_ITS ---
MAMMOGRAPHY - BILATERAL SCREENING REASON FOR EXAM: Female, 74 years old. Routine annual screening examination. PERTINENT HISTORY: Non-contributory. Remote left stereotactic breast biopsy. TECHNIQUE: Digital bilateral breast josey (3D mammographic acquisition) in the CC and MLO projections. 2-D mediolateral oblique (MLO) and craniocaudad (CC) views of both breasts were obtained. CAD: Full Field Digital Mammography with Computer Added Detection was performed. COMPARISON: Comparison is made with prior examination dated January 04, 2019 and October 27, 2017 FINDINGS: Breast Composition: The breasts are heterogeneously dense, which may obscure small masses. There are no dominant masses or suspicious calcifications. The previously seen 1 cm well-defined nodule in the central lateral aspect of the right breast as decreased in size. It presently measures 5 mm. This was demonstrated to be a cyst on prior sonogram. Stable bilateral secretory calcifications. No other significant abnormalities are identified. BI/SCREEN MAMM (CAD) W/JOSEY BILAT IMPRESSION: Stable bilateral screening mammogram. Yearly follow-up mammogram recommended. (A) ASSESSMENT CATEGORY: BIRADS Category 2: Benign. A letter regarding these results will be sent to the patient by the facility within 30 days. Approximately 10% of breast cancers are not detected by mammography. A normal mammogram should not delay biopsy of a clinically suspicious abnormality. [id number] Electronically Signed: Vito Loyola, at 8:29 EST , Service support ,
--- NOTE | 2020-01-09 15:10 | BD_ITS ---
STUDY: DUAL ENERGY X-RAY ABSORPTIOMETRY / DXA REASON FOR EXAM: Female, 74 years old. 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 COMPARISON: Comparison is made with prior examination dated October 27, 2017. FINDINGS: Lumbar Spine (L1-L4): g/cm2 (1.212) / T-score (0.1) / Z-score (1.9) Findings are suggestive of normal bone density with a low fracture risk. Left Femur Total: g/cm2 (0.824) / T-score (-1.5) / Z-score (0.4) Left Femoral Neck: g/cm2 (0.723) / T-score (-2.3) / Z-score (-0.3) Right Femur Total: g/cm2 (0.826) / T-score (-1.4) / Z-score (0.4) Right Femoral Neck: g/cm2 (0.815) / T-score (-1.6) / Z-score (0.4) The T-Scores on the most recent prior examination were: Lumbar Spine (L1-L4): There has been improvement of bone density since the previous examination. Left Femur Total: which represents a worsening of 4.7%. Right Femur Total: which represents a worsening of 4.5%. BD/Dexa Bone Density Study IMPRESSION: The patient is considered osteopenic as outlined below according to World Kal Organization (WHO) criteria with a high fracture risk. There has been worsening of bone density since the previous examination. Reference Information: The T-score is the number of standard deviations above or below the standard which is normal for young adults at their peak bone mineral density. The World Health Organization (WHO) interprets the T-scores as follows: Above -1 Normal bone density Between -1 and -2.5 Osteopenia Equal to / or below -2.5 Osteoporosis As a practical clinical guideline, osteopenia may be graded as follows: Mild -1 through -1.5 Moderate -1.6 through -2.0 Severe -2.1 through -2.4 The Z-score is the number of standard deviations above or below age-matched controls. A Z-score of less than -1.5 would be considered abnormal. References: 1. NIH Osteoporosis and Related Bone Diseases http://www.osteo.org 2. International Society for Clinical Densitometry http://www.iscd.org 3. National Osteoporosis Foundation http://www.nof.org Electronically Signed: Vito Loyola, at 10:48 EST , Service support ,
== END ==
PROVIDERS: PCP Internal Medicine; Referring Provider Internal Medicine; Visit Provider Internal Medicine
DX: Z12.31 Encounter for screening mammogram for malignant neoplasm of breast (principal); Z78.0 Asymptomatic menopausal state
CPT/HCPCS: 77063; 77067; 77080

== ENCOUNTER → 2020-01-29 15:30 | Outpatient (CLI) | payer MEDICARE, OTHER, SELFPAY ==
[2020-01-03 10:41] VITALS: BMI 31.8
[2020-01-29 16:09] LABS: Absolute Lymphocyte Count 3.15 X10^3/uL (0.83-4.51); Absolute Neutrophil Count 7.4 X10^3/uL (2.0-7.7); Basophil# 0.11 X10^3/uL; Basophil% 0.9 % (0-1); Eosinophil# 0.43 X10^3/uL; Eosinophils% 3.5 % (0-5); Hematocrit 40.1 % (37-47); Hemoglobin 12.7 g/dL (12.0-15.0); Lymphocyte # 3.15 X10^3/ul (4.0); Lymphocyte % 25.6 % (19-41); Mean Corp Hgb Conc 31.7 g/dL (32-36); Mean Corpuscular Hgb 29.5 pg (27.0-32.0); Monocyte# 1.12 X10^3/uL; Monocyte% 9.1 % (0-10); NRBC Flagged by Analyzer 0 % (0-5); Neutrophil # 7.35 X10^3/uL (2.7-7.7); Neutrophil % 59.7 % (47-70); Platelet Count 319 K/mm3 (150-450); RBC Distribution Width CV 13.2 % (11.6-14.6); RBC Distribution Width SD 45.3 fl (35.1-43.9); Red Blood Count 4.31 M/mm3 (4.2-5.4); White Blood Count 12.3 K/mm3 (4.4-11.0)
[2020-01-29 16:41] LABS: ALB/GLOB Ratio 0.7 RATIO (0.9-2.4); AST(SGOT) 21 U/L (15-37); Alanine Aminotransfer ALT/SGPT 21 U/L (13-56); Albumin, Serum 3.3 g/dL (3.2-5.0); Alkaline Phosphatase 111 U/L (45-117); Anion Gap 7 (5-15); BUN 15 mg/dL (7-18); Calcium,Total 9.3 mg/dL (8.5-10.1); Chloride 103 mmol/L (98-107); EST Glomerular Filtration Rate 57 mL/min (>60); Est Glom Filt Rate - Afr Amer 69 mL/min (>60); Globulin 4.7 g/dL (2.2-4.2); Glucose 98 mg/dL (74-106); Potassium 4.4 mmol/L (3.5-5.1); Sodium Level 137 mmol/L (136-145); Uric Acid 4.1 mg/dL (2.6-6.0)
== END ==
PROVIDERS: PCP Internal Medicine; Referring Provider Internal Medicine Rheumatology; Visit Provider Internal Medicine Rheumatology
DX: M06.4 Inflammatory polyarthropathy (principal); M10.00 Idiopathic gout, unspecified site; Z79.899 Other long term (current) drug therapy; M79.7 Fibromyalgia; M77.01 Medial epicondylitis, right elbow; M18.0 Bilateral primary osteoarthritis of first carpometacarpal joints; M19.072 Primary osteoarthritis, left ankle and foot; K51.80 Other ulcerative colitis without complications; K74.3 Primary biliary cirrhosis
CPT/HCPCS: 36415; 80053; 84550; 85025

== ENCOUNTER → 2020-02-02 13:18 | Outpatient (CLI) | payer MEDICARE, OTHER, SELFPAY ==
[2020-01-03 10:41] VITALS: BMI 31.8
--- NOTE | 2020-02-02 13:22 | CT_ITS ---
STUDY: CT CHEST WITHOUT CONTRAST REASON FOR EXAM: Female, 74 years old. COUGH X 1 YEAR. AUTOIMMUNE DISEASE RADIATION DOSAGE (If Supplied By Facility): CTDIvol = ( 10.75 ) mGy, DLP = ( 345.49 ) mGycm TECHNIQUE: Transaxial imaging was performed without the administration of intravenous contrast material. Multiplanar coronal and sagittal images were reformatted. Individualized dose optimization techniques were used for this CT. COMPARISON: 08/01/2018. FINDINGS: There is minimal posterior subpleural atelectasis, otherwise the lungs are normal. There is no demonstrated pleural abnormality. Mild cardiomegaly. Coronary artery calcifications noted. Normal mediastinum. Normal hilar regions. Normal unenhanced pulmonary arteries. Normal aorta arch and descending thoracic aorta. There is an increased kyphosis of the thoracic spine. Structure at the subcutaneous fat at the right anterolateral upper abdomen which may represent volume averaging related to a hernia. The upper abdomen not entirely included in the oykca-ib-uiov. There no demonstrated abnormality of the visualized intra-abdominal structures . CT/Chest without Contrast IMPRESSION: Minimal bilateral subpleural atelectasis otherwise no acute cardiopulmonary process. Electronically Signed: Pamela Lopez MD at 4:16 EDT , Service support ,
== END ==
PROVIDERS: PCP Internal Medicine; Referring Provider Internal Medicine Pulmonary Disease; Visit Provider Internal Medicine Pulmonary Disease
DX: R05 Cough (principal)
CPT/HCPCS: 71250

== ENCOUNTER → 2020-02-21 12:56 | Outpatient (CLI) | payer MEDICARE, OTHER, SELFPAY ==
[2020-01-03 10:41] VITALS: BMI 31.8
== END ==
PROVIDERS: PCP Internal Medicine; Referring Provider Internal Medicine Pulmonary Disease; Visit Provider Internal Medicine Pulmonary Disease
DX: R05 Cough (principal)
CPT/HCPCS: 87015; 87070; 87077; 87101; 87116; 87205; 87206

== ENCOUNTER → 2020-02-28 10:24 | Outpatient (CLI) | payer MEDICARE, OTHER, SELFPAY ==
[2019-11-08 10:31] VITALS: BMI 32.4
[2020-01-03 10:41] VITALS: BMI 31.8
[2020-02-28 10:34] VITALS: BP 105/65; PULSE 71; RESP 16; TEMP 36.5; O2SAT 98; BMI 33.3
[2020-02-28] MEDS: 0.9% NaCl Peripheral Flush Adult/Peds IV (10:40)
[2020-02-28] MEDS: 0.9% NaCl IVPB Med Flush (250 mL) 15 ML IV (10:44)
[2020-02-28 11:55] VITALS: BP 111/63; PULSE 64
== END ==
PROVIDERS: PCP Internal Medicine; Referring Provider Internal Medicine; Visit Provider Internal Medicine
DX: K51.20 Ulcerative (chronic) proctitis without complications (principal)
CPT/HCPCS: 96413; J7050; A4216; J3380

== ENCOUNTER → 2020-04-24 10:13 | Outpatient (CLI) | payer MEDICARE, OTHER, SELFPAY ==
[2020-01-03 10:41] VITALS: BMI 31.8
[2020-02-28 10:34] VITALS: BMI 33.3
[2020-04-24 10:31] VITALS: BP 109/60; PULSE 79; RESP 18; TEMP 37.1; O2SAT 98; BMI 33.3
[2020-04-24] MEDS: 0.9% NaCl Peripheral Flush Adult/Peds IV (10:38)
[2020-04-24] MEDS: 0.9% NaCl IVPB Med Flush (250 mL) 15 ML IV (10:38)
== END ==
PROVIDERS: PCP Internal Medicine; Referring Provider Internal Medicine; Visit Provider Internal Medicine
DX: K51.919 Ulcerative colitis, unspecified with unspecified complications (principal); K51.20 Ulcerative (chronic) proctitis without complications
CPT/HCPCS: 96365; 96413; J7050; A4216; J3380

== ENCOUNTER → 2020-05-21 12:05 | Outpatient (CLI) | payer MEDICARE, OTHER, SELFPAY ==
[2020-04-24 10:31] VITALS: BMI 33.3
--- NOTE | 2020-05-21 12:07 | CT_ITS ---
STUDY: CT FACIAL BONES WITHOUT CONTRAST REASON FOR EXAM: Female, 75 years old. Sinusitis. Cough. RADIATION DOSAGE (If Supplied By Facility): CTDIvol = ( 33.06 ) mGy, DLP = ( 829.72 ) mGycm TECHNIQUE: The patient was scanned in a multi detector CT scanner. Sagittal and coronal images were reconstructed. Individualized dose optimization techniques were used for this CT. COMPARISON: CT of the sinuses/facial bones, November 26, 2017. FINDINGS: Normal soft tissue structures. Normal orbital casanova and orbital contents. Normal nasal bones and anterior nasal spine. Normal facial bones. There is no demonstrated fracture. There is mucoperiosteal reaction in the mid ethmoid air cells and bilateral maxillary sinuses. This is similar to the previous study. CT/Sinus/Facial Bone IMPRESSION: 1. Normal unenhanced CT of the facial bones. 2. Stable sinusitis. Electronically Signed: Van Saeed DO at 17:22 EDT Tel [phone], Service support ,
== END ==
PROVIDERS: PCP Internal Medicine; Referring Provider Otolaryngology; Visit Provider Otolaryngology
DX: R05 Cough (principal); J32.9 Chronic sinusitis, unspecified
CPT/HCPCS: 70486

== ENCOUNTER → 2020-06-06 12:49 | Outpatient (CLI) | payer MEDICARE, OTHER, SELFPAY ==
[2020-04-24 10:31] VITALS: BMI 33.3
--- NOTE | 2020-06-06 13:51 | SP.MBSS_ITS ---
Primary/Secondary Diagnosis: dysphagia, unspecified (R13.10) Referring Physician: SAWYER Johnson Medical History: The patient is a 75/F with a past medical history of hypertension, diastolic dysfunction, gastroesophageal reflux disease, chronic steroid therapy for lung disease, mild mitral insufficiency on an echocardiogram done in June 2018, cirrhosis/nonalcoholic, and arthritis. Reason for Referral: frequent coughing with increase around mealtime Current Diet: regular textures/thin liquids Dentition: natural teeth Mental Status: WFL Respiratory Status: oxygenating on room air Previous Modified Barium Swallow: N/A Study Findings: This patient was seen for a Modified Barium Swallow. This study was recorded in the lateral view and images were sent to PACs for storage. The following consistencies were presented to this patient for analysis of oropharyngeal swallow function: thin liquid, nectar thick liquid, honey thick liquid, pudding, and a cookie. Oral Phase Labial seal: no labial escape Tongue control during bolus hold: escape to lateral buccal cavity/floor of mouth Bolus preparation/mastication: timely and efficient chewing and mashing Bolus transport/lingual motion: brisk tongue motion Oral residue: trace residue lining oral structures Pharyngeal Phase Initiation of pharyngeal swallow: bolus head at posterior angle of ramus at first hyoid excursion Soft palate elevation: no bolus between soft palate and pharyngeal wall Laryngeal elevation: partial superior movement of thyroid cartilage/partial approximation of arytenoids cartilage to epiglottic petiole Anterior hyoid excursion: partial anterior movement Epiglottic movement: complete inversion Laryngeal vestibule closure at height of swallow: incomplete; narrow column of air/contrast in laryngeal vestibule Pharyngeal stripping wave: present complete Pharyngoesophageal segment opening: partial distension and partial duration; partial obstruction of flow Tongue base retraction: trace column of contrast between tongue base and posterior pharyngeal wall Pharyngeal residue: trace residue within or on pharyngeal structures Penetration-Aspiration Scale 1 = does not enter airway 2 = enters airway/above vocal folds/ejected 3 = enters airway/above vocal folds/not ejected 4 = enters airway/contacts vocal folds/ejected 5 = enters airway/contacts vocal folds/not ejected 6 = enters airway/below vocal folds/ejected 7 = enters airway/below vocal folds/not ejected despite effort 8 = enters airway/below vocal folds/no effort Penetration-Aspiration Scale Score: 1) Thin liquids via teaspoon = 1 2) Thin liquids via teaspoon = 1 3) Thin liquids via small single sip via cup = 1 4) Thin liquids via large single sip via cup = 1 5) Thin liquids via sequential sips via cup = 1 6) [place] thick liquids via small single sip from cup = 1 7) Honey thick liquids via small single sip via cup = 1 8) Pudding = 1 9) Cookie = 1 10) Thin liquids via sequential sips via straw = 1 Diagnosis: Swallow Function WNL Impression: Patient had reported frequent coughing with an increase in coughing during meals and drinks. The patient trialed various consistencies of liquids, pudding, and solid textures. No aspiration found during this exam on this date and time. Spoke with radiologist, Dr. Loyola following evaluation to confirm patient does have a prominence in the cricopharyngeal muscle creating a small pocket for pharyngeal residue. This did not seem to effect patients overall ability to swallow safely. Recommendations Diet: Regular Textures/Thin Liquids Compensatory Strategies Recommended: Take small sips/bites, sit upright 90 degrees during PO intake, and remain upright 30-60 minutes after meals (GERD precaution) Need for Skilled Speech Therapy Services: No further skilled ST intervention warranted at this time. ADDITIONAL COMMENTS/RECOMMENDATIONS: Results and recommendations explained at conclusion of evaluation. Encouraged patient to obtain copy of full report from medical records. Patient verbalized understanding and agreement.
== END ==
PROVIDERS: PCP Internal Medicine; Referring Provider Nurse Practitioner Family; Visit Provider Nurse Practitioner Family
DX: R05 Cough (principal); J47.9 Bronchiectasis, uncomplicated
CPT/HCPCS: 74230; 92611

== ENCOUNTER → 2020-08-05 12:53 | Outpatient (CLI) | payer MEDICARE, OTHER, SELFPAY ==
[2020-02-28 10:34] VITALS: BMI 33.3
[2020-04-24 10:31] VITALS: BMI 33.3
[2020-08-05 14:10] LABS: Absolute Neutrophil Count 5.6 X10^3/uL (2.0-7.7); Eosinophil# 0.36 X10^3/uL; Eosinophils% 3.6 % (0-5); Hematocrit 37.6 % (37-47); Hemoglobin 12.1 g/dL (12.0-15.0); Lymphocyte % 30.2 % (19-41); Mean Corp Hgb Conc 32.2 g/dL (32-36); Mean Corpuscular Hgb 31.2 pg (27.0-32.0); Mean Corpuscular Volume 96.9 fL (81-99); Mean Platelet Vol. 9.1 fl (6.2-12.0); Monocyte# 0.78 X10^3/uL; Monocyte% 7.8 % (0-10); NRBC Flagged by Analyzer 0 % (0-5); Neutrophil # 5.57 X10^3/uL (2.7-7.7); Platelet Count 358 K/mm3 (150-450); RBC Distribution Width CV 13.3 % (11.6-14.6); RBC Distribution Width SD 47.2 fl (35.1-43.9); Red Blood Count 3.88 M/mm3 (4.2-5.4)
[2020-08-05 15:09] LABS: ALB/GLOB Ratio 0.7 RATIO (0.9-2.4); AST(SGOT) 19 U/L (15-37); Alanine Aminotransfer ALT/SGPT 15 U/L (13-56); Albumin, Serum 3.2 g/dL (3.2-5.0); Alkaline Phosphatase 103 U/L (45-117); Anion Gap 4 (5-15); BUN 14 mg/dL (7-18); BUN/Creat Ratio 13.6 RATIO (10-20); Calcium,Total 9.4 mg/dL (8.5-10.1); Chloride 105 mmol/L (98-107); Creatinine, Serum 1.03 mg/dL (0.55-1.02); EST Glomerular Filtration Rate 55 mL/min (>60); Est Glom Filt Rate - Afr Amer 67 mL/min (>60); Globulin 4.4 g/dL (2.2-4.2); Glucose 101 mg/dL (74-106); Potassium 4.2 mmol/L (3.5-5.1); Protein, Total 7.6 g/dL (6.4-8.2); Sodium Level 136 mmol/L (136-145); Uric Acid 4.9 mg/dL (2.6-6.0)
== END ==
PROVIDERS: PCP Internal Medicine; Referring Provider Internal Medicine Rheumatology; Visit Provider Internal Medicine Rheumatology
DX: M06.4 Inflammatory polyarthropathy (principal); M10.00 Idiopathic gout, unspecified site; Z79.899 Other long term (current) drug therapy; M79.7 Fibromyalgia; M77.01 Medial epicondylitis, right elbow; M18.0 Bilateral primary osteoarthritis of first carpometacarpal joints; M19.072 Primary osteoarthritis, left ankle and foot; K51.80 Other ulcerative colitis without complications; K74.3 Primary biliary cirrhosis
CPT/HCPCS: 36415; 80053; 84550; 85025

== ENCOUNTER → 2020-08-23 | Outpatient (CLI) | payer MEDICARE, OTHER, SELFPAY ==
[2020-04-24 10:31] VITALS: BMI 33.3
== END | disposition home or self-care (01) ==
LOC: LABSPEC 11:24
PROVIDERS: PCP Internal Medicine; Referring Provider Internal Medicine Pulmonary Disease; Visit Provider Internal Medicine Pulmonary Disease
DX: J47.9 Bronchiectasis, uncomplicated (principal); R05 Cough
CPT/HCPCS: 87070; 87205

== ENCOUNTER → 2020-08-30 12:56 | Outpatient (CLI) | payer MEDICARE, OTHER, SELFPAY ==
[2020-04-24 10:31] VITALS: BMI 33.3
[2020-08-30 13:02] VITALS: BP 135/63; PULSE 60; RESP 16; TEMP 36.8; O2SAT 100; BMI 31.8
[2020-08-30] MEDS: 0.9% NaCl Peripheral Flush Adult/Peds IV (13:09)
[2020-08-30] MEDS: 0.9% NaCl IVPB Med Flush (250 mL) 15 ML IV (13:14)
== END ==
PROVIDERS: PCP Internal Medicine; Referring Provider Internal Medicine; Visit Provider Internal Medicine
DX: K51.20 Ulcerative (chronic) proctitis without complications (principal); K51.90 Ulcerative colitis, unspecified, without complications
CPT/HCPCS: 96413; J7050; A4216; J3380

== ENCOUNTER → 2020-10-25 12:48 | Outpatient (CLI) | payer MEDICARE, OTHER, SELFPAY ==
[2020-04-24 10:31] VITALS: BMI 33.3
[2020-08-30 13:02] VITALS: BMI 31.8
[2020-10-25 12:52] VITALS: BP 142/72; PULSE 97; RESP 18; TEMP 36.4; O2SAT 99; BMI 31.8
[2020-10-25] MEDS: 0.9% NaCl Peripheral Flush Adult/Peds IV (13:05)
[2020-10-25] MEDS: 0.9% NaCl IVPB Med Flush (250 mL) 15 ML IV (13:06)
[2020-10-25 14:40] VITALS: BP 144/87; PULSE 69; RESP 16; O2SAT 97
== END ==
PROVIDERS: PCP Internal Medicine; Referring Provider Internal Medicine; Visit Provider Internal Medicine
DX: K51.919 Ulcerative colitis, unspecified with unspecified complications (principal)
CPT/HCPCS: 96365; C9803; J7050; A4216; J3380

== ENCOUNTER → 2020-12-20 12:38 | Outpatient (CLI) | payer MEDICARE, OTHER, SELFPAY ==
[2020-08-30 13:02] VITALS: BMI 31.8
[2020-10-25 12:52] VITALS: BMI 31.8
[2020-12-20 12:44] VITALS: BP 149/61; PULSE 63; RESP 16; TEMP 36.6; O2SAT 98; BMI 32.2
[2020-12-20] MEDS: 0.9% NaCl Peripheral Flush Adult/Peds IV (12:57)
[2020-12-20] MEDS: 0.9% NaCl IVPB Med Flush (250 mL) 15 ML IV (13:01)
[2020-12-20 13:43] VITALS: BP 124/67; PULSE 78
== END ==
PROVIDERS: PCP Internal Medicine; Referring Provider Internal Medicine; Visit Provider Internal Medicine
DX: K51.20 Ulcerative (chronic) proctitis without complications (principal)
CPT/HCPCS: 96413; J7050; A4216; J3380

== ENCOUNTER → 2021-01-13 12:53 | Outpatient (CLI) | payer MEDICARE, OTHER, SELFPAY ==
[2020-12-20 12:44] VITALS: BMI 32.2
--- NOTE | 2021-01-13 12:55 | BI_ITS ---
MAMMOGRAPHY - BILATERAL SCREENING REASON FOR EXAM: Female, 75 years old. Routine annual screening examination. PERTINENT HISTORY: Non-contributory. Prior left stereotactic biopsy and history of prior bilateral breast aspirations. TECHNIQUE: Digital bilateral breast josey (3D mammographic acquisition) in the CC and MLO projections. 2-D mediolateral oblique (MLO) and craniocaudad (CC) views of both breasts were obtained. CAD: Full Field Digital Mammography with Computer Added Detection was performed. COMPARISON: Comparison is made with prior study dated 01/09/2020 and 01/04/2019. FINDINGS: Breast Composition: The breasts are heterogeneously dense, which may obscure small masses. There are no dominant masses or suspicious calcifications. Stable bilateral secretory calcifications. No other significant abnormalities are identified. There has been no significant change since the prior study. BI/SCRN MAMM (CAD)W/JOSEY BILAT IMPRESSION: Stable bilateral screening mammogram. Yearly follow-up mammogram recommended. (A) ASSESSMENT CATEGORY: BIRADS Category 2: Benign. A letter regarding these results will be sent to the patient by the facility within 30 days. Approximately 10% of breast cancers are not detected by mammography. A normal mammogram should not delay biopsy of a clinically suspicious abnormality. [id number] Electronically Signed: Vito Loyola MD at 13:52 EST , Service support ,
== END ==
PROVIDERS: PCP Internal Medicine; Referring Provider Internal Medicine; Visit Provider Internal Medicine
DX: Z12.31 Encounter for screening mammogram for malignant neoplasm of breast (principal)
CPT/HCPCS: 77063; 77067

== ENCOUNTER 2021-01-20 11:47 | Outpatient (RCR) | payer MEDICARE, OTHER, SELFPAY ==
[2020-12-20 12:44] VITALS: BMI 32.2
== END 2021-01-20 23:59 ==
LOC: IMMUN 11:47
PROVIDERS: PCP Internal Medicine; Visit Provider Family Medicine
DX: Z23 Encounter for immunization (principal)
CPT/HCPCS: 0011A; 0012A

== ENCOUNTER → 2021-02-21 12:51 | Outpatient (CLI) | payer MEDICARE, OTHER, SELFPAY ==
[2020-10-25 12:52] VITALS: BMI 31.8
[2020-12-20 12:44] VITALS: BMI 32.2
[2021-02-21 13:00] VITALS: BP 142/65; PULSE 62; RESP 16; TEMP 36.2; O2SAT 98; BMI 32.2
[2021-02-21] MEDS: 0.9% NaCl IVPB Med Flush (250 mL) 15 ML IV (13:28)
[2021-02-21] MEDS: 0.9% NaCl Peripheral Flush Adult/Peds IV (13:28)
[2021-02-21 14:15] VITALS: BP 125/59; PULSE 60; RESP 16; TEMP 36.6; O2SAT 100
== END ==
PROVIDERS: PCP Internal Medicine; Referring Provider Internal Medicine; Visit Provider Internal Medicine
DX: K51.20 Ulcerative (chronic) proctitis without complications (principal)
CPT/HCPCS: 96365; J7050; A4216; J3380

== ENCOUNTER → 2021-04-18 12:55 | Outpatient (CLI) | payer MEDICARE, OTHER, SELFPAY ==
[2020-12-20 12:44] VITALS: BMI 32.2
[2021-02-21 13:00] VITALS: BMI 32.2
[2021-04-18 12:57] VITALS: BP 142/67; PULSE 79; RESP 16; TEMP 36.3; O2SAT 96; BMI 32.8
[2021-04-18] MEDS: 0.9% NaCl IVPB Med Flush (250 mL) 15 ML IV (13:15)
[2021-04-18] MEDS: 0.9% NaCl Peripheral Flush Adult/Peds IV (13:15)
[2021-04-18 14:04] VITALS: BP 135/53; PULSE 62; RESP 16; O2SAT 93
== END ==
PROVIDERS: PCP Internal Medicine; Referring Provider Internal Medicine; Visit Provider Internal Medicine
DX: K51.20 Ulcerative (chronic) proctitis without complications (principal)
CPT/HCPCS: 96365; J7050; A4216; J3380

== ENCOUNTER → 2021-06-13 12:46 | Outpatient (CLI) | payer MEDICARE, OTHER, SELFPAY ==
[2021-02-21 13:00] VITALS: BMI 32.2
[2021-04-18 12:57] VITALS: BMI 32.8
[2021-06-13] MEDS: 0.9% NaCl IVPB Med Flush (250 mL) 15 ML IV (12:52)
[2021-06-13] MEDS: 0.9% NaCl Peripheral Flush Adult/Peds IV (12:52)
[2021-06-13 12:59] VITALS: BP 111/66; PULSE 65; RESP 16; TEMP 36.4; O2SAT 97; BMI 32.8
[2021-06-13 13:56] VITALS: BP 114/57; PULSE 64; RESP 16; TEMP 36.5
== END ==
PROVIDERS: PCP Internal Medicine; Referring Provider Internal Medicine; Visit Provider Internal Medicine
DX: K51.20 Ulcerative (chronic) proctitis without complications (principal)
CPT/HCPCS: 96365; J7050; A4216; J3380

== ENCOUNTER → 2021-07-24 15:42 | Outpatient (CLI) | payer MEDICARE, OTHER, SELFPAY | PROVIDERS: PCP Internal Medicine; Visit Provider Internal Medicine | DX: R05 Cough (principal) | CPT/HCPCS: 87635; U0005; U0003 ==

== ENCOUNTER → 2021-07-25 12:49 | Outpatient (CLI) | payer MEDICARE, OTHER, SELFPAY ==
[2021-04-18 12:57] VITALS: BMI 32.8
[2021-07-25 13:03] VITALS: BP 137/60; PULSE 63; RESP 18; TEMP 36.4; O2SAT 98; BMI 32.8
[2021-07-25] MEDS: 0.9% NaCl Peripheral Flush Adult/Peds IV (13:05)
[2021-07-25] MEDS: 0.9% NaCl IVPB Med Flush (250 mL) 15 ML IV (13:05)
[2021-07-25 13:59] VITALS: BP 149/59; PULSE 58; RESP 16; TEMP 36.4; O2SAT 99
== END ==
PROVIDERS: PCP Internal Medicine; Referring Provider Internal Medicine; Visit Provider Internal Medicine
DX: K51.20 Ulcerative (chronic) proctitis without complications (principal)
CPT/HCPCS: 96365; J7050; A4216; J3380

== ENCOUNTER → 2021-08-25 08:43 | Outpatient (CLI) | payer MEDICARE, OTHER, SELFPAY ==
[2021-02-21 13:00] VITALS: BMI 32.2
--- NOTE | 2021-08-25 08:54 | US_ITS ---
STUDY: ABDOMINAL ULTRASOUND - RIGHT UPPER QUADRANT REASON FOR VISIT: Female, 76 years old PT W/CIRRHOSIS TECHNIQUE: Ultrasound evaluation of the right upper quadrant was performed with real-time and static hagan-scale imaging. TECHNICAL QUALITY: Adequate. COMPARISON: None. FINDINGS: Liver: The liver measures 13.7 cm. There is increased echogenicity consistent with fatty infiltration. The bile ducts are within normal limits. There is hepatic color flow. The direction of portal flow is hepatopetal. There is no demonstrated mass lesion. Gallbladder: Normal distended gallbladder. The gallbladder wall measures 2 mm. There is a negative sonographic Baker''s sign. There is no pericholecystic fluid. There are no gallstones. There is a 5 mm hyperdense focus adherent to the gallbladder wall. Common Bile Duct (C.B.D.): The common bile duct measures 5 mm. Pancreas: Normal size of the head, body and tail of the pancreas. There is normal echogenicity of the pancreas. There is no demonstrated pancreatic mass or cyst. Right Kidney: Normal size of the right kidney. The right kidney measures 10.9 cm. Normal renal cortex. The right cortex measures 1.3 cm. There is no demonstrated renal mass or cyst. There is no right hydronephrosis. US/Abdomen Limited IMPRESSION: There is a 5 mm hyperdense focus adherent to the gallbladder wall in keeping with gallbladder polyp. No evidence of acute cholecystitis. There is fibrofatty infiltration of the liver. Electronically Signed: Benjamin Marcum MD at 16:57 EDT Tel , Service support ,
== END ==
PROVIDERS: PCP Internal Medicine
DX: K74.3 Primary biliary cirrhosis (principal); K75.81 Nonalcoholic steatohepatitis (NASH); K74.69 Other cirrhosis of liver
CPT/HCPCS: 76705

== ENCOUNTER → 2021-09-19 12:47 | Outpatient (CLI) | payer MEDICARE, OTHER, SELFPAY ==
[2021-09-19 12:53] VITALS: BP 161/64; PULSE 75; RESP 16; TEMP 35.8; O2SAT 97; BMI 31.5
[2021-09-19] MEDS: 0.9% NaCl IVPB Med Flush (250 mL) 15 ML IV (13:09)
[2021-09-19] MEDS: 0.9% NaCl Peripheral Flush Adult/Peds IV (13:10)
[2021-09-19 13:53] VITALS: BP 133/60; PULSE 69; RESP 16; TEMP 36.3; O2SAT 100
== END ==
PROVIDERS: PCP Internal Medicine; Referring Provider Internal Medicine; Visit Provider Internal Medicine
DX: K51.20 Ulcerative (chronic) proctitis without complications (principal)
CPT/HCPCS: 96413; 96415; J7050; A4216; J3380

== ENCOUNTER → 2021-11-17 12:46 | Outpatient (CLI) | payer MEDICARE, OTHER, SELFPAY ==
[2021-11-17] MEDS: 0.9% NaCl IVPB Med Flush (250 mL) 15 ML IV (13:29)
[2021-11-17 13:30] VITALS: BP 133/60; PULSE 59; RESP 16; TEMP 36.8; O2SAT 96
[2021-11-17 14:17] VITALS: BP 154/62; PULSE 59; RESP 16; TEMP 36.8
== END ==
PROVIDERS: PCP Internal Medicine; Referring Provider Internal Medicine; Visit Provider Internal Medicine
DX: K51.20 Ulcerative (chronic) proctitis without complications (principal)
CPT/HCPCS: 96365; 96413; J7050; J3380

== ENCOUNTER 2021-12-17 14:34 | Outpatient (CLI) | payer MEDICARE, OTHER, SELFPAY | END 2021-12-17 23:59 | disposition short-term general hospital (02) | LOC: LABSPEC 14:37 | PROVIDERS: PCP Internal Medicine; Visit Provider Internal Medicine Pulmonary Disease | DX: R05.9 Cough, unspecified (principal) | CPT/HCPCS: 87070; 87205 ==

== ENCOUNTER 2022-01-08 09:41 | Outpatient (CLI) | payer MEDICARE, OTHER, SELFPAY ==
[2022-01-08 11:33] LABS: Absolute Lymphocyte Count 2.36 X10^3/uL (0.83-4.51); Absolute Neutrophil Count 5.6 X10^3/uL (2.0-7.7); Basophil# 0.13 X10^3/uL; Basophil% 1.4 % (0-1); Eosinophil# 0.41 X10^3/uL; Eosinophils% 4.4 % (0-5); Hematocrit 38.9 % (37-47); Hemoglobin 12.9 g/dL (12.0-15.0); Lymphocyte # 2.36 X10^3/ul (0.83-4.51); Lymphocyte % 25.2 % (19-41); Mean Corp Hgb Conc 33.2 g/dL (32-36); Mean Corpuscular Hgb 31.6 pg (27.0-32.0); Mean Corpuscular Volume 95.3 fL (81-99); Mean Platelet Vol. 9.1 fl (6.2-12.0); Monocyte# 0.74 X10^3/uL; Monocyte% 7.9 % (0-10); NRBC Flagged by Analyzer 0 % (0-5); Neutrophil # 5.64 X10^3/uL (2.7-7.7); Platelet Count 298 K/mm3 (150-450); RBC Distribution Width CV 14.6 % (11.6-14.6); RBC Distribution Width SD 50.4 fl (35.1-43.9); Red Blood Count 4.08 M/mm3 (4.2-5.4); White Blood Count 9.4 K/mm3 (4.4-11.0)
[2022-01-08 12:05] LABS: Vitamin D,25 Hydroxy 38.2 ng/mL
[2022-01-08 12:08] LABS: ALB/GLOB Ratio 0.7 RATIO (0.9-2.4); AST(SGOT) 19 U/L (15-37); Alanine Aminotransfer ALT/SGPT 21 U/L (13-56); Albumin, Serum 3.1 g/dL (3.2-5.0); Alkaline Phosphatase 95 U/L (45-117); Anion Gap 5 (5-15); BUN 18 mg/dL (7-18); BUN/Creat Ratio 17.3 RATIO (10-20); Bilirubin, Direct 0.15 mg/dL (0.00-0.30); Calcium,Total 9.6 mg/dL (8.5-10.1); Chloride 102 mmol/L (98-107); Creatinine, Serum 1.04 mg/dL (0.55-1.02); EST Glomerular Filtration Rate 54 mL/min (>60); Est Glom Filt Rate - Afr Amer 66 mL/min (>60); Globulin 4.5 g/dL (2.2-4.2); Glucose 121 mg/dL (74-106); Protein, Total 7.6 g/dL (6.4-8.2); Sodium Level 134 mmol/L (136-145)
[2022-01-09 08:07] LABS: AFP, Tumor Marker 1.8 ng/mL (0.0-8.3)
== END 2022-01-08 23:59 | disposition home or self-care (01) ==
LOC: LAB 09:41
PROVIDERS: PCP Internal Medicine; Referring Provider Internal Medicine; Visit Provider Internal Medicine
DX: M19.90 Unspecified osteoarthritis, unspecified site (principal); E55.9 Vitamin D deficiency, unspecified; R97.8 Other abnormal tumor markers
CPT/HCPCS: 36415; 80053; 82105; 82248; 82306; 85025

== ENCOUNTER 2022-01-16 12:53 | Outpatient (CLI) | payer MEDICARE, OTHER, SELFPAY ==
[2022-01-16] MEDS: 0.9% NaCl Peripheral Flush Adult/Peds IV (12:57)
[2022-01-16 12:59] VITALS: BP 169/72; PULSE 75; RESP 18; TEMP 35.8; BMI 30.9
[2022-01-16] MEDS: 0.9% NaCl IVPB Med Flush (250 mL) 15 ML IV (13:07)
[2022-01-16 14:14] VITALS: BP 151/76; PULSE 62; RESP 16; TEMP 36; O2SAT 93
== END 2022-01-16 23:59 | disposition home or self-care (01) ==
LOC: MEDOUTP 12:53
PROVIDERS: PCP Internal Medicine; Referring Provider Internal Medicine; Visit Provider Internal Medicine
DX: K51.20 Ulcerative (chronic) proctitis without complications (principal)
CPT/HCPCS: 96365; J7050; A4216; J3380

== ENCOUNTER → 2022-03-20 | Outpatient (CLI) | payer MEDICARE, OTHER, SELFPAY ==
[2022-03-20 13:04] VITALS: BP 130/74; PULSE 77; RESP 16; TEMP 36.1; O2SAT 95
[2022-03-20] MEDS: 0.9% NaCl Peripheral Flush Adult/Peds IV (13:06)
[2022-03-20] MEDS: 0.9% NaCl IVPB Med Flush (250 mL) 15 ML IV (13:10)
[2022-03-20 13:58] VITALS: BP 120/62; PULSE 65; RESP 16
== END | disposition home or self-care (01) ==
LOC: MEDOUTP 12:50
PROVIDERS: PCP Internal Medicine; Referring Provider Internal Medicine; Visit Provider Internal Medicine
DX: K51.20 Ulcerative (chronic) proctitis without complications (principal)
CPT/HCPCS: 96365; 96367; J7050; A4216; J3380

== ENCOUNTER → 2022-04-02 | Outpatient (CLI) | payer MEDICARE, OTHER, SELFPAY | END | disposition home or self-care (01) | PROVIDERS: PCP Internal Medicine; Referring Provider Internal Medicine Pulmonary Disease; Visit Provider Internal Medicine Pulmonary Disease | DX: J47.9 Bronchiectasis, uncomplicated (principal) | CPT/HCPCS: 87070; 87205 ==

== ENCOUNTER → 2022-04-15 | Outpatient (CLI) | payer MEDICARE, OTHER, SELFPAY ==
--- NOTE | 2022-04-15 09:51 | BI_ITS ---
MAMMOGRAPHY - BILATERAL SCREENING REASON FOR EXAM: Female, 77 years old. Routine annual screening examination. PERTINENT HISTORY: Non-contributory. Prior left stereotactic biopsy and history of prior bilateral breast aspirations. TECHNIQUE: Digital bilateral breast josey (3D mammographic acquisition) in the CC and MLO projections. 2-D mediolateral oblique (MLO) and craniocaudad (CC) views of both breasts were obtained. CAD: Full Field Digital Mammography with Computer Added Detection was performed. COMPARISON: Screening mammogram from 01/13/2021, 01/09/2020, 01/04/2019, 10/26/2016. Diagnostic mammogram from 10/27/2017. Left breast ultrasound from 05/16/2013. FINDINGS: Breast Composition: The breasts are heterogeneously dense, which may obscure small masses. There is a new developing asymmetry in the left upper central breast, middle depth approximately 4 cm posterior to the nipple. There is an additional new developing asymmetry in the left upper outer breast, middle depth, approximately 6.4 cm posterior to the nipple and seen 1.4 cm anterior to the prior biopsy marker on the CC views. Additional spot compression views and ultrasound of the above findings is recommended for further assessment. There is slight increase in number of grouped punctate calcifications in the left upper lower outer breast adjacent to the prior biopsy marker. Spot magnification views are recommended. No other significant abnormalities are identified. BI/SCRN MAMM (CAD)W/JOSEY BILAT IMPRESSION: Further imaging evaluation recommended, as described above. (E) Recall Side: Left Breast ASSESSMENT CATEGORY: BIRADS Category 0: Incomplete. Need additional imaging evaluation. A letter regarding these results will be sent to the patient by the facility within 30 days. Approximately 10% of breast cancers are not detected by mammography. A normal mammogram should not delay biopsy of a clinically suspicious abnormality. [id number] Electronically Signed: Ernesto Lazaro, at 15:30 EDT ,
--- NOTE | 2022-04-15 09:55 | BD_ITS ---
STUDY: DUAL ENERGY X-RAY ABSORPTIOMETRY / DXA REASON FOR EXAM: Female, 77 years old. M85.89. Patient is postmenopausal. TECHNIQUE: Bone Mineral Density (BMD) measurements of lumbar spine and bilateral hips were obtained. COMPARISON: Comparison is made with prior study dated 01/09/2020. FINDINGS: Lumbar Spine (L1-L4): g/cm2 (1.015) / T-score (-0.3) / Z-score (2.3) Findings are suggestive of normal bone density with a low fracture risk. Left Femur Total: g/cm2 (0.783) / T-score (-1.3) / Z-score (0.7) Left Femoral Neck: g/cm2 (0.677) / T-score (-1.5) / Z-score (0.7) Right Femur Total: g/cm2 (0.765) / T-score (-1.4) / Z-score (0.6) Right Femoral Neck: g/cm2 (0.645) / T-score (-1.8) / Z-score (0.4) The T-Scores on the most recent prior examination were: Lumbar Spine (L1-L4): There has been worsening of bone density since the previous examination. Left Femur Total: which represents an improvement of 2.6%. Right Femur Total: which represents an improvement of 0.1%. BD/Dexa Bone Density Study IMPRESSION: The patient is considered osteopenic as outlined below according to World Kal Organization (WHO) criteria with a moderate fracture risk. There has been improvement of bone density since the previous examination. Reference Information: The T-score is the number of standard deviations above or below the standard which is normal for young adults at their peak bone mineral density. The World Health Organization (WHO) interprets the T-scores as follows: Above -1 Normal bone density Between -1 and -2.5 Osteopenia Equal to / or below -2.5 Osteoporosis As a practical clinical guideline, osteopenia may be graded as follows: Mild -1 through -1.5 Moderate -1.6 through -2.0 Severe -2.1 through -2.4 The Z-score is the number of standard deviations above or below age-matched controls. A Z-score of less than -1.5 would be considered abnormal. References: 1. NIH Osteoporosis and Related Bone Diseases www osteo.org 2. International Society for Clinical Densitometry www iscd.org 3. National Osteoporosis Foundation www nof.org Electronically Signed: Vito Loyola MD at 10:50 EDT ,
== END | disposition home or self-care (01) ==
LOC: OPBD 09:49
PROVIDERS: PCP Internal Medicine; Visit Provider Internal Medicine
DX: Z12.31 Encounter for screening mammogram for malignant neoplasm of breast (principal)
CPT/HCPCS: 77063; 77067; 77080

== ENCOUNTER → 2022-04-24 | Outpatient (CLI) | payer MEDICARE, OTHER, SELFPAY ==
--- NOTE | 2022-04-24 10:01 | BI_ITS ---
MAMMOGRAPHY - UNILATERAL DIAGNOSTIC: LEFT BREAST REASON FOR EXAM: Female, 77 years old. Abnormal screening mammogram. PERTINENT HISTORY: Non-contributory. History of remote left stereotactic breast biopsy. TECHNIQUE: Compression magnification spot views of the left breast were obtained. CAD: Full Field Digital Mammography with Computer Added Detection was performed. COMPARISON: Comparison is made with prior study dated 04/15/2022. FINDINGS: Breast Composition: The breasts are heterogeneously dense, which may obscure small masses. No cluster of microcalcification is seen. A tissue clip marker is seen in the deep lateral aspect of the left breast. I suspect a 8.2 mm x 8.5 mm well-defined nodule in the upper lateral aspect of the breast. Correlation with ultrasound is recommended. No other significant abnormalities are identified. BI/DIAG MAMM W/CAD, UNILAT IMPRESSION: Persistent 8.2 mm x 8.5 mm nodule in the upper lateral aspect of the left breast as described. Correlation with ultrasound is recommended. ASSESSMENT CATEGORY: BIRADS Category 0: Incomplete. Need additional imaging evaluation. A letter regarding these results will be sent to the patient by the facility within 30 days. Approximately 10% of breast cancers are not detected by mammography. A normal mammogram should not delay biopsy of a clinically suspicious abnormality. Electronically Signed: Vito Loyola MD at 10:57 EDT ,
--- NOTE | 2022-04-24 10:01 | US_ITS ---
STUDY: ULTRASOUND BREAST - LEFT REASON FOR EXAM: Female, 77 years old. Abnormal screening mammogram. TECHNIQUE: Axial and longitudinal images of the LEFT breast were performed with a high resolution ultrasound transducer. # OF IMAGES: 57 COMPARISON: Comparison is made with prior mammogram done earlier in the day as well as prior mammogram dated 04/15/2022. FINDINGS: LEFT Breast: Imaging of the upper outer quadrant of the left breast was obtained. Multiple cysts are seen. The largest cyst measures 1.8 cm x 1.3 cm x 0.9 cm. This is at the 12 o''clock position of the breast at 2 cm from the nipple US/Breast Limited Unilateral IMPRESSION: Multiple cysts are seen in the upper outer quadrant of the left breast as described. The largest cyst measures 1.8 cm x 1.3 cm x 0.9 cm. This is at the 12 o''clock position breast at 2 cm from nipple. ASSESSMENT CATEGORY: BIRADS Category 2: Benign. A letter regarding these results will be sent to the patient by the facility within 30 days. Electronically Signed: Vito Loyola MD at 11:00 EDT ,
== END | disposition home or self-care (01) ==
LOC: OPBI 09:59
PROVIDERS: PCP Internal Medicine; Referring Provider Internal Medicine; Visit Provider Internal Medicine
DX: R92.8 Other abnormal and inconclusive findings on diagnostic imaging of breast (principal); N60.02 Solitary cyst of left breast
CPT/HCPCS: 76642; 77065

== ENCOUNTER → 2022-05-15 | Outpatient (CLI) | payer MEDICARE, OTHER, SELFPAY ==
[2022-05-15 13:01] VITALS: BP 130/62; PULSE 63; RESP 16; TEMP 36.7; O2SAT 99; BMI 31.4
[2022-05-15] MEDS: 0.9% NaCl Peripheral Flush Adult/Peds IV (13:16)
[2022-05-15] MEDS: 0.9% NaCl IVPB Med Flush (250 mL) 15 ML IV (13:16)
[2022-05-15 13:55] VITALS: BP 149/55; PULSE 61; RESP 16; TEMP 36.5; O2SAT 98
== END | disposition home or self-care (01) ==
LOC: MEDOUTP 12:55
PROVIDERS: PCP Internal Medicine; Referring Provider Internal Medicine; Visit Provider Internal Medicine
DX: K51.20 Ulcerative (chronic) proctitis without complications (principal)
CPT/HCPCS: 96372; 96413; J7050; A4216; J3380

== ENCOUNTER → 2022-05-27 | Outpatient (CLI) | payer MEDICARE, OTHER, SELFPAY | END | disposition home or self-care (01) | PROVIDERS: PCP Internal Medicine; Referring Provider Internal Medicine Pulmonary Disease; Visit Provider Internal Medicine Pulmonary Disease | DX: J47.9 Bronchiectasis, uncomplicated (principal); A37.01 Whooping cough due to Bordetella pertussis with pneumonia | CPT/HCPCS: 87070; 87205 ==

== ENCOUNTER → 2022-07-10 | Outpatient (CLI) | payer MEDICARE, OTHER, SELFPAY ==
[2022-07-10 12:57] VITALS: BP 137/64; PULSE 85; RESP 16; TEMP 35.5; O2SAT 98; BMI 32.0
[2022-07-10] MEDS: 0.9% NaCl IVPB Med Flush (250 mL) 15 ML IV (13:11)
[2022-07-10] MEDS: 0.9% NaCl Peripheral Flush Adult/Peds IV (13:11)
[2022-07-10 14:01] VITALS: BP 135/69; PULSE 75
== END | disposition home or self-care (01) ==
LOC: MEDOUTP 12:27
PROVIDERS: PCP Internal Medicine; Referring Provider Internal Medicine; Visit Provider Internal Medicine
DX: K51.20 Ulcerative (chronic) proctitis without complications (principal)
CPT/HCPCS: 96413; J7050; A4216; J3380

== ENCOUNTER → 2022-07-24 | Outpatient (CLI) | payer MEDICARE, OTHER, SELFPAY ==
--- NOTE | 2022-07-24 09:35 | US_ITS ---
STUDY: ABDOMINAL ULTRASOUND - RIGHT UPPER QUADRANT REASON FOR VISIT: Female, 77 years old [employer] .TORRE TECHNIQUE: Ultrasound evaluation of the right upper quadrant was performed with real-time and static hagan-scale imaging. TECHNICAL QUALITY: Adequate. COMPARISON: Comparison is made with prior study 08/25/2021. FINDINGS: Liver: The liver measures 13.5 cm. There is increased echogenicity consistent with mild degree of fatty infiltration. The bile ducts are within normal limits. There is hepatic color flow. The direction of portal flow is hepatopetal. There is no demonstrated mass lesion. Gallbladder: Normal distended gallbladder. The gallbladder wall measures 2.9 mm. There is a negative sonographic Baker''s sign. There is no pericholecystic fluid. There are no gallstones. Small amount of sludge is seen along the dependent portion of the gallbladder lumen. Stable 5 mm x 4 mm echogenic focus adherent to the gallbladder wall suggestive possible polyp. Common Bile Duct (C.B.D.): The common bile duct measures 4.6 mm. Pancreas: Normal size of the head, body and tail of the pancreas. There is normal echogenicity of the pancreas. The body of the pancreas, there is a 1.1 cm x 0.9 cm x 0.6 cm cyst with calcific rim. Adjacent to this, a similar-appearing cyst measuring 0.87 x 0.97 x 0.5 cm seen. Right Kidney: Normal size of the right kidney. The right kidney measures 10.5 cm x 5.1 cm x 4.6 cm. Normal renal cortex. The right cortex measures 1.2 cm. There is no demonstrated renal mass or cyst. There is no right hydronephrosis. US/Abdomen Limited IMPRESSION: Mild degree of the fatty infiltration of the liver. Small gallbladder polyp. 2. Small cysts are seen in the body of the pancreas with the echogenic rim. Electronically Signed: Vito Loyola MD at 12:53 EDT ,
== END | disposition home or self-care (01) ==
LOC: US 09:33
PROVIDERS: PCP Internal Medicine
DX: K51.20 Ulcerative (chronic) proctitis without complications (principal); K74.3 Primary biliary cirrhosis; K75.81 Nonalcoholic steatohepatitis (NASH); K86.2 Cyst of pancreas
CPT/HCPCS: 76705

== ENCOUNTER → 2022-09-04 | Outpatient (CLI) | payer MEDICARE, OTHER, SELFPAY ==
[2022-09-04 12:37] VITALS: BP 142/59; PULSE 80; RESP 16; TEMP 35.9; O2SAT 100; BMI 31.6
[2022-09-04] MEDS: 0.9% NaCl Peripheral Flush Adult/Peds IV (12:52)
[2022-09-04] MEDS: 0.9% NaCl IVPB Med Flush (250 mL) 15 ML IV (12:56)
[2022-09-04 13:48] VITALS: BP 148/57; PULSE 60
== END | disposition home or self-care (01) ==
LOC: MEDOUTP 12:27
PROVIDERS: PCP Internal Medicine; Referring Provider Internal Medicine; Visit Provider Internal Medicine
DX: K51.911 Ulcerative colitis, unspecified with rectal bleeding (principal)
CPT/HCPCS: 96365; J7050; A4216; J3380

== ENCOUNTER → 2022-10-30 | Outpatient (CLI) | payer MEDICARE, OTHER, SELFPAY ==
[2022-10-30 13:01] VITALS: BP 147/65; PULSE 97; RESP 16; TEMP 36.7; O2SAT 97; BMI 31.1
[2022-10-30] MEDS: 0.9% NaCl Peripheral Flush Adult/Peds IV (13:05)
[2022-10-30] MEDS: 0.9% NaCl IVPB Med Flush (250 mL) 15 ML IV (13:15)
[2022-10-30 14:08] VITALS: BP 144/67; PULSE 71; RESP 16; O2SAT 96
== END | disposition home or self-care (01) ==
LOC: MEDOUTP 12:57
PROVIDERS: PCP Internal Medicine; Referring Provider Internal Medicine; Visit Provider Internal Medicine
DX: K51.911 Ulcerative colitis, unspecified with rectal bleeding (principal)
CPT/HCPCS: 96365; J7050; A4216; J3380

== ENCOUNTER → 2022-12-07 | Outpatient (CLI) | payer MEDICARE, OTHER, SELFPAY ==
--- NOTE | 2022-12-07 13:01 | ECHOD_ITS ---
Reason For Study: MURMUR Procedure This was a 2D Doppler, Color Flow transthoracic echocardiogram. Exam performed in department. Left Ventricle Normal LV size. Left ventricular systolic function is normal. The estimated ejection fraction is 65 %. No regional wall motion abnormalities noted. Right Ventricle Normal RV size. Normal systolic function. Atria Normal left atrium. Normal right atrium. Mitral Valve Normal mitral valve. Tricuspid Valve Normal tricuspid valve. Mild tricuspid valve insufficiency. Pulmonary artery systolic pressure is 40 mmHg. Aortic Valve Trisinus/trileaflet aortic valve. Mild focal aortic valve calcification. Peak aortic valve gradient 13 mmHg. Mean aortic valve gradient 8 mmHg. Pulmonic Valve Normal pulmonic valve. Great Vessels Normal aortic root. The pulmonary artery is normal size. Normal inferior vena cava. Pericardium/Pleural No pericardial effusion. MMode/2D Measurements & Calculations LVIDd: 4.8 cm IVSd: 1.1 cm LVOT diam: 2.0 cm LVIDs: 2.3 cm LVPWd: 0.91 cm LVOT area: 3.2 cm2 FS: 53.2 % Ao root diam: 3.6 cm LAV(MOD-bp): 36.7 ml LVAd ap4: 20.1 cm2 LAV(MOD-bp) Indexed: 20.3 ml/m2 LVLd ap4: 6.8 cm LAV(MOD-sp2): 36.8 ml EDV(MOD-sp4): 48.6 ml LAV(MOD-sp4): 31.6 ml EDV(sp4-el): 50.4 ml LVAs ap4: 7.7 cm2 LVLs ap4: 5.4 cm ESV(MOD-sp4): 10.7 ml ESV(sp4-el): 9.3 ml EF(MOD-sp4): 78.0 % EF(sp4-el): 81.6 % SV(MOD-sp4): 38.0 ml SV(sp4-el): 41.1 ml LA A4 area: 15.1 cm2 LA dimension(2D): 3.8 cm RA A4 area: 12.3 cm2 Time Measurements MV dec time: 0.30 sec Doppler Measurements & Calculations MV E max harlan: 57.9 cm/sec Lat Peak E' Harlan: 5.2 cm/sec Med Peak E' Harlan: 4.3 cm/sec MV A max harlan: 96.3 cm/sec E/E' lat: 11.2 E/E' med: 13.5 MV E/A: 0.60 MV V2 max: 97.4 cm/sec Ao V2 max: 180.3 cm/sec MV max P.8 mmHg MV dec slope: 219.8 cm/sec2 Ao max P.0 mmHg MV V2 mean: 56.3 cm/sec Ao V2 mean: 130.4 cm/sec MV mean P.4 mmHg Ao mean P.7 mmHg MV V2 VTI: 24.3 cm Ao V2 VTI: 41.6 cm AV (velocity ratio): 0.77 MVA(VTI): 4.2 cm2 KRISTINA(I,D): 2.5 cm2 KRISTINA(V,D): 2.4 cm2 LV V1 max: 138.5 cm/sec MR max harlan: 509.6 cm/sec SV(LVOT): 102.4 ml LV V1 max P.7 mmHg MR max P.9 mmHg LV V1 mean P.5 mmHg LV V1 mean: 100.1 cm/sec LV V1 VTI: 32.1 cm PA V2 max: 91.4 cm/sec TR max harlan: 300.1 cm/sec PA V2 mean: 60.1 cm/sec TR max P.0 mmHg ECHO/Echo Complete Interpretation Summary Normal LV size. Left ventricular systolic function is normal. The estimated ejection fraction is 65 %. Mean aortic valve gradient 8 mmHg. Mild focal aortic valve calcification. Ordering Physician: Shari Rodriguez Referring Physician: Kamryn Hansen M.D. Performed By: Melly Thompson RCS
== END | disposition home or self-care (01) ==
LOC: CVS 13:00
PROVIDERS: PCP Internal Medicine; Visit Provider Physician Assistant Medical
DX: R01.1 Cardiac murmur, unspecified (principal); I35.0 Nonrheumatic aortic (valve) stenosis
CPT/HCPCS: 93306

== ENCOUNTER → 2022-12-25 | Outpatient (CLI) | payer MEDICARE, OTHER, SELFPAY ==
[2022-12-25] MEDS: 0.9% NaCl Peripheral Flush Adult/Peds IV (12:29)
[2022-12-25 12:41] VITALS: BP 133/61; PULSE 72; RESP 16
[2022-12-25] MEDS: 0.9% NaCl IVPB Med Flush (250 mL) 15 ML IV (12:51)
[2022-12-25 13:35] VITALS: BP 140/60; PULSE 73; RESP 16; TEMP 36.6; O2SAT 98
== END | disposition home or self-care (01) ==
LOC: MEDOUTP 12:22
PROVIDERS: PCP Internal Medicine; Referring Provider Internal Medicine; Visit Provider Internal Medicine
DX: K51.911 Ulcerative colitis, unspecified with rectal bleeding (principal)
CPT/HCPCS: 96372; J7050; A4216; J3380

== ENCOUNTER → 2023-02-19 | Outpatient (CLI) | payer MEDICARE, OTHER, SELFPAY ==
[2023-02-19 12:43] VITALS: BP 122/57; PULSE 78; RESP 16; TEMP 37.2
[2023-02-19] MEDS: 0.9% NaCl Peripheral Flush Adult/Peds IV (12:49)
[2023-02-19] MEDS: 0.9% NaCl IVPB Med Flush (250 mL) 15 ML IV (12:59)
[2023-02-19 13:57] VITALS: BP 128/58; PULSE 69; RESP 18
== END | disposition home or self-care (01) ==
LOC: MEDOUTP 12:33
PROVIDERS: PCP Internal Medicine; Referring Provider Internal Medicine; Visit Provider Internal Medicine
DX: K51.911 Ulcerative colitis, unspecified with rectal bleeding (principal)
CPT/HCPCS: 96360; J7050; A4216; J3380

== ENCOUNTER → 2023-02-22 | Outpatient (CLI) | payer MEDICARE, OTHER, SELFPAY | END | disposition home or self-care (01) | LOC: LAB 09:38 | PROVIDERS: PCP Internal Medicine; Referring Provider Internal Medicine Pulmonary Disease; Visit Provider Internal Medicine Pulmonary Disease | DX: R06.02 Shortness of breath (principal) | CPT/HCPCS: 87070; 87205 ==

== ENCOUNTER 2023-04-16 12:25 | Outpatient (CLI) | payer MEDICARE, OTHER, SELFPAY ==
[2023-04-16 12:50] VITALS: BP 139/74; PULSE 70; RESP 16; TEMP 36.7; O2SAT 98; BMI 31.8
[2023-04-16] MEDS: 0.9% NaCl IVPB Med Flush (250 mL) 15 ML IV (13:02)
[2023-04-16] MEDS: 0.9% NaCl Peripheral Flush Adult/Peds IV (13:02)
[2023-04-16 13:46] VITALS: BP 150/72; PULSE 69; RESP 16; TEMP 37; O2SAT 96
== END 2023-04-16 12:26 | disposition home or self-care (01) ==
LOC: MEDOUTP 12:25
PROVIDERS: PCP Internal Medicine; Referring Provider Internal Medicine; Visit Provider Internal Medicine
DX: K51.911 Ulcerative colitis, unspecified with rectal bleeding (principal)
CPT/HCPCS: 96365; J7050; A4216; J3380

== ENCOUNTER → 2023-05-21 | Outpatient (CLI) | payer MEDICARE, OTHER, SELFPAY ==
--- NOTE | 2023-05-21 12:42 | VDLE_ITS ---
Reason For Study: Swelling of left leg, s/p TKR RIGHT LEFT CFV is compressible, spontaneous, phasic, GSV is normal. competent and demonstrates normal CFV is compressible, spontaneous, phasic, augmentation. competent, and demonstrates normal Procedure augmentation. This is a venous duplex using B-mode, color FV is compressible, spontaneous, phasic, flow and spectral Doppler. competent and demonstrates normal Exam performed in department. augmentation. A preliminary report was called and/or faxed POP V is compressible, spontaneous, phasic, to Dr. Hansen. competent and demonstrates normal augmentation. T/P Trunk is compressible. PTV is compressible. LT PerV is compressible. Nonvascularized structure noted in the left popliteal fossa that measures 0.91 x 2.15 x 4.86 cm. VL/Venous Duplex US, Unilateral Interpretation Summary There is no evidence of left lower extremity deep vein thrombosis. Left great s aphenous vein appears patent and compressible segmentally. Left popliteal space complex 0.91 x 2.1 x 4.86 cm structure consistent with a Moreno's cyst with internal debris. Clinical correlation would be appropriate. Normal flow patterns right common femoral vein Ordering Physician: Kamryn Hansen Referring Physician: Kamryn Hansen Performed By: Nichelle Larios RVT
== END | disposition home or self-care (01) ==
LOC: CVS 12:40
PROVIDERS: PCP Internal Medicine; Referring Provider Internal Medicine; Visit Provider Internal Medicine
DX: M79.89 Other specified soft tissue disorders (principal)
CPT/HCPCS: 93971

== ENCOUNTER 2023-06-11 12:50 | Outpatient (CLI) | payer MEDICARE, OTHER, SELFPAY ==
[2023-06-11 12:57] VITALS: BP 114/63; PULSE 76; RESP 16; TEMP 36.3
[2023-06-11] MEDS: 0.9% NaCl Peripheral Flush Adult/Peds IV ×2 (13:02→13:21)
[2023-06-11] MEDS: 0.9% NaCl IVPB Med Flush (250 mL) 15 ML IV ×2 (13:02→13:21)
[2023-06-11 14:06] VITALS: BP 128/61; PULSE 72; RESP 16; TEMP 35.6; O2SAT 95
== END 2023-06-11 12:51 | disposition home or self-care (01) ==
LOC: MEDOUTP 12:50
PROVIDERS: PCP Internal Medicine; Referring Provider Internal Medicine; Visit Provider Internal Medicine
DX: K51.911 Ulcerative colitis, unspecified with rectal bleeding (principal)
CPT/HCPCS: 96365; J7050; A4216; J3380

== ENCOUNTER 2023-06-21 14:30 | Outpatient (RCR) | payer MEDICARE, OTHER, SELFPAY ==
--- NOTE | 2023-06-09 11:52 | HP.PTREVAL ---
Re-Evaluation Intro: Dr. Srikanth Marie, DO, It has been my pleasure to treat JONATHAN NASH over the last 15 visits for L TKA 04/08. Please see the progress note below for an update on the physical therapy plan of care! Subjective Subjective: Has been not doing well for last two weeks. Did not feel well last week and watched [place]. Did not exercise as much as she should. Did do daily exercises. Doing stadning step ups and bed exercises and recumbent bike. Saw doctor after last visit and he said she was doing well. Soreness is medial most days 01/01 especially in evening. Activities are close to normal, carried laundry upstairs yesterday. Avoids heavy at home work because she can. 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 Sleep is not great but that is not abnormal for her. Knee may be uncomfortable before sleeping. Wants to get back to gym strength like porecovid but not sure what to do. Objective Objective/Function: 0-118 AROM L knee Walking looks great adn steps with one railing reciprocally with slight L weakness. Doing very well overall but wants to get back to gym I and needs help with this. Plan Plan Plan: 3-4 visits in the gym to teach LE, core, postural strength on machines and progress to I with list when able(Is silver sneakers member and used to work out in gym precovid) new goal for gym I set with fair prognosis Balance/Gait/Functional tests Balance/Special Test Scores WOMAC Total Score: 10 WOMAC Percentage: 89.5900 Goals Goals Goal 1:: Pt move knee 0-110 aROM to help with function on steps Goal Time Frame: 4-6 Weeks Goal Progress: Goal Met Goal 2:: Pain 90% better at 2/10 at worst Goal Time Frame: 4-6 Weeks Goal Progress: Goal Met Goal 3:: Sleep throuigh night normally without interruption from knee Goal Time Frame: 4-6 Weeks Goal Progress: Goal Met once asleep Goal 4:: Pt able to stay in house I so dtr in law can go home Goal Time Frame: 4-6 Weeks Goal Progress: Goal Met Goal 5:: Walk community and reciprocal steps with one rail, no AD Goal Time Frame: 4-6 Weeks Goal Progress: Goal Met Goal 6:: I [id number] gym strength to help maintain health of knee and body Goal Time Frame: 2 Weeks Goal Progress: NEW GOAL Anticipated Interventions Anticipated Interventions Patient/Client Instruction: Educate patient on: Condition and Plan of Care For the Purpose of:: To decrease pain, To increase ROM, To improve nutrient delivery to tissue, To improve muscle performance and motor function, To increase tolerance to activity/condition/position and To improve ability of physical actions for home/community/work/leisure Therapeutic Exercise to Include: Strength training, Flexibilty training, Gait and locomotor training, Passive ROM and Active ROM For the Purpose of:: To decrease pain, To increase ROM, To improve nutrient delivery to tissue, To improve muscle performance and motor function, To increase tolerance to activity/condition/position and To improve ability of physical actions for home/community/work/leisure Manual Therapy Techniques to Include: Mobilization, Passive ROM and Soft tissue mobilization For the Purpose of:: To decrease pain and To increase ROM Cryotherapy (ice pack, ice massage): Yes For the Purpose of:: To decrease swelling/inflammation Re-Evaluation Ending Re-evaluation ending: Please do not hesitate to contact me at [phone] by phone or if you have questions or concerns regarding this new plan of care! Sincerely, Lorenzo Major, DPT, OCS, CSCS
--- NOTE | 2023-06-21 14:52 | HP.PTDCSUM ---
Discharge Summary D/C summary: It has been my pleasure to treat JONATHAN NASH referred by Dr. Srikanth Marie DO, with the diagnosis of L TKA 04/08 for a total of 19 visit(s). Discharge Date: 06/21/23 Please see the following information for a summary of their discharge status. Subjective Subjective: No problems in last two weeks. Some medial pain intermittently. Last week did things without thinking about knee. Will continue in gym I. Pain L knee: Pain Intensity (Out of 10): 2 Overall Improvement % Improvement: 98 Objective Objective/Function: 17 inch and 21 inch L girth. 0-119 AROM strength quad L:42# and HS L: 25# 8 sec TUG 10 womac Walking well without antalgia. good balance. No concerns from patient. Goals Goal 1:: Pt move knee 0-110 aROM to help with function on steps Goal Progress: Goal Met Goal 2:: Pain 90% better at 2/10 at worst Goal Progress: Goal Met Goal 3:: Sleep throuigh night normally without interruption from knee Goal Progress: Goal Met once asleep Goal 4:: Pt able to stay in house I so dtr in law can go home Goal Progress: Goal Met Goal 5:: Walk community and reciprocal steps with one rail, no AD Goal Progress: Goal Met Goal 6:: I [id number] gym strength to help maintain health of knee and body Goal Progress: Goal Met Plan Plan: d/c to I gym program. D/C Information Discharge Comments: Doing well and will continue in gym via HEP. d/c sentence: If there are questions or concerns regarding this patient's physical therapy, please feel free to call me at [phone]. Thank you for the referral of this patient. Sincerely, Lorenzo Major, DPT, OCS, CSCS Balance/Gait/Functional tests Balance/Special Test Scores WOMAC Total Score: 10 WOMAC Percentage: [phone]
== END 2023-06-21 19:00 | disposition home or self-care (01) ==
LOC: PT 14:30
PROVIDERS: PCP Internal Medicine; Referring Provider Orthopaedic Surgery Adult Reconstructive Orthopaedic Surgery; Visit Provider Orthopaedic Surgery Adult Reconstructive Orthopaedic Surgery
DX: M17.12 Unilateral primary osteoarthritis, left knee (principal); Z96.652 Presence of left artificial knee joint
CPT/HCPCS: 97110; 97140; 97161; 97164; 97530

== ENCOUNTER 2023-08-06 11:37 | Outpatient (CLI) | payer MEDICARE, OTHER, SELFPAY ==
[2023-08-06 11:42] VITALS: BP 129/65; PULSE 80; RESP 16; TEMP 36.3; BMI 30.9
[2023-08-06] MEDS: 0.9% NaCl IVPB Med Flush (250 mL) 15 ML IV (11:55)
[2023-08-06] MEDS: 0.9% NaCl Peripheral Flush Adult/Peds IV (11:57)
[2023-08-06] MEDS: Vedolizumab 300 MG in 0.9% Normal Saline (250mL Bag) 250 ML 500 MG IV (12:18)
[2023-08-06 13:08] VITALS: BP 121/57; PULSE 71; RESP 16; TEMP 36.2; O2SAT 100
== END 2023-08-06 11:38 | disposition home or self-care (01) ==
LOC: MEDOUTP 11:38
PROVIDERS: PCP Internal Medicine; Referring Provider Internal Medicine; Visit Provider Internal Medicine
DX: K51.911 Ulcerative colitis, unspecified with rectal bleeding (principal)
CPT/HCPCS: 96365; J7050; A4216; J3380

== ENCOUNTER 2023-09-17 11:31 | Outpatient (CLI) | payer MEDICARE, OTHER, SELFPAY ==
[2023-09-17 11:40] VITALS: BP 134/62; PULSE 81; RESP 16; TEMP 36.3; O2SAT 95; BMI 31.8
[2023-09-17] MEDS: 0.9% NaCl IVPB Med Flush (250 mL) 15 ML IV (11:50)
[2023-09-17] MEDS: 0.9% NaCl Peripheral Flush Adult/Peds IV (11:50)
[2023-09-17] MEDS: Vedolizumab 300 MG in 0.9% Normal Saline (250mL Bag) 250 ML 500 MG IV (12:12)
[2023-09-17 13:06] VITALS: BP 148/64; PULSE 66; RESP 16
== END 2023-09-17 11:32 | disposition home or self-care (01) ==
LOC: MEDOUTP 11:32
PROVIDERS: PCP Internal Medicine; Referring Provider Student in an Organized Health Care Education/Training Program; Visit Provider Student in an Organized Health Care Education/Training Program
DX: K51.911 Ulcerative colitis, unspecified with rectal bleeding (principal)
CPT/HCPCS: 96365; J7050; A4216; J3380

== ENCOUNTER → 2023-10-21 | Outpatient (CLI) | payer MEDICARE, OTHER, SELFPAY ==
--- NOTE | 2023-10-21 09:45 | BI_ITS ---
MAMMOGRAPHY - BILATERAL SCREENING REASON FOR EXAM: Female, 78 years old. Routine annual screening examination. PERTINENT HISTORY: Non-contributory. TECHNIQUE: Digital bilateral breast josey (3D mammographic acquisition) in the CC and MLO projections. 2-D mediolateral oblique (MLO) and craniocaudad (CC) views of both breasts were obtained. CAD: Full Field Digital Mammography with Computer Added Detection was performed. COMPARISON: Comparison is made with prior study dated April 15, 2022 and April 24, 2022. Prior left stereotactic breast biopsy. FINDINGS: Breast Composition: The breasts are heterogeneously dense, which may obscure small masses. There are no dominant masses or suspicious calcifications. A tissue clip marker is seen in the deep slightly upper lateral aspect of the left breast. No other significant abnormalities are identified. There has been no significant change since the prior study. BI/SCRN MAMM (CAD)W/JOSEY BILAT IMPRESSION: Stable bilateral screening mammogram. Yearly follow-up mammogram recommended. (A) ASSESSMENT CATEGORY: BIRADS Category 2: Benign. A letter regarding these results will be sent to the patient by the facility within 30 days. Approximately 10% of breast cancers are not detected by mammography. A normal mammogram should not delay biopsy of a clinically suspicious abnormality. [id number] Electronically Signed: Vito Loyola MD at 12:45 EST ,
== END | disposition home or self-care (01) ==
LOC: OPBI 09:45
PROVIDERS: PCP Internal Medicine; Referring Provider Internal Medicine; Visit Provider Internal Medicine
DX: Z12.31 Encounter for screening mammogram for malignant neoplasm of breast (principal)
CPT/HCPCS: 77063; 77067

== ENCOUNTER 2023-11-12 11:31 | Outpatient (CLI) | payer MEDICARE, OTHER, SELFPAY ==
[2023-11-12 11:49] VITALS: BP 132/70; PULSE 70; RESP 16; TEMP 36.6; BMI 31.8
[2023-11-12] MEDS: 0.9% NaCl Peripheral Flush Adult/Peds IV (11:58)
[2023-11-12] MEDS: 0.9% NaCl IVPB Med Flush (250 mL) 15 ML IV (11:58)
[2023-11-12] MEDS: Vedolizumab 300 MG in 0.9% Normal Saline (250mL Bag) 250 ML 500 MG IV (12:09)
[2023-11-12 13:05] VITALS: BP 114/64; PULSE 64; RESP 14; TEMP 36.5
== END 2023-11-12 11:32 | disposition home or self-care (01) ==
LOC: MEDOUTP 11:31
PROVIDERS: PCP Internal Medicine; Referring Provider Student in an Organized Health Care Education/Training Program; Visit Provider Student in an Organized Health Care Education/Training Program
DX: K51.911 Ulcerative colitis, unspecified with rectal bleeding (principal)
CPT/HCPCS: 96365; J7050; A4216; J3380

== ENCOUNTER 2024-01-07 11:19 | Outpatient (CLI) | payer MEDICARE, OTHER, SELFPAY ==
[2024-01-07 11:30] VITALS: BP 124/54; PULSE 67; RESP 16; TEMP 35.9; O2SAT 96; BMI 33.1
[2024-01-07] MEDS: 0.9% NaCl Peripheral Flush Adult/Peds IV (11:41)
[2024-01-07] MEDS: 0.9% NaCl IVPB Med Flush (250 mL) 15 ML IV (11:41)
[2024-01-07] MEDS: Vedolizumab 300 MG in 0.9% Normal Saline (250mL Bag) 250 ML 500 MG IV (12:00)
[2024-01-07 12:37] VITALS: BP 127/60; PULSE 62
== END 2024-01-07 11:20 | disposition home or self-care (01) ==
LOC: MEDOUTP 11:20
PROVIDERS: PCP Internal Medicine; Referring Provider Student in an Organized Health Care Education/Training Program; Visit Provider Student in an Organized Health Care Education/Training Program
DX: K51.20 Ulcerative (chronic) proctitis without complications (principal)
CPT/HCPCS: 96365; J7050; A4216; J3380

== ENCOUNTER → 2024-02-22 | Outpatient (CLI) | payer MEDICARE, OTHER, SELFPAY ==
--- NOTE | 2024-02-22 13:56 | STRESSREP ---
Stress Test Report Pharmacologic myocardial perfusion stress test. 78-year-old lady with a history of dyspnea on exertion Resting EKG demonstrates sinus rhythm with a rate of 63 bpm. Resting blood pressure is 140/60 mmHg. 0.4 mg of regadenoson was infused per usual protocol followed by rapid intravenous saline flush injection. Continuous EKG monitoring was performed. The maximum heart rate was 88 bpm which was 62% of max impacted heart rate the maximum workload was 1 metabolic equivalent. At rest there were no ST or T wave changes noted to suggest ischemia and at peak infusion nonspecific ST changes were noted which did not meet the criteria for ischemia. No clinical angina is noted. The final blood pressure was 136/64 mmHg. Myocardial perfusion protocol. 11.5 mCi of technetium 99m sestamibi was injected at rest. 0.4 mg of regadenoson was infused per usual protocol. At peak infusion 35 mCi of technetium 99m sestamibi was injected stress images were obtained stress and rest images were reconstructed and compared in the short axis vertical long and horizontal long axis. Gated images were also obtained. Perfusion SPECT analysis: Review of the stress images demonstrate normal uptake of tracer noted in all areas of the myocardium. The resting images similar demonstrated normal uptake of tracer noted in all areas of the myocardium. No areas of reversibility are noted to suggest ischemia and no previous infarct is noted. Gated SPECT analysis: The gated ejection fraction is 83%. Conclusion: Normal pharmacologic myocardial perfusion stress test. Preserved ejection fraction.
== END | disposition home or self-care (01) ==
LOC: CVS 07:25
PROVIDERS: PCP Internal Medicine; Referring Provider Physician Assistant Medical; Visit Provider Physician Assistant Medical
DX: R06.09 Other forms of dyspnea (principal)
CPT/HCPCS: 78452; 93017; A9500; A4216; J2785

== ENCOUNTER 2024-03-03 11:25 | Outpatient (CLI) | payer MEDICARE, OTHER, SELFPAY ==
[2024-03-03 11:35] VITALS: BP 133/56; PULSE 67; RESP 16; TEMP 35.8; O2SAT 97; BMI 33.6
[2024-03-03] MEDS: Vedolizumab 300 MG in 0.9% Normal Saline (250mL Bag) 250 ML 500 MG IV (12:06)
[2024-03-03] MEDS: 0.9% NaCl IVPB Med Flush (250 mL) 15 ML IV (12:06)
[2024-03-03] MEDS: 0.9% NaCl Peripheral Flush Adult/Peds IV (12:06)
[2024-03-03 12:51] VITALS: BP 134/59; PULSE 62; RESP 16; TEMP 36
== END 2024-03-03 11:26 | disposition home or self-care (01) ==
LOC: MEDOUTP 11:25
PROVIDERS: PCP Internal Medicine; Referring Provider Student in an Organized Health Care Education/Training Program; Visit Provider Student in an Organized Health Care Education/Training Program
DX: K51.911 Ulcerative colitis, unspecified with rectal bleeding (principal)
CPT/HCPCS: 96365; J7050; A4216; J3380

== ENCOUNTER → 2024-04-18 | Outpatient (CLI) | payer MEDICARE, OTHER, SELFPAY ==
--- NOTE | 2024-04-18 13:04 | BD_ITS ---
STUDY: DUAL ENERGY X-RAY ABSORPTIOMETRY / DXA REASON FOR EXAM: Female, 79 years old. 627.8Menopausal postmenopausal BONE DENSITY REASON FOR EXAM TECHNIQUE: Bone Mineral Density (BMD) measurements of lumbar spine and bilateral hips were obtained. COMPARISON: Comparison is made with prior study April 15, 2022. FINDINGS: Lumbar Spine (L1-L4): g/cm2 (0.989) / T-score (-0.5) / Z-score (2.2) Findings are suggestive of normal bone density with a low fracture risk. Left Femur Total: g/cm2 (0.748) / T-score (-1.6) / Z-score (0.5) Left Femoral Neck: g/cm2 (0.632) / T-score (-2.0) / Z-score (0.4) Right Femur Total: g/cm2 (0.771) / T-score (-1.4) / Z-score (0.7) Right Femoral Neck: g/cm2 (0.684) / T-score (-1.5) / Z-score (0.9) The T-Scores on the most recent prior examination were: Lumbar Spine (L1-L4): There has been worsening of bone density since the previous examination. Left Femur Total: which represents a worsening of 4.4%. Right Femur Total: which represents an improvement of 0.7%. BD/Dexa Bone Density Study IMPRESSION: The patient is considered osteopenic as outlined below according to World Kal Organization (WHO) criteria with a moderate fracture risk. There has been worsening of bone density since the previous examination. Reference Information: The T-score is the number of standard deviations above or below the standard which is normal for young adults at their peak bone mineral density. The World Health Organization (WHO) interprets the T-scores as follows: Above -1 Normal bone density Between -1 and -2.5 Osteopenia Equal to / or below -2.5 Osteoporosis As a practical clinical guideline, osteopenia may be graded as follows: Mild -1 through -1.5 Moderate -1.6 through -2.0 Severe -2.1 through -2.4 The Z-score is the number of standard deviations above or below age-matched controls. A Z-score of less than -1.5 would be considered abnormal. References: 1. NIH Osteoporosis and Related Bone Diseases www osteo.org 2. International Society for Clinical Densitometry www iscd.org 3. National Osteoporosis Foundation www nof.org Electronically Signed: Vito Loyola MD at 14:39 EDT ,
== END | disposition home or self-care (01) ==
LOC: OPBD 13:03
PROVIDERS: PCP Internal Medicine; Referring Provider Internal Medicine; Visit Provider Internal Medicine
DX: Z78.0 Asymptomatic menopausal state (principal)
CPT/HCPCS: 77080

== ENCOUNTER 2024-04-28 11:16 | Outpatient (CLI) | payer MEDICARE, OTHER, SELFPAY ==
[2024-04-28 11:24] VITALS: BP 129/52; PULSE 70; RESP 16; TEMP 36.1; O2SAT 98
[2024-04-28] MEDS: 0.9% NaCl Peripheral Flush Adult/Peds IV (11:38)
[2024-04-28] MEDS: 0.9% NaCl IVPB Med Flush (250 mL) 15 ML IV (11:43)
[2024-04-28] MEDS: Vedolizumab 300 MG in 0.9% Normal Saline (250mL Bag) 250 ML 500 MG IV (11:44)
[2024-04-28 12:27] VITALS: BP 122/60; PULSE 65; RESP 16
== END 2024-04-28 23:59 | disposition home or self-care (01) ==
LOC: MEDOUTP 11:16
PROVIDERS: PCP Internal Medicine; Referring Provider Student in an Organized Health Care Education/Training Program; Visit Provider Student in an Organized Health Care Education/Training Program
DX: K51.20 Ulcerative (chronic) proctitis without complications (principal)
CPT/HCPCS: 96365; J7050; A4216; J3380

== ENCOUNTER → 2024-04-28 | Outpatient (CLI) | payer MEDICARE, OTHER, SELFPAY | END | disposition home or self-care (01) | PROVIDERS: PCP Internal Medicine; Referring Provider Internal Medicine Pulmonary Disease; Visit Provider Internal Medicine Pulmonary Disease | DX: R05.9 Cough, unspecified (principal); R06.02 Shortness of breath | CPT/HCPCS: 87070; 87205 ==

== ENCOUNTER 2024-06-23 11:16 | Outpatient (CLI) | payer MEDICARE, OTHER, SELFPAY ==
[2024-06-23 11:23] VITALS: BP 126/60; PULSE 78; RESP 16; TEMP 35.9; O2SAT 96; BMI 34.5
[2024-06-23] MEDS: 0.9% NaCl Peripheral Flush Adult/Peds IV (11:27)
[2024-06-23] MEDS: 0.9% Normal Saline (100mL Bag) 100 ML 15 ML IV (11:36)
[2024-06-23] MEDS: Vedolizumab 300 MG in 0.9% Normal Saline (250mL Bag) 250 ML 500 MG IV (11:51)
[2024-06-23 12:36] VITALS: BP 137/64; PULSE 67; RESP 16; TEMP 35.9; O2SAT 97
== END 2024-06-23 23:59 | disposition home or self-care (01) ==
LOC: MEDOUTP 11:17
PROVIDERS: PCP Internal Medicine; Referring Provider Student in an Organized Health Care Education/Training Program; Visit Provider Student in an Organized Health Care Education/Training Program
DX: K51.20 Ulcerative (chronic) proctitis without complications (principal)
CPT/HCPCS: 96365; J7050; A4216; J3380

== ENCOUNTER → 2024-07-19 | Outpatient (CLI) | payer MEDICARE, OTHER, SELFPAY ==
[2024-07-19 15:45] LABS: Potassium 4.2 mmol/L (3.5-5.1)
== END | disposition home or self-care (01) ==
LOC: LABSPEC 15:08
PROVIDERS: PCP Internal Medicine; Referring Provider Internal Medicine; Visit Provider Internal Medicine
DX: E87.5 Hyperkalemia (principal)
CPT/HCPCS: 84132

== ENCOUNTER → 2024-07-27 | Outpatient (CLI) | payer MEDICARE, OTHER, SELFPAY ==
--- NOTE | 2024-07-27 14:24 | US_ITS ---
STUDY: ULTRASOUND BREAST - LEFT REASON FOR EXAM: Female, 79 years old. Palpable lump left breast. TECHNIQUE: Axial and longitudinal images of the LEFT breast were performed with a high resolution ultrasound transducer. # OF IMAGES: 24 COMPARISON: Comparison is made with prior mammogram done earlier in the day. FINDINGS: LEFT Breast: In the retroareolar region of the breast, there is a 5 mm x 4 mm x 3 mm hypoechoic nodule with increased blood flow. Biopsy recommended. A repeat sonogram is recommended to assess for the mammographic findings. US/Breast Limited Unilateral IMPRESSION: 5 mm x 4 mm x 3 mm hypoechoic nodule with increased blood flow in the retroareolar region of the breast. Biopsy recommended. A repeat sonogram is recommended to assess for the mammographic abnormalities. ASSESSMENT CATEGORY: BIRADS Category 4: Suspicious - Biopsy Should Be Considered. A letter regarding these results will be sent to the patient by the facility within 30 days. Electronically Signed: Vito Loyola MD at 8:13 EDT ,
--- NOTE | 2024-07-27 14:30 | BI_ITS ---
MAMMOGRAPHY - BILATERAL DIAGNOSTIC REASON FOR EXAM: Female, 79 years old. One month history of a painful left breast lump. PERTINENT HISTORY: Non-contributory. TECHNIQUE: Digital bilateral breast cony (3D mammographic acquisition) in the CC and MLO projections. 2-D mediolateral oblique (MLO) and craniocaudad (CC) views of both breasts were obtained. CAD: Full Field Digital Mammography with Computer Added Detection was performed. COMPARISON: Comparison is made with prior study dated October 21, 2023 and April 24, 2022. FINDINGS: Breast Composition: The breasts are extremely dense, which lowers the sensitivity of mammography. There is a 1.6 cm x 1.7 cm well-defined nodule in the slightly upper central portion of the left breast. Adjacent to this, there is a 1.7 cm x 1.1 cm well-defined nodule in the left breast. Correlation with ultrasound is recommended. Scattered bilateral secretory calcifications. A tissue clip marker is once again seen in the deep slightly upper lateral aspect of the left breast. No other significant abnormalities are identified. There has been no significant change since the prior study. BI/DIAG MAMM W/CAD, BILAT IMPRESSION: There are 2 adjacent well-defined nodules in the left breast corresponding to the palpable abnormality. Correlation with ultrasound recommended. ASSESSMENT CATEGORY: BIRADS Category 0: Incomplete. Need additional imaging evaluation. A letter regarding these results will be sent to the patient by the facility within 30 days. Approximately 10% of breast cancers are not detected by mammography. A normal mammogram should not delay biopsy of a clinically suspicious abnormality. Electronically Signed: Vito Loyola MD at 8:11 EDT ,
== END | disposition home or self-care (01) ==
LOC: OPBI 14:22
PROVIDERS: PCP Internal Medicine; Referring Provider Internal Medicine; Visit Provider Internal Medicine
DX: N63.20 Unspecified lump in the left breast, unspecified quadrant (principal); N64.4 Mastodynia
CPT/HCPCS: 76642; 77062; 77066; G0279

== ENCOUNTER → 2024-08-11 | Outpatient (CLI) | payer MEDICARE, OTHER, SELFPAY ==
--- NOTE | 2024-08-11 | BRBX_PTH ---
PATIENT: JONATHAN NASH LOC: [facility] U#:[id number] AGE/SX: 79/F ROOM: RE08/11/[address]: Dr. Darshana Miranda MD : 1945 BED: DIS: 08/11/2024 SPEC #: [id number] RECD: 08/11/24 11:37 STATUS: KAYLEE REQ #: [id number] AMINA: 08/11/24 00:[address]: Darshana Miranda DEPT: SURGICAL PATHOLOGY RECD BY: Akira Vaughn ENTERED: 08/11/24 12:48 SP TYPE: BREAST BX OTHR DR: Dr. Kamryn Hansen MD Tissues: Left breast, NOS Procedures: Surgery Specimen Level IV HEADER OPERATION: Left ultrasound guided breast biopsy PRE-OP DIAGNOSIS: Breast biopsy TISSUE SUBMITTED: Left breast retroareolar Ischemic Time: 1 minute Fixation Time: 57 hours MICROSCOPIC DIAGNOSIS Left breast retroareolar, ultrasound guided core biopsy: Fibrocystic changes and intraductal hyperplasia without atypia. Negative for malignancy. See comment. 08/14/2024 COMMENT Correlation clinical, radiologic findings and appropriate follow up are necessary. MICROSCOPIC DESCRIPTION Slides are reviewed. GROSS DESCRIPTION Received in fixative is one container labeled with the patient's name and designated Left breast retroareolar. The specimen consists of multiple irregular fragments of landaverde-yellow fibroadipose tissue that in aggregate measure 1.0 x 1.0 x 0.1 cm. The specimen is totally submitted in one cassette. 08/11/2024 TC:5 CPT:34344
--- NOTE | 2024-08-11 09:59 | US_ITS ---
STUDY: ULTRASOUND-GUIDED RIGHT BREAST BIOPSY. LEFT REASON FOR EXAM: Female, 79 years old. Left breast mass RETROAREOLAR BIOPSY -- LEFT BREAST 3 CYST ASPIRATIONS TECHNIQUE: Sonographic guidance was provided for the surgeon. The surgeon performed biopsy of the 5 mm x 5 mm x 4 mm solid nodule in the retroareolar region of the breast. COMPARISON: Comparison is made with prior mammogram and prior ultrasound dated July 27, 2024. FINDINGS: Ultrasound guided biopsy of a 5 mm x 5 mm x 4 mm solid nodule in the retrohilar region of the breast. IMPRESSION: Ultrasound-guided breast biopsy. Electronically Signed: Vito Loyola MD at 12:15 EDT , PROCEDURE: Ultrasound Guided CLINICAL HISTORY: Female, 79 years old. Left breast mass RETROAREOLAR BIOPSY -- LEFT BREAST 3 CYST ASPIRATIONS CONSENT: Time-Out Called: Yes Consent form signed: YES PT-PTT Levels Checked: Yes SEDATION: TECHNIQUE: FINDINGS: Posterior Enhancement: There is posterior enhancement. Posterior Shadowing: Moderate Margins: The findings appear anechoic. Mass measurement: Color Flow: POST PROCEDURE Device/Needle Used: Number of samples taken: Amount of fluid drained: ml Location: IMPRESSION: Electronically Signed: Vito Loyola MD at 12:16 EDT , PROCEDURE: Ultrasound Guided CLINICAL HISTORY: Female, 79 years old. left breast mass RETROAREOLAR BIOPSY -- LEFT BREAST 3 CYST ASPIRATIONS CONSENT: Time-Out Called: Yes Consent form signed: YES PT-PTT Levels Checked: Yes SEDATION: TECHNIQUE: FINDINGS: Posterior Enhancement: There is posterior enhancement. Posterior Shadowing: Moderate Margins: The findings appear anechoic. Mass measurement: Color Flow: POST PROCEDURE Device/Needle Used: Number of samples taken: Amount of fluid drained: ml Location: IMPRESSION: Electronically Signed: Vito Loyola MD at 12:16 EDT , PROCEDURE: Ultrasound Guided CLINICAL HISTORY: Female, 79 years old. left breast mass RETROAREOLAR BIOPSY -- LEFT BREAST 3 CYST ASPIRATIONS CONSENT: Time-Out Called: Yes Consent form signed: YES PT-PTT Levels Checked: Yes SEDATION: TECHNIQUE: FINDINGS: Posterior Enhancement: There is posterior enhancement. Posterior Shadowing: Moderate Margins: The findings appear anechoic. Mass measurement: Color Flow: POST PROCEDURE Device/Needle Used: Number of samples taken: Amount of fluid drained: ml Location: US/US Breast Biopsy 1st Lesion
--- NOTE | 2024-08-11 10:10 | US_ITS ---
STUDY: ULTRASOUND BREAST - LEFT REASON FOR EXAM: Female, 79 years old. Pain. TECHNIQUE: Axial and longitudinal images of the LEFT breast were performed with a high resolution ultrasound transducer. # OF IMAGES: 50 COMPARISON: Comparison is made with prior mammogram dated July 27, 2024. FINDINGS: LEFT Breast: The central portion of the left breast was examined with ultrasound. There is a 1.6 cm x 1.6 x 1 cm cyst at the 12:00 position of the breast at 2 cm from nipple. There is also evidence of a 1.4 cm x 1.6 x 0.7 cm cyst at the 1:00 position breast at 2 cm from nipple. There is a 5 mm x 5 mm x 4 mm hypoechoic solid nodule in the retroareolar region of the breast. There is also evidence of a 7 mm x 9 mm x 7 mm cyst at the 6:00 position of the breast at 3 cm from the nipple. IMPRESSION: 3 cysts are seen as described. A 5 mm x 5 mm x 4 mm solid nodule is seen in the retroareolar region of the breasts. ASSESSMENT CATEGORY: BIRADS Category 2: Benign. A letter regarding these results will be sent to the patient by the facility within 30 days. Electronically Signed: Vito Loyola MD at 12:26 EDT , STUDY: ULTRASOUND BREAST - RIGHT REASON FOR EXAM: Female, 79 years old. Pain. TECHNIQUE: Axial and longitudinal images of the RIGHT breast were performed with a high resolution ultrasound transducer. # OF IMAGES: 50 COMPARISON: Comparison is made with prior mammogram dated July 27, 2024. FINDINGS: RIGHT Breast: The medial aspect of the right breast was examined with ultrasound. There is evidence of dilated ducts. US/Breast Limited Unilateral IMPRESSION: Dilated ducts. ASSESSMENT CATEGORY: BIRADS Category 2: Benign. A letter regarding these results will be sent to the patient by the facility within 30 days. Electronically Signed: Vito Loyola MD at 12:27 EDT ,
--- NOTE | 2024-08-11 12:10 | OP.PCM_ITS ---
Report of Operation Date of Procedure: 08/11/24 Pre-Operative Diagnosis: Left breast mass, left breast cysts x 3 Post-Operative Diagnosis: Same Surgery/Procedure Performed:: Ultrasound-guided left breast biopsy retroareolar and aspiration of left breast cysts x 3 Surgeon: Darshana Miranda Type of Anesthesia: Local Specimen's removed: 1. Left breast mass retroareolar Estimated Blood Loss (mL): < 5 cc Description of Procedure: Procedure: Left ultrasound-guided core biopsy Indications: 79year-old female with hypoechoic nodule retroareolar in the left breast as well as 3 left breast cysts. Risk benefits were discussed the patient and she elected to proceed with ultrasound guided core biopsy with clip placement Description of procedure: Patient was brought into the ultrasound room in the left breast was marked. A timeout was completed verifying correct patient, procedure, site, specially, prior to beginning procedure. The left breast was prepped and draped in usual sterile fashion and using local anesthesia was obtained with 1% lidocaine with epi. The lesion was located with the ultrasound. Small incision was made with 11 blade to introduced the mammotome through the skin. Under ultrasound guidance multiple core samples were obtained using then 13-gauge mammotome and sent in formalin for pathology. The Bard dual ultra-clip was then deployed into the biopsy cavity under ultrasound guidance and a picture was taken. Upon completion procedure hemostasis was obtained and a Steri-Strip and OpSite were placed. Next each of the cyst were aspirated similarly. Cyst was located with the ultrasound. Local anesthesia of 1% lidocaine was used. 18-gauge or 20-gauge spinal needle was used to aspirate the cyst. 1 at 6:00 3 cm from the nipple and 2 at 12-1 o'clock 2 cm from the nipple?fluid obtained was greenish, straw- colored. This was not sent to pathology. The cysts did almost completely collapsed. Patient was then taken to the mammography suite for clip verification. The clip was verified. The patient tolerated the procedure well and was discharged from the breast imaging department good condition. Complications none
== END | disposition home or self-care (01) ==
PROVIDERS: PCP Internal Medicine; Referring Provider Surgery; Visit Provider Surgery
DX: R92.8 Other abnormal and inconclusive findings on diagnostic imaging of breast (principal); N63.20 Unspecified lump in the left breast, unspecified quadrant; N63.14 Unspecified lump in the right breast, lower inner quadrant; N63.10 Unspecified lump in the right breast, unspecified quadrant
CPT/HCPCS: 19084; 10005; 10006; 19083; 76642; 88305

== ENCOUNTER 2024-08-18 11:25 | Outpatient (CLI) | payer MEDICARE, OTHER, SELFPAY ==
[2024-08-18 11:31] VITALS: BP 141/63; PULSE 73; RESP 16; TEMP 36.5; O2SAT 97; BMI 34.5
[2024-08-18] MEDS: Vedolizumab 300 MG in 0.9% Normal Saline (250mL Bag) 250 ML 500 MG IV (12:23)
[2024-08-18 13:07] VITALS: BP 139/64; PULSE 63; RESP 16
== END 2024-08-18 23:59 | disposition home or self-care (01) ==
LOC: MEDOUTP 11:25
PROVIDERS: PCP Internal Medicine; Referring Provider Student in an Organized Health Care Education/Training Program; Visit Provider Student in an Organized Health Care Education/Training Program
DX: K51.20 Ulcerative (chronic) proctitis without complications (principal)
CPT/HCPCS: 96365; J7050; A4216; J3380

== ENCOUNTER 2024-10-13 11:16 | Outpatient (CLI) | payer MEDICARE, OTHER, SELFPAY ==
[2024-10-13 11:27] VITALS: BP 145/62; PULSE 66; RESP 18; TEMP 36.6; O2SAT 96
[2024-10-13] MEDS: 0.9% NaCl Peripheral Flush Adult/Peds IV (11:35)
[2024-10-13] MEDS: 0.9% NaCl IVPB Med Flush (250 mL) 15 ML IV (11:35)
[2024-10-13] MEDS: Vedolizumab 300 MG in 0.9% Normal Saline (250mL Bag) 250 ML 500 MG IV (11:45)
[2024-10-13 12:28] VITALS: BP 142/64; PULSE 62; RESP 16; TEMP 36.5
== END 2024-10-13 23:59 | disposition home or self-care (01) ==
LOC: MEDOUTP 11:16
PROVIDERS: PCP Internal Medicine; Referring Provider Student in an Organized Health Care Education/Training Program; Visit Provider Student in an Organized Health Care Education/Training Program
DX: K51.20 Ulcerative (chronic) proctitis without complications (principal)
CPT/HCPCS: 96365; J7050; A4216; J3380

== ENCOUNTER 2024-12-08 11:32 | Outpatient (CLI) | payer MEDICARE, OTHER, SELFPAY ==
[2024-12-08 11:51] VITALS: BP 144/57; PULSE 67; RESP 16; TEMP 35.9; BMI 33.6
[2024-12-08] MEDS: 0.9% Normal Saline (100mL Bag) 100 ML 15 ML IV (12:10)
[2024-12-08] MEDS: 0.9% NaCl Peripheral Flush Adult/Peds IV (12:10)
[2024-12-08] MEDS: Vedolizumab 300 MG in 0.9% Normal Saline (250mL Bag) 250 ML 500 MG IV (12:16)
[2024-12-08 12:56] VITALS: BP 131/59; PULSE 59; RESP 16; TEMP 35.8
== END 2024-12-08 23:59 | disposition home or self-care (01) ==
LOC: MEDOUTP 11:33
PROVIDERS: PCP Internal Medicine; Referring Provider Student in an Organized Health Care Education/Training Program; Visit Provider Student in an Organized Health Care Education/Training Program
DX: K51.20 Ulcerative (chronic) proctitis without complications (principal)
CPT/HCPCS: 96365; A4216; J3380

== ENCOUNTER 2025-02-02 10:20 | Outpatient (CLI) | payer MEDICARE, OTHER, SELFPAY ==
[2025-02-02 10:28] VITALS: BP 141/56; PULSE 66; RESP 16; TEMP 36.2; O2SAT 95
[2025-02-02] MEDS: 0.9% NaCl Peripheral Flush Adult IV (10:33)
[2025-02-02] MEDS: 0.9% Normal Saline (100mL Bag) 100 ML 15 ML IV (10:33)
[2025-02-02] MEDS: Vedolizumab 300 MG in 0.9% Normal Saline (250mL Bag) 250 ML 500 MG IV (10:57)
[2025-02-02 11:34] VITALS: BP 145/63; PULSE 61; RESP 16; TEMP 36.7; O2SAT 96
== END 2025-02-02 23:59 | disposition home or self-care (01) ==
LOC: MEDOUTP 10:21
PROVIDERS: PCP Internal Medicine; Referring Provider Student in an Organized Health Care Education/Training Program; Visit Provider Student in an Organized Health Care Education/Training Program
DX: K51.911 Ulcerative colitis, unspecified with rectal bleeding (principal)
CPT/HCPCS: 96365; A4216; J3380

== ENCOUNTER → 2025-02-22 | Outpatient (CLI) | payer MEDICARE, OTHER, SELFPAY ==
--- NOTE | 2025-02-22 12:43 | ECHOD_ITS ---
Reason For Study Reason For Study: DYSPNEA Procedure This was a 2D Doppler, Color Flow transthoracic echocardiogram. Exam performed in department. Left Ventricle Normal LV size. Left ventricular systolic function is normal. The left ventricular ejection fraction is 70 %. Stage 1 diastolic dysfunction. No regional wall motion abnormalities noted. Right Ventricle Normal RV size. Normal systolic function. Atria Normal left atrium. Normal right atrium. Mitral Valve There is mild to moderate mitral annular calcification. Mild (1+) eccentric mitral valve insufficiency. Tricuspid Valve Normal tricuspid valve. Mild (1+) tricuspid valve insufficiency. Pulmonary artery systolic pressure is 36 mmHg. Aortic Valve Trisinus/trileaflet aortic valve. Mild focal aortic valve calcification. Peak aortic valve gradient 19 mmHg. Mean aortic valve gradient 12 mmHg. Pulmonic Valve Normal pulmonic valve. Great Vessels Normal aortic root. The pulmonary artery is normal size. Inferior vena cava collapse with respiration. Pericardium/Pleural No pericardial effusion. MMode/2D Measurements & Calculations LVIDd: 5.2 cm IVSd: 1.1 cm LVOT diam: 2.0 cm LVIDs: 3.2 cm LVPWd: 1.1 cm LVOT area: 3.1 cm2 RVDd: 3.2 cm FS: 39.1 % Ao root diam: 3.5 cm LAV(MOD-bp): 61.0 ml LVAd ap4: 23.5 cm2 LAV(MOD-bp) Indexed: 32.2 ml/m2 LVLd ap4: 6.6 cm LAV(MOD-sp2): 54.5 ml EDV(MOD-sp4): 69.8 ml LAV(MOD-sp4): 58.5 ml EDV(sp4-el): 70.6 ml LVAs ap4: 10.7 cm2 LVLs ap4: 5.1 cm ESV(MOD-sp4): 20.6 ml ESV(sp4-el): 19.2 ml EF(MOD-sp4): 70.5 % EF(sp4-el): 72.8 % LVAd ap2: 24.0 cm2 SV(MOD-sp4): 49.2 ml SV(MOD-sp2): 51.7 ml LVLd ap2: 7.0 cm SI(MOD-sp4): 26.0 ml/m2 SI(MOD-sp2): 27.3 ml/m2 EDV(MOD-sp2): 69.3 ml EDV(sp2-el): 69.6 ml LVAs ap2: 9.8 cm2 LVLs ap2: 5.0 cm ESV(MOD-sp2): 17.7 ml ESV(sp2-el): 16.4 ml EF(MOD-sp2): 74.5 % SV(sp4-el): 51.4 ml LA dimension(2D): 3.9 cm LA A4 area: 19.2 cm2 RA A4 area: 15.7 cm2 TAPSE: 1.9 cm Time Measurements MV dec time: 0.18 sec Doppler Measurements & Calculations MV E max harlan: 75.3 cm/sec Lat Peak E' Harlan: 6.7 cm/sec Med Peak E' Harlan: 10.1 cm/sec MV A max harlan: 96.5 cm/sec E/E' lat: 11.3 E/E' med: 7.5 MV E/A: 0.78 MV V2 max: 118.6 cm/sec MV P1/2t max harlan: 81.9 cm/sec Ao V2 max: 223.4 cm/sec MV max P.6 mmHg MV P1/2t: 50.4 msec Ao max P.4 mmHg MV V2 mean: 53.5 cm/sec Ao V2 mean: 163.1 cm/sec MV mean P.4 mmHg MV dec slope: 475.4 cm/sec2 Ao mean P.7 mmHg MV V2 VTI: 26.0 cm MVA(P1/2t): 4.4 cm2 Ao V2 VTI: 53.9 cm AV (velocity ratio): 0.48 MVA(VTI): 3.1 cm2 KRISTINA(I,D): 1.5 cm2 KRISTINA(V,D): 1.5 cm2 LV V1 max: 103.9 cm/sec SV(LVOT): 80.8 ml PA V2 max: 109.0 cm/sec LV V1 max P.3 mmHg PA V2 mean: 75.0 cm/sec LV V1 mean P.6 mmHg LV V1 mean: 77.2 cm/sec LV V1 VTI: 25.7 cm TR max harlan: 288.2 cm/sec TR max P.2 mmHg ECHO/Echo Complete Interpretation Summary Normal LV size. Left ventricular systolic function is normal. The left ventricular ejection fraction is 70 %. Stage 1 diastolic dysfunction. Pulmonary artery systolic pressure is 36 mmHg. Ordering Physician: Shari Rodriguez Referring Physician: Kamryn Hansen; Bar Malhotra Performed By: Pretty De Santiago RDCS, RVT
== END | disposition home or self-care (01) ==
LOC: CVS 12:43
PROVIDERS: PCP Internal Medicine; Referring Provider Physician Assistant Medical; Visit Provider Physician Assistant Medical
DX: R06.09 Other forms of dyspnea (principal)
CPT/HCPCS: 93306

== ENCOUNTER 2025-04-06 10:27 | Outpatient (CLI) | payer MEDICARE, OTHER, SELFPAY ==
[2025-04-06 10:53] VITALS: BP 152/80; PULSE 77; RESP 16; TEMP 36.2; O2SAT 95
[2025-04-06] MEDS: 0.9% NaCl IVPB Med Flush (100mL) 15 ML IV (11:02)
[2025-04-06] MEDS: 0.9% NaCl Peripheral Flush Adult IV (11:02)
[2025-04-06] MEDS: Vedolizumab 300 MG in 0.9% Normal Saline (250mL Bag) 250 ML 500 MG IV (11:14)
[2025-04-06 11:59] VITALS: BP 125/57; PULSE 68; RESP 16; TEMP 35.6; O2SAT 97
== END 2025-04-06 23:59 | disposition home or self-care (01) ==
LOC: MEDOUTP 10:28
PROVIDERS: PCP Internal Medicine; Referring Provider Student in an Organized Health Care Education/Training Program; Visit Provider Student in an Organized Health Care Education/Training Program
DX: K51.20 Ulcerative (chronic) proctitis without complications (principal)
CPT/HCPCS: 96365; A4216; J3380

== ENCOUNTER → 2025-04-09 | Outpatient (CLI) | payer MEDICARE, OTHER, SELFPAY ==
--- NOTE | 2025-04-09 12:00 | RAD_ITS ---
PROCEDURE: CHEST PA AND LATERAL 04/09/2025 REASON FOR EXAM: COUGH TECHNIQUE: Frontal and lateral views of the chest. COMPARISON: 05/17/2023 FINDINGS: Band of left retrocardiac lower lobe opacity may represent atelectasis or scar and has a similar appearance 2022. The lungs are otherwise clear. Pulmonary vascularity appears within limits. No pleural effusion. The cardiac and mediastinal contours appear within limits. Aortic atherosclerotic changes. Visualized osseous structures appear within limits. RAD/Chest PA and Lateral IMPRESSION: Band of left retrocardiac lower lobe opacity may represent atelectasis or scar and has a similar appearance 2022. The lungs are otherwise clear. Pulmonary vascularity appears within limits. No pleural effus ion. Reading Location: [id number]
== END | disposition home or self-care (01) ==
LOC: RAD 11:49
PROVIDERS: PCP Internal Medicine; Referring Provider Internal Medicine Pulmonary Disease; Visit Provider Internal Medicine Pulmonary Disease
DX: R06.00 Dyspnea, unspecified (principal); R05.9 Cough, unspecified
CPT/HCPCS: 71046

== ENCOUNTER → 2025-04-23 | Outpatient (CLI) | payer MEDICARE, OTHER, SELFPAY ==
[2025-04-23 18:01] LABS: Absolute Lymphocyte Count 3.27 X10^3/uL (0.83-4.51); Absolute Neutrophil Count 5.6 X10^3/uL (2.0-7.7); Basophil# 0.13 X10^3/uL; Basophil% 1.2 % (0-1); Eosinophil# 0.48 X10^3/uL; Eosinophils% 4.5 % (0-5); Hematocrit 37.4 % (37-47); Hemoglobin 12.3 g/dL (12.0-15.0); Lymphocyte # 3.27 X10^3/ul (0.83-4.51); Lymphocyte % 30.4 % (19-41); Mean Corp Hgb Conc 32.9 g/dL (32-36); Mean Corpuscular Hgb 32.5 pg (27.0-32.0); Mean Corpuscular Volume 98.9 fL (81-99); Mean Platelet Vol. 9.1 fl (6.2-12.0); Monocyte# 0.97 X10^3/uL; NRBC Flagged by Analyzer 0 % (0-5); Neutrophil # 5.61 X10^3/uL (2.7-7.7); Neutrophil % 52.1 % (47-70); Platelet Count 360 K/mm3 (150-450); RBC Distribution Width CV 12.7 % (11.6-14.6); RBC Distribution Width SD 45.7 fl (35.1-43.9); Red Blood Count 3.78 M/mm3 (4.2-5.4); White Blood Count 10.8 K/mm3 (4.4-11.0)
== END | disposition home or self-care (01) ==
LOC: MTLAB 16:28
PROVIDERS: PCP Internal Medicine; Referring Provider Internal Medicine Pulmonary Disease; Visit Provider Internal Medicine Pulmonary Disease
DX: J45.30 Mild persistent asthma, uncomplicated (principal)
CPT/HCPCS: 36415; 85025

== ENCOUNTER 2025-06-01 10:29 | Outpatient (CLI) | payer MEDICARE, OTHER, SELFPAY ==
[2025-06-01 11:03] VITALS: BP 157/69; PULSE 85; RESP 16; TEMP 35.7; O2SAT 95; BMI 34.5
[2025-06-01] MEDS: Vedolizumab 300 MG in 0.9% Normal Saline (250mL Bag) 250 ML 500 MG IV (11:13)
[2025-06-01 11:52] VITALS: BP 142/65; PULSE 61; RESP 16; TEMP 36
== END 2025-06-01 23:59 | disposition home or self-care (01) ==
LOC: MEDOUTP 10:31
PROVIDERS: PCP Internal Medicine; Referring Provider Student in an Organized Health Care Education/Training Program; Visit Provider Student in an Organized Health Care Education/Training Program
DX: K51.019 Ulcerative (chronic) pancolitis with unspecified complications (principal)
CPT/HCPCS: 96365; A4216; J3380

== ENCOUNTER 2025-07-27 10:37 | Outpatient (CLI) | payer MEDICARE, OTHER, SELFPAY ==
[2025-07-27 10:53] VITALS: BP 143/62; PULSE 70; RESP 16; TEMP 36.4; O2SAT 97; BMI 33.6
[2025-07-27] MEDS: Vedolizumab 300 MG in 0.9% Normal Saline (250mL Bag) 250 ML 500 MG IV (11:27)
[2025-07-27 12:09] VITALS: BP 128/59; PULSE 65
== END 2025-07-27 23:59 | disposition home or self-care (01) ==
LOC: MEDOUTP 10:37
PROVIDERS: PCP Internal Medicine; Referring Provider Student in an Organized Health Care Education/Training Program; Visit Provider Student in an Organized Health Care Education/Training Program
DX: K51.019 Ulcerative (chronic) pancolitis with unspecified complications (principal)
CPT/HCPCS: 96365; A4216; J3380

== ENCOUNTER 2025-09-21 10:27 | Outpatient (CLI) | payer MEDICARE, OTHER, SELFPAY ==
[2025-09-21 10:53] VITALS: BP 131/63; PULSE 82; RESP 16; TEMP 36.2; O2SAT 95; BMI 33.6
[2025-09-21] MEDS: Vedolizumab 300 MG in 0.9% Normal Saline (250mL Bag) 250 ML 500 MG IV (11:04)
[2025-09-21 11:43] VITALS: BP 126/58; PULSE 73; RESP 16; TEMP 36.4; O2SAT 95
== END 2025-09-21 23:59 | disposition home or self-care (01) ==
LOC: MEDOUTP 10:28
PROVIDERS: PCP Internal Medicine; Referring Provider Student in an Organized Health Care Education/Training Program; Visit Provider Student in an Organized Health Care Education/Training Program
DX: K51.019 Ulcerative (chronic) pancolitis with unspecified complications (principal)
CPT/HCPCS: 96365; A4216; J3380

== ENCOUNTER → 2025-09-28 | Outpatient (CLI) | payer MEDICARE, OTHER, SELFPAY ==
[2025-09-28 12:10] LABS: Color, Urine Yellow (Yellow); Glucose, Dipstick Normal (Normal); Hematocrit 38.3 % (37-47); Hemoglobin 12.5 g/dL (12.0-15.0); Immature Granulocytes Count 0.510 X10^3/uL (0.0-0.0); Ketone-Dipstick Negative (Negative); Leukocyte Esterase-Dipstick 100 /ul (Negative); Mean Corp Hgb Conc 32.6 g/dL (32-36); Mean Corpuscular Volume 98.7 fL (81-99); Mean Platelet Vol. 9.0 fl (6.2-12.0); NRBC Flagged by Analyzer 0 % (0-5); Nitrite-Dipstick Negative (Negative); Occult Blood-Urine Negative /ul (Negative); Platelet Count 435 K/mm3 (150-450); Protein-Dipstick 30 mg/dl (Negative); RBC Distribution Width CV 13.3 % (11.6-14.6); RBC Distribution Width SD 48.0 fl (35.1-43.9); Red Blood Count 3.88 M/mm3 (4.2-5.4); Specific Gravity, Urine 1.015 (1.002-1.030); Urine Bilirubin Dipstick Negative (Negative); White Blood Count 17.5 K/mm3 (4.4-11.0)
[2025-09-28 13:12] LABS: Creatinine, Urine (random) 186.00 mg/dL (28.00-217.00); Microalbumin,Random Urine 110.0 mg/L (<20 mg/L)
[2025-09-28 13:14] LABS: AST(SGOT) 22 U/L (<=31); Alanine Aminotransfer ALT/SGPT 14 U/L (<=34); Albumin, Serum 3.9 g/dL (3.4-4.8); Alkaline Phosphatase 97 U/L (35-104); Anion Gap 9 (5-15); BUN 32 mg/dL (4-19); BUN/Creat Ratio 27.2 RATIO (10-20); Calcium,Total 9.9 mg/dL (7.6-11.0); Carbon Dioxide 21.7 mmol/L (21.0-32.0); Chloride 104 mmol/L (98-108); Globulin 3.3 g/dL (2.2-4.2); Glucose 66 mg/dL (70-99); Potassium 5.0 mmol/L (3.3-5.1)
== END | disposition home or self-care (01) ==
PROVIDERS: PCP Internal Medicine; Referring Provider Internal Medicine; Visit Provider Internal Medicine
DX: E11.29 Type 2 diabetes mellitus with other diabetic kidney complication (principal)
CPT/HCPCS: 80053; 81002; 82043; 82570; 85025

== ENCOUNTER → 2025-10-08 | Outpatient (CLI) | payer MEDICARE, OTHER, SELFPAY ==
--- NOTE | 2025-10-08 13:50 | RAD_ITS ---
PROCEDURE: CHEST PA AND LATERAL 10/08/2025 REASON FOR EXAM: COUGH TECHNIQUE: Procedure Code: RADCXR Modality: DX Procedure: CHEST PA AND LATERAL COMPARISON: 04/09/25 FINDINGS: No focal consolidation. Bibasilar subsegmental atelectasis. no pleural effusion or pneumothorax. Cardiac silhouette is within normal limits. No acute fractures. RAD/Chest PA and Lateral IMPRESSION: No focal consolidation. Bibasilar subsegmental atelectasis. Reading Location: [id number]
== END | disposition home or self-care (01) ==
LOC: LAB 13:28
PROVIDERS: PCP Internal Medicine; Referring Provider Internal Medicine Pulmonary Disease; Visit Provider Internal Medicine Pulmonary Disease
DX: J45.50 Severe persistent asthma, uncomplicated (principal); R05.9 Cough, unspecified
CPT/HCPCS: 71046; 87070; 87205

== ENCOUNTER → 2025-11-08 | Outpatient (CLI) | payer MEDICARE, OTHER, SELFPAY ==
--- NOTE | 2025-11-08 13:54 | US_ITS ---
PROCEDURE: BREAST LIMITED UNILATERAL 11/08/2025 REASON FOR EXAM: F, Age 80 y/o , NODULE Left breast lump/pain. COMPARISON: Prior mammogram done earlier in the day.. TECHNIQUE: Procedure Code: USBRSTLIMIT Modality: US Procedure: BREAST LIMITED UNILATERAL. The lateral aspect of the left breast was examined with ultrasound. FINDINGS: There is a 1.1 cm 1.4 cm 0.8 cm heterogeneous hypoechoic slightly ill-defined density at the 3 o'clock position of the breast at 5 cm from the nipple. Biopsy recommended. US/Breast Limited Unilateral IMPRESSION: The palpable lump corresponds to a 1.1 cm 1.4 cm 0.8 cm hypoechoic irregular no dule at the 3 o'clock position of the breast at 5 cm from the nipple. Biopsy recommended. BI-RADS 4: SUSPICIOUS RECOMMENDATION: Biopsy Recommended Reading Location: [facility]
--- NOTE | 2025-11-08 14:00 | BI_ITS ---
EXAM: DIAG MAMM W/CAD, BILAT 11/08/2025 CLINICAL HISTORY: F, Age 80 y/o , BREAST NODULE.. Palpable lump in the central lateral aspect of the left breast. TECHNIQUE: Procedure Code: [id number] Modality: MG Procedure: DIAG MAMM W/CAD, BILAT. COMPARISON: Prior exam(s) dated October 21, 2023.. FINDINGS: TISSUE DENSITY: The breasts are heterogeneously dense, which may obscure small masses. Bilateral Breast Mammographic Findings: There is a 2.5 cm by 2.2 cm well-defined nodule corresponds with the palpable abnormality in the central lateral aspect of the left breast. Targeted sonographic correlation recommended. Stable bilateral scattered calcifications. BI/DIAG MAMM W/CAD, BILAT IMPRESSION: The palpable abnormality corresponds to a 2.5 cm 2.2 cm well-defined nodule in the central lateral aspect of the left breast. Sonographic correlation recommended. OVERALL FINAL ASSESSMENT BI-RADS 0: INCOMPLETE - NEED ADDITIONAL IMAGING EVALUATION. RECOMMENDATION: Ultrasound Recommended Additional Recommendation none A letter with findings and recommendations will be mailed to the patient. Reading Location: [id number]
== END | disposition home or self-care (01) ==
LOC: OPBI 13:51
PROVIDERS: PCP Internal Medicine; Referring Provider Internal Medicine; Visit Provider Internal Medicine
DX: R92.8 Other abnormal and inconclusive findings on diagnostic imaging of breast (principal); N63.0 Unspecified lump in unspecified breast
CPT/HCPCS: 76642; 77062; 77066; G0279

== ENCOUNTER 2025-11-19 11:16 | Outpatient (CLI) | payer MEDICARE, OTHER, SELFPAY ==
[2025-11-19 11:21] VITALS: BP 159/75; PULSE 100; RESP 16; TEMP 36.3; O2SAT 97; BMI 33.6
[2025-11-19] MEDS: Vedolizumab 300 MG in 0.9% Normal Saline (250mL Bag) 250 ML 500 MG IV (11:58)
[2025-11-19 12:37] VITALS: BP 146/68; PULSE 84; RESP 16; TEMP 36.6; O2SAT 98
== END 2025-11-19 23:59 | disposition home or self-care (01) ==
LOC: MEDOUTP 11:16
PROVIDERS: PCP Internal Medicine; Referring Provider Student in an Organized Health Care Education/Training Program; Visit Provider Student in an Organized Health Care Education/Training Program
DX: K51.019 Ulcerative (chronic) pancolitis with unspecified complications (principal)
CPT/HCPCS: 96365; A4216; J3380